=== PATIENT | female | born 1945 | race Caucasian/White ===

== ENCOUNTER 2023-10-03 18:52 | Inpatient (IN) | payer MEDICARE, SELFPAY ==
[2023-10-03 19:15] VITALS: BP 159/67; PULSE 80; RESP 16; TEMP 36.2; O2SAT 97
[2023-10-03 19:41] VITALS: BMI 34.6
[2023-10-03 20:00] VITALS: RESP 16
[2023-10-03 20:34] LABS: Glucose, Whole Blood 186 mg/dL (60-115)
[2023-10-04] MEDS: HYDROcodone Bit/Acetam 5/325 TABLET 1 TAB PO ×2 (00:13→20:47)
[2023-10-04] MEDS: Valsartan 160 MG TABLET PO ×2 (00:14→08:53)
[2023-10-04] MEDS: diazePAM 5 MG TABLET PO (00:14)
--- NOTE | 2023-10-04 00:40 | PC.ADMIT ---
( arrived 191410-03-23) pt is a 78 year old female who is a hospital to hospital transfer. she has signed CV document that has been accepted by ED md barlow. pt is pleasant and talkative. she states that she lives in an apartment and has services coming in to assist her. in recent times she has had difficulty with her landlord. pt states that she has been paranoid and isolative to her apartment. her sensorium is intact. she is noted to use a walker with a seat and breaks. she states that her legs are weak and if we give her one of our hospital walkers she will fall flat on her face. pt is edentulous and has a degree of alopecia. with the assistance of ky hdz pt is undressed and skin surfaces inspected. skin surfaces intact. no contraband found. resp effort is regular unlabored. pt states that she has asthma and uses an inhaler occasionally. vital signs stable. pt is mildly HTN. she is on several scheduled antihypertensive medications. abdomen is obese soft. pt states bm today. pt has no restrictions on her diet. she takes pills whole with water. in the remote past, pt had left nephrectomy. pt states that recently she was tx for a UTI. she states that she is still experiencing burning/frequency and pain. administrative officers Will Buddy and Claritza notified that pts walker has breaking cables. however, any attempt to replace walker with a hospital walker is a safety issue. please note pt states she is IDDM. she is unsure what the name of the insulin is or what dose she takes. also pt states that she was discharged 2 weeks ago the [facility] hospital [place]. pt states she spent 19 days at [facility].
--- NOTE | 2023-10-04 01:03 | PC.ADMIT ---
arrived 191410-03-23) pt is a 78 year old female who is a hospital to hospital transfer. she has signed CV document that has been accepted by ED md barlow. pt is pleasant and talkative. she states that she lives in an apartment and has services coming in to assist her. in recent times she has had difficulty with her landlord. pt states that she has been paranoid and isolative to her apartment. her sensorium is intact. she is noted to use a walker with a seat and breaks. she states that her legs are weak and if we give her one of our hospital walkers she will fall flat on her face. pt is edentulous and has a degree of alopecia. with the assistance of ky hdz pt is undressed and skin surfaces inspected. skin surfaces intact. no contraband found. resp effort is regular unlabored. pt states that she has asthma and uses an inhaler occasionally. vital signs stable. pt is mildly HTN. she is on several scheduled antihypertensive medications. abdomen is obese soft. pt states bm today. pt has no restrictions on her diet. she takes pills whole with water. in the remote past, pt had left nephrectomy. pt states that recently she was tx for a UTI. she states that she is still experiencing burning/frequency and pain. administrative officers Will Buddy and Claritza notified that pts walker has breaking cables. however, any attempt to replace walker with a hospital walker is a safety issue. please note pt states she is IDDM. she is unsure what the name of the insulin is or what dose she takes. also pt states that she was discharged 2 weeks ago the [facility] hospital [place]. pt states she spent 19 days at [facility].
[2023-10-04 01:08] VITALS: BMI 34.7
[2023-10-04 08:18] LABS: Alanine Aminotransferase 37 U/L (0-31); Albumin Level 3.5 g/dL (3.5-5.0); Alkaline Phosphatase 63 U/L (39-117); Anion Gap 10 (12-20); Aspartate Amino Transferase 35 U/L (5-31); Bilirubin Total 0.6 mg/dL (0.0-1.0); Blood Urea Nitrogen 22 mg/dL (9-16); Calcium 9.5 mg/dL (8.4-10.2); Carbon Dioxide 27 mmol/L (22-29); Chloride 109 mmol/L (96-108); Cholesterol 199 mg/dL (<200); Creatinine Clr Calc Pharmacy 59.3; Estimated Glomerular Filt Rate > 60; Glucose Fasting 124 mg/dL (60-99); HDL Cholesterol 36 mg/dL (>40); LDL Cholesterol Calculated 136 mg/dL (<100); Potassium 4.3 mmol/L (3.3-5.1); Sodium 142 mmol/L (135-145); Triglycerides 135 mg/dL (<150)
[2023-10-04 08:51] VITALS: BP 124/61; PULSE 70; RESP 16; TEMP 36.2; O2SAT 98
[2023-10-04] MEDS: amLODIPine Besylate 5 MG TABLET PO (08:53)
[2023-10-04] MEDS: Cholecalciferol (Vitamin D3) 25 MCG TABLET 50 MCG PO (08:53)
--- NOTE | 2023-10-04 11:15 | HO.PM.IMCN ---
History of Present Illness Data of Consult Service Date: 10/04/23 Primary Care Provider: Anjelica Allen DO HPI Reason for consult: Admission H&P Pt is a 78-year-old female with a PMH significant for?HTN, asthma, insulin-dependent type 2 diabetes, and unspecified psychiatric diagnosis who is admitted to [facility] for paranoia and psychosis. Patient was placed on a section 12 by Emily after they were called to her apartment 4 times during the night. Patient reportedly believed that her landlord had been stealing money from her and hired a professional hit man who cut a hole in the wall of her closet in her bedroom to gain access to her apartment. Was noted to have nailed the door to her apartment shut. BPH also reported finding patient's insulin having been left out in the sun on the counter for 4 days. Medical consult for admission H&P. ?Patient complains of chronic wrist and arm pain that she attributes to carpal tunnel syndrome. Also complains of dry and cracked lips and gums which apparently can only be treated by ?Moist Mouth which she has received at a previous facility. Otherwise denies any acute medical complaints. No shortness a breath. Denies fever, chills, nausea, vomiting, abdominal pain. No chest pain/pressure, palpitations. Labs reviewed, significant for mildly elevated AST of 35 and ALT 37, protein 6.0, LDL 136, and HDL 36. Review of Systems Review of Systems: Chronic upper extremity neuropathy bilaterally Chronic dry and cracked mouth Otherwise patient denies any acute medical concerns [facility] Medical History (Updated 10/04/23 @ 20:10 by SANTOS Coughlin) GERD (gastroesophageal reflux disease) Asthma Hypertension Alopecia Active asthma Surgical History (Updated 10/04/23 @ 16:25 by Miracle Hoffman APRN) H/O left nephrectomy Social History Household Members: Other Household Members Other:: puppy dog Housing: Apartment Do you presently have visiting nurse or other home services: Yes Patient Tobacco Use Status: Former Tobacco user Tobacco use type: Cigarette Smoked in Last 30 Days: No e-Cigarette/Vaping Use: Former Use Patient Interested in Nicotine Replacement: No Patient Given Instructions on How to Stop Smoking: No Second Hand Smoke Exposure: No Use of substances other than those prescribed or required for medical reasons: No Substance Use Type: Prescription Drugs Currently Displaying Signs/Symptoms of Drug Intoxication Withdrawal: No Any prior treatment program specific to substance use: No Have you been hit, kicked, punched, or otherwise hurt by someone within the past year? If so, by whom?: No Do you feel safe in your current relationship?: No Current Relationship Is there a partner from a previous relationship who is making you feel unsafe now?: No Are you made to feel afraid or neglected: No Advance Directives: No Advance Directives Information Provided: No Do you have thoughts of harming others: None Do you have a plan to hurt others: No Plan Recently lost weight without trying: No Eating poorly because of decreased appetite: No Nutrition Risks: Dental problems and Difficulty chewing Patient : No : No Poor oral hygiene: No Meds Allergies Allergy/AdvReac Type Severity Reaction Status Date / Time No Known Allergies Allergy Verified 10/03/23 19:47 Active Medications: Current Medications Acetaminophen (Acetaminophen 325 Mg Tablet) 650 mg PO Q6H PRN PRN Reason: Headache/Pain Mild Scale (1-3) Hydrocodone Bitart/Acetaminophen (Hydrocodone Bit/Acetam 5/325 Tablet) 1 tab PO BID PRN PRN Reason: Pain, Severe (Pain Scale 7-10) Last Admin: 10/04/23 00:13 Dose: 1 tab Al Hydroxide/Mg Hydroxide (Magnesium Hydrox/Alum Hydrox 30 Ml Oral.Susp) 30 ml PO Q6H PRN PRN Reason: Heartburn/Nausea Albuterol Sulfate (Albuterol Sulfate 90 Mcg 8 Gm Inhaler) 2 puff INHALE RQ4H PRN PRN Reason: sob Amlodipine Besylate (Amlodipine Besylate 5 Mg Tablet) 5 mg PO DAILY VIVEK; Protocol Last Admin: 10/04/23 08:53 Dose: 5 mg Clotrimazole (Clotrimazole 1 % Vaginal Cream 45 Gm Tube) 1 appl VAGINAL BID VIVEK Stop: 10/06/23 21:01 Last Admin: 10/04/23 10:06 Dose: Not Given Diazepam (Diazepam 5 Mg Tablet) 5 mg PO TID PRN PRN Reason: Anxiety Last Admin: 10/04/23 00:14 Dose: 5 mg Hydroxyzine HCl (Hydroxyzine Hcl 25 Mg Tablet) 25 mg PO Q6H PRN PRN Reason: Anxiety Magnesium Hydroxide (Milk Of Magnesia 30 Ml Oral.Susp) 30 ml PO DAILY PRN PRN Reason: Constipation Trazodone HCl (Trazodone Hcl 50 Mg Tablet) 50 mg PO BEDTIME MRX1 PRN PRN Reason: Insomnia Valsartan (Valsartan 160 Mg Tablet) 160 mg PO DAILY VIVEK; Protocol Last Admin: 10/04/23 08:53 Dose: 160 mg Vitamin D (Cholecalciferol (Vitamin D3) 25 Mcg Tablet) 50 mcg PO DAILY [facility] Last Admin: 10/04/23 08:53 Dose: 50 mcg Home Medications ?Medication ?Instructions ?Recorded ?Confirmed ?Last Taken ?Type albuterol sulfate 2.5 mg continuous nebulization 10/03/23 10/03/23 Unknown History Q4-5H PRN sob amlodipine 5 mg tablet 5 mg PO DAILY 10/03/23 10/03/23 Unknown History cholecalciferol (vitamin D3) 5,000 tab PO DAILY 10/03/23 10/03/23 Unknown History clotrimazole 1 % topical cream 1 appl topical BID 10/03/23 10/03/23 Unknown History diazepam 5 mg tablet 5 mg PO TID PRN Anxiety 10/03/23 10/03/23 Unknown History hydrocodone 10 mg-acetaminophen 1 tab PO BID PRN Pain 10/03/23 10/03/23 Unknown History 325 mg tablet valsartan 160 mg tablet 160 mg PO DAILY 10/03/23 10/03/23 Unknown History Physical Exam Vital Signs and Narrative: Vital Signs: Last Vital Signs Temp 97.1 F 10/04/23 08:51 Pulse 70 10/04/23 08:51 Resp 16 10/04/23 08:51 BP 124/61 10/04/23 08:51 Pulse Ox 98 10/04/23 08:51 O2 Del Method Room Air 10/04/23 08:51 BMI result Body Mass Index 34.7 General: AOx3, no acute distress Mouth: Mucous membranes moist Resp: CTA bilaterally CVS: S1, S2, RRR GI: +BS, NT, no distention Skin: Warm, dry Neuro: Cranial nerves II-XII grossly intact bilaterally. Motor grossly intact bilaterally, though global weakness noted Extremities: No edema Results Labs 10/04/23 17:31 10/04/23 07:44 Labs: Laboratory Results - last 24 hr 10/03/23 10/04/23 20:13 07:44 Anion Gap 10 L Estim Creat Clear Calc 59.3 Estimated GFR > 60 POC Glucose 186 H Fasting Glucose 124 H Calcium 9.5 Total Bilirubin 0.6 AST 35 H ALT 37 H Alkaline Phosphatase 63 Total Protein 6.0 L Albumin 3.5 Triglycerides 135 Cholesterol 199 LDL Cholesterol, Calc 136 H HDL Cholesterol 36 L Assessment and Plan (1) Medical clearance for psychiatric admission: Status: Acute Plan Pt is a 78-year-old female with a PMH significant for?HTN, asthma, insulin-dependent type 2 diabetes, and unspecified psychiatric diagnosis who is admitted to [facility] for paranoia and psychosis. Patient was placed on a section 12 by VELMA Diaz after they were called to her apartment 4 times during the night. Patient reportedly believed that her landlord had been stealing money from her and hired a professional hit man who cut a hole in the wall of her closet in her bedroom to gain access to her apartment. Was noted to have nailed the door to her apartment shut. BPH also reported finding patient's insulin having been left out in the sun on the counter for 4 days. Medical consult for admission H&P. Mood disorder Plan as per Psychiatry Upper extremity neuropathy Patient complains of chronic wrist and hand pain radiating to her shoulders bilaterally Reports will soon have nerve conduction study Follow up outpatient Dry lips and gums Patient complains of having dry, cracked lips and gums States can only used ?moist mouth? that she received at a different facility Patient's mucous membranes noted to be moist upon physical examination Lip balm for dry lips Encourage p.o. hydration Insulin-dependent type 2 diabetes Patient apparently has recently been noncompliant with home insulin BPH noted patient's insulin was not refrigerated but sitting out on the counter in the sun for 4 days Patient previously on short-acting and long-acting insulin POC glucose 186 last night, fasting glucose [address] patient on sliding scale insulin Check A1c HTN Continue amlodipine, valsartan Asthma Not in acute exacerbation Continue home inhaler Thank you for allowing us to participate in the care of this patient. We will continue to follow for now to monitor A1c and see if need to add any long acting insulin.
--- NOTE | 2023-10-04 11:26 | HO.PSYADMNOT ---
HPI Chief Complaint: section 12 Diagnostics Vital Signs (24Hr): Vital Signs - 24 hr 10/03/23 19:15 10/03/23 20:00 10/04/23 08:51 Temperature 97.2 F 97.1 F Pulse Rate 80 70 Respiratory Rate 16 16 16 Blood Pressure 159/67 H 124/61 Pulse Oximetry 97 98 Oxygen Delivery Method Room Air Room Air BMI result Body Mass Index 34.7 Labs 10/04/23 07:44 Labs: Laboratory Results - last 48 hr 10/03/23 10/04/23 20:13 07:44 Sodium 142 Potassium 4.3 Chloride 109 H Carbon Dioxide 27 Anion Gap 10 L BUN 22 H Creatinine 0.82 Estim Creat Clear Calc 59.3 Estimated GFR > 60 POC Glucose 186 H Fasting Glucose 124 H Calcium 9.5 Total Bilirubin 0.6 AST 35 H ALT 37 H Alkaline Phosphatase 63 Total Protein 6.0 L Albumin 3.5 Triglycerides 135 Cholesterol 199 LDL Cholesterol, Calc 136 H HDL Cholesterol 36 L Meds/Allergies Meds Home Medications ?Medication ?Instructions ?Recorded ?Confirmed ?Type albuterol sulfate 2.5 mg continuous nebulization 10/03/23 10/03/23 History Q4-5H PRN sob amlodipine 5 mg tablet 5 mg PO DAILY 10/03/23 10/03/23 History cholecalciferol (vitamin D3) 5,000 tab PO DAILY 10/03/23 10/03/23 History clotrimazole 1 % topical cream 1 appl topical BID 10/03/23 10/03/23 History diazepam 5 mg tablet 5 mg PO TID PRN Anxiety 10/03/23 10/03/23 History hydrocodone 10 mg-acetaminophen 1 tab PO BID PRN Pain 10/03/23 10/03/23 History 325 mg tablet valsartan 160 mg tablet 160 mg PO DAILY 10/03/23 10/03/23 History Allergies Allergies Allergy/AdvReac Type Severity Reaction Status Date / Time No Known Allergies Allergy Verified 10/03/23 19:47 Assessment & Plan Statement Statement: I have reviewed the history and physical and performed a pertinent examination on my patient. No changes have occurred unless specified. If the History and Physical was not performed prior to admission, the Hospitalist's service will be consulted for completing the admission physical. Time Spent With Patient Time: Total time managing care of this patient today ____ minutes.
--- NOTE | 2023-10-04 11:42 | P.HPPS_ITS ---
HPI Date of Service: 10/04/23 Chief Complaint: section 12 Sources of Information: patient interviewed, chart reviewed and crisis/core team assessment reviewed HPI Subjective Notes: Chambers Warning and Conditional Voluntary Healthcare Proxy: No Narrative: Pt amitted from [facility] ED where she was sectioned 12 due to repeatedly calling the police from her apartment and presenting paranoid and confused; pt tells me that she has a friend at the police department that was concerned about her because she went to a motel for 3 days to get away from her landlord whom she believes is stealing from her and has a hitman hired to kill her. She reports that she was at [facility] recently (approximately a week before this admission per pt) and she was there fro 19 days. in pt persepctvie they did nothing for her. She says that [facility] has done more for her. they have gotten her a social owrker, a therpaist and a nurse bt she does not know the name of any of them. Pt does know that her PCP is Dr Allen. Pt is oriented to person and situation but not to date, time or exact facility. Pt has word finding difficult and delayed recall but then with time finds the word she wants to use. Pt tells me that she has had therapists in past because she had agoraphobia for 20 years and did not go out of her home from approximately age [age]. She says the therapist helped her slowly to go out of her home. And over the past few years she has enjoyed taking the [employer] to stores and walking as much as she can; she says she has enjoyed making friends with mariaa on the bus and in the stores wheres she frequents. Pt is tearful and feel that the person who sent her to the [facility] is trying to get her to stay in her home again like she did with agoraphobia and she becomes very tearful. Pt also tells me her last year. she denies depression and does not think she is having paranoid thoughts or irrational thoughts; she beleives her landlord stole 3K from her. She says she has a 3# dog thats she would like cynthia her therapy dog so that she can take her with her on outings. she says [facility] is trying to find her a new place to live. Past Psychiatric History: crisis report states she was in [facility] September 2023 no other details known; pt reports agoraphobia in past Medical Evaluation Reviewed: Yes utox + benzodiazepines and opiates and on rx valium and oxycodone PMFSH Medical History (Updated 10/04/23 @ 16:25 by Miracle Hoffman APRN) Alopecia Active asthma Narrative: pt reports HTN past hx of diabetes Surgical History (Updated 10/04/23 @ 16:25 by Miracle Hoffman APRN) H/O left nephrectomy Family History: x 1 yr. had 7 children 2 are . 1 child lives nearby but is disabled; the other children live in different states. Social History: lives alone Substance History: none Trauma History: none known Diagnostics Vital Signs (24Hr): Vital Signs - 24 hr 10/03/23 19:15 10/03/23 20:00 10/04/23 08:51 Temperature 97.2 F 97.1 F Pulse Rate 80 70 Respiratory Rate 16 16 16 Blood Pressure 159/67 H 124/61 Pulse Oximetry 97 98 Oxygen Delivery Method Room Air Room Air BMI result Body Mass Index 34.7 Labs 10/04/23 07:44 Labs: Laboratory Results - last 48 hr 10/03/23 10/04/23 20:13 07:44 Sodium 142 Potassium 4.3 Chloride 109 H Carbon Dioxide 27 Anion Gap 10 L BUN 22 H Creatinine 0.82 Estim Creat Clear Calc 59.3 Estimated GFR > 60 POC Glucose 186 H Fasting Glucose 124 H Calcium 9.5 Total Bilirubin 0.6 AST 35 H ALT 37 H Alkaline Phosphatase 63 Total Protein 6.0 L Albumin 3.5 Triglycerides 135 Cholesterol 199 LDL Cholesterol, Calc 136 H HDL Cholesterol 36 L Meds/Allergies Meds Home Medications ?Medication ?Instructions ?Recorded ?Confirmed ?Type albuterol sulfate 2.5 mg continuous nebulization 10/03/23 10/03/23 History Q4-5H PRN sob amlodipine 5 mg tablet 5 mg PO DAILY 10/03/23 10/03/23 History cholecalciferol (vitamin D3) 5,000 tab PO DAILY 10/03/23 10/03/23 History clotrimazole 1 % topical cream 1 appl topical BID 10/03/23 10/03/23 History diazepam 5 mg tablet 5 mg PO TID PRN Anxiety 10/03/23 10/03/23 History hydrocodone 10 mg-acetaminophen 1 tab PO BID PRN Pain 10/03/23 10/03/23 History 325 mg tablet valsartan 160 mg tablet 160 mg PO DAILY 10/03/23 10/03/23 History Allergies Allergies Allergy/AdvReac Type Severity Reaction Status Date / Time No Known Allergies Allergy Verified 10/03/23 19:47 Mental Status Exam Mental Status Exam Patient Appearance: Appropriate Patient Orientation: Person and Situation Level of Consciousness: Awake, Appropriate and Alert Patient Behavior: Appropriate, Cooperative and Crying Mood Description: Sad Affect Description: Anxious, Sad and Apprehensive Patient Cognition Impaired: Yes Ability to Follow Directions: Fair Speech Pattern: Difficulty Finding Words and Delayed Memory Description: Episodic Impaired Delusions: Paranoid Ideation Thought Process: Goal Oriented (focused on discharge ) Thought Content: positive for Goal Oriented (focused on discharge) Judgement: Poor Assessment & Plan Assessment & Plan (1) Major depressive disorder, single episode, severe w psychotic behavior: Status: Acute Code(s): F32.3 - Major depressive disorder, single episode, severe with psychotic features (2) Cognitive and behavioral changes: Status: Acute Code(s): R41.89 - Other symptoms and signs involving cognitive functions and awareness; R46.89 - Other symptoms and signs involving appearance and behavior Plan admit to S1 CV 15 min checks POC BID hospitalist consult re: diabetes labs: CBC, B12 level, vit d level, tsh with reflex [id number] level, mg collect collateral info [facility] and [facility] pt refusing medications at this time encourage antipsychotic and antidepressant continue to educated re dx Patient educated on: diagnosis, medication risk/benefits and therapeutic strategies Informed Consent: does not understand and further education needed Reason for continued inpatient stay Substantial Risk for: harm to self and inability to function Statement Statement: I have reviewed the history and physical and performed a pertinent examination on my patient. No changes have occurred unless specified. If the History and Physical was not performed prior to admission, the Hospitalist's service will be consulted for completing the admission physical. Time Spent With Patient Time: Total time managing care of this patient today _60___ minutes.
[2023-10-04 17:36] LABS: MANUAL DIFF FLAG NO
[2023-10-04 17:51] LABS: Basophils Percent Auto 0.4 % (0-2); Eosinophils Absolute Auto 0.1 X10*3/uL (0.0-0.4); Eosinophils Percent Auto 1.1 % (0-4); Hematocrit 46.1 % (37.0-47.0); Hemoglobin 15.2 g/dl (12.0-16.0); Imm Gran Abs Auto 0.08 X10*3/uL (0.00-0.03); Imm Gran Pct Auto 1.1 % (0.0-0.4); Lymphocytes Absolute Auto 1.6 X10*3/uL (1.2-4.9); Lymphocytes Percent Auto 22.8 % (20-40); Mean Corpuscular Hemoglobin 29.6 pg (27.0-33.0); Mean Corpuscular Volume 89.7 fL (80.0-98.0); Mean Platelet Volume 9.8 fL (9.4-12.3); Monocytes Absolute Auto 0.5 X10*3/uL (0.1-1.2); Neutrophils Absolute Auto 4.8 x10*3/uL (2.0-8.3); Neutrophils Percent Auto 67.6 % (45-73); Platelet Count 236 X10*3/uL (160-400); Red Blood Count 5.14 X10*6/uL (4.20-5.50); Red Cell Distribution Width 12.9 % (11.0-16.0); White Blood Count 7.1 X10*3/uL (4.8-10.8)
[2023-10-04 20:00] VITALS: BP 137/61; PULSE 75; RESP 16; TEMP 35.8; O2SAT 95
[2023-10-04] MEDS: Clotrimazole 1 % Vaginal Cream 45 GM TUBE 1 APPL VAGINAL (20:18)
[2023-10-04 21:20] LABS: Glucose, Whole Blood 168 mg/dL (60-115)
[2023-10-05 05:16] LABS: Estimated Average Glucose 131 mg/dL; Hemoglobin A1c % 6.2 % (<6.0)
[2023-10-05 07:00] LABS: Glucose, Whole Blood 133 mg/dL (60-115)
[2023-10-05 09:15] VITALS: BP 134/60; PULSE 84; RESP 16; TEMP 35.7; O2SAT 97
[2023-10-05 09:20] VITALS: BP 134/60
[2023-10-05] MEDS: amLODIPine Besylate 5 MG TABLET PO (09:20)
[2023-10-05 09:21] VITALS: BP 134/60
[2023-10-05] MEDS: Valsartan 160 MG TABLET PO (09:21)
[2023-10-05] MEDS: Cholecalciferol (Vitamin D3) 25 MCG TABLET 50 MCG PO (09:22)
[2023-10-05] MEDS: Clotrimazole 1 % Vaginal Cream 45 GM TUBE 1 APPL VAGINAL ×2 (09:23→23:29)
[2023-10-05] MEDS: HYDROcodone Bit/Acetam 5/325 TABLET 1 TAB PO ×2 (10:04→21:05)
[2023-10-05 10:53] LABS: Glucose, Whole Blood 166 mg/dL (60-115)
--- NOTE | 2023-10-05 13:40 | P.PNPSI_ITS ---
Subjective Subjective Date of Service: 10/05/23 Reason For Visit: section 12 Interim History: somatically pre-occupied. c/o not getting her diabetes shot. also reports people are coming in her room at night while she is sleeping and injecting her. per staff, delusional. taking meds. Mental Status Exam Mental Status Exam Patient Appearance: Appropriate Patient Orientation: Person and Situation Level of Consciousness: Awake, Appropriate and Alert Patient Behavior: Appropriate and Cooperative Mood Description: Sad Affect Description: Anxious and Sad Patient Cognition Impaired: Yes Ability to Follow Directions: Fair Speech Pattern: Difficulty Finding Words and Delayed Memory Description: Episodic Impaired Delusions: Paranoid Ideation Thought Process: Goal Oriented (focused on discharge ) Thought Content: positive for Goal Oriented (focused on discharge) Judgement: Poor Diagnostics Vital Signs (24Hr): Vital Signs - 24 hr 10/04/23 20:00 10/05/23 09:15 10/05/23 09:20 Temperature 96.4 F L 96.3 F L Pulse Rate 75 84 Respiratory Rate 16 16 Blood Pressure 137/61 134/60 134/60 Pulse Oximetry 95 97 Oxygen Delivery Method Room Air Room Air 10/05/23 09:21 Temperature Pulse Rate Respiratory Rate Blood Pressure 134/60 Pulse Oximetry Oxygen Delivery Method BMI result Body Mass Index 34.7 Labs 10/04/23 17:31 10/04/23 07:44 Labs: Laboratory Results - last 48 hr 10/03/23 10/04/23 10/04/23 20:13 07:44 17:31 WBC 7.1 RBC 5.14 Hgb 15.2 Hct 46.1 MCV 89.7 MCH 29.6 MCHC 33.0 RDW 12.9 Plt Count 236 MPV 9.8 Immature Gran % (Auto) 1.1 H Neut % (Auto) 67.6 Lymph % (Auto) 22.8 [place] % (Auto) 7.0 Eos % (Auto) 1.1 Baso % (Auto) 0.4 Lymph # (Auto) 1.6 [place] # (Auto) 0.5 Eos # (Auto) 0.1 Baso # (Auto) 0.0 Abs Immat Gran (auto) 0.08 H Absolute Neuts (auto) 4.8 Absolute Nucleated RBC 0.000 Nucleated RBC % (auto) 0.0 Sodium 142 Potassium 4.3 Chloride 109 H Carbon Dioxide 27 Anion Gap 10 L BUN 22 H Creatinine 0.82 Estim Creat Clear Calc 59.3 Estimated GFR > 60 POC Glucose 186 H Fasting Glucose 124 H Estimat Average Glucose 131 Hemoglobin A1c % 6.2 H Calcium 9.5 Total Bilirubin 0.6 AST 35 H ALT 37 H Alkaline Phosphatase 63 Total Protein 6.0 L Albumin 3.5 Triglycerides 135 Cholesterol 199 LDL Cholesterol, Calc 136 H HDL Cholesterol 36 L 10/04/23 10/05/23 10/05/23 21:11 06:30 10:49 WBC RBC Hgb Hct MCV MCH MCHC RDW Plt Count MPV Immature Gran % (Auto) Neut % (Auto) Lymph % (Auto) [place] % (Auto) Eos % (Auto) Baso % (Auto) Lymph # (Auto) [place] # (Auto) Eos # (Auto) Baso # (Auto) Abs Immat Gran (auto) Absolute Neuts (auto) Absolute Nucleated RBC Nucleated RBC % (auto) Sodium Potassium Chloride Carbon Dioxide Anion Gap BUN Creatinine Estim Creat Clear Calc Estimated GFR POC Glucose 168 H 133 H 166 H Fasting Glucose Estimat Average Glucose Hemoglobin A1c % Calcium Total Bilirubin AST ALT Alkaline Phosphatase Total Protein Albumin Triglycerides Cholesterol LDL Cholesterol, Calc HDL Cholesterol Medications Medications Current Medications Acetaminophen (Acetaminophen 325 Mg Tablet) 650 mg PO Q6H PRN PRN Reason: Headache/Pain (1-10) Hydrocodone Bitart/Acetaminophen (Hydrocodone Bit/Acetam 5/325 Tablet) 1 tab PO BID PRN PRN Reason: Pain, Severe (Pain Scale 7-10) Last Admin: 10/05/23 10:04 Dose: 1 tab Al Hydroxide/Mg Hydroxide (Magnesium Hydrox/Alum Hydrox 30 Ml Oral.Susp) 30 ml PO Q6H PRN PRN Reason: Heartburn/Nausea Albuterol Sulfate (Albuterol Sulfate 90 Mcg 8 Gm Inhaler) 2 puff INHALE RQ4H PRN PRN Reason: sob Amlodipine Besylate (Amlodipine Besylate 5 Mg Tablet) 5 mg PO DAILY VIVEK; Protocol Last Admin: 10/05/23 09:20 Dose: 5 mg Clotrimazole (Clotrimazole 1 % Vaginal Cream 45 Gm Tube) 1 appl VAGINAL BID VIVEK Stop: 10/06/23 21:01 Last Admin: 10/05/23 09:23 Dose: 1 appl Diazepam (Diazepam 5 Mg Tablet) 5 mg PO TID PRN PRN Reason: Anxiety Last Admin: 10/04/23 00:14 Dose: 5 mg Hydroxyzine HCl (Hydroxyzine Hcl 25 Mg Tablet) 25 mg PO Q6H PRN PRN Reason: Anxiety Magnesium Hydroxide (Milk Of Magnesia 30 Ml Oral.Susp) 30 ml PO DAILY PRN PRN Reason: Constipation Trazodone HCl (Trazodone Hcl 50 Mg Tablet) 50 mg PO BEDTIME MRX1 PRN PRN Reason: Insomnia Valsartan (Valsartan 160 Mg Tablet) 160 mg PO DAILY VIVEK; Protocol Last Admin: 10/05/23 09:21 Dose: 160 mg Vitamin D (Cholecalciferol (Vitamin D3) 25 Mcg Tablet) 50 mcg PO DAILY VIVEK Last Admin: 10/05/23 09:22 Dose: 50 mcg Allergies Allergies Allergy/AdvReac Type Severity Reaction Status Date / Time No Known Allergies Allergy Verified 10/03/23 19:47 Assessment & Plan Assessment & Plan (1) Medical clearance for psychiatric admission: Status: Acute Code(s): Z00.8 - Encounter for other general examination Assessment and Plan: Mood disorder Plan as per Psychiatry Upper extremity neuropathy Patient complains of chronic wrist and hand pain radiating to her shoulders bilaterally Reports will soon have nerve conduction study Follow up outpatient Dry lips and gums Patient complains of having dry, cracked lips and gums States can only used ?moist mouth? that she received at a different facility Patient's mucous membranes noted to be moist upon physical examination Lip balm for dry lips Encourage p.o. hydration Insulin-dependent type 2 diabetes Patient apparently has recently been noncompliant with home insulin BPH noted patient's insulin was not refrigerated but sitting out on the counter in the sun for 4 days Patient previously on short-acting and long-acting insulin POC glucose 186 last night, fasting glucose [address] patient on sliding scale insulin Check A1c HTN Continue amlodipine, valsartan Asthma Not in acute exacerbation Continue home inhaler Thank you for allowing us to participate in the care of this patient. We will continue to follow for now to monitor A1c and see if need to add any long acting insulin. Plan Pt is a 78-year-old female with a PMH significant for?HTN, asthma, insulin- dependent type 2 diabetes, and unspecified psychiatric diagnosis who is admitted to [facility] for paranoia and psychosis. Patient was placed on a section 12 by VELMA Diaz after they were called to her apartment 4 times during the night. Patient reportedly believed that her landlord had been stealing money from her and hired a professional hit man who cut a hole in the wall of her closet in her bedroom to gain access to her apartment. Was noted to have nailed the door to her apartment shut. BPH also reported finding patient's insulin having been left out in the sun on the counter for 4 days. Medical consult for admission H&P. 10/03: POC BID. hospitalist consult re: diabetes. labs: CBC, B12 level, vit d level, tsh with reflex [id number] level, mg . collect collateral info from [facility] and [facility]. pt refusing medications at this time. encourage antipsychotic and antidepressant. continue to educated re dx. 10/04: start risperidone 0.5 mg BID. no change from admission yesterday. Reason for continued inpatient stay Substantial Risk for: inability to function Time Spent With Patient Time: Total time managing care of this patient today __25__ minutes.
[2023-10-05] MEDS: diazePAM 5 MG TABLET PO ×2 (15:05→21:05)
[2023-10-05 20:00] VITALS: BP 122/59; PULSE 76; RESP 16; TEMP 35.8; O2SAT 98
[2023-10-05 21:05] LABS: Glucose, Whole Blood 146 mg/dL (60-115)
[2023-10-05] MEDS: risperiDONE 0.5 MG TABLET PO (21:05)
[2023-10-06 06:54] LABS: Glucose, Whole Blood 120 mg/dL (60-115)
[2023-10-06 08:00] VITALS: BP 120/59; PULSE 84; RESP 17; TEMP 36.1; O2SAT 96
[2023-10-06] MEDS: Cholecalciferol (Vitamin D3) 25 MCG TABLET 50 MCG PO (08:45)
[2023-10-06] MEDS: amLODIPine Besylate 5 MG TABLET PO (08:46)
[2023-10-06] MEDS: risperiDONE 0.5 MG TABLET PO ×2 (08:46→19:42)
[2023-10-06] MEDS: Valsartan 160 MG TABLET PO (08:46)
[2023-10-06] MEDS: Clotrimazole 1 % Vaginal Cream 45 GM TUBE 1 APPL VAGINAL ×2 (08:48→19:42)
[2023-10-06] MEDS: HYDROcodone Bit/Acetam 5/325 TABLET 1 TAB PO ×2 (09:18→19:42)
--- NOTE | 2023-10-06 10:33 | HO.PSYCHPN ---
Subjective Subjective Date of Service: 10/06/23 Reason For Visit: section 12 Interim History: calm, cooperative. c/o abd discomfort, declines any medications. no other requests or complaints. continue current mgmt. per staff, enies SI/HI/AVH. taking meds. PRN vicodin. no issues. Mental Status Exam Mental Status Exam Patient Appearance: Appropriate Patient Orientation: Person and Situation Level of Consciousness: Awake, Appropriate and Alert Patient Behavior: Appropriate and Cooperative Mood Description: Sad Affect Description: Anxious and Sad Patient Cognition Impaired: Yes Ability to Follow Directions: Fair Speech Pattern: Difficulty Finding Words and Delayed Memory Description: Episodic Impaired Delusions: Paranoid Ideation Thought Process: Goal Oriented (focused on discharge ) Thought Content: positive for Goal Oriented (focused on discharge) Judgement: Poor Diagnostics Vital Signs (24Hr): Vital Signs - 24 hr 10/05/23 20:00 10/06/23 08:00 Temperature 96.4 F L 96.9 F Pulse Rate 76 84 Respiratory Rate 16 17 Blood Pressure 122/59 L 120/59 L Pulse Oximetry 98 96 Oxygen Delivery Method Room Air Room Air BMI result Body Mass Index 34.7 Labs 10/04/23 17:31 10/04/23 07:44 Labs: Laboratory Results - last 48 hr 10/04/23 10/04/23 10/05/23 17:31 21:11 06:30 WBC 7.1 RBC 5.14 Hgb 15.2 Hct 46.1 MCV 89.7 MCH 29.6 MCHC 33.0 RDW 12.9 Plt Count 236 MPV 9.8 Immature Gran % (Auto) 1.1 H Neut % (Auto) 67.6 Lymph % (Auto) 22.8 [place] % (Auto) 7.0 Eos % (Auto) 1.1 Baso % (Auto) 0.4 Lymph # (Auto) 1.6 [place] # (Auto) 0.5 Eos # (Auto) 0.1 Baso # (Auto) 0.0 Abs Immat Gran (auto) 0.08 H Absolute Neuts (auto) 4.8 Absolute Nucleated RBC 0.000 Nucleated RBC % (auto) 0.0 POC Glucose 168 H 133 H Estimat Average Glucose 131 Hemoglobin A1c % 6.2 H 10/05/23 10/05/23 10/06/23 10:49 19:51 06:31 WBC RBC Hgb Hct MCV MCH MCHC RDW Plt Count MPV Immature Gran % (Auto) Neut % (Auto) Lymph % (Auto) [place] % (Auto) Eos % (Auto) Baso % (Auto) Lymph # (Auto) [place] # (Auto) Eos # (Auto) Baso # (Auto) Abs Immat Gran (auto) Absolute Neuts (auto) Absolute Nucleated RBC Nucleated RBC % (auto) POC Glucose 166 H 146 H 120 H Estimat Average Glucose Hemoglobin A1c % Medications Medications Current Medications Acetaminophen (Acetaminophen 325 Mg Tablet) 650 mg PO Q6H PRN PRN Reason: Headache/Pain (1-10) Hydrocodone Bitart/Acetaminophen (Hydrocodone Bit/Acetam 5/325 Tablet) 1 tab PO BID PRN PRN Reason: Pain, Severe (Pain Scale 7-10) Last Admin: 10/06/23 09:18 Dose: 1 tab Al Hydroxide/Mg Hydroxide (Magnesium Hydrox/Alum Hydrox 30 Ml Oral.Susp) 30 ml PO Q6H PRN PRN Reason: Heartburn/Nausea Albuterol Sulfate (Albuterol Sulfate 90 Mcg 8 Gm Inhaler) 2 puff INHALE RQ4H PRN PRN Reason: sob Amlodipine Besylate (Amlodipine Besylate 5 Mg Tablet) 5 mg PO DAILY [facility]; Protocol Last Admin: 10/06/23 08:46 Dose: 5 mg Clotrimazole (Clotrimazole 1 % Vaginal Cream 45 Gm Tube) 1 appl VAGINAL BID [facility]1983 Stop: 10/06/23 21:01 Last Admin: 10/06/23 08:48 Dose: 1 appl Diazepam (Diazepam 5 Mg Tablet) 5 mg PO TID PRN PRN Reason: Anxiety Last Admin: 10/05/23 21:05 Dose: 5 mg Hydroxyzine HCl (Hydroxyzine Hcl 25 Mg Tablet) 25 mg PO Q6H PRN PRN Reason: Anxiety Magnesium Hydroxide (Milk Of Magnesia 30 Ml Oral.Susp) 30 ml PO DAILY PRN PRN Reason: Constipation Risperidone (Risperidone 0.5 Mg Tablet) 0.5 mg PO BID [facility] Last Admin: 10/06/23 08:46 Dose: 0.5 mg Trazodone HCl (Trazodone Hcl 50 Mg Tablet) 50 mg PO BEDTIME MRX1 PRN PRN Reason: Insomnia Valsartan (Valsartan 160 Mg Tablet) 160 mg PO DAILY [facility], [facility]; Protocol Last Admin: 10/06/23 08:46 Dose: 160 mg Vitamin D (Cholecalciferol (Vitamin D3) 25 Mcg Tablet) 50 mcg PO DAILY VIVEK Last Admin: 10/06/23 08:45 Dose: 50 mcg Allergies Allergies Allergy/AdvReac Type Severity Reaction Status Date / Time No Known Allergies Allergy Verified 10/03/23 19:47 Assessment & Plan Assessment & Plan (1) Medical clearance for psychiatric admission: Status: Acute Code(s): Z00.8 - Encounter for other general examination Assessment and Plan: Mood disorder Plan as per Psychiatry Upper extremity neuropathy Patient complains of chronic wrist and hand pain radiating to her shoulders bilaterally Reports will soon have nerve conduction study Follow up outpatient Dry lips and gums Patient complains of having dry, cracked lips and gums States can only used ?moist mouth? that she received at a different facility Patient's mucous membranes noted to be moist upon physical examination Lip balm for dry lips Encourage p.o. hydration Insulin-dependent type 2 diabetes Patient apparently has recently been noncompliant with home insulin BPH noted patient's insulin was not refrigerated but sitting out on the counter in the sun for 4 days Patient previously on short-acting and long-acting insulin POC glucose 186 last night, fasting glucose [address] patient on sliding scale insulin Check A1c HTN Continue amlodipine, valsartan Asthma Not in acute exacerbation Continue home inhaler Thank you for allowing us to participate in the care of this patient. We will continue to follow for now to monitor A1c and see if need to add any long acting insulin. (2) Major depressive disorder, single episode, severe w psychotic behavior: Status: Acute Code(s): F32.3 - Major depressive disorder, single episode, severe with psychotic features (3) Cognitive and behavioral changes: Status: Acute Code(s): R41.89 - Other symptoms and signs involving cognitive functions and awareness; R46.89 - Other symptoms and signs involving appearance and behavior Plan Pt is a 78-year-old female with a PMH significant for?HTN, asthma, insulin-dependent type 2 diabetes, and unspecified psychiatric diagnosis who is admitted to [facility] for paranoia and psychosis. Patient was placed on a section 12 by Emily after they were called to her apartment 4 times during the night. Patient reportedly believed that her landlord had been stealing money from her and hired a professional hit man who cut a hole in the wall of her closet in her bedroom to gain access to her apartment. Was noted to have nailed the door to her apartment shut. BPH also reported finding patient's insulin having been left out in the sun on the counter for 4 days. Medical consult for admission H&P. 10/03: POC BID. hospitalist consult re: diabetes. labs: CBC, B12 level, vit d level, tsh with reflex [id number] level, mg . collect collateral info from [facility] and [facility]. pt refusing medications at this time. encourage antipsychotic and antidepressant. continue to educated re dx. 10/04: start risperidone 0.5 mg BID. no change from admission yesterday. 10/05: no issues, taking meds, pleasant. continue current mgmt. Reason for continued inpatient stay Substantial Risk for: harm to others and inability to function Time Spent With Patient Time: Total time managing care of this patient today ____ minutes.
[2023-10-06] MEDS: diazePAM 5 MG TABLET PO (19:43)
[2023-10-06 20:00] VITALS: BP 157/68; PULSE 86; RESP 16; TEMP 36.2; O2SAT 100
[2023-10-06 20:59] LABS: Glucose, Whole Blood 156 mg/dL (60-115)
[2023-10-07 06:43] LABS: Glucose, Whole Blood 156 mg/dL (60-115)
[2023-10-07 08:00] VITALS: BP 142/67; PULSE 94; RESP 17; TEMP 36.1; O2SAT 97
[2023-10-07] MEDS: amLODIPine Besylate 5 MG TABLET PO (08:24)
[2023-10-07] MEDS: Cholecalciferol (Vitamin D3) 25 MCG TABLET 50 MCG PO (08:24)
[2023-10-07] MEDS: Valsartan 160 MG TABLET PO (08:25)
[2023-10-07] MEDS: HYDROcodone Bit/Acetam 5/325 TABLET 1 TAB PO ×2 (08:28→20:59)
--- NOTE | 2023-10-07 10:39 | HO.PSYCHPN ---
Subjective Subjective Date of Service: 10/07/23 Reason For Visit: section 12 Interim History: paranoid. doesn't want to talk to MD about her concerns on unit bcse she believes it's wired. agreeable to have anotehr 2 days' worth of clotrimazole, although will not acknowledge having missed any doses. per staff, slept well. refused risperidone this morning saying she does not like how it makes her feel. Mental Status Exam Mental Status Exam Patient Appearance: Appropriate Patient Orientation: Person and Situation Level of Consciousness: Awake, Appropriate and Alert Patient Behavior: Appropriate and Cooperative Affect Description: Anxious Patient Cognition Impaired: Yes Ability to Follow Directions: Fair Speech Pattern: Difficulty Finding Words and Delayed Memory Description: Episodic Impaired Delusions: Paranoid Ideation Thought Process: Goal Oriented (focused on discharge ) Thought Content: positive for Goal Oriented (focused on discharge) Judgement: Poor Diagnostics Vital Signs (24Hr): Vital Signs - 24 hr 10/06/23 20:00 10/07/23 08:00 Temperature 97.2 F 96.9 F Pulse Rate 86 94 Respiratory Rate 16 17 Blood Pressure 157/68 H 142/67 H Pulse Oximetry 100 97 Oxygen Delivery Method Room Air Room Air BMI result Body Mass Index 34.7 Labs 10/04/23 17:31 10/04/23 07:44 Labs: Laboratory Results - last 48 hr 10/05/23 10/05/23 10/06/23 10:49 19:51 06:31 POC Glucose 166 H 146 H 120 H 10/06/23 10/07/23 20:41 05:57 POC Glucose 156 H 156 H Medications Medications Current Medications Acetaminophen (Acetaminophen 325 Mg Tablet) 650 mg PO Q6H PRN PRN Reason: Headache/Pain (1-10) Hydrocodone Bitart/Acetaminophen (Hydrocodone Bit/Acetam 5/325 Tablet) 1 tab PO BID PRN PRN Reason: Pain, Severe (Pain Scale 7-10) Last Admin: 10/07/23 08:28 Dose: 1 tab Al Hydroxide/Mg Hydroxide (Magnesium Hydrox/Alum Hydrox 30 Ml Oral.Susp) 30 ml PO Q6H PRN PRN Reason: Heartburn/Nausea Albuterol Sulfate (Albuterol Sulfate 90 Mcg 8 Gm Inhaler) 2 puff INHALE RQ4H PRN PRN Reason: sob Amlodipine Besylate (Amlodipine Besylate 5 Mg Tablet) 5 mg PO DAILY VIVEK; Protocol Last Admin: 10/07/23 08:24 Dose: 5 mg Diazepam (Diazepam 5 Mg Tablet) 5 mg PO TID PRN PRN Reason: Anxiety Last Admin: 10/06/23 19:43 Dose: 5 mg Hydroxyzine HCl (Hydroxyzine Hcl 25 Mg Tablet) 25 mg PO Q6H PRN PRN Reason: Anxiety Magnesium Hydroxide (Milk Of Magnesia 30 Ml Oral.Susp) 30 ml PO DAILY PRN PRN Reason: Constipation Risperidone (Risperidone 0.5 Mg Tablet) 0.5 mg PO BID [facility] Last Admin: 10/07/23 08:32 Dose: Not Given Trazodone HCl (Trazodone Hcl 50 Mg Tablet) 50 mg PO BEDTIME MRX1 PRN PRN Reason: Insomnia Valsartan (Valsartan 160 Mg Tablet) 160 mg PO DAILY [facility]; Protocol Last Admin: 10/07/23 08:25 Dose: 160 mg Vitamin D (Cholecalciferol (Vitamin D3) 25 Mcg Tablet) 50 mcg PO DAILY [facility] Last Admin: 10/07/23 08:24 Dose: 50 mcg Allergies Allergies Allergy/AdvReac Type Severity Reaction Status Date / Time No Known Allergies Allergy Verified 10/03/23 19:47 Assessment & Plan Assessment & Plan (1) Medical clearance for psychiatric admission: Status: Acute Code(s): Z00.8 - Encounter for other general examination Assessment and Plan: Mood disorder Plan as per Psychiatry Upper extremity neuropathy Patient complains of chronic wrist and hand pain radiating to her shoulders bilaterally Reports will soon have nerve conduction study Follow up outpatient Dry lips and gums Patient complains of having dry, cracked lips and gums States can only used ?moist mouth? that she received at a different facility Patient's mucous membranes noted to be moist upon physical examination Lip balm for dry lips Encourage p.o. hydration Insulin-dependent type 2 diabetes Patient apparently has recently been noncompliant with home insulin BPH noted patient's insulin was not refrigerated but sitting out on the counter in the sun for 4 days Patient previously on short-acting and long-acting insulin POC glucose 186 last night, fasting glucose [address] patient on sliding scale insulin Check A1c HTN Continue amlodipine, valsartan Asthma Not in acute exacerbation Continue home inhaler Thank you for allowing us to participate in the care of this patient. We will continue to follow for now to monitor A1c and see if need to add any long acting insulin. (2) Major depressive disorder, single episode, severe w psychotic behavior: Status: Acute Code(s): F32.3 - Major depressive disorder, single episode, severe with psychotic features (3) Cognitive and behavioral changes: Status: Acute Code(s): R41.89 - Other symptoms and signs involving cognitive functions and awareness; R46.89 - Other symptoms and signs involving appearance and behavior Plan Pt is a 78-year-old female with a PMH significant for?HTN, asthma, insulin-dependent type 2 diabetes, and unspecified psychiatric diagnosis who is admitted to [facility] for paranoia and psychosis. Patient was placed on a section 12 by VELMA Diaz after they were called to her apartment 4 times during the night. Patient reportedly believed that her landlord had been stealing money from her and hired a professional hit man who cut a hole in the wall of her closet in her bedroom to gain access to her apartment. Was noted to have nailed the door to her apartment shut. BPH also reported finding patient's insulin having been left out in the sun on the counter for 4 days. Medical consult for admission H&P. 10/03: POC BID. hospitalist consult re: diabetes. labs: CBC, B12 level, vit d level, tsh with reflex [id number] level, mg . collect collateral info from [facility] and [facility]. pt refusing medications at this time. encourage antipsychotic and antidepressant. continue to educated re dx. 10/04: start risperidone 0.5 mg BID. no change from admission yesterday. 10/05: no issues, taking meds, pleasant. continue current mgmt. 10/06: refused risperidone this morning saying she does not like how it makes her feel. remains with paranoid delusions. extend clotrimazole course by 2 days as pt has reportedly missed 2 applications. Reason for continued inpatient stay Substantial Risk for: harm to self, harm to others and inability to function Time Spent With Patient Time: Total time managing care of this patient today ____ minutes.
[2023-10-07 11:16] LABS: Glucose, Whole Blood 191 mg/dL (60-115)
[2023-10-07 20:00] VITALS: BP 130/66; PULSE 97; RESP 16; TEMP 36; O2SAT 97
[2023-10-07] MEDS: diazePAM 5 MG TABLET PO (20:59)
[2023-10-07] MEDS: Clotrimazole 1 % Vaginal Cream 45 GM TUBE 1 APPL VAGINAL (21:25)
[2023-10-07 22:14] LABS: Glucose, Whole Blood 172 mg/dL (60-115)
[2023-10-08 07:42] LABS: Glucose, Whole Blood 172 mg/dL (60-115)
[2023-10-08 08:41] VITALS: BP 145/98; PULSE 104; RESP 18; TEMP 36.2; O2SAT 97
[2023-10-08] MEDS: amLODIPine Besylate 5 MG TABLET PO (09:01)
[2023-10-08] MEDS: Cholecalciferol (Vitamin D3) 25 MCG TABLET 50 MCG PO (09:01)
[2023-10-08] MEDS: Valsartan 160 MG TABLET PO (09:02)
--- NOTE | 2023-10-08 14:37 | P.PNPSI_ITS ---
Subjective Subjective Date of Service: 10/08/23 Reason For Visit: section 12 Subjective Notes: Section 12B Interim History: The nursing staff reported the patient had been flat, refused her Risperdal. On interview the patient stated that she does not like Risperdal, she was unable to elaborate. She was unable to give me story why she was brought here. We are going to filed for Section 7 and 8. Mental Status Exam Mental Status Exam Patient Appearance: Appropriate Patient Orientation: Person Level of Consciousness: Awake Patient Behavior: Guarded and Passive Mood Description: Withdrawn Affect Description: Constricted Patient Cognition Impaired: Yes Ability to Follow Directions: Good Speech Pattern: Clear Hallucinations: None Delusions: Paranoid Ideation and Ideas of Reference Thought Process: Distracted and Slowed Thinking Thought Content: positive for [place] and positive for Poverty of Content Judgement: Poor Diagnostics Vital Signs (24Hr): Vital Signs - 24 hr 10/07/23 20:00 10/08/23 08:41 Temperature 96.8 F 97.1 F Pulse Rate 97 104 H Respiratory Rate 16 18 Blood Pressure 130/66 145/98 H Pulse Oximetry 97 97 Oxygen Delivery Method Room Air Room Air BMI result Body Mass Index 34.7 Labs 10/04/23 17:31 10/04/23 07:44 Labs: Laboratory Results - last 48 hr 10/06/23 10/07/23 10/07/23 20:41 05:57 11:08 POC Glucose 156 H 156 H 191 H 10/07/23 10/08/23 22:09 06:52 POC Glucose 172 H 172 H Medications Medications Current Medications Acetaminophen (Acetaminophen 325 Mg Tablet) 650 mg PO Q6H PRN PRN Reason: Headache/Pain (1-10) Hydrocodone Bitart/Acetaminophen (Hydrocodone Bit/Acetam 5/325 Tablet) 1 tab PO BID PRN PRN Reason: Pain, Severe (Pain Scale 7-10) Last Admin: 10/07/23 20:59 Dose: 1 tab Al Hydroxide/Mg Hydroxide (Magnesium Hydrox/Alum Hydrox 30 Ml Oral.Susp) 30 ml PO Q6H PRN PRN Reason: Heartburn/Nausea Albuterol Sulfate (Albuterol Sulfate 90 Mcg 8 Gm Inhaler) 2 puff INHALE RQ4H PRN PRN Reason: sob Amlodipine Besylate (Amlodipine Besylate 5 Mg Tablet) 5 mg PO DAILY [facility]; Protocol Last Admin: 10/08/23 09:01 Dose: 5 mg Clotrimazole (Clotrimazole 1 % Vaginal Cream 45 Gm Tube) 1 appl VAGINAL BEDTIME [facility] Stop: 10/08/23 21:01 Last Admin: 10/07/23 21:25 Dose: 1 appl Diazepam (Diazepam 5 Mg Tablet) 5 mg PO TID PRN PRN Reason: Anxiety Last Admin: 10/07/23 20:59 Dose: 5 mg Hydroxyzine HCl (Hydroxyzine Hcl 25 Mg Tablet) 25 mg PO Q6H PRN PRN Reason: Anxiety Magnesium Hydroxide (Milk Of Magnesia 30 Ml Oral.Susp) 30 ml PO DAILY PRN PRN Reason: Constipation Risperidone (Risperidone 0.5 Mg Tablet) 0.5 mg PO BID [facility] Last Admin: 10/08/23 09:05 Dose: Not Given Trazodone HCl (Trazodone Hcl 50 Mg Tablet) 50 mg PO BEDTIME MRX1 PRN PRN Reason: Insomnia Valsartan (Valsartan 160 Mg Tablet) 160 mg PO DAILY [facility]; Protocol Last Admin: 10/08/23 09:02 Dose: 160 mg Vitamin D (Cholecalciferol (Vitamin D3) 25 Mcg Tablet) 50 mcg PO DAILY [facility] Last Admin: 10/08/23 09:01 Dose: 50 mcg Allergies Allergies Allergy/AdvReac Type Severity Reaction Status Date / Time No Known Allergies Allergy Verified 10/03/23 19:47 Assessment & Plan Assessment & Plan (1) Medical clearance for psychiatric admission: Status: Acute Code(s): Z00.8 - Encounter for other general examination Assessment and Plan: Mood disorder Plan as per Psychiatry Upper extremity neuropathy Patient complains of chronic wrist and hand pain radiating to her shoulders bilaterally Reports will soon have nerve conduction study Follow up outpatient Dry lips and gums Patient complains of having dry, cracked lips and gums States can only used ?moist mouth? that she received at a different facility Patient's mucous membranes noted to be moist upon physical examination Lip balm for dry lips Encourage p.o. hydration Insulin-dependent type 2 diabetes Patient apparently has recently been noncompliant with home insulin BPH noted patient's insulin was not refrigerated but sitting out on the counter in the sun for 4 days Patient previously on short-acting and long-acting insulin POC glucose 186 last night, fasting glucose [address] patient on sliding scale insulin Check A1c HTN Continue amlodipine, valsartan Asthma Not in acute exacerbation Continue home inhaler Thank you for allowing us to participate in the care of this patient. We will continue to follow for now to monitor A1c and see if need to add any long acting insulin. (2) Major depressive disorder, single episode, severe w psychotic behavior: Status: Acute Code(s): F32.3 - Major depressive disorder, single episode, severe with psychotic features (3) Cognitive and behavioral changes: Status: Acute Code(s): R41.89 - Other symptoms and signs involving cognitive functions and awareness; R46.89 - Other symptoms and signs involving appearance and behavior Plan Pt is a 78-year-old female with a PMH significant for?HTN, asthma, insulin- dependent type 2 diabetes, and unspecified psychiatric diagnosis who is admitted to [facility] for paranoia and psychosis. Patient was placed on a section 12 by VELMA Diaz after they were called to her apartment 4 times during the night. Patient reportedly believed that her landlord had been stealing money from her and hired a professional hit man who cut a hole in the wall of her closet in her bedroom to gain access to her apartment. Was noted to have nailed the door to her apartment shut. BPH also reported finding patient's insulin having been left out in the sun on the counter for 4 days. Medical consult for admission H&P. 10/03: POC BID. hospitalist consult re: diabetes. labs: CBC, B12 level, vit d level, tsh with reflex [id number] level, mg . collect collateral info from [facility] and [facility]. pt refusing medications at this time. encourage antipsychotic and antidepressant. continue to educated re dx. 10/04: start risperidone 0.5 mg BID. no change from admission yesterday. 10/05: no issues, taking meds, pleasant. continue current mgmt. 10/06: refused risperidone this morning saying she does not like how it makes her feel. remains with paranoid delusions. extend clotrimazole course by 2 days as pt has reportedly missed 2 applications. 10/07 refused Risperdal again. Remains paranoid. We are going to filed for Section 7 and 8 Patient educated on: diagnosis and therapeutic strategies Informed Consent: further education needed Reason for continued inpatient stay Substantial Risk for: inability to function, rapid decompensation and med/psych decompensation Time Spent With Patient Time: Total time managing care of this patient today _20___ minutes.
[2023-10-08 20:00] VITALS: BP 144/64; PULSE 96; RESP 18; TEMP 36; O2SAT 95
[2023-10-08 20:20] LABS: Glucose, Whole Blood 171 mg/dL (60-115)
[2023-10-08] MEDS: HYDROcodone Bit/Acetam 5/325 TABLET 1 TAB PO (21:15)
[2023-10-08] MEDS: Clotrimazole 1 % Vaginal Cream 45 GM TUBE 1 APPL VAGINAL (21:16)
[2023-10-08] MEDS: diazePAM 5 MG TABLET PO (21:16)
[2023-10-09 06:49] LABS: Glucose, Whole Blood 128 mg/dL (60-115)
[2023-10-09 08:05] VITALS: BP 144/61; PULSE 89; RESP 18; TEMP 36.6; O2SAT 94
[2023-10-09] MEDS: Cholecalciferol (Vitamin D3) 25 MCG TABLET 50 MCG PO (08:25)
[2023-10-09] MEDS: Valsartan 160 MG TABLET PO (08:26)
[2023-10-09] MEDS: amLODIPine Besylate 5 MG TABLET PO (08:26)
[2023-10-09] MEDS: HYDROcodone Bit/Acetam 5/325 TABLET 1 TAB PO ×2 (08:46→20:34)
--- NOTE | 2023-10-09 15:06 | HO.PSYCHPN ---
Subjective Subjective Date of Service: 10/09/23 Reason For Visit: section 12 Subjective Notes: Conditional Voluntary and 3 Day Interim History: The nursing staff reported the patient had been laying in his bed, she refused to take Risperdal. Apparently the patient reported that she was taking insulin at home so we are going to ask the hospitalist to take care about it. On interview the patient refused to take any medications and she has not taking at home. Looks confused Mental Status Exam Mental Status Exam Patient Appearance: Appropriate and Unkempt Patient Orientation: Person and Situation Level of Consciousness: Awake and Appropriate Patient Behavior: Guarded and Passive Mood Description: Withdrawn Affect Description: Constricted Patient Cognition Impaired: Yes Ability to Follow Directions: Good Speech Pattern: Clear Hallucinations: None Delusions: Paranoid Ideation and Ideas of Reference Thought Process: Distracted Thought Content: positive for [place] Judgement: Poor Diagnostics Vital Signs (24Hr): Vital Signs - 24 hr 10/08/23 20:00 10/09/23 08:05 Temperature 96.8 F 97.9 F Pulse Rate 96 89 Respiratory Rate 18 18 Blood Pressure 144/64 H 144/61 H Pulse Oximetry 95 94 Oxygen Delivery Method Room Air Room Air BMI result Body Mass Index 34.7 Labs 10/04/23 17:31 10/04/23 07:44 Labs: Laboratory Results - last 48 hr 10/07/23 10/08/23 10/08/23 22:09 06:52 19:39 POC Glucose 172 H 172 H 171 H 10/09/23 06:43 POC Glucose 128 H Medications Medications Current Medications Acetaminophen (Acetaminophen 325 Mg Tablet) 650 mg PO Q6H PRN PRN Reason: Headache/Pain (1-10) Hydrocodone Bitart/Acetaminophen (Hydrocodone Bit/Acetam 5/325 Tablet) 1 tab PO BID PRN PRN Reason: Pain, Severe (Pain Scale 7-10) Last Admin: 10/09/23 08:46 Dose: 1 tab Al Hydroxide/Mg Hydroxide (Magnesium Hydrox/Alum Hydrox 30 Ml Oral.Susp) 30 ml PO Q6H PRN PRN Reason: Heartburn/Nausea Albuterol Sulfate (Albuterol Sulfate 90 Mcg 8 Gm Inhaler) 2 puff INHALE RQ4H PRN PRN Reason: sob Amlodipine Besylate (Amlodipine Besylate 5 Mg Tablet) 5 mg PO DAILY [facility]; Protocol Last Admin: 10/09/23 08:26 Dose: 5 mg Diazepam (Diazepam 5 Mg Tablet) 5 mg PO TID PRN PRN Reason: Anxiety Last Admin: 10/08/23 21:16 Dose: 5 mg Hydroxyzine HCl (Hydroxyzine Hcl 25 Mg Tablet) 25 mg PO Q6H PRN PRN Reason: Anxiety Magnesium Hydroxide (Milk Of Magnesia 30 Ml Oral.Susp) 30 ml PO DAILY PRN PRN Reason: Constipation Risperidone (Risperidone 0.5 Mg Tablet) 0.5 mg PO BID [facility] Last Admin: 10/09/23 08:26 Dose: Not Given Trazodone HCl (Trazodone Hcl 50 Mg Tablet) 50 mg PO BEDTIME MRX1 PRN PRN Reason: Insomnia Valsartan (Valsartan 160 Mg Tablet) 160 mg PO DAILY [facility]; Protocol Last Admin: 10/09/23 08:26 Dose: 160 mg Vitamin D (Cholecalciferol (Vitamin D3) 25 Mcg Tablet) 50 mcg PO DAILY [facility] Last Admin: 10/09/23 08:25 Dose: 50 mcg Allergies Allergies Allergy/AdvReac Type Severity Reaction Status Date / Time No Known Allergies Allergy Verified 10/03/23 19:47 Assessment & Plan Assessment & Plan (1) Medical clearance for psychiatric admission: Status: Acute Code(s): Z00.8 - Encounter for other general examination Assessment and Plan: Mood disorder Plan as per Psychiatry Upper extremity neuropathy Patient complains of chronic wrist and hand pain radiating to her shoulders bilaterally Reports will soon have nerve conduction study Follow up outpatient Dry lips and gums Patient complains of having dry, cracked lips and gums States can only used ?moist mouth? that she received at a different facility Patient's mucous membranes noted to be moist upon physical examination Lip balm for dry lips Encourage p.o. hydration Insulin-dependent type 2 diabetes Patient apparently has recently been noncompliant with home insulin BPH noted patient's insulin was not refrigerated but sitting out on the counter in the sun for 4 days Patient previously on short-acting and long-acting insulin POC glucose 186 last night, fasting glucose [address] patient on sliding scale insulin Check A1c HTN Continue amlodipine, valsartan Asthma Not in acute exacerbation Continue home inhaler Thank you for allowing us to participate in the care of this patient. We will continue to follow for now to monitor A1c and see if need to add any long acting insulin. (2) Major depressive disorder, single episode, severe w psychotic behavior: Status: Acute Code(s): F32.3 - Major depressive disorder, single episode, severe with psychotic features (3) Cognitive and behavioral changes: Status: Acute Code(s): R41.89 - Other symptoms and signs involving cognitive functions and awareness; R46.89 - Other symptoms and signs involving appearance and behavior Plan Pt is a 78-year-old female with a PMH significant for?HTN, asthma, insulin-dependent type 2 diabetes, and unspecified psychiatric diagnosis who is admitted to [facility] for paranoia and psychosis. Patient was placed on a section 12 by VELMA Diaz after they were called to her apartment 4 times during the night. Patient reportedly believed that her landlord had been stealing money from her and hired a professional hit man who cut a hole in the wall of her closet in her bedroom to gain access to her apartment. Was noted to have nailed the door to her apartment shut. BPH also reported finding patient's insulin having been left out in the sun on the counter for 4 days. Medical consult for admission H&P. Plan 1. Gather collateral information. 2. We are going to filed for Section 7 and 8 since the patient is noncompliant with Risperdal. 3. We will contact the hospitalist for proper med rec. Reason for continued inpatient stay Substantial Risk for: inability to function, rapid decompensation and med/psych decompensation Time Spent With Patient Time: Total time managing care of this patient today __20__ minutes.
--- NOTE | 2023-10-09 15:54 | PM.EVENT ---
Event Note Date of Service: 10/09/23 Event Note: From her medication histroy she was on Glargine twice daily ( 40 units bid?) but upon admission her the medication was dropped. will double check with pharmacy meanwhile her HbA1c is 6.2 start SSI and small dose lantus of 5 units tomorrow and monitor while inpatient. Time Spent With Patient Time: Total time managing care of this patient today ____ minutes.
[2023-10-09 16:36] LABS: Glucose, Whole Blood 152 mg/dL (60-115)
[2023-10-09] MEDS: Insulin Lispro 100 UNIT/ML 3 ML VIAL SUBCUT ×2 (16:37→20:35)
[2023-10-09 20:00] VITALS: BP 148/65; PULSE 93; RESP 18; TEMP 36.3; O2SAT 100
[2023-10-09 20:11] LABS: Glucose, Whole Blood 215 mg/dL (60-115)
[2023-10-09] MEDS: diazePAM 5 MG TABLET PO (20:34)
[2023-10-10 06:52] LABS: Glucose, Whole Blood 164 mg/dL (60-115)
[2023-10-10 08:00] VITALS: BP 135/63; PULSE 74; RESP 18; TEMP 36; O2SAT 98
[2023-10-10 09:01] VITALS: BP 135/63
[2023-10-10] MEDS: Cholecalciferol (Vitamin D3) 25 MCG TABLET 50 MCG PO (09:01)
[2023-10-10] MEDS: Valsartan 160 MG TABLET PO (09:01)
[2023-10-10 09:02] VITALS: BP 135/63
[2023-10-10] MEDS: Insulin Glargine,Hum.rec.anlog 100 UNIT/ML 10 ML VIAL SUBCUT (09:02)
[2023-10-10] MEDS: amLODIPine Besylate 5 MG TABLET PO (09:02)
[2023-10-10] MEDS: Insulin Lispro 100 UNIT/ML 3 ML VIAL SUBCUT ×4 (09:09→19:48)
[2023-10-10] MEDS: HYDROcodone Bit/Acetam 5/325 TABLET 1 TAB PO (09:14)
[2023-10-10 11:22] LABS: Glucose, Whole Blood 191 mg/dL (60-115)
--- NOTE | 2023-10-10 12:48 | HO.PSYCHPN ---
Subjective Subjective Date of Service: 10/10/23 Reason For Visit: section 12 Subjective Notes: Conditional Voluntary Interim History: The nursing staff reported the patient had been visible in the unit, compliant with some medications but not with Risperdal. The occupational therapist reported that she had been very guarded. She complained of visual and auditory hallucinations and paranoia. She had very poor sleep. On interview the patient denied any symptoms looks internally preoccupied. We are going to change her Risperdal to Zyprexa since she has not sleeping well. Mental Status Exam Mental Status Exam Patient Appearance: Appropriate Patient Orientation: Person and Situation Level of Consciousness: Awake and Appropriate Patient Behavior: Guarded and Passive Mood Description: Withdrawn Affect Description: Constricted Patient Cognition Impaired: Yes Ability to Follow Directions: Good Speech Pattern: Clear Hallucinations: Auditory and Visual Delusions: Paranoid Ideation Thought Process: Distracted and Slowed Thinking Thought Content: positive for [place] and positive for Poverty of Content Judgement: Poor Diagnostics Vital Signs (24Hr): Vital Signs - 24 hr 10/09/23 20:00 10/10/23 08:00 10/10/23 09:01 Temperature 97.4 F 96.8 F Pulse Rate 93 74 Respiratory Rate 18 18 Blood Pressure 148/65 H 135/63 135/63 Pulse Oximetry 100 98 Oxygen Delivery Method Room Air Room Air 10/10/23 09:02 Temperature Pulse Rate Respiratory Rate Blood Pressure 135/63 Pulse Oximetry Oxygen Delivery Method BMI result Body Mass Index 34.7 Labs 10/04/23 17:31 10/04/23 07:44 Labs: Laboratory Results - last 48 hr 10/08/23 10/09/23 10/09/23 19:39 06:43 16:28 POC Glucose 171 H 128 H 152 H 10/09/23 10/10/23 10/10/23 19:54 06:44 11:13 POC Glucose 215 H 164 H 191 H Medications Medications Current Medications Acetaminophen (Acetaminophen 325 Mg Tablet) 650 mg PO Q6H PRN PRN Reason: Headache/Pain (1-10) Hydrocodone Bitart/Acetaminophen (Hydrocodone Bit/Acetam 5/325 Tablet) 1 tab PO BID PRN PRN Reason: Pain, Severe (Pain Scale 7-10) Last Admin: 10/10/23 09:14 Dose: 1 tab Al Hydroxide/Mg Hydroxide (Magnesium Hydrox/Alum Hydrox 30 Ml Oral.Susp) 30 ml PO Q6H PRN PRN Reason: Heartburn/Nausea Albuterol Sulfate (Albuterol Sulfate 90 Mcg 8 Gm Inhaler) 2 puff INHALE RQ4H PRN PRN Reason: sob Amlodipine Besylate (Amlodipine Besylate 5 Mg Tablet) 5 mg PO DAILY [facility]; Protocol Last Admin: 10/10/23 09:02 Dose: 5 mg Diazepam (Diazepam 5 Mg Tablet) 5 mg PO TID PRN PRN Reason: Anxiety Last Admin: 10/09/23 20:34 Dose: 5 mg Hydroxyzine HCl (Hydroxyzine Hcl 25 Mg Tablet) 25 mg PO Q6H PRN PRN Reason: Anxiety Insulin Glargine (Insulin Glargine,Hum.Rec.Anlog 100 Unit/Ml 10 Ml Vial) 5 unit SUBCUT DAILY [facility] Last Admin: 10/10/23 09:02 Dose: 5 unit Insulin Human Lispro (Insulin Lispro 100 Unit/Ml 3 Ml Vial) 0 unit SUBCUT QIDACHS [facility]; Protocol Last Admin: 10/10/23 09:09 Dose: 1 unit Magnesium Hydroxide (Milk Of Magnesia 30 Ml Oral.Susp) 30 ml PO DAILY PRN PRN Reason: Constipation Risperidone (Risperidone 0.5 Mg Tablet) 0.5 mg PO BID [facility] Last Admin: 10/10/23 09:06 Dose: Not Given Trazodone HCl (Trazodone Hcl 50 Mg Tablet) 50 mg PO BEDTIME MRX1 PRN PRN Reason: Insomnia Valsartan (Valsartan 160 Mg Tablet) 160 mg PO DAILY [facility]; Protocol Last Admin: 10/10/23 09:01 Dose: 160 mg Vitamin D (Cholecalciferol (Vitamin D3) 25 Mcg Tablet) 50 mcg PO DAILY [facility] Last Admin: 10/10/23 09:01 Dose: 50 mcg Allergies Allergies Allergy/AdvReac Type Severity Reaction Status Date / Time No Known Allergies Allergy Verified 10/03/23 19:47 Assessment & Plan Assessment & Plan (1) Medical clearance for psychiatric admission: Status: Acute Code(s): Z00.8 - Encounter for other general examination Assessment and Plan: Mood disorder Plan as per Psychiatry Upper extremity neuropathy Patient complains of chronic wrist and hand pain radiating to her shoulders bilaterally Reports will soon have nerve conduction study Follow up outpatient Dry lips and gums Patient complains of having dry, cracked lips and gums States can only used ?moist mouth? that she received at a different facility Patient's mucous membranes noted to be moist upon physical examination Lip balm for dry lips Encourage p.o. hydration Insulin-dependent type 2 diabetes Patient apparently has recently been noncompliant with home insulin BPH noted patient's insulin was not refrigerated but sitting out on the counter in the sun for 4 days Patient previously on short-acting and long-acting insulin POC glucose 186 last night, fasting glucose [address] patient on sliding scale insulin Check A1c HTN Continue amlodipine, valsartan Asthma Not in acute exacerbation Continue home inhaler Thank you for allowing us to participate in the care of this patient. We will continue to follow for now to monitor A1c and see if need to add any long acting insulin. (2) Major depressive disorder, single episode, severe w psychotic behavior: Status: Acute Code(s): F32.3 - Major depressive disorder, single episode, severe with psychotic features (3) Cognitive and behavioral changes: Status: Acute Code(s): R41.89 - Other symptoms and signs involving cognitive functions and awareness; R46.89 - Other symptoms and signs involving appearance and behavior Plan Pt is a 78-year-old female with a PMH significant for?HTN, asthma, insulin-dependent type 2 diabetes, and unspecified psychiatric diagnosis who is admitted to [facility] for paranoia and psychosis. Patient was placed on a section 12 by Emily after they were called to her apartment 4 times during the night. Patient reportedly believed that her landlord had been stealing money from her and hired a professional hit man who cut a hole in the wall of her closet in her bedroom to gain access to her apartment. Was noted to have nailed the door to her apartment shut. BPH also reported finding patient's insulin having been left out in the sun on the counter for 4 days. Medical consult for admission H&P. Plan 1. Gather collateral information. 2. We are going to filed for Section 7 and 8 since the patient is noncompliant with Risperdal. 3. We will contact the hospitalist for proper med rec. 4. Discontinue Risperdal start Zyprexa 5 mg p.o. q.h.s. Reason for continued inpatient stay Substantial Risk for: inability to function, rapid decompensation and med/psych decompensation Time Spent With Patient Time: Total time managing care of this patient today __20__ minutes.
[2023-10-10 16:34] LABS: Glucose, Whole Blood 158 mg/dL (60-115)
[2023-10-10 19:32] LABS: Glucose, Whole Blood 186 mg/dL (60-115)
[2023-10-10 20:00] VITALS: BP 127/59; PULSE 95; RESP 18; TEMP 36.2; O2SAT 95
[2023-10-10] MEDS: diazePAM 5 MG TABLET PO (20:24)
[2023-10-11] MEDS: HYDROcodone Bit/Acetam 5/325 TABLET 1 TAB PO ×3 (02:51→20:36)
[2023-10-11 06:43] LABS: Glucose, Whole Blood 178 mg/dL (60-115)
[2023-10-11 07:00] VITALS: BMI 35.6
[2023-10-11 08:00] VITALS: BP 141/65; PULSE 87; RESP 18; TEMP 36; O2SAT 95
[2023-10-11] MEDS: Insulin Lispro 100 UNIT/ML 3 ML VIAL SUBCUT ×3 (08:48→20:35)
[2023-10-11] MEDS: Insulin Glargine,Hum.rec.anlog 100 UNIT/ML 10 ML VIAL SUBCUT (08:49)
[2023-10-11] MEDS: Cholecalciferol (Vitamin D3) 25 MCG TABLET 50 MCG PO (09:02)
[2023-10-11 09:03] VITALS: BP 141/65
[2023-10-11] MEDS: amLODIPine Besylate 5 MG TABLET PO (09:03)
[2023-10-11 09:04] VITALS: BP 141/65
[2023-10-11] MEDS: Valsartan 160 MG TABLET PO (09:04)
[2023-10-11 11:38] LABS: Glucose, Whole Blood 134 mg/dL (60-115)
--- NOTE | 2023-10-11 12:34 | P.PNPSI_ITS ---
Subjective Subjective Date of Service: 10/11/23 Reason For Visit: section 12 Subjective Notes: Conditional Voluntary Interim History: The nursing staff reported the patient had flat affect guarded tearful at times. She slept poorly last night and she refused her Zyprexa last night. The occupational therapist did a [place] and she scored 16/30. On interview the patient reported that she wants her Valium back. I explained her that it will be beneficial a low dose of olanzapine but she refused to take any new medications stating that she is her own doctor.. Mental Status Exam Mental Status Exam Patient Appearance: Appropriate Patient Orientation: Person and Situation Level of Consciousness: Awake Patient Behavior: Guarded and Passive Mood Description: Calm Affect Description: Constricted Patient Cognition Impaired: Yes Ability to Follow Directions: Good Speech Pattern: Clear Hallucinations: Auditory Delusions: Paranoid Ideation and Ideas of Reference Thought Process: Distracted and Slowed Thinking Thought Content: positive for [place] and positive for Poverty of Content Judgement: Poor Diagnostics Vital Signs (24Hr): Vital Signs - 24 hr 10/10/23 20:00 10/11/23 08:00 10/11/23 09:03 Temperature 97.2 F 96.8 F Pulse Rate 95 87 Respiratory Rate 18 18 Blood Pressure 127/59 L 141/65 H 141/65 H Pulse Oximetry 95 95 Oxygen Delivery Method Room Air Room Air 10/11/23 09:04 Temperature Pulse Rate Respiratory Rate Blood Pressure 141/65 H Pulse Oximetry Oxygen Delivery Method BMI result Body Mass Index 35.6 Labs 10/04/23 17:31 10/04/23 07:44 Labs: Laboratory Results - last 48 hr 10/09/23 10/09/23 10/10/23 16:28 19:54 06:44 POC Glucose 152 H 215 H 164 H 10/10/23 10/10/23 10/10/23 11:13 16:30 19:28 POC Glucose 191 H 158 H 186 H 10/11/23 10/11/23 06:26 11:34 POC Glucose 178 H 134 H Medications Medications Current Medications Acetaminophen (Acetaminophen 325 Mg Tablet) 650 mg PO Q6H PRN PRN Reason: Headache/Pain (1-10) Hydrocodone Bitart/Acetaminophen (Hydrocodone Bit/Acetam 5/325 Tablet) 1 tab PO BID PRN PRN Reason: Pain, Severe (Pain Scale 7-10) Last Admin: 10/11/23 02:51 Dose: 1 tab Al Hydroxide/Mg Hydroxide (Magnesium Hydrox/Alum Hydrox 30 Ml Oral.Susp) 30 ml PO Q6H PRN PRN Reason: Heartburn/Nausea Albuterol Sulfate (Albuterol Sulfate 90 Mcg 8 Gm Inhaler) 2 puff INHALE RQ4H PRN PRN Reason: sob Amlodipine Besylate (Amlodipine Besylate 5 Mg Tablet) 5 mg PO DAILY [facility]; Protocol Last Admin: 10/11/23 09:03 Dose: 5 mg Diazepam (Diazepam 5 Mg Tablet) 5 mg PO TID PRN PRN Reason: Anxiety Last Admin: 10/10/23 20:24 Dose: 5 mg Hydroxyzine HCl (Hydroxyzine Hcl 25 Mg Tablet) 25 mg PO Q6H PRN PRN Reason: Anxiety Insulin Glargine (Insulin Glargine,Hum.Rec.Anlog 100 Unit/Ml 10 Ml Vial) 5 unit SUBCUT DAILY [facility] Last Admin: 10/11/23 08:49 Dose: 5 unit Insulin Human Lispro (Insulin Lispro 100 Unit/Ml 3 Ml Vial) 0 unit SUBCUT QIDACHS [facility]; Protocol Last Admin: 10/11/23 11:42 Dose: Not Given Magnesium Hydroxide (Milk Of Magnesia 30 Ml Oral.Susp) 30 ml PO DAILY PRN PRN Reason: Constipation Olanzapine (Olanzapine 5 Mg Tablet) 5 mg PO BEDTIME [facility] Last Admin: 10/10/23 19:51 Dose: Not Given Trazodone HCl (Trazodone Hcl 50 Mg Tablet) 50 mg PO BEDTIME MRX1 PRN PRN Reason: Insomnia Valsartan (Valsartan 160 Mg Tablet) 160 mg PO DAILY [facility]; Protocol Last Admin: 10/11/23 09:04 Dose: 160 mg Vitamin D (Cholecalciferol (Vitamin D3) 25 Mcg Tablet) 50 mcg PO DAILY [facility] Last Admin: 10/11/23 09:02 Dose: 50 mcg Allergies Allergies Allergy/AdvReac Type Severity Reaction Status Date / Time No Known Allergies Allergy Verified 10/03/23 19:47 Assessment & Plan Assessment & Plan (1) Medical clearance for psychiatric admission: Status: Acute Code(s): Z00.8 - Encounter for other general examination Assessment and Plan: Mood disorder Plan as per Psychiatry Upper extremity neuropathy Patient complains of chronic wrist and hand pain radiating to her shoulders bilaterally Reports will soon have nerve conduction study Follow up outpatient Dry lips and gums Patient complains of having dry, cracked lips and gums States can only used ?moist mouth? that she received at a different facility Patient's mucous membranes noted to be moist upon physical examination Lip balm for dry lips Encourage p.o. hydration Insulin-dependent type 2 diabetes Patient apparently has recently been noncompliant with home insulin BPH noted patient's insulin was not refrigerated but sitting out on the counter in the sun for 4 days Patient previously on short-acting and long-acting insulin POC glucose 186 last night, fasting glucose [address] patient on sliding scale insulin Check A1c HTN Continue amlodipine, valsartan Asthma Not in acute exacerbation Continue home inhaler Thank you for allowing us to participate in the care of this patient. We will continue to follow for now to monitor A1c and see if need to add any long acting insulin. (2) Major depressive disorder, single episode, severe w psychotic behavior: Status: Acute Code(s): F32.3 - Major depressive disorder, single episode, severe with psychotic features (3) Cognitive and behavioral changes: Status: Acute Code(s): R41.89 - Other symptoms and signs involving cognitive functions and awareness; R46.89 - Other symptoms and signs involving appearance and behavior Plan Pt is a 78-year-old female with a PMH significant for?HTN, asthma, insulin- dependent type 2 diabetes, and unspecified psychiatric diagnosis who is admitted to [facility] for paranoia and psychosis. Patient was placed on a section 12 by Emily after they were called to her apartment 4 times during the night. Patient reportedly believed that her landlord had been stealing money from her and hired a professional hit man who cut a hole in the wall of her closet in her bedroom to gain access to her apartment. Was noted to have nailed the door to her apartment shut. BPH also reported finding patient's insulin having been left out in the sun on the counter for 4 days. Medical consult for admission H&P. Plan 1. Gather collateral information. 2. We are going to filed for Section 7 and 8 since the patient is noncompliant with Risperdal. 3. We will contact the hospitalist for proper med rec. 4. Discontinue Risperdal start Zyprexa 5 mg p.o. q.h.s. 5. Encourage compliance Reason for continued inpatient stay Substantial Risk for: inability to function, rapid decompensation and med/psych decompensation Time Spent With Patient Time: Total time managing care of this patient today __20__ minutes.
[2023-10-11 16:30] LABS: Glucose, Whole Blood 164 mg/dL (60-115)
[2023-10-11 20:00] VITALS: BP 138/65; PULSE 78; RESP 18; TEMP 36.7; O2SAT 98
[2023-10-11 20:03] LABS: Glucose, Whole Blood 175 mg/dL (60-115)
[2023-10-11] MEDS: diazePAM 5 MG TABLET PO (20:37)
[2023-10-12 06:19] LABS: Glucose, Whole Blood 172 mg/dL (60-115)
[2023-10-12 08:18] VITALS: BP 121/61; PULSE 76; RESP 16; TEMP 35.9; O2SAT 98
[2023-10-12] MEDS: Valsartan 160 MG TABLET PO (08:20)
[2023-10-12] MEDS: amLODIPine Besylate 5 MG TABLET PO (08:20)
[2023-10-12] MEDS: Insulin Lispro 100 UNIT/ML 3 ML VIAL SUBCUT ×2 (08:20→17:18)
[2023-10-12] MEDS: Cholecalciferol (Vitamin D3) 25 MCG TABLET 50 MCG PO (08:20)
[2023-10-12] MEDS: Insulin Glargine,Hum.rec.anlog 100 UNIT/ML 10 ML VIAL SUBCUT (08:21)
[2023-10-12 11:48] LABS: Glucose, Whole Blood 172 mg/dL (60-115)
--- NOTE | 2023-10-12 13:27 | P.PNPSI_ITS ---
Subjective Subjective Date of Service: 10/12/23 Reason For Visit: section 12 Subjective Notes: Conditional Voluntary Interim History: THE NURSING STAFF REPORTED THE PATIENT TOOK VICODIN P.R.N., SHE REMAINS ANXIOUS AND PARANOID AT TIMES AND SHE HAD REFUSED HER ZYPREXA AGAIN. ON INTERVIEW I ENCOURAGED HER TO BE COMPLIANT WITH TREATMENT. Mental Status Exam Mental Status Exam Patient Appearance: Appropriate Patient Orientation: Person Level of Consciousness: Awake Patient Behavior: Guarded and Passive Mood Description: Withdrawn Affect Description: Constricted Patient Cognition Impaired: Yes Ability to Follow Directions: Fair Speech Pattern: Clear Hallucinations: Auditory Delusions: Paranoid Ideation and Ideas of Reference Thought Process: Distracted and Slowed Thinking Thought Content: positive for [place] and positive for Poverty of Content Judgement: Fair Diagnostics Vital Signs (24Hr): Vital Signs - 24 hr 10/11/23 20:00 10/12/23 08:18 Temperature 98.0 F 96.7 F L Pulse Rate 78 76 Respiratory Rate 18 16 Blood Pressure 138/65 121/61 Pulse Oximetry 98 98 Oxygen Delivery Method Room Air Room Air BMI result Body Mass Index 35.6 Labs 10/04/23 17:31 10/04/23 07:44 Labs: Laboratory Results - last 48 hr 10/10/23 10/10/23 10/11/23 16:30 19:28 06:26 POC Glucose 158 H 186 H 178 H 10/11/23 10/11/23 10/11/23 11:34 16:26 19:41 POC Glucose 134 H 164 H 175 H 10/12/23 10/12/23 05:57 11:45 POC Glucose 172 H 172 H Medications Medications Current Medications Acetaminophen (Acetaminophen 325 Mg Tablet) 650 mg PO Q6H PRN PRN Reason: Headache/Pain (1-10) Hydrocodone Bitart/Acetaminophen (Hydrocodone Bit/Acetam 5/325 Tablet) 1 tab PO BID PRN PRN Reason: Pain, Severe (Pain Scale 7-10) Last Admin: 10/11/23 14:31 Dose: 1 tab Al Hydroxide/Mg Hydroxide (Magnesium Hydrox/Alum Hydrox 30 Ml Oral.Susp) 30 ml PO Q6H PRN PRN Reason: Heartburn/Nausea Albuterol Sulfate (Albuterol Sulfate 90 Mcg 8 Gm Inhaler) 2 puff INHALE RQ4H PRN PRN Reason: sob Amlodipine Besylate (Amlodipine Besylate 5 Mg Tablet) 5 mg PO DAILY [facility]; Protocol Last Admin: 10/12/23 08:20 Dose: 5 mg Diazepam (Diazepam 5 Mg Tablet) 5 mg PO TID PRN PRN Reason: Anxiety Last Admin: 10/11/23 20:37 Dose: 5 mg Hydroxyzine HCl (Hydroxyzine Hcl 25 Mg Tablet) 25 mg PO Q6H PRN PRN Reason: Anxiety Insulin Glargine (Insulin Glargine,Hum.Rec.Anlog 100 Unit/Ml 10 Ml Vial) 5 unit SUBCUT DAILY [facility] Last Admin: 10/12/23 08:21 Dose: 5 unit Insulin Human Lispro (Insulin Lispro 100 Unit/Ml 3 Ml Vial) 0 unit SUBCUT QIDACHS [facility]; Protocol Last Admin: 10/12/23 12:19 Dose: Not Given Magnesium Hydroxide (Milk Of Magnesia 30 Ml Oral.Susp) 30 ml PO DAILY PRN PRN Reason: Constipation Olanzapine (Olanzapine 5 Mg Tablet) 5 mg PO BEDTIME [facility] Last Admin: 10/11/23 20:39 Dose: Not Given Trazodone HCl (Trazodone Hcl 50 Mg Tablet) 50 mg PO BEDTIME MRX1 PRN PRN Reason: Insomnia Valsartan (Valsartan 160 Mg Tablet) 160 mg PO DAILY [facility]; Protocol Last Admin: 10/12/23 08:20 Dose: 160 mg Vitamin D (Cholecalciferol (Vitamin D3) 25 Mcg Tablet) 50 mcg PO DAILY [facility] Last Admin: 10/12/23 08:20 Dose: 50 mcg Allergies Allergies Allergy/AdvReac Type Severity Reaction Status Date / Time No Known Allergies Allergy Verified 10/03/23 19:47 Assessment & Plan Assessment & Plan (1) Medical clearance for psychiatric admission: Status: Acute Code(s): Z00.8 - Encounter for other general examination Assessment and Plan: Mood disorder Plan as per Psychiatry Upper extremity neuropathy Patient complains of chronic wrist and hand pain radiating to her shoulders bilaterally Reports will soon have nerve conduction study Follow up outpatient Dry lips and gums Patient complains of having dry, cracked lips and gums States can only used ?moist mouth? that she received at a different facility Patient's mucous membranes noted to be moist upon physical examination Lip balm for dry lips Encourage p.o. hydration Insulin-dependent type 2 diabetes Patient apparently has recently been noncompliant with home insulin BPH noted patient's insulin was not refrigerated but sitting out on the counter in the sun for 4 days Patient previously on short-acting and long-acting insulin POC glucose 186 last night, fasting glucose [address] patient on sliding scale insulin Check A1c HTN Continue amlodipine, valsartan Asthma Not in acute exacerbation Continue home inhaler Thank you for allowing us to participate in the care of this patient. We will continue to follow for now to monitor A1c and see if need to add any long acting insulin. (2) Major depressive disorder, single episode, severe w psychotic behavior: Status: Acute Code(s): F32.3 - Major depressive disorder, single episode, severe with psychotic features (3) Cognitive and behavioral changes: Status: Acute Code(s): R41.89 - Other symptoms and signs involving cognitive functions and awareness; R46.89 - Other symptoms and signs involving appearance and behavior Plan Pt is a 78-year-old female with a PMH significant for?HTN, asthma, insulin- dependent type 2 diabetes, and unspecified psychiatric diagnosis who is admitted to [facility] for paranoia and psychosis. Patient was placed on a section 12 by Emily after they were called to her apartment 4 times during the night. Patient reportedly believed that her landlord had been stealing money from her and hired a professional hit man who cut a hole in the wall of her closet in her bedroom to gain access to her apartment. Was noted to have nailed the door to her apartment shut. [facility] also reported finding patient's insulin having been left out in the sun on the counter for 4 days. Medical consult for admission H&P. Plan 1. Gather collateral information. 2. We are going to filed for Section 7 and 8 since the patient is noncompliant with Risperdal. 3. We will contact the hospitalist for proper med rec. 4. Discontinue Risperdal start Zyprexa 5 mg p.o. q.h.s. 5. Encourage compliance Reason for continued inpatient stay Substantial Risk for: inability to function, rapid decompensation and med/psych decompensation Time Spent With Patient Time: Total time managing care of this patient today __20__ minutes.
[2023-10-12 16:39] LABS: Glucose, Whole Blood 157 mg/dL (60-115)
[2023-10-12 20:00] VITALS: BP 139/66; PULSE 94; RESP 18; TEMP 36.5; O2SAT 95
[2023-10-12 20:07] LABS: Glucose, Whole Blood 139 mg/dL (60-115)
[2023-10-12] MEDS: HYDROcodone Bit/Acetam 5/325 TABLET 1 TAB PO (20:43)
[2023-10-12] MEDS: diazePAM 5 MG TABLET PO (20:44)
[2023-10-13 08:00] VITALS: BP 124/61; PULSE 95; RESP 18; TEMP 36.2; O2SAT 95
[2023-10-13 08:00] LABS: Glucose, Whole Blood 151 mg/dL (60-115)
[2023-10-13 08:15] VITALS: BP 124/61
[2023-10-13] MEDS: Valsartan 160 MG TABLET PO (08:15)
[2023-10-13 08:16] VITALS: BP 124/61
[2023-10-13] MEDS: amLODIPine Besylate 5 MG TABLET PO (08:16)
[2023-10-13] MEDS: Cholecalciferol (Vitamin D3) 25 MCG TABLET 50 MCG PO (08:17)
[2023-10-13] MEDS: HYDROcodone Bit/Acetam 5/325 TABLET 1 TAB PO ×2 (10:11→20:44)
[2023-10-13 11:32] LABS: Glucose, Whole Blood 186 mg/dL (60-115)
[2023-10-13 16:28] LABS: Glucose, Whole Blood 137 mg/dL (60-115)
[2023-10-13 20:00] VITALS: BP 119/57; PULSE 86; RESP 18; TEMP 36.6; O2SAT 96
[2023-10-13 20:17] LABS: Glucose, Whole Blood 181 mg/dL (60-115)
[2023-10-13] MEDS: Insulin Lispro 100 UNIT/ML 3 ML VIAL SUBCUT (20:43)
[2023-10-13] MEDS: diazePAM 5 MG TABLET PO (20:43)
--- NOTE | 2023-10-13 22:29 | P.PNPSI_ITS ---
Subjective Subjective Date of Service: 10/13/23 Reason For Visit: section 12 Interim History: Patient suspicious withdrawn refusing generally olanzapine she does have a court order Mental Status Exam Mental Status Exam Patient Appearance: Appropriate Patient Orientation: Person Level of Consciousness: Awake Patient Behavior: Guarded and Passive Mood Description: Withdrawn Affect Description: Constricted Patient Cognition Impaired: Yes Ability to Follow Directions: Fair Speech Pattern: Clear Hallucinations: Auditory Delusions: Paranoid Ideation and Ideas of Reference Thought Process: Distracted and Slowed Thinking Thought Content: positive for [place] and positive for Poverty of Content Judgement: Fair Diagnostics Vital Signs (24Hr): Vital Signs - 24 hr 10/13/23 08:00 10/13/23 08:15 10/13/23 08:16 Temperature 97.1 F Pulse Rate 95 Respiratory Rate 18 Blood Pressure 124/61 124/61 124/61 Pulse Oximetry 95 Oxygen Delivery Method Room Air 10/13/23 20:00 Temperature 97.9 F Pulse Rate 86 Respiratory Rate 18 Blood Pressure 119/57 L Pulse Oximetry 96 Oxygen Delivery Method Room Air BMI result Body Mass Index 35.6 Labs 10/04/23 17:31 10/04/23 07:44 Labs: Laboratory Results - last 48 hr 10/12/23 10/12/23 10/12/23 05:57 11:45 16:32 POC Glucose 172 H 172 H 157 H 10/12/23 10/13/23 10/13/23 20:00 07:54 11:28 POC Glucose 139 H 151 H 186 H 10/13/23 10/13/23 16:24 19:46 POC Glucose 137 H 181 H Medications Medications Current Medications Acetaminophen (Acetaminophen 325 Mg Tablet) 650 mg PO Q6H PRN PRN Reason: Headache/Pain (1-10) Hydrocodone Bitart/Acetaminophen (Hydrocodone Bit/Acetam 5/325 Tablet) 1 tab PO BID PRN PRN Reason: Pain, Severe (Pain Scale 7-10) Last Admin: 10/13/23 20:44 Dose: 1 tab Al Hydroxide/Mg Hydroxide (Magnesium Hydrox/Alum Hydrox 30 Ml Oral.Susp) 30 ml PO Q6H PRN PRN Reason: Heartburn/Nausea Albuterol Sulfate (Albuterol Sulfate 90 Mcg 8 Gm Inhaler) 2 puff INHALE RQ4H PRN PRN Reason: sob Amlodipine Besylate (Amlodipine Besylate 5 Mg Tablet) 5 mg PO DAILY [facility]; Protocol Last Admin: 10/13/23 08:16 Dose: 5 mg Diazepam (Diazepam 5 Mg Tablet) 5 mg PO TID PRN PRN Reason: Anxiety Last Admin: 10/13/23 20:43 Dose: 5 mg Hydroxyzine HCl (Hydroxyzine Hcl 25 Mg Tablet) 25 mg PO Q6H PRN PRN Reason: Anxiety Insulin Glargine (Insulin Glargine,Hum.Rec.Anlog 100 Unit/Ml 10 Ml Vial) 5 unit SUBCUT DAILY [facility] Last Admin: 10/13/23 10:12 Dose: Not Given Insulin Human Lispro (Insulin Lispro 100 Unit/Ml 3 Ml Vial) 0 unit SUBCUT QIDACHS [facility]; Protocol Last Admin: 10/13/23 20:43 Dose: 2 unit Magnesium Hydroxide (Milk Of Magnesia 30 Ml Oral.Susp) 30 ml PO DAILY PRN PRN Reason: Constipation Olanzapine (Olanzapine 5 Mg Tablet) 5 mg PO BEDTIME [facility] Last Admin: 10/13/23 20:49 Dose: Not Given Trazodone HCl (Trazodone Hcl 50 Mg Tablet) 50 mg PO BEDTIME MRX1 PRN PRN Reason: Insomnia Valsartan (Valsartan 160 Mg Tablet) 160 mg PO DAILY [facility]; Protocol Last Admin: 10/13/23 08:15 Dose: 160 mg Vitamin D (Cholecalciferol (Vitamin D3) 25 Mcg Tablet) 50 mcg PO DAILY [facility] Last Admin: 10/13/23 08:17 Dose: 50 mcg Allergies Allergies Allergy/AdvReac Type Severity Reaction Status Date / Time No Known Allergies Allergy Verified 10/03/23 19:47 Assessment & Plan Assessment & Plan (1) Major depressive disorder, single episode, severe w psychotic behavior: Status: Acute Code(s): F32.3 - Major depressive disorder, single episode, severe with psychotic features (2) Cognitive and behavioral changes: Status: Acute Code(s): R41.89 - Other symptoms and signs involving cognitive functions and awareness; R46.89 - Other symptoms and signs involving appearance and behavior Plan Pt is a 78-year-old female with a PMH significant for?HTN, asthma, insulin- dependent type 2 diabetes, and unspecified psychiatric diagnosis who is admitted to [facility] for paranoia and psychosis. Patient was placed on a section 12 by Emily after they were called to her apartment 4 times during the night. Patient reportedly believed that her landlord had been stealing money from her and hired a professional hit man who cut a hole in the wall of her closet in her bedroom to gain access to her apartment. Was noted to have nailed the door to her apartment shut. [facility] also reported finding patient's insulin having been left out in the sun on the counter for 4 days. Medical consult for admission H&P. Plan 1. Gather collateral information. 2. We are going to filed for Section 7 and 8 since the patient is noncompliant with Risperdal. 3. We will contact the hospitalist for proper med rec. 4. Discontinue Risperdal start Zyprexa 5 mg p.o. q.h.s. 5. Encourage compliance 10/13/2023 Encourage treatment compliance has been refusing olanzapine Reason for continued inpatient stay Substantial Risk for: inability to function, rapid decompensation and med/psych decompensation Time Spent With Patient Time: Total time managing care of this patient today ____ minutes.
[2023-10-14 06:53] LABS: Glucose, Whole Blood 143 mg/dL (60-115)
[2023-10-14 11:23] LABS: Glucose, Whole Blood 138 mg/dL (60-115)
--- NOTE | 2023-10-14 13:00 | P.PNPSI_ITS ---
Subjective Subjective Date of Service: 10/14/23 Reason For Visit: section 12 Subjective Notes: Conditional Voluntary Healthcare Proxy: No Guardianship: No Interim History: Patient seen in psychiatric follow-up patient has word-finding problems no insight paranoia suspiciousness with no insight difficulty understanding her condition Mental Status Exam Mental Status Exam Patient Appearance: Appropriate Patient Orientation: Person Level of Consciousness: Awake Patient Behavior: Guarded and Passive Mood Description: Withdrawn Affect Description: Constricted Patient Cognition Impaired: Yes Ability to Follow Directions: Fair Speech Pattern: Clear Hallucinations: Auditory Delusions: Paranoid Ideation and Ideas of Reference Thought Process: Distracted and Slowed Thinking Thought Content: positive for [place] and positive for Poverty of Content Judgement: Fair Diagnostics Vital Signs (24Hr): Vital Signs - 24 hr 10/13/23 20:00 Temperature 97.9 F Pulse Rate 86 Respiratory Rate 18 Blood Pressure 119/57 L Pulse Oximetry 96 Oxygen Delivery Method Room Air BMI result Body Mass Index 35.6 Labs 10/04/23 17:31 10/04/23 07:44 Labs: Laboratory Results - last 48 hr 10/12/23 10/12/23 10/13/23 16:32 20:00 07:54 POC Glucose 157 H 139 H 151 H 10/13/23 10/13/23 10/13/23 11:28 16:24 19:46 POC Glucose 186 H 137 H 181 H 10/14/23 10/14/23 06:47 11:14 POC Glucose 143 H 138 H Medications Medications Current Medications Acetaminophen (Acetaminophen 325 Mg Tablet) 650 mg PO Q6H PRN PRN Reason: Headache/Pain (1-10) Hydrocodone Bitart/Acetaminophen (Hydrocodone Bit/Acetam 5/325 Tablet) 1 tab PO BID PRN PRN Reason: Pain, Severe (Pain Scale 7-10) Last Admin: 10/13/23 20:44 Dose: 1 tab Al Hydroxide/Mg Hydroxide (Magnesium Hydrox/Alum Hydrox 30 Ml Oral.Susp) 30 ml PO Q6H PRN PRN Reason: Heartburn/Nausea Albuterol Sulfate (Albuterol Sulfate 90 Mcg 8 Gm Inhaler) 2 puff INHALE RQ4H PRN PRN Reason: sob Amlodipine Besylate (Amlodipine Besylate 5 Mg Tablet) 5 mg PO DAILY [facility]; Protocol Last Admin: 10/13/23 08:16 Dose: 5 mg Diazepam (Diazepam 5 Mg Tablet) 5 mg PO TID PRN PRN Reason: Anxiety Last Admin: 10/13/23 20:43 Dose: 5 mg Hydroxyzine HCl (Hydroxyzine Hcl 25 Mg Tablet) 25 mg PO Q6H PRN PRN Reason: Anxiety Insulin Glargine (Insulin Glargine,Hum.Rec.Anlog 100 Unit/Ml 10 Ml Vial) 5 unit SUBCUT DAILY [facility] Last Admin: 10/14/23 10:37 Dose: Not Given Insulin Human Lispro (Insulin Lispro 100 Unit/Ml 3 Ml Vial) 0 unit SUBCUT QIDACHS [facility]; Protocol Last Admin: 10/14/23 11:26 Dose: Not Given Magnesium Hydroxide (Milk Of Magnesia 30 Ml Oral.Susp) 30 ml PO DAILY PRN PRN Reason: Constipation Olanzapine (Olanzapine 5 Mg Tablet) 5 mg PO BEDTIME [facility] Last Admin: 10/13/23 20:49 Dose: Not Given Trazodone HCl (Trazodone Hcl 50 Mg Tablet) 50 mg PO BEDTIME MRX1 PRN PRN Reason: Insomnia Valsartan (Valsartan 160 Mg Tablet) 160 mg PO DAILY [facility]; Protocol Last Admin: 10/13/23 08:15 Dose: 160 mg Vitamin D (Cholecalciferol (Vitamin D3) 25 Mcg Tablet) 50 mcg PO DAILY [facility] Last Admin: 10/13/23 08:17 Dose: 50 mcg Allergies Allergies Allergy/AdvReac Type Severity Reaction Status Date / Time No Known Allergies Allergy Verified 10/03/23 19:47 Assessment & Plan Assessment & Plan (1) Major depressive disorder, single episode, severe w psychotic behavior: Status: Acute Code(s): F32.3 - Major depressive disorder, single episode, severe with psychotic features (2) Cognitive and behavioral changes: Status: Acute Code(s): R41.89 - Other symptoms and signs involving cognitive functions and awareness; R46.89 - Other symptoms and signs involving appearance and behavior Plan Pt is a 78-year-old female with a PMH significant for?HTN, asthma, insulin- dependent type 2 diabetes, and unspecified psychiatric diagnosis who is admitted to [facility] for paranoia and psychosis. Patient was placed on a section 12 by Emily after they were called to her apartment 4 times during the night. Patient reportedly believed that her landlord had been stealing money from her and hired a professional hit man who cut a hole in the wall of her closet in her bedroom to gain access to her apartment. Was noted to have nailed the door to her apartment shut. [facility] also reported finding patient's insulin having been left out in the sun on the counter for 4 days. Medical consult for admission H&P. Plan 1. Gather collateral information. 2. We are going to filed for Section 7 and 8 since the patient is noncompliant with Risperdal. 3. We will contact the hospitalist for proper med rec. 4. Discontinue Risperdal start Zyprexa 5 mg p.o. q.h.s. 5. Encourage compliance 10/13/2023 Encourage treatment compliance has been refusing olanzapine 10/14/2023 Patient continues with poor executive function paranoia refusing olanzapine no insight change to Risperdal most likely will need to file Patient educated on: diagnosis and medication risk/benefits Informed Consent: further education needed Reason for continued inpatient stay Substantial Risk for: inability to function, rapid decompensation and med/psych decompensation Time Spent With Patient Time: Total time managing care of this patient today ____ minutes.
[2023-10-14] MEDS: amLODIPine Besylate 5 MG TABLET PO (13:15)
[2023-10-14] MEDS: Cholecalciferol (Vitamin D3) 25 MCG TABLET 50 MCG PO (13:15)
[2023-10-14] MEDS: Valsartan 160 MG TABLET PO (13:15)
[2023-10-14 19:09] VITALS: BP 131/59; PULSE 94; TEMP 36.3; O2SAT 97
[2023-10-14 20:37] LABS: Glucose, Whole Blood 168 mg/dL (60-115)
[2023-10-14] MEDS: Insulin Lispro 100 UNIT/ML 3 ML VIAL SUBCUT (20:49)
[2023-10-15] MEDS: HYDROcodone Bit/Acetam 5/325 TABLET 1 TAB PO ×2 (02:41→19:52)
[2023-10-15] MEDS: Loperamide HCl 2 MG CAPSULE PO (04:28)
[2023-10-15 06:52] LABS: Glucose, Whole Blood 136 mg/dL (60-115)
[2023-10-15 08:10] VITALS: BP 140/75; PULSE 98; RESP 18; TEMP 36.2; O2SAT 96
[2023-10-15] MEDS: Insulin Glargine,Hum.rec.anlog 100 UNIT/ML 10 ML VIAL SUBCUT (08:59)
[2023-10-15] MEDS: amLODIPine Besylate 5 MG TABLET PO (09:02)
[2023-10-15] MEDS: Cholecalciferol (Vitamin D3) 25 MCG TABLET 50 MCG PO (09:02)
[2023-10-15] MEDS: Valsartan 160 MG TABLET PO (09:02)
[2023-10-15] MEDS: diazePAM 5 MG TABLET PO ×2 (09:55→19:53)
[2023-10-15 11:15] LABS: Glucose, Whole Blood 182 mg/dL (60-115)
[2023-10-15] MEDS: Insulin Lispro 100 UNIT/ML 3 ML VIAL SUBCUT ×3 (11:21→19:53)
[2023-10-15 16:19] LABS: Glucose, Whole Blood 176 mg/dL (60-115)
--- NOTE | 2023-10-15 17:34 | P.PNPSI_ITS ---
Subjective Subjective Date of Service: 10/15/23 Reason For Visit: section 12 Interim History: c/o stomach pain, diarrhea, cough. imodium this morning not terribly effective, unclear if pt is actually having diarrhea or is making delusional complaints. per staff, refused HS zyprexa FSBS in reasonably good control. c/o whole body pain, getting vicodin. denies psych Sx but RIS. slept 5 hours. Mental Status Exam Mental Status Exam Patient Appearance: Appropriate Patient Orientation: Person Level of Consciousness: Awake Patient Behavior: Guarded and Passive Mood Description: Withdrawn Affect Description: Constricted Patient Cognition Impaired: Yes Ability to Follow Directions: Fair Speech Pattern: Clear Hallucinations: Auditory Delusions: Paranoid Ideation and Ideas of Reference Thought Process: Distracted and Slowed Thinking Thought Content: positive for [place] and positive for Poverty of Content Judgement: Fair Diagnostics Vital Signs (24Hr): Vital Signs - 24 hr 10/14/23 19:09 10/15/23 08:10 Temperature 97.3 F 97.1 F Pulse Rate 94 98 Respiratory Rate 18 Blood Pressure 131/59 L 140/75 H Pulse Oximetry 97 96 Oxygen Delivery Method Room Air Room Air BMI result Body Mass Index 35.6 Labs 10/04/23 17:31 10/04/23 07:44 Labs: Laboratory Results - last 48 hr 10/13/23 10/14/23 10/14/23 19:46 06:47 11:14 POC Glucose 181 H 143 H 138 H 10/14/23 10/15/23 10/15/23 20:04 06:42 11:07 POC Glucose 168 H 136 H 182 H 10/15/23 16:08 POC Glucose 176 H Medications Medications Current Medications Acetaminophen (Acetaminophen 325 Mg Tablet) 650 mg PO Q6H PRN PRN Reason: Headache/Pain (1-10) Hydrocodone Bitart/Acetaminophen (Hydrocodone Bit/Acetam 5/325 Tablet) 1 tab PO BID PRN PRN Reason: Pain, Severe (Pain Scale 7-10) Last Admin: 10/15/23 02:41 Dose: 1 tab Al Hydroxide/Mg Hydroxide (Magnesium Hydrox/Alum Hydrox 30 Ml Oral.Susp) 30 ml PO Q6H PRN PRN Reason: Heartburn/Nausea Albuterol Sulfate (Albuterol Sulfate 90 Mcg 8 Gm Inhaler) 2 puff INHALE RQ4H PRN PRN Reason: sob Amlodipine Besylate (Amlodipine Besylate 5 Mg Tablet) 5 mg PO DAILY [facility]; Protocol Last Admin: 10/15/23 09:02 Dose: 5 mg Chlorpromazine HCl (Chlorpromazine Hcl 10 Mg Tablet) 10 mg PO Q4H PRN PRN Reason: agitation Diazepam (Diazepam 5 Mg Tablet) 5 mg PO TID PRN PRN Reason: Anxiety Last Admin: 10/15/23 09:55 Dose: 5 mg Hydroxyzine HCl (Hydroxyzine Hcl 25 Mg Tablet) 25 mg PO Q6H PRN PRN Reason: Anxiety Insulin Glargine (Insulin Glargine,Hum.Rec.Anlog 100 Unit/Ml 10 Ml Vial) 5 unit SUBCUT DAILY [facility] Last Admin: 10/15/23 08:59 Dose: 5 unit Insulin Human Lispro (Insulin Lispro 100 Unit/Ml 3 Ml Vial) 0 unit SUBCUT QIDACHS [facility]; Protocol Last Admin: 10/15/23 16:22 Dose: 2 unit Loperamide HCl (Loperamide Hcl 2 Mg Capsule) 2 mg PO Q4H PRN PRN Reason: Diarrhea Last Admin: 10/15/23 04:28 Dose: 2 mg Magnesium Hydroxide (Milk Of Magnesia 30 Ml Oral.Susp) 30 ml PO DAILY PRN PRN Reason: Constipation Olanzapine (Olanzapine 5 Mg Tablet) 5 mg PO BEDTIME [facility] Last Admin: 10/14/23 20:51 Dose: Not Given Trazodone HCl (Trazodone Hcl 50 Mg Tablet) 50 mg PO BEDTIME MRX1 PRN PRN Reason: Insomnia Valsartan (Valsartan 160 Mg Tablet) 160 mg PO DAILY [facility]; Protocol Last Admin: 10/15/23 09:02 Dose: 160 mg Vitamin D (Cholecalciferol (Vitamin D3) 25 Mcg Tablet) 50 mcg PO DAILY [facility] Last Admin: 10/15/23 09:02 Dose: 50 mcg Allergies Allergies Allergy/AdvReac Type Severity Reaction Status Date / Time No Known Allergies Allergy Verified 10/03/23 19:47 Assessment & Plan Assessment & Plan (1) Major depressive disorder, single episode, severe w psychotic behavior: Status: Acute Code(s): F32.3 - Major depressive disorder, single episode, severe with psychotic features (2) Cognitive and behavioral changes: Status: Acute Code(s): R41.89 - Other symptoms and signs involving cognitive functions and awareness; R46.89 - Other symptoms and signs involving appearance and behavior Plan Pt is a 78-year-old female with a PMH significant for?HTN, asthma, insulin- dependent type 2 diabetes, and unspecified psychiatric diagnosis who is admitted to [facility] for paranoia and psychosis. Patient was placed on a section 12 by VELMA Diaz after they were called to her apartment 4 times during the night. Patient reportedly believed that her landlord had been stealing money from her and hired a professional hit man who cut a hole in the wall of her closet in her bedroom to gain access to her apartment. Was noted to have nailed the door to her apartment shut. BPH also reported finding patient's insulin having been left out in the sun on the counter for 4 days. Medical consult for admission H&P. Plan 1. Gather collateral information. 2. We are going to filed for Section 7 and 8 since the patient is noncompliant with Risperdal. 3. We will contact the hospitalist for proper med rec. 4. Discontinue Risperdal start Zyprexa 5 mg p.o. q.h.s. 5. Encourage compliance 10/13/2023 Encourage treatment compliance has been refusing olanzapine 10/14/2023 Patient continues with poor executive function paranoia refusing olanzapine no insight change to Risperdal most likely will need to file 10/14: refusing zyprexa. no change in presentation. Reason for continued inpatient stay Substantial Risk for: inability to function and med/psych decompensation Time Spent With Patient Time: Total time managing care of this patient today ____ minutes.
[2023-10-15 19:48] LABS: Glucose, Whole Blood 194 mg/dL (60-115)
[2023-10-15 19:57] VITALS: BP 115/57; PULSE 87; RESP 18; TEMP 36.7; O2SAT 98
[2023-10-16 06:46] LABS: Glucose, Whole Blood 130 mg/dL (60-115)
[2023-10-16 08:21] VITALS: BP 131/63; PULSE 76; RESP 18; TEMP 36; O2SAT 97
[2023-10-16] MEDS: Cholecalciferol (Vitamin D3) 25 MCG TABLET 50 MCG PO (08:23)
[2023-10-16] MEDS: Insulin Glargine,Hum.rec.anlog 100 UNIT/ML 10 ML VIAL SUBCUT (08:23)
[2023-10-16] MEDS: amLODIPine Besylate 5 MG TABLET PO (08:24)
[2023-10-16] MEDS: Valsartan 160 MG TABLET PO (08:24)
--- NOTE | 2023-10-16 10:21 | P.PNPSI_ITS ---
Subjective Subjective Date of Service: 10/16/23 Reason For Visit: section 12 Interim History: calm, cooperative. delusional. states her landlord is looking to kill me because he stole 3 million dollars from me. she reports he came over to collect his rent and she put her 3 million dollars on the table and he took it all. denies she has a mental illness or has ever had a mental illness. per staff, refusing medications. believes people are trying to kill her. eating, drinking, socializing appropriately otherwise. very paranoid. Mental Status Exam Mental Status Exam Patient Appearance: Appropriate Patient Orientation: Person Level of Consciousness: Awake Patient Behavior: Guarded and Passive Mood Description: Withdrawn Affect Description: Constricted Patient Cognition Impaired: Yes Ability to Follow Directions: Fair Speech Pattern: Clear Delusions: Paranoid Ideation and Ideas of Reference Thought Process: Distracted and Slowed Thinking Thought Content: positive for [place] and positive for Poverty of Content Judgement: Fair Diagnostics Vital Signs (24Hr): Vital Signs - 24 hr 10/15/23 19:57 10/16/23 08:21 Temperature 98.0 F 96.8 F Pulse Rate 87 76 Respiratory Rate 18 18 Blood Pressure 115/57 L 131/63 Pulse Oximetry 98 97 Oxygen Delivery Method Room Air Room Air BMI result Body Mass Index 35.6 Labs 10/04/23 17:31 10/04/23 07:44 Labs: Laboratory Results - last 48 hr 10/14/23 10/14/23 10/15/23 11:14 20:04 06:42 POC Glucose 138 H 168 H 136 H 10/15/23 10/15/23 10/15/23 11:07 16:08 19:36 POC Glucose 182 H 176 H 194 H 10/16/23 06:37 POC Glucose 130 H Medications Medications Current Medications Acetaminophen (Acetaminophen 325 Mg Tablet) 650 mg PO Q6H PRN PRN Reason: Headache/Pain (1-10) Hydrocodone Bitart/Acetaminophen (Hydrocodone Bit/Acetam 5/325 Tablet) 1 tab PO BID PRN PRN Reason: Pain, Severe (Pain Scale 7-10) Last Admin: 10/15/23 19:52 Dose: 1 tab Al Hydroxide/Mg Hydroxide (Magnesium Hydrox/Alum Hydrox 30 Ml Oral.Susp) 30 ml PO Q6H PRN PRN Reason: Heartburn/Nausea Albuterol Sulfate (Albuterol Sulfate 90 Mcg 8 Gm Inhaler) 2 puff INHALE RQ4H PRN PRN Reason: sob Amlodipine Besylate (Amlodipine Besylate 5 Mg Tablet) 5 mg PO DAILY [facility]; Protocol Last Admin: 10/16/23 08:24 Dose: 5 mg Chlorpromazine HCl (Chlorpromazine Hcl 10 Mg Tablet) 10 mg PO Q4H PRN PRN Reason: agitation Last Admin: 10/16/23 08:24 Dose: 10 mg Diazepam (Diazepam 5 Mg Tablet) 5 mg PO TID PRN PRN Reason: Anxiety Last Admin: 10/15/23 19:53 Dose: 5 mg Hydroxyzine HCl (Hydroxyzine Hcl 25 Mg Tablet) 25 mg PO Q6H PRN PRN Reason: Anxiety Insulin Glargine (Insulin Glargine,Hum.Rec.Anlog 100 Unit/Ml 10 Ml Vial) 5 unit SUBCUT DAILY [facility] Last Admin: 10/16/23 08:23 Dose: 5 unit Insulin Human Lispro (Insulin Lispro 100 Unit/Ml 3 Ml Vial) 0 unit SUBCUT QIDACHS [facility]; Protocol Last Admin: 10/16/23 07:38 Dose: Not Given Loperamide HCl (Loperamide Hcl 2 Mg Capsule) 2 mg PO Q4H PRN PRN Reason: Diarrhea Last Admin: 10/15/23 04:28 Dose: 2 mg Magnesium Hydroxide (Milk Of Magnesia 30 Ml Oral.Susp) 30 ml PO DAILY PRN PRN Reason: Constipation Olanzapine (Olanzapine 5 Mg Tablet) 5 mg PO BEDTIME [facility] Last Admin: 10/15/23 22:39 Dose: Not Given Trazodone HCl (Trazodone Hcl 50 Mg Tablet) 50 mg PO BEDTIME MRX1 PRN PRN Reason: Insomnia Valsartan (Valsartan 160 Mg Tablet) 160 mg PO DAILY [facility]; Protocol Last Admin: 10/16/23 08:24 Dose: 160 mg Vitamin D (Cholecalciferol (Vitamin D3) 25 Mcg Tablet) 50 mcg PO DAILY [facility] Last Admin: 10/16/23 08:23 Dose: 50 mcg Allergies Allergies Allergy/AdvReac Type Severity Reaction Status Date / Time No Known Allergies Allergy Verified 10/03/23 19:47 Assessment & Plan Assessment & Plan (1) Major depressive disorder, single episode, severe w psychotic behavior: Status: Acute Code(s): F32.3 - Major depressive disorder, single episode, severe with psychotic features (2) Cognitive and behavioral changes: Status: Acute Code(s): R41.89 - Other symptoms and signs involving cognitive functions and awareness; R46.89 - Other symptoms and signs involving appearance and behavior Plan Pt is a 78-year-old female with a PMH significant for?HTN, asthma, insulin- dependent type 2 diabetes, and unspecified psychiatric diagnosis who is admitted to [facility] for paranoia and psychosis. Patient was placed on a section 12 by VELMA Diaz after they were called to her apartment 4 times during the night. Patient reportedly believed that her landlord had been stealing money from her and hired a professional hit man who cut a hole in the wall of her closet in her bedroom to gain access to her apartment. Was noted to have nailed the door to her apartment shut. BPH also reported finding patient's insulin having been left out in the sun on the counter for 4 days. Medical consult for admission H&P. Plan 1. Gather collateral information. 2. We are going to filed for Section 7 and 8 since the patient is noncompliant with Risperdal. 3. We will contact the hospitalist for proper med rec. 4. Discontinue Risperdal start Zyprexa 5 mg p.o. q.h.s. 5. Encourage compliance 10/13/2023 Encourage treatment compliance has been refusing olanzapine 10/14/2023 Patient continues with poor executive function paranoia refusing olanzapine no insight change to Risperdal most likely will need to file 10/14: refusing zyprexa. no change in presentation. 10/15: continues to refuse meds. revoke CV and file for commitment. Reason for continued inpatient stay Substantial Risk for: inability to function and rapid decompensation Time Spent With Patient Time: 25
[2023-10-16 11:24] LABS: Glucose, Whole Blood 121 mg/dL (60-115)
[2023-10-16 16:17] LABS: Glucose, Whole Blood 118 mg/dL (60-115)
[2023-10-16 19:46] LABS: Glucose, Whole Blood 122 mg/dL (60-115)
[2023-10-16 20:00] VITALS: BP 151/70; PULSE 86; RESP 18; TEMP 36.6; O2SAT 95
[2023-10-16] MEDS: HYDROcodone Bit/Acetam 5/325 TABLET 1 TAB PO (20:17)
[2023-10-16] MEDS: diazePAM 5 MG TABLET PO (20:17)
[2023-10-16] MEDS: OLANZapine 5 MG TABLET PO (20:22)
[2023-10-17 06:35] LABS: Glucose, Whole Blood 102 mg/dL (60-115)
[2023-10-17 08:00] VITALS: BP 129/60; PULSE 67; RESP 18; TEMP 36; O2SAT 95
[2023-10-17 09:27] VITALS: BP 129/60
[2023-10-17] MEDS: Valsartan 160 MG TABLET PO (09:27)
[2023-10-17 09:28] VITALS: BP 129/60
[2023-10-17] MEDS: amLODIPine Besylate 5 MG TABLET PO (09:28)
[2023-10-17] MEDS: Insulin Glargine,Hum.rec.anlog 100 UNIT/ML 10 ML VIAL SUBCUT (09:28)
[2023-10-17] MEDS: Cholecalciferol (Vitamin D3) 25 MCG TABLET 50 MCG PO (09:28)
[2023-10-17] MEDS: HYDROcodone Bit/Acetam 5/325 TABLET 1 TAB PO (09:44)
--- NOTE | 2023-10-17 11:46 | HO.PSYCHPN ---
Subjective Subjective Date of Service: 10/17/23 Reason For Visit: section 12 Interim History: feeling shitty. c/o sore throat and upset stomach. says upset stomach means pain. declines lozenges for sore throat. long paranoid delusional tangents. per staff, paranoid delusions. suspicious of medications. had vicodin for generalized pain. did take zyprexa last NOC. Mental Status Exam Mental Status Exam Patient Appearance: Appropriate Patient Orientation: Person Level of Consciousness: Awake Patient Behavior: Guarded and Passive Mood Description: Withdrawn Affect Description: Constricted Patient Cognition Impaired: Yes Ability to Follow Directions: Fair Speech Pattern: Clear Delusions: Paranoid Ideation and Ideas of Reference Thought Process: Distracted and Slowed Thinking Thought Content: positive for [place] and positive for Poverty of Content Judgement: Fair Diagnostics Vital Signs (24Hr): Vital Signs - 24 hr 10/16/23 20:00 10/17/23 08:00 10/17/23 09:27 Temperature 97.9 F 96.8 F Pulse Rate 86 67 Respiratory Rate 18 18 Blood Pressure 151/70 H 129/60 129/60 Pulse Oximetry 95 95 Oxygen Delivery Method Room Air Room Air 10/17/23 09:28 Temperature Pulse Rate Respiratory Rate Blood Pressure 129/60 Pulse Oximetry Oxygen Delivery Method BMI result Body Mass Index 35.6 Labs 10/04/23 17:31 10/04/23 07:44 Labs: Laboratory Results - last 48 hr 10/15/23 10/15/23 10/16/23 16:08 19:36 06:37 POC Glucose 176 H 194 H 130 H 10/16/23 10/16/23 10/16/23 11:16 16:09 19:36 POC Glucose 121 H 118 H 122 H 10/17/23 06:26 POC Glucose 102 Medications Medications Current Medications Acetaminophen (Acetaminophen 325 Mg Tablet) 650 mg PO Q6H PRN PRN Reason: Headache/Pain (1-10) Hydrocodone Bitart/Acetaminophen (Hydrocodone Bit/Acetam 5/325 Tablet) 1 tab PO BID PRN PRN Reason: Pain, Severe (Pain Scale 7-10) Last Admin: 10/17/23 09:44 Dose: 1 tab Al Hydroxide/Mg Hydroxide (Magnesium Hydrox/Alum Hydrox 30 Ml Oral.Susp) 30 ml PO Q6H PRN PRN Reason: Heartburn/Nausea Albuterol Sulfate (Albuterol Sulfate 90 Mcg 8 Gm Inhaler) 2 puff INHALE RQ4H PRN PRN Reason: sob Amlodipine Besylate (Amlodipine Besylate 5 Mg Tablet) 5 mg PO DAILY [facility]; Protocol Last Admin: 10/17/23 09:28 Dose: 5 mg Chlorpromazine HCl (Chlorpromazine Hcl 10 Mg Tablet) 10 mg PO Q4H PRN PRN Reason: agitation Diazepam (Diazepam 5 Mg Tablet) 5 mg PO TID PRN PRN Reason: Anxiety Last Admin: 10/16/23 20:17 Dose: 5 mg Hydroxyzine HCl (Hydroxyzine Hcl 25 Mg Tablet) 25 mg PO Q6H PRN PRN Reason: Anxiety Insulin Glargine (Insulin Glargine,Hum.Rec.Anlog 100 Unit/Ml 10 Ml Vial) 5 unit SUBCUT DAILY [facility] Last Admin: 10/17/23 09:28 Dose: 5 unit Insulin Human Lispro (Insulin Lispro 100 Unit/Ml 3 Ml Vial) 0 unit SUBCUT QIDACHS [facility]; Protocol Last Admin: 10/17/23 09:51 Dose: Not Given Loperamide HCl (Loperamide Hcl 2 Mg Capsule) 2 mg PO Q4H PRN PRN Reason: Diarrhea Last Admin: 10/15/23 04:28 Dose: 2 mg Magnesium Hydroxide (Milk Of Magnesia 30 Ml Oral.Susp) 30 ml PO DAILY PRN PRN Reason: Constipation Olanzapine (Olanzapine 5 Mg Tablet) 5 mg PO BEDTIME [facility] Last Admin: 10/16/23 20:22 Dose: 5 mg Trazodone HCl (Trazodone Hcl 50 Mg Tablet) 50 mg PO BEDTIME MRX1 PRN PRN Reason: Insomnia Valsartan (Valsartan 160 Mg Tablet) 160 mg PO DAILY [facility]; Protocol Last Admin: 10/17/23 09:27 Dose: 160 mg Vitamin D (Cholecalciferol (Vitamin D3) 25 Mcg Tablet) 50 mcg PO DAILY [facility] Last Admin: 10/17/23 09:28 Dose: 50 mcg Allergies Allergies Allergy/AdvReac Type Severity Reaction Status Date / Time No Known Allergies Allergy Verified 10/03/23 19:47 Assessment & Plan Assessment & Plan (1) Major depressive disorder, single episode, severe w psychotic behavior: Status: Acute Code(s): F32.3 - Major depressive disorder, single episode, severe with psychotic features (2) Cognitive and behavioral changes: Status: Acute Code(s): R41.89 - Other symptoms and signs involving cognitive functions and awareness; R46.89 - Other symptoms and signs involving appearance and behavior Plan Pt is a 78-year-old female with a PMH significant for?HTN, asthma, insulin-dependent type 2 diabetes, and unspecified psychiatric diagnosis who is admitted to [facility] for paranoia and psychosis. Patient was placed on a section 12 by Emily after they were called to her apartment 4 times during the night. Patient reportedly believed that her landlord had been stealing money from her and hired a professional hit man who cut a hole in the wall of her closet in her bedroom to gain access to her apartment. Was noted to have nailed the door to her apartment shut. BPH also reported finding patient's insulin having been left out in the sun on the counter for 4 days. Medical consult for admission H&P. Plan 1. Gather collateral information. 2. We are going to filed for Section 7 and 8 since the patient is noncompliant with Risperdal. 3. We will contact the hospitalist for proper med rec. 4. Discontinue Risperdal start Zyprexa 5 mg p.o. q.h.s. 5. Encourage compliance 10/13/2023 Encourage treatment compliance has been refusing olanzapine 10/14/2023 Patient continues with poor executive function paranoia refusing olanzapine no insight change to Risperdal most likely will need to file 10/14: refusing zyprexa. no change in presentation. 10/15: continues to refuse meds. revoke CV and file for commitment. 10/16: CV revoked late afternoon yesterday, commitment paperwork completed this morning. took zyprexa last night. continues with very paranoid delusions. believes she is going to be murdered by staff in the hospital. states she overhear[s] snippets of such plans, supporting AH. Reason for continued inpatient stay Substantial Risk for: inability to function Time Spent With Patient Time: Total time managing care of this patient today __25__ minutes.
[2023-10-17 11:48] LABS: Glucose, Whole Blood 168 mg/dL (60-115)
[2023-10-17 16:31] LABS: Glucose, Whole Blood 105 mg/dL (60-115)
[2023-10-17 20:00] VITALS: BP 136/62; PULSE 89; RESP 18; TEMP 36.1; O2SAT 97
[2023-10-17] MEDS: OLANZapine 5 MG TABLET PO (20:35)
[2023-10-17 20:43] LABS: Glucose, Whole Blood 160 mg/dL (60-115)
[2023-10-17] MEDS: Insulin Lispro 100 UNIT/ML 3 ML VIAL SUBCUT (20:53)
[2023-10-18 06:52] LABS: Glucose, Whole Blood 113 mg/dL (60-115)
[2023-10-18 07:00] VITALS: BMI 35.8
[2023-10-18 08:00] VITALS: BP 138/70; PULSE 79; RESP 18; TEMP 36; O2SAT 97
[2023-10-18 08:19] VITALS: BP 138/70
[2023-10-18] MEDS: Valsartan 160 MG TABLET PO (08:19)
[2023-10-18 08:20] VITALS: BP 138/70
[2023-10-18] MEDS: amLODIPine Besylate 5 MG TABLET PO (08:20)
[2023-10-18] MEDS: Cholecalciferol (Vitamin D3) 25 MCG TABLET 50 MCG PO (08:20)
[2023-10-18] MEDS: HYDROcodone Bit/Acetam 5/325 TABLET 1 TAB PO ×2 (08:21→20:05)
[2023-10-18] MEDS: Insulin Glargine,Hum.rec.anlog 100 UNIT/ML 10 ML VIAL SUBCUT (08:24)
[2023-10-18 11:03] LABS: Glucose, Whole Blood 132 mg/dL (60-115)
[2023-10-18 16:10] LABS: Glucose, Whole Blood 167 mg/dL (60-115)
[2023-10-18] MEDS: Insulin Lispro 100 UNIT/ML 3 ML VIAL SUBCUT (16:54)
--- NOTE | 2023-10-18 16:59 | P.PNPSI_ITS ---
Subjective Subjective Date of Service: 10/18/23 Reason For Visit: section 12 Interim History: they're going to take me away. about what their plan is for her: i don't know what. i can't hear all the words. are you in on it, too? paranoid delusions, disorganized, fearful she is going to be abducted and killed by staff. Mental Status Exam Mental Status Exam Patient Appearance: Appropriate Patient Orientation: Person Level of Consciousness: Awake Patient Behavior: Guarded and Passive Mood Description: Withdrawn Affect Description: Constricted Patient Cognition Impaired: Yes Ability to Follow Directions: Fair Speech Pattern: Clear Delusions: Paranoid Ideation and Ideas of Reference Thought Process: Distracted and Slowed Thinking Thought Content: positive for [place] and positive for Poverty of Content Judgement: Fair Diagnostics Vital Signs (24Hr): Vital Signs - 24 hr 10/17/23 20:00 10/18/23 08:00 10/18/23 08:19 Temperature 96.9 F 96.8 F Pulse Rate 89 79 Respiratory Rate 18 18 Blood Pressure 136/62 138/70 138/70 Pulse Oximetry 97 97 Oxygen Delivery Method Room Air Room Air 10/18/23 08:20 Temperature Pulse Rate Respiratory Rate Blood Pressure 138/70 Pulse Oximetry Oxygen Delivery Method BMI result Body Mass Index 35.8 Labs 10/04/23 17:31 10/04/23 07:44 Labs: Laboratory Results - last 48 hr 10/16/23 10/17/23 10/17/23 19:36 06:26 11:43 POC Glucose 122 H 102 168 H 10/17/23 10/17/23 10/18/23 16:27 20:34 06:47 POC Glucose 105 160 H 113 10/18/23 10/18/23 10:59 16:04 POC Glucose 132 H 167 H Medications Medications Current Medications Acetaminophen (Acetaminophen 325 Mg Tablet) 650 mg PO Q6H PRN PRN Reason: Headache/Pain (1-10) Hydrocodone Bitart/Acetaminophen (Hydrocodone Bit/Acetam 5/325 Tablet) 1 tab PO BID PRN PRN Reason: Pain, Severe (Pain Scale 7-10) Last Admin: 10/18/23 08:21 Dose: 1 tab Al Hydroxide/Mg Hydroxide (Magnesium Hydrox/Alum Hydrox 30 Ml Oral.Susp) 30 ml PO Q6H PRN PRN Reason: Heartburn/Nausea Albuterol Sulfate (Albuterol Sulfate 90 Mcg 8 Gm Inhaler) 2 puff INHALE RQ4H PRN PRN Reason: sob Amlodipine Besylate (Amlodipine Besylate 5 Mg Tablet) 5 mg PO DAILY [facility]; Protocol Last Admin: 10/18/23 08:20 Dose: 5 mg Chlorpromazine HCl (Chlorpromazine Hcl 10 Mg Tablet) 10 mg PO Q4H PRN PRN Reason: agitation Diazepam (Diazepam 5 Mg Tablet) 5 mg PO TID PRN PRN Reason: Anxiety Last Admin: 10/16/23 20:17 Dose: 5 mg Hydroxyzine HCl (Hydroxyzine Hcl 25 Mg Tablet) 25 mg PO Q6H PRN PRN Reason: Anxiety Insulin Glargine (Insulin Glargine,Hum.Rec.Anlog 100 Unit/Ml 10 Ml Vial) 5 unit SUBCUT DAILY [facility] Last Admin: 10/18/23 08:24 Dose: 5 unit Insulin Human Lispro (Insulin Lispro 100 Unit/Ml 3 Ml Vial) 0 unit SUBCUT QIDACHS [facility]; Protocol Last Admin: 10/18/23 16:54 Dose: 2 unit Loperamide HCl (Loperamide Hcl 2 Mg Capsule) 2 mg PO Q4H PRN PRN Reason: Diarrhea Last Admin: 10/15/23 04:28 Dose: 2 mg Magnesium Hydroxide (Milk Of Magnesia 30 Ml Oral.Susp) 30 ml PO DAILY PRN PRN Reason: Constipation Olanzapine (Olanzapine 5 Mg Tablet) 5 mg PO BEDTIME [facility] Last Admin: 10/17/23 20:35 Dose: 5 mg Trazodone HCl (Trazodone Hcl 50 Mg Tablet) 50 mg PO BEDTIME MRX1 PRN PRN Reason: Insomnia Valsartan (Valsartan 160 Mg Tablet) 160 mg PO DAILY [facility]; Protocol Last Admin: 10/18/23 08:19 Dose: 160 mg Vitamin D (Cholecalciferol (Vitamin D3) 25 Mcg Tablet) 50 mcg PO DAILY [facility] Last Admin: 10/18/23 08:20 Dose: 50 mcg Allergies Allergies Allergy/AdvReac Type Severity Reaction Status Date / Time No Known Allergies Allergy Verified 10/03/23 19:47 Assessment & Plan Assessment & Plan (1) Major depressive disorder, single episode, severe w psychotic behavior: Status: Acute Code(s): F32.3 - Major depressive disorder, single episode, severe with psychotic features (2) Cognitive and behavioral changes: Status: Acute Code(s): R41.89 - Other symptoms and signs involving cognitive functions and awareness; R46.89 - Other symptoms and signs involving appearance and behavior Plan Pt is a 78-year-old female with a PMH significant for?HTN, asthma, insulin- dependent type 2 diabetes, and unspecified psychiatric diagnosis who is admitted to [facility] for paranoia and psychosis. Patient was placed on a section 12 by Emily after they were called to her apartment 4 times during the night. Patient reportedly believed that her landlord had been stealing money from her and hired a professional hit man who cut a hole in the wall of her closet in her bedroom to gain access to her apartment. Was noted to have nailed the door to her apartment shut. BPH also reported finding patient's insulin having been left out in the sun on the counter for 4 days. Medical consult for admission H&P. Plan 1. Gather collateral information. 2. We are going to filed for Section 7 and 8 since the patient is noncompliant with Risperdal. 3. We will contact the hospitalist for proper med rec. 4. Discontinue Risperdal start Zyprexa 5 mg p.o. q.h.s. 5. Encourage compliance 10/13/2023 Encourage treatment compliance has been refusing olanzapine 10/14/2023 Patient continues with poor executive function paranoia refusing olanzapine no insight change to Risperdal most likely will need to file 10/14: refusing zyprexa. no change in presentation. 10/15: continues to refuse meds. revoke CV and file for commitment. 10/16: CV revoked late afternoon yesterday, commitment paperwork completed this morning. took zyprexa last night. continues with very paranoid delusions. believes she is going to be murdered by staff in the hospital. states she overhear[s] snippets of such plans, supporting . 10/17: remains convinced staff are planning to abduct her and murder her. she hears them discussing it. continue current mgmt, encourage to take anti- psychotic. hearing pending. Reason for continued inpatient stay Substantial Risk for: inability to function Time Spent With Patient Time: Total time managing care of this patient today __25__ minutes.
[2023-10-18 19:46] VITALS: BP 133/72; PULSE 96; RESP 18; TEMP 36; O2SAT 98
[2023-10-18 19:48] LABS: Glucose, Whole Blood 124 mg/dL (60-115)
[2023-10-18] MEDS: OLANZapine 5 MG TABLET PO (20:05)
[2023-10-18] MEDS: diazePAM 5 MG TABLET PO (20:06)
[2023-10-19 06:50] LABS: Glucose, Whole Blood 106 mg/dL (60-115)
[2023-10-19] MEDS: Cholecalciferol (Vitamin D3) 25 MCG TABLET 50 MCG PO (07:59)
[2023-10-19 08:00] VITALS: BP 137/62; PULSE 80; RESP 18; TEMP 35.9; O2SAT 99
[2023-10-19] MEDS: Valsartan 160 MG TABLET PO (08:00)
[2023-10-19 08:01] VITALS: BP 137/62
[2023-10-19] MEDS: amLODIPine Besylate 5 MG TABLET PO (08:01)
[2023-10-19] MEDS: Insulin Glargine,Hum.rec.anlog 100 UNIT/ML 10 ML VIAL SUBCUT (08:02)
[2023-10-19] MEDS: HYDROcodone Bit/Acetam 5/325 TABLET 1 TAB PO ×2 (08:07→21:15)
[2023-10-19 11:29] LABS: Glucose, Whole Blood 168 mg/dL (60-115)
[2023-10-19] MEDS: Insulin Lispro 100 UNIT/ML 3 ML VIAL SUBCUT ×2 (11:33→16:39)
--- NOTE | 2023-10-19 15:08 | P.PNPSI_ITS ---
Subjective Subjective Date of Service: 10/19/23 Reason For Visit: section 12 Subjective Notes: Section 7, Section 8 and Conditional Voluntary Interim History: The staff reported the patient had been less paranoid she took only 1 dose of Zyprexa last night. The occupational therapist reported that her Graham was 16/30. On interview the patient remains confused, stated that she slept well last night. Mental Status Exam Mental Status Exam Patient Appearance: Appropriate Patient Orientation: Person and Situation Level of Consciousness: Awake and Appropriate Patient Behavior: Guarded and Passive Mood Description: Withdrawn Affect Description: Constricted Patient Cognition Impaired: Yes Ability to Follow Directions: Good Speech Pattern: Clear Hallucinations: Auditory Delusions: Paranoid Ideation Thought Process: Distracted Thought Content: positive for [place] and positive for Poverty of Content Judgement: Poor Diagnostics Vital Signs (24Hr): Vital Signs - 24 hr 10/18/23 19:46 10/19/23 08:00 10/19/23 08:00 Temperature 96.8 F 96.7 F L Pulse Rate 96 80 Respiratory Rate 18 18 Blood Pressure 133/72 137/62 137/62 Pulse Oximetry 98 99 Oxygen Delivery Method Room Air Room Air 10/19/23 08:01 Temperature Pulse Rate Respiratory Rate Blood Pressure 137/62 Pulse Oximetry Oxygen Delivery Method BMI result Body Mass Index 35.8 Labs 10/04/23 17:31 10/04/23 07:44 Labs: Laboratory Results - last 48 hr 10/17/23 10/17/23 10/18/23 16:27 20:34 06:47 POC Glucose 105 160 H 113 10/18/23 10/18/23 10/18/23 10:59 16:04 19:45 POC Glucose 132 H 167 H 124 H 10/19/23 10/19/23 06:44 11:20 POC Glucose 106 168 H Medications Medications Current Medications Acetaminophen (Acetaminophen 325 Mg Tablet) 650 mg PO Q6H PRN PRN Reason: Headache/Pain (1-10) Hydrocodone Bitart/Acetaminophen (Hydrocodone Bit/Acetam 5/325 Tablet) 1 tab PO BID PRN PRN Reason: Pain, Severe (Pain Scale 7-10) Last Admin: 10/19/23 08:07 Dose: 1 tab Al Hydroxide/Mg Hydroxide (Magnesium Hydrox/Alum Hydrox 30 Ml Oral.Susp) 30 ml PO Q6H PRN PRN Reason: Heartburn/Nausea Albuterol Sulfate (Albuterol Sulfate 90 Mcg 8 Gm Inhaler) 2 puff INHALE RQ4H PRN PRN Reason: sob Amlodipine Besylate (Amlodipine Besylate 5 Mg Tablet) 5 mg PO DAILY [facility]; Protocol Last Admin: 10/19/23 08:01 Dose: 5 mg Chlorpromazine HCl (Chlorpromazine Hcl 10 Mg Tablet) 10 mg PO Q4H PRN PRN Reason: agitation Diazepam (Diazepam 5 Mg Tablet) 5 mg PO TID PRN PRN Reason: Anxiety Last Admin: 10/18/23 20:06 Dose: 5 mg Hydroxyzine HCl (Hydroxyzine Hcl 25 Mg Tablet) 25 mg PO Q6H PRN PRN Reason: Anxiety Insulin Glargine (Insulin Glargine,Hum.Rec.Anlog 100 Unit/Ml 10 Ml Vial) 5 unit SUBCUT DAILY [facility] Last Admin: 10/19/23 08:02 Dose: 5 unit Insulin Human Lispro (Insulin Lispro 100 Unit/Ml 3 Ml Vial) 0 unit SUBCUT QIDACHS [facility]; Protocol Last Admin: 10/19/23 11:33 Dose: 2 unit Loperamide HCl (Loperamide Hcl 2 Mg Capsule) 2 mg PO Q4H PRN PRN Reason: Diarrhea Last Admin: 10/15/23 04:28 Dose: 2 mg Magnesium Hydroxide (Milk Of Magnesia 30 Ml Oral.Susp) 30 ml PO DAILY PRN PRN Reason: Constipation Olanzapine (Olanzapine 5 Mg Tablet) 5 mg PO BEDTIME [facility] Last Admin: 10/18/23 20:05 Dose: 5 mg Trazodone HCl (Trazodone Hcl 50 Mg Tablet) 50 mg PO BEDTIME MRX1 PRN PRN Reason: Insomnia Valsartan (Valsartan 160 Mg Tablet) 160 mg PO DAILY [facility]; Protocol Last Admin: 10/19/23 08:00 Dose: 160 mg Vitamin D (Cholecalciferol (Vitamin D3) 25 Mcg Tablet) 50 mcg PO DAILY [facility] Last Admin: 10/19/23 07:59 Dose: 50 mcg Allergies Allergies Allergy/AdvReac Type Severity Reaction Status Date / Time No Known Allergies Allergy Verified 10/03/23 19:47 Assessment & Plan Assessment & Plan (1) Major depressive disorder, single episode, severe w psychotic behavior: Status: Acute Code(s): F32.3 - Major depressive disorder, single episode, severe with psychotic features (2) Cognitive and behavioral changes: Status: Acute Code(s): R41.89 - Other symptoms and signs involving cognitive functions and awareness; R46.89 - Other symptoms and signs involving appearance and behavior Plan Pt is a 78-year-old female with a PMH significant for?HTN, asthma, insulin- dependent type 2 diabetes, and unspecified psychiatric diagnosis who is admitted to [facility] for paranoia and psychosis. Patient was placed on a section 12 by VELMA Diaz after they were called to her apartment 4 times during the night. Patient reportedly believed that her landlord had been stealing money from her and hired a professional hit man who cut a hole in the wall of her closet in her bedroom to gain access to her apartment. Was noted to have nailed the door to her apartment shut. BPH also reported finding patient's insulin having been left out in the sun on the counter for 4 days. Medical consult for admission H&P. Plan 1. Gather collateral information. 2. We are going to filed for Section 7 and 8 since the patient is noncompliant with Risperdal. 3. We will contact the hospitalist for proper med rec. 4. Discontinue Risperdal start Zyprexa 5 mg p.o. q.h.s. 5. Encourage compliance 6. Section 7 and 8 was filed. 7. She was compliant with Zyprexa on October 17. We will observe. Reason for continued inpatient stay Substantial Risk for: inability to function, rapid decompensation and med/psych decompensation Time Spent With Patient Time: Total time managing care of this patient today _20___ minutes.
[2023-10-19 16:10] LABS: Glucose, Whole Blood 182 mg/dL (60-115)
[2023-10-19 20:00] VITALS: BP 133/72; PULSE 96; RESP 16; TEMP 35.7; O2SAT 97
[2023-10-19] MEDS: diazePAM 5 MG TABLET PO (21:24)
[2023-10-19 21:53] LABS: Glucose, Whole Blood 145 mg/dL (60-115)
[2023-10-20 06:45] LABS: Glucose, Whole Blood 104 mg/dL (60-115)
[2023-10-20 07:55] VITALS: BP 139/60; PULSE 79; RESP 18; TEMP 36.6; O2SAT 97
[2023-10-20] MEDS: Insulin Glargine,Hum.rec.anlog 100 UNIT/ML 10 ML VIAL SUBCUT (08:02)
[2023-10-20] MEDS: Valsartan 160 MG TABLET PO (08:03)
[2023-10-20] MEDS: Cholecalciferol (Vitamin D3) 25 MCG TABLET 50 MCG PO (08:04)
[2023-10-20] MEDS: amLODIPine Besylate 5 MG TABLET PO (08:04)
--- NOTE | 2023-10-20 08:09 | P.PNPSI_ITS ---
Subjective Subjective Date of Service: 10/20/23 Reason For Visit: section 12 Interim History: met with patient. Discussed with Nursing. Has been declining olanzapine. Slept 5 hours last night. Is paranoid. States that people are trying to kill her and they have been having meetings to do that. States there are lots of people playing lots of tricks here. Would not elaborate or give copy writer detail. Was very guarded. Denied feeling depressed. Denied SI. Medication Compliance: Intermittent Side effects from medications: No Attending Groups: No Review of Systems Acute medical concerns: No Review of Systems Review of Systems Nothing acute Mental Status Exam Mental Status Exam Patient Appearance: Appropriate Patient Orientation: Person and Situation Level of Consciousness: Awake and Appropriate Patient Behavior: Guarded and Passive Mood Description: Withdrawn Affect Description: Constricted Patient Cognition Impaired: Yes Ability to Follow Directions: Good Speech Pattern: Clear Memory Description: Episodic Impaired Diagnostics Vital Signs (24Hr): Vital Signs - 24 hr 10/19/23 20:00 Temperature 96.2 F L Pulse Rate 96 Respiratory Rate 16 Blood Pressure 133/72 Pulse Oximetry 97 Oxygen Delivery Method Room Air BMI result Body Mass Index 35.8 Labs 10/04/23 17:31 10/04/23 07:44 Labs: Laboratory Results - last 48 hr 10/18/23 10/18/23 10/18/23 10:59 16:04 19:45 POC Glucose 132 H 167 H 124 H 10/19/23 10/19/23 10/19/23 06:44 11:20 16:01 POC Glucose 106 168 H 182 H 10/19/23 10/20/23 21:21 06:40 POC Glucose 145 H 104 Medications Medications Current Medications Acetaminophen (Acetaminophen 325 Mg Tablet) 650 mg PO Q6H PRN PRN Reason: Headache/Pain (1-10) Hydrocodone Bitart/Acetaminophen (Hydrocodone Bit/Acetam 5/325 Tablet) 1 tab PO BID PRN PRN Reason: Pain, Severe (Pain Scale 7-10) Last Admin: 10/19/23 21:15 Dose: 1 tab Al Hydroxide/Mg Hydroxide (Magnesium Hydrox/Alum Hydrox 30 Ml Oral.Susp) 30 ml PO Q6H PRN PRN Reason: Heartburn/Nausea Albuterol Sulfate (Albuterol Sulfate 90 Mcg 8 Gm Inhaler) 2 puff INHALE RQ4H PRN PRN Reason: sob Amlodipine Besylate (Amlodipine Besylate 5 Mg Tablet) 5 mg PO DAILY [facility]; Protocol Last Admin: 10/20/23 08:04 Dose: 5 mg Chlorpromazine HCl (Chlorpromazine Hcl 10 Mg Tablet) 10 mg PO Q4H PRN PRN Reason: agitation Diazepam (Diazepam 5 Mg Tablet) 5 mg PO TID PRN PRN Reason: Anxiety Last Admin: 10/19/23 21:24 Dose: 5 mg Hydroxyzine HCl (Hydroxyzine Hcl 25 Mg Tablet) 25 mg PO Q6H PRN PRN Reason: Anxiety Insulin Glargine (Insulin Glargine,Hum.Rec.Anlog 100 Unit/Ml 10 Ml Vial) 5 unit SUBCUT DAILY [facility] Last Admin: 10/20/23 08:02 Dose: 5 unit Insulin Human Lispro (Insulin Lispro 100 Unit/Ml 3 Ml Vial) 0 unit SUBCUT QIDACHS [facility]; Protocol Last Admin: 10/20/23 08:08 Dose: Not Given Loperamide HCl (Loperamide Hcl 2 Mg Capsule) 2 mg PO Q4H PRN PRN Reason: Diarrhea Last Admin: 10/15/23 04:28 Dose: 2 mg Magnesium Hydroxide (Milk Of Magnesia 30 Ml Oral.Susp) 30 ml PO DAILY PRN PRN Reason: Constipation Olanzapine (Olanzapine 5 Mg Tablet) 5 mg PO BEDTIME [facility] Last Admin: 10/19/23 21:17 Dose: Not Given Trazodone HCl (Trazodone Hcl 50 Mg Tablet) 50 mg PO BEDTIME MRX1 PRN PRN Reason: Insomnia Valsartan (Valsartan 160 Mg Tablet) 160 mg PO DAILY [facility]; Protocol Last Admin: 10/20/23 08:03 Dose: 160 mg Vitamin D (Cholecalciferol (Vitamin D3) 25 Mcg Tablet) 50 mcg PO DAILY [facility] Last Admin: 10/20/23 08:04 Dose: 50 mcg Allergies Allergies Allergy/AdvReac Type Severity Reaction Status Date / Time No Known Allergies Allergy Verified 10/03/23 19:47 Assessment & Plan Assessment & Plan (1) Major depressive disorder, single episode, severe w psychotic behavior: Status: Acute Code(s): F32.3 - Major depressive disorder, single episode, severe with psychotic features (2) Cognitive and behavioral changes: Status: Acute Code(s): R41.89 - Other symptoms and signs involving cognitive functions and awareness; R46.89 - Other symptoms and signs involving appearance and behavior Plan Pt is a 78-year-old female with a PMH significant for?HTN, asthma, insulin- dependent type 2 diabetes, and unspecified psychiatric diagnosis who is admitted to [facility] for paranoia and psychosis. Patient was placed on a section 12 by VELMA Diaz after they were called to her apartment 4 times during the night. Patient reportedly believed that her landlord had been stealing money from her and hired a professional hit man who cut a hole in the wall of her closet in her bedroom to gain access to her apartment. Was noted to have nailed the door to her apartment shut. BPH also reported finding patient's insulin having been left out in the sun on the counter for 4 days. Medical consult for admission H&P. Plan 1. Gather collateral information. 2. We are going to filed for Section 7 and 8 since the patient is noncompliant with Risperdal. 3. We will contact the hospitalist for proper med rec. 4. Discontinue Risperdal start Zyprexa 5 mg p.o. q.h.s. 5. Encourage compliance 6. Section 7 and 8 was filed. 7. She was compliant with Zyprexa on October 17. We will observe. 10/20/2023: We will continue to encourage medication adherence. Declines zyprexa last night Reason for continued inpatient stay Substantial Risk for: inability to function Time Spent With Patient Time: Total time managing care of this patient today ____ minutes.
[2023-10-20 11:12] LABS: Glucose, Whole Blood 146 mg/dL (60-115)
[2023-10-20] MEDS: HYDROcodone Bit/Acetam 5/325 TABLET 1 TAB PO ×2 (14:24→20:05)
--- NOTE | 2023-10-20 15:57 | PC.NURSE ---
Pt reported to life underwriter that she called the police and stated I told them it was an emergency because of what was going on in here . Entry Level Web Developer attempted to have patient elaborate what she meant by what the emergency was and patient could not explain. Entry Level Web Developer offered patient if she would like to go on patio and talk , offered snack, asked her if there was anything we can do to make her feel better, offered medication pt refused. Will continue to monitor for behavioral concerns.
[2023-10-20 16:19] LABS: Glucose, Whole Blood 141 mg/dL (60-115)
[2023-10-20 20:00] VITALS: BP 134/62; PULSE 93; RESP 18; TEMP 36; O2SAT 97
[2023-10-20] MEDS: diazePAM 5 MG TABLET PO (20:06)
[2023-10-20] MEDS: Insulin Lispro 100 UNIT/ML 3 ML VIAL SUBCUT (20:40)
[2023-10-20 20:42] LABS: Glucose, Whole Blood 184 mg/dL (60-115)
[2023-10-21 06:52] LABS: Glucose, Whole Blood 136 mg/dL (60-115)
[2023-10-21 07:55] VITALS: BP 150/70; PULSE 82; RESP 18; TEMP 37; O2SAT 100
[2023-10-21] MEDS: amLODIPine Besylate 5 MG TABLET PO (08:13)
[2023-10-21] MEDS: Insulin Glargine,Hum.rec.anlog 100 UNIT/ML 10 ML VIAL SUBCUT (08:13)
[2023-10-21] MEDS: Cholecalciferol (Vitamin D3) 25 MCG TABLET 50 MCG PO (08:13)
[2023-10-21] MEDS: Valsartan 160 MG TABLET PO (08:13)
[2023-10-21] MEDS: diazePAM 5 MG TABLET PO ×2 (08:18→20:30)
[2023-10-21] MEDS: HYDROcodone Bit/Acetam 5/325 TABLET 1 TAB PO ×2 (08:18→20:24)
--- NOTE | 2023-10-21 10:25 | HO.PSYCHPN ---
Subjective Subjective Date of Service: 10/21/23 Reason For Visit: section 12 Interim History: met with patient. Discussed with Nursing. Has been declining olanzapine. Remains paranoid. States that people are trying to kill her, they have ashes in bags so they can burn her body and present something different to her family. Was very guarded. Denied feeling depressed. Denied SI. Medication Compliance: No Side effects from medications: No Attending Groups: No Review of Systems Acute medical concerns: No Review of Systems Review of Systems Nothing acute Mental Status Exam Mental Status Exam Narrative: paranoid delusions Patient Appearance: Appropriate Patient Orientation: Person and Situation Level of Consciousness: Awake and Appropriate Patient Behavior: Guarded and Passive Mood Description: Withdrawn Affect Description: Constricted Patient Cognition Impaired: Yes Ability to Follow Directions: Good Speech Pattern: Clear Memory Description: Episodic Impaired Diagnostics Vital Signs (24Hr): Vital Signs - 24 hr 10/20/23 20:00 10/21/23 07:55 Temperature 96.8 F 98.6 F Pulse Rate 93 82 Respiratory Rate 18 18 Blood Pressure 134/62 150/70 H Pulse Oximetry 97 100 Oxygen Delivery Method Room Air Room Air BMI result Body Mass Index 35.8 Labs 10/04/23 17:31 10/04/23 07:44 Labs: Laboratory Results - last 48 hr 10/19/23 10/19/23 10/19/23 11:20 16:01 21:21 POC Glucose 168 H 182 H 145 H 10/20/23 10/20/23 10/20/23 06:40 11:08 16:16 POC Glucose 104 146 H 141 H 10/20/23 10/21/23 20:36 06:43 POC Glucose 184 H 136 H Medications Medications Current Medications Acetaminophen (Acetaminophen 325 Mg Tablet) 650 mg PO Q6H PRN PRN Reason: Headache/Pain (1-10) Hydrocodone Bitart/Acetaminophen (Hydrocodone Bit/Acetam 5/325 Tablet) 1 tab PO BID PRN PRN Reason: Pain, Severe (Pain Scale 7-10) Last Admin: 10/21/23 08:18 Dose: 1 tab Al Hydroxide/Mg Hydroxide (Magnesium Hydrox/Alum Hydrox 30 Ml Oral.Susp) 30 ml PO Q6H PRN PRN Reason: Heartburn/Nausea Albuterol Sulfate (Albuterol Sulfate 90 Mcg 8 Gm Inhaler) 2 puff INHALE RQ4H PRN PRN Reason: sob Amlodipine Besylate (Amlodipine Besylate 5 Mg Tablet) 5 mg PO DAILY [facility]; Protocol Last Admin: 10/21/23 08:13 Dose: 5 mg Chlorpromazine HCl (Chlorpromazine Hcl 10 Mg Tablet) 10 mg PO Q4H PRN PRN Reason: agitation Diazepam (Diazepam 5 Mg Tablet) 5 mg PO TID PRN PRN Reason: Anxiety Last Admin: 10/21/23 08:18 Dose: 5 mg Hydroxyzine HCl (Hydroxyzine Hcl 25 Mg Tablet) 25 mg PO Q6H PRN PRN Reason: Anxiety Insulin Glargine (Insulin Glargine,Hum.Rec.Anlog 100 Unit/Ml 10 Ml Vial) 5 unit SUBCUT DAILY [facility] Last Admin: 10/21/23 08:13 Dose: 5 unit Insulin Human Lispro (Insulin Lispro 100 Unit/Ml 3 Ml Vial) 0 unit SUBCUT QIDACHS [facility]; Protocol Last Admin: 10/21/23 07:30 Dose: Not Given Loperamide HCl (Loperamide Hcl 2 Mg Capsule) 2 mg PO Q4H PRN PRN Reason: Diarrhea Last Admin: 10/15/23 04:28 Dose: 2 mg Magnesium Hydroxide (Milk Of Magnesia 30 Ml Oral.Susp) 30 ml PO DAILY PRN PRN Reason: Constipation Olanzapine (Olanzapine 5 Mg Tablet) 5 mg PO BEDTIME [facility] Last Admin: 10/20/23 20:06 Dose: Not Given Trazodone HCl (Trazodone Hcl 50 Mg Tablet) 50 mg PO BEDTIME MRX1 PRN PRN Reason: Insomnia Valsartan (Valsartan 160 Mg Tablet) 160 mg PO DAILY [facility]; Protocol Last Admin: 10/21/23 08:13 Dose: 160 mg Vitamin D (Cholecalciferol (Vitamin D3) 25 Mcg Tablet) 50 mcg PO DAILY [facility] Last Admin: 10/21/23 08:13 Dose: 50 mcg Allergies Allergies Allergy/AdvReac Type Severity Reaction Status Date / Time No Known Allergies Allergy Verified 10/03/23 19:47 Assessment & Plan Assessment & Plan (1) Major depressive disorder, single episode, severe w psychotic behavior: Status: Acute Code(s): F32.3 - Major depressive disorder, single episode, severe with psychotic features (2) Cognitive and behavioral changes: Status: Acute Code(s): R41.89 - Other symptoms and signs involving cognitive functions and awareness; R46.89 - Other symptoms and signs involving appearance and behavior Plan Pt is a 78-year-old female with a PMH significant for?HTN, asthma, insulin-dependent type 2 diabetes, and unspecified psychiatric diagnosis who is admitted to [facility] for paranoia and psychosis. Patient was placed on a section 12 by VELMA Diaz after they were called to her apartment 4 times during the night. Patient reportedly believed that her landlord had been stealing money from her and hired a professional hit man who cut a hole in the wall of her closet in her bedroom to gain access to her apartment. Was noted to have nailed the door to her apartment shut. BPH also reported finding patient's insulin having been left out in the sun on the counter for 4 days. Medical consult for admission H&P. Plan 1. Gather collateral information. 2. We are going to filed for Section 7 and 8 since the patient is noncompliant with Risperdal. 3. We will contact the hospitalist for proper med rec. 4. Discontinue Risperdal start Zyprexa 5 mg p.o. q.h.s. 5. Encourage compliance 6. Section 7 and 8 was filed. 7. She was compliant with Zyprexa on October 17. We will observe. 10/21/2023: We will continue to encourage medication adherence. Declines zyprexa Reason for continued inpatient stay Substantial Risk for: inability to function Time Spent With Patient Time: Total time managing care of this patient today ____ minutes.
[2023-10-21 11:15] LABS: Glucose, Whole Blood 172 mg/dL (60-115)
[2023-10-21] MEDS: Insulin Lispro 100 UNIT/ML 3 ML VIAL SUBCUT ×2 (11:37→20:22)
--- NOTE | 2023-10-21 14:02 | PC.NURSE ---
The patient was outside another patient's room talking to him. She had tears in her eyes. She shouted out to the staff, The devil is here. You will get you're punishment. You are bitches. God doesn't want you using his name like that. I asked the patient if she wanted to talk and she agreed. We went into her room and spoke. She remains paranoid, thinking that there are 2 staff members who talk all night in the noel about killing her. She said she doesn't care if they shoot her if she can't leave here. As we keep talking she mentions, There's other stuff going on here at night too. They are dragging heavy stuff down the noel, like coffins, not one or two but more than that. It's hard because they ask for help. I offer her PRN Thorazine several times and she refuses. I tell her that her nurse and I are here to help her and if she wants the medication , just ask for it. I told her that I don't like seeing her so distraught. She later speaks to me and another staff member asking us, When are they going to get their money. People are telling them that they are going to get a lot of money. Then she stated, I don't care if they kill me. I'm in alf here. She said she will think about taking the medication but she's afraid that it will hurt her body.
[2023-10-21 16:22] LABS: Glucose, Whole Blood 107 mg/dL (60-115)
--- NOTE | 2023-10-21 19:13 | PC.NURSE ---
This patient approached this nurse after lunch to tell me that there was a problem in one of the patient's room and asked me to check it out. She said that there was a body or mummy wrapped up in gauze in the bed next to the other patient. I brought her down to said room and showed her that it was not a mummy but another patient with a blanket on. Patient is considering taking a half of Thorazine although she denies having auditory hallucinations and being paranoid. She wants to go home. Nurse stated that she could only go home if she started taking her prescribed medication to help clear her mind of the delusions. She was tearful and fearful today.
[2023-10-21 20:00] VITALS: BP 146/68; PULSE 80; RESP 16; TEMP 35.7; O2SAT 96
[2023-10-22 00:33] LABS: Glucose, Whole Blood 170 mg/dL (60-115)
[2023-10-22 11:38] LABS: Glucose, Whole Blood 132 mg/dL (60-115)
--- NOTE | 2023-10-22 13:54 | HO.PSYCHPN ---
Subjective Subjective Date of Service: 10/22/23 Reason For Visit: section 12 Subjective Notes: Section 7, Section 8 and Conditional Voluntary Interim History: The nursing staff reported the patient had been more paranoid since she had been noncompliant with Zyprexa since October 17. She stated that there is a mommy in her room and she has auditory hallucinations. She had been calling the police several times. On interview the patient denies any symptoms we are going to put an order to monitor her phone calls. The case was discussed with the team and the human rights officer. Mental Status Exam Mental Status Exam Patient Appearance: Appropriate (On hospital gowns) Patient Orientation: Person Level of Consciousness: Awake Patient Behavior: Guarded and Passive Mood Description: Withdrawn Affect Description: Constricted Patient Cognition Impaired: Yes Ability to Follow Directions: Fair Speech Pattern: Clear Hallucinations: Auditory Delusions: Paranoid Ideation and Ideas of Reference Thought Process: Distracted and Slowed Thinking Thought Content: positive for [place] and positive for Poverty of Content Judgement: Poor Diagnostics Vital Signs (24Hr): Vital Signs - 24 hr 10/21/23 20:00 Temperature 96.2 F L Pulse Rate 80 Respiratory Rate 16 Blood Pressure 146/68 H Pulse Oximetry 96 Oxygen Delivery Method Room Air BMI result Body Mass Index 35.8 Labs 10/04/23 17:31 10/04/23 07:44 Labs: Laboratory Results - last 48 hr 10/20/23 10/20/23 10/21/23 16:16 20:36 06:43 POC Glucose 141 H 184 H 136 H 10/21/23 10/21/23 10/21/23 11:11 16:18 19:54 POC Glucose 172 H 107 170 H 10/22/23 11:27 POC Glucose 132 H Medications Medications Current Medications Acetaminophen (Acetaminophen 325 Mg Tablet) 650 mg PO Q6H PRN PRN Reason: Headache/Pain (1-10) Hydrocodone Bitart/Acetaminophen (Hydrocodone Bit/Acetam 5/325 Tablet) 1 tab PO BID PRN PRN Reason: Pain, Severe (Pain Scale 7-10) Last Admin: 10/21/23 20:24 Dose: 1 tab Al Hydroxide/Mg Hydroxide (Magnesium Hydrox/Alum Hydrox 30 Ml Oral.Susp) 30 ml PO Q6H PRN PRN Reason: Heartburn/Nausea Albuterol Sulfate (Albuterol Sulfate 90 Mcg 8 Gm Inhaler) 2 puff INHALE RQ4H PRN PRN Reason: sob Amlodipine Besylate (Amlodipine Besylate 5 Mg Tablet) 5 mg PO DAILY [facility]; Protocol Last Admin: 10/22/23 09:09 Dose: Not Given Chlorpromazine HCl (Chlorpromazine Hcl 10 Mg Tablet) 10 mg PO Q4H PRN PRN Reason: agitation Diazepam (Diazepam 5 Mg Tablet) 5 mg PO TID PRN PRN Reason: Anxiety Last Admin: 10/21/23 20:30 Dose: 5 mg Hydroxyzine HCl (Hydroxyzine Hcl 25 Mg Tablet) 25 mg PO Q6H PRN PRN Reason: Anxiety Insulin Glargine (Insulin Glargine,Hum.Rec.Anlog 100 Unit/Ml 10 Ml Vial) 5 unit SUBCUT DAILY [facility] Last Admin: 10/22/23 09:10 Dose: Not Given Insulin Human Lispro (Insulin Lispro 100 Unit/Ml 3 Ml Vial) 0 unit SUBCUT QIDACHS [facility]; Protocol Last Admin: 10/22/23 13:44 Dose: Not Given Loperamide HCl (Loperamide Hcl 2 Mg Capsule) 2 mg PO Q4H PRN PRN Reason: Diarrhea Last Admin: 10/15/23 04:28 Dose: 2 mg Magnesium Hydroxide (Milk Of Magnesia 30 Ml Oral.Susp) 30 ml PO DAILY PRN PRN Reason: Constipation Olanzapine (Olanzapine 5 Mg Tablet) 5 mg PO BEDTIME [facility] Last Admin: 10/21/23 20:26 Dose: Not Given Trazodone HCl (Trazodone Hcl 50 Mg Tablet) 50 mg PO BEDTIME MRX1 PRN PRN Reason: Insomnia Valsartan (Valsartan 160 Mg Tablet) 160 mg PO DAILY [facility]; Protocol Last Admin: 10/22/23 09:10 Dose: Not Given Vitamin D (Cholecalciferol (Vitamin D3) 25 Mcg Tablet) 50 mcg PO DAILY [facility] Last Admin: 10/22/23 09:09 Dose: Not Given Allergies Allergies Allergy/AdvReac Type Severity Reaction Status Date / Time No Known Allergies Allergy Verified 10/03/23 19:47 Assessment & Plan Assessment & Plan (1) Major depressive disorder, single episode, severe w psychotic behavior: Status: Acute Code(s): F32.3 - Major depressive disorder, single episode, severe with psychotic features (2) Cognitive and behavioral changes: Status: Acute Code(s): R41.89 - Other symptoms and signs involving cognitive functions and awareness; R46.89 - Other symptoms and signs involving appearance and behavior Plan Pt is a 78-year-old female with a PMH significant for?HTN, asthma, insulin-dependent type 2 diabetes, and unspecified psychiatric diagnosis who is admitted to [facility] for paranoia and psychosis. Patient was placed on a section 12 by Emily after they were called to her apartment 4 times during the night. Patient reportedly believed that her landlord had been stealing money from her and hired a professional hit man who cut a hole in the wall of her closet in her bedroom to gain access to her apartment. Was noted to have nailed the door to her apartment shut. BPH also reported finding patient's insulin having been left out in the sun on the counter for 4 days. Medical consult for admission H&P. Plan 1. Gather collateral information. 2. We are going to filed for Section 7 and 8 since the patient is noncompliant with Risperdal. 3. We will contact the hospitalist for proper med rec. 4. Discontinue Risperdal start Zyprexa 5 mg p.o. q.h.s. 5. Encourage compliance 6. Section 7 and 8 was filed. 7. She was compliant with Zyprexa on October 17. We will observe but so far she had been on compliant with medications. She took only wants remains psychotic. 8. Telephone calls will be monitored so the patient will not dial 911 and prank the police. Reason for continued inpatient stay Substantial Risk for: inability to function, rapid decompensation and med/psych decompensation Time Spent With Patient Time: Total time managing care of this patient today __20__ minutes.
[2023-10-22] MEDS: Insulin Lispro 100 UNIT/ML 3 ML VIAL SUBCUT ×2 (16:47→20:50)
[2023-10-22 20:00] VITALS: BP 147/81; PULSE 87; RESP 18; TEMP 36.3; O2SAT 95
[2023-10-22 20:42] LABS: Glucose, Whole Blood 186 mg/dL (60-115)
[2023-10-22 20:42] LABS: Glucose, Whole Blood 196 mg/dL (60-115)
[2023-10-22] MEDS: OLANZapine 5 MG TABLET PO (20:55)
[2023-10-22] MEDS: diazePAM 5 MG TABLET PO (21:01)
[2023-10-22] MEDS: HYDROcodone Bit/Acetam 5/325 TABLET 1 TAB PO (21:01)
[2023-10-23 06:43] LABS: Glucose, Whole Blood 132 mg/dL (60-115)
[2023-10-23 08:42] VITALS: BP 130/60; PULSE 84; RESP 18; TEMP 36.2; O2SAT 94
[2023-10-23] MEDS: HYDROcodone Bit/Acetam 5/325 TABLET 1 TAB PO ×2 (08:52→20:26)
[2023-10-23] MEDS: diazePAM 5 MG TABLET PO ×2 (08:52→20:26)
[2023-10-23] MEDS: amLODIPine Besylate 5 MG TABLET PO (08:53)
[2023-10-23] MEDS: Insulin Glargine,Hum.rec.anlog 100 UNIT/ML 10 ML VIAL SUBCUT (08:53)
[2023-10-23] MEDS: Cholecalciferol (Vitamin D3) 25 MCG TABLET 50 MCG PO (08:53)
[2023-10-23] MEDS: Valsartan 160 MG TABLET PO (08:53)
[2023-10-23 11:12] LABS: Glucose, Whole Blood 163 mg/dL (60-115)
--- NOTE | 2023-10-23 11:38 | HO.PSYCHPN ---
Subjective Subjective Date of Service: 10/23/23 Reason For Visit: section 12 Subjective Notes: Conditional Voluntary Interim History: The patient remains paranoid, she refused vital signs in the morning and apparently she took her medication last night. Today on interview she reported that they want to kill her in the unit and she was complaining of staff making noise in the hallway. I encouraged her of compliance. Mental Status Exam Mental Status Exam Patient Appearance: Appropriate Patient Orientation: Person and Situation Level of Consciousness: Awake Patient Behavior: Guarded and Suspicious Mood Description: Withdrawn Affect Description: Constricted Patient Cognition Impaired: Yes Ability to Follow Directions: Fair Speech Pattern: Clear Hallucinations: None Delusions: Paranoid Ideation Thought Process: Distracted and Slowed Thinking Thought Content: positive for [place] and positive for Poverty of Content Judgement: Poor Diagnostics Vital Signs (24Hr): Vital Signs - 24 hr 10/22/23 20:00 10/23/23 08:42 Temperature 97.3 F 97.2 F Pulse Rate 87 84 Respiratory Rate 18 18 Blood Pressure 147/81 H 130/60 Pulse Oximetry 95 94 Oxygen Delivery Method Room Air Room Air BMI result Body Mass Index 35.8 Labs 10/04/23 17:31 10/04/23 07:44 Labs: Laboratory Results - last 48 hr 10/21/23 10/21/23 10/22/23 16:18 19:54 11:27 POC Glucose 107 170 H 132 H 10/22/23 10/22/23 10/23/23 16:18 20:15 06:39 POC Glucose 196 H 186 H 132 H 10/23/23 11:08 POC Glucose 163 H Medications Medications Current Medications Acetaminophen (Acetaminophen 325 Mg Tablet) 650 mg PO Q6H PRN PRN Reason: Headache/Pain (1-10) Hydrocodone Bitart/Acetaminophen (Hydrocodone Bit/Acetam 5/325 Tablet) 1 tab PO BID PRN PRN Reason: Pain, Severe (Pain Scale 7-10) Last Admin: 10/23/23 08:52 Dose: 1 tab Al Hydroxide/Mg Hydroxide (Magnesium Hydrox/Alum Hydrox 30 Ml Oral.Susp) 30 ml PO Q6H PRN PRN Reason: Heartburn/Nausea Albuterol Sulfate (Albuterol Sulfate 90 Mcg 8 Gm Inhaler) 2 puff INHALE RQ4H PRN PRN Reason: sob Amlodipine Besylate (Amlodipine Besylate 5 Mg Tablet) 5 mg PO DAILY [facility]; Protocol Last Admin: 10/23/23 08:53 Dose: 5 mg Chlorpromazine HCl (Chlorpromazine Hcl 10 Mg Tablet) 10 mg PO Q4H PRN PRN Reason: agitation Diazepam (Diazepam 5 Mg Tablet) 5 mg PO TID PRN PRN Reason: Anxiety Last Admin: 10/23/23 08:52 Dose: 5 mg Hydroxyzine HCl (Hydroxyzine Hcl 25 Mg Tablet) 25 mg PO Q6H PRN PRN Reason: Anxiety Insulin Glargine (Insulin Glargine,Hum.Rec.Anlog 100 Unit/Ml 10 Ml Vial) 5 unit SUBCUT DAILY [facility] Last Admin: 10/23/23 08:53 Dose: 5 unit Insulin Human Lispro (Insulin Lispro 100 Unit/Ml 3 Ml Vial) 0 unit SUBCUT QIDACHS [facility]; Protocol Last Admin: 10/23/23 08:48 Dose: Not Given Loperamide HCl (Loperamide Hcl 2 Mg Capsule) 2 mg PO Q4H PRN PRN Reason: Diarrhea Last Admin: 10/15/23 04:28 Dose: 2 mg Magnesium Hydroxide (Milk Of Magnesia 30 Ml Oral.Susp) 30 ml PO DAILY PRN PRN Reason: Constipation Olanzapine (Olanzapine 5 Mg Tablet) 5 mg PO BEDTIME [facility] Last Admin: 10/22/23 20:55 Dose: 5 mg Trazodone HCl (Trazodone Hcl 50 Mg Tablet) 50 mg PO BEDTIME MRX1 PRN PRN Reason: Insomnia Valsartan (Valsartan 160 Mg Tablet) 160 mg PO DAILY [facility]; Protocol Last Admin: 10/23/23 08:53 Dose: 160 mg Vitamin D (Cholecalciferol (Vitamin D3) 25 Mcg Tablet) 50 mcg PO DAILY [facility] Last Admin: 10/23/23 08:53 Dose: 50 mcg Allergies Allergies Allergy/AdvReac Type Severity Reaction Status Date / Time No Known Allergies Allergy Verified 10/03/23 19:47 Assessment & Plan Assessment & Plan (1) Major depressive disorder, single episode, severe w psychotic behavior: Status: Acute Code(s): F32.3 - Major depressive disorder, single episode, severe with psychotic features (2) Cognitive and behavioral changes: Status: Acute Code(s): R41.89 - Other symptoms and signs involving cognitive functions and awareness; R46.89 - Other symptoms and signs involving appearance and behavior Plan Pt is a 78-year-old female with a PMH significant for?HTN, asthma, insulin-dependent type 2 diabetes, and unspecified psychiatric diagnosis who is admitted to [facility] for paranoia and psychosis. Patient was placed on a section 12 by VELMA Diaz after they were called to her apartment 4 times during the night. Patient reportedly believed that her landlord had been stealing money from her and hired a professional hit man who cut a hole in the wall of her closet in her bedroom to gain access to her apartment. Was noted to have nailed the door to her apartment shut. BPH also reported finding patient's insulin having been left out in the sun on the counter for 4 days. Medical consult for admission H&P. Plan 1. Gather collateral information. 2. We are going to filed for Section 7 and 8 since the patient is noncompliant with Risperdal. 3. We will contact the hospitalist for proper med rec. 4. Discontinue Risperdal start Zyprexa 5 mg p.o. q.h.s. 5. Encourage compliance 6. Section 7 and 8 was filed. 7. She was compliant with Zyprexa on October 17. We will observe but so far she had been on compliant with medications. She took only wants remains psychotic. 8. Telephone calls will be monitored so the patient will not dial 911 and prank the police. Reason for continued inpatient stay Substantial Risk for: inability to function, rapid decompensation and med/psych decompensation Time Spent With Patient Time: Total time managing care of this patient today __20__ minutes.
[2023-10-23] MEDS: Insulin Lispro 100 UNIT/ML 3 ML VIAL SUBCUT ×3 (11:44→20:28)
[2023-10-23 16:11] LABS: Glucose, Whole Blood 159 mg/dL (60-115)
[2023-10-23 20:00] VITALS: BP 125/66; PULSE 86; RESP 18; TEMP 36.8; O2SAT 98
[2023-10-23 20:21] LABS: Glucose, Whole Blood 175 mg/dL (60-115)
[2023-10-23] MEDS: OLANZapine 5 MG TABLET PO (20:26)
[2023-10-24 06:48] LABS: Glucose, Whole Blood 126 mg/dL (60-115)
[2023-10-24 09:16] VITALS: BP 152/69; PULSE 83; RESP 17; TEMP 36.1; O2SAT 98
[2023-10-24] MEDS: Cholecalciferol (Vitamin D3) 25 MCG TABLET 50 MCG PO (09:43)
[2023-10-24] MEDS: amLODIPine Besylate 5 MG TABLET PO (09:43)
[2023-10-24] MEDS: Valsartan 160 MG TABLET PO (09:44)
[2023-10-24] MEDS: Insulin Glargine,Hum.rec.anlog 100 UNIT/ML 10 ML VIAL SUBCUT (09:45)
[2023-10-24] MEDS: HYDROcodone Bit/Acetam 5/325 TABLET 1 TAB PO ×2 (09:50→20:59)
--- NOTE | 2023-10-24 12:27 | PC.NURSE ---
Patient initially refused POC's to be taken this afternoon before lunch. She was sitting at the phone for 15 minutes attempting to make phone calls, became agitated when staff asked her to come eat, and when asked if this nurse could get her POC she stated No. Not until I'm done on the phone . Patient then told staff she just wouldn't eat lunch and she didn't care if we took her tray back . After documenting against her POC, patient agreed to eat and have her blood sugar taken, POC read 147 and coverage wasn't needed. Patient also stated I told my friend on the phone to get ahold of the distance learning coordinator so they'll be here soon .
[2023-10-24 12:28] LABS: Glucose, Whole Blood 147 mg/dL (60-115)
--- NOTE | 2023-10-24 14:42 | P.PNPSI_ITS ---
Subjective Subjective Date of Service: 10/24/23 Reason For Visit: section 12 Subjective Notes: Conditional Voluntary Interim History: The nursing staff reported the patient had paranoid, she called the police last night. On interview the patient reported that there staff that wants to kill her, she had been compliant with her Zyprexa but still she remains paranoid. Mental Status Exam Mental Status Exam Patient Appearance: Appropriate Patient Orientation: Person and Situation Level of Consciousness: Awake and Appropriate Patient Behavior: Guarded and Passive Mood Description: Withdrawn Affect Description: Constricted Patient Cognition Impaired: Yes Ability to Follow Directions: Good Speech Pattern: Clear Hallucinations: None Delusions: Paranoid Ideation Thought Process: Illogical Thought Content: positive for [place] and positive for Thought Blocking Judgement: Poor Diagnostics Vital Signs (24Hr): Vital Signs - 24 hr 10/23/23 20:00 10/24/23 09:16 Temperature 98.2 F 97 F Pulse Rate 86 83 Respiratory Rate 18 17 Blood Pressure 125/66 152/69 H Pulse Oximetry 98 98 Oxygen Delivery Method Room Air Room Air BMI result Body Mass Index 35.8 Labs 10/04/23 17:31 10/04/23 07:44 Labs: Laboratory Results - last 48 hr 10/22/23 10/22/23 10/23/23 16:18 20:15 06:39 POC Glucose 196 H 186 H 132 H 10/23/23 10/23/23 10/23/23 11:08 16:07 20:10 POC Glucose 163 H 159 H 175 H 10/24/23 10/24/23 06:40 12:25 POC Glucose 126 H 147 H Medications Medications Current Medications Acetaminophen (Acetaminophen 325 Mg Tablet) 650 mg PO Q6H PRN PRN Reason: Headache/Pain (1-10) Hydrocodone Bitart/Acetaminophen (Hydrocodone Bit/Acetam 5/325 Tablet) 1 tab PO BID PRN PRN Reason: Pain, Severe (Pain Scale 7-10) Last Admin: 10/24/23 09:50 Dose: 1 tab Al Hydroxide/Mg Hydroxide (Magnesium Hydrox/Alum Hydrox 30 Ml Oral.Susp) 30 ml PO Q6H PRN PRN Reason: Heartburn/Nausea Albuterol Sulfate (Albuterol Sulfate 90 Mcg 8 Gm Inhaler) 2 puff INHALE RQ4H PRN PRN Reason: sob Amlodipine Besylate (Amlodipine Besylate 5 Mg Tablet) 5 mg PO DAILY [facility]; Protocol Last Admin: 10/24/23 09:43 Dose: 5 mg Chlorpromazine HCl (Chlorpromazine Hcl 10 Mg Tablet) 10 mg PO Q4H PRN PRN Reason: agitation Diazepam (Diazepam 5 Mg Tablet) 5 mg PO TID PRN PRN Reason: Anxiety Last Admin: 10/23/23 20:26 Dose: 5 mg Hydroxyzine HCl (Hydroxyzine Hcl 25 Mg Tablet) 25 mg PO Q6H PRN PRN Reason: Anxiety Insulin Glargine (Insulin Glargine,Hum.Rec.Anlog 100 Unit/Ml 10 Ml Vial) 5 unit SUBCUT DAILY [facility] Last Admin: 10/24/23 09:45 Dose: 5 unit Insulin Human Lispro (Insulin Lispro 100 Unit/Ml 3 Ml Vial) 0 unit SUBCUT QIDACHS [facility]; Protocol Last Admin: 10/24/23 12:18 Dose: Not Given Loperamide HCl (Loperamide Hcl 2 Mg Capsule) 2 mg PO Q4H PRN PRN Reason: Diarrhea Last Admin: 10/15/23 04:28 Dose: 2 mg Magnesium Hydroxide (Milk Of Magnesia 30 Ml Oral.Susp) 30 ml PO DAILY PRN PRN Reason: Constipation Olanzapine (Olanzapine 5 Mg Tablet) 5 mg PO BEDTIME [facility] Last Admin: 10/23/23 20:26 Dose: 5 mg Trazodone HCl (Trazodone Hcl 50 Mg Tablet) 50 mg PO BEDTIME MRX1 PRN PRN Reason: Insomnia Valsartan (Valsartan 160 Mg Tablet) 160 mg PO DAILY [facility]; Protocol Last Admin: 10/24/23 09:44 Dose: 160 mg Vitamin D (Cholecalciferol (Vitamin D3) 25 Mcg Tablet) 50 mcg PO DAILY [facility] Last Admin: 10/24/23 09:43 Dose: 50 mcg Allergies Allergies Allergy/AdvReac Type Severity Reaction Status Date / Time No Known Allergies Allergy Verified 10/03/23 19:47 Assessment & Plan Assessment & Plan (1) Major depressive disorder, single episode, severe w psychotic behavior: Status: Acute Code(s): F32.3 - Major depressive disorder, single episode, severe with psychotic features (2) Cognitive and behavioral changes: Status: Acute Code(s): R41.89 - Other symptoms and signs involving cognitive functions and awareness; R46.89 - Other symptoms and signs involving appearance and behavior Plan Pt is a 78-year-old female with a PMH significant for?HTN, asthma, insulin- dependent type 2 diabetes, and unspecified psychiatric diagnosis who is admitted to [facility] for paranoia and psychosis. Patient was placed on a section 12 by VELMA Diaz after they were called to her apartment 4 times during the night. Patient reportedly believed that her landlord had been stealing money from her and hired a professional hit man who cut a hole in the wall of her closet in her bedroom to gain access to her apartment. Was noted to have nailed the door to her apartment shut. BPH also reported finding patient's insulin having been left out in the sun on the counter for 4 days. Medical consult for admission H&P. Plan 1. Gather collateral information. 2. We are going to filed for Section 7 and 8 since the patient is noncompliant with Risperdal. 3. We will contact the hospitalist for proper med rec. 4. Discontinue Risperdal start Zyprexa 5 mg p.o. q.h.s. 5. Encourage compliance 6. Section 7 and 8 was filed. 7. She was compliant with Zyprexa on October 17. We will observe but so far she had been on compliant with medications. She took only wants remains psychotic. 8. Telephone calls will be monitored so the patient will not dial 911 and prank the police. Reason for continued inpatient stay Substantial Risk for: inability to function, rapid decompensation and med/psych decompensation Time Spent With Patient Time: Total time managing care of this patient today __20__ minutes.
[2023-10-24 16:15] LABS: Glucose, Whole Blood 193 mg/dL (60-115)
[2023-10-24] MEDS: Insulin Lispro 100 UNIT/ML 3 ML VIAL SUBCUT (16:50)
[2023-10-24 20:00] VITALS: BP 135/64; PULSE 97; RESP 18; TEMP 36.4; O2SAT 96
[2023-10-24 20:25] LABS: Glucose, Whole Blood 182 mg/dL (60-115)
[2023-10-24] MEDS: diazePAM 5 MG TABLET PO (20:59)
[2023-10-25 06:46] LABS: Glucose, Whole Blood 146 mg/dL (60-115)
[2023-10-25 07:49] LABS: MANUAL DIFF FLAG NO
[2023-10-25 07:52] LABS: Basophils Percent Auto 0.4 % (0-2); Eosinophils Absolute Auto 0.3 X10*3/uL (0.0-0.4); Eosinophils Percent Auto 3.9 % (0-4); Hematocrit 40.2 % (37.0-47.0); Hemoglobin 13.5 g/dl (12.0-16.0); Imm Gran Abs Auto 0.03 X10*3/uL (0.00-0.03); Imm Gran Pct Auto 0.4 % (0.0-0.4); Lymphocytes Absolute Auto 2.1 X10*3/uL (1.2-4.9); Mean Corpuscular HGB Conc 33.6 g/dl (31.0-35.0); Mean Corpuscular Hemoglobin 30.1 pg (27.0-33.0); Mean Corpuscular Volume 89.7 fL (80.0-98.0); Mean Platelet Volume 10.3 fL (9.4-12.3); Monocytes Absolute Auto 0.7 X10*3/uL (0.1-1.2); Monocytes Percent Auto 9.8 % (2-11); Neutrophils Percent Auto 55.5 % (45-73); Platelet Count 181 X10*3/uL (160-400); Red Blood Count 4.48 X10*6/uL (4.20-5.50); Red Cell Distribution Width 13.2 % (11.0-16.0); White Blood Count 7.1 X10*3/uL (4.8-10.8)
[2023-10-25 08:07] LABS: Alanine Aminotransferase 16 U/L (0-31); Albumin Level 3.5 g/dL (3.5-5.0); Alkaline Phosphatase 75 U/L (39-117); Anion Gap 12 (12-20); Aspartate Amino Transferase 19 U/L (5-31); Bilirubin Total 0.4 mg/dL (0.0-1.0); Blood Urea Nitrogen 30 mg/dL (9-16); Calcium 9.2 mg/dL (8.4-10.2); Carbon Dioxide 24 mmol/L (22-29); Chloride 110 mmol/L (96-108); Creatinine Clr Calc Pharmacy 66.9; Estimated Glomerular Filt Rate > 60; Glucose Fasting 136 mg/dL (60-99); Sodium 142 mmol/L (135-145); Total Protein 5.9 g/dL (6.5-8.0)
[2023-10-25 08:15] VITALS: BP 150/65; PULSE 73; RESP 18; TEMP 36.2; O2SAT 98
[2023-10-25] MEDS: amLODIPine Besylate 5 MG TABLET PO (08:16)
[2023-10-25] MEDS: Valsartan 160 MG TABLET PO (08:17)
[2023-10-25] MEDS: Cholecalciferol (Vitamin D3) 25 MCG TABLET 50 MCG PO (08:17)
[2023-10-25] MEDS: diazePAM 5 MG TABLET PO ×2 (08:25→20:50)
[2023-10-25] MEDS: HYDROcodone Bit/Acetam 5/325 TABLET 1 TAB PO ×2 (09:15→20:50)
--- NOTE | 2023-10-25 09:54 | HO.PSYCHPN ---
Subjective Subjective Date of Service: 10/25/23 Reason For Visit: section 12 Subjective Notes: Conditional Voluntary Interim History: Pt slept most night. Pt continues to refuse insulin and olanzapine. she does take valium. She reports she is just doing. She denies SI/HI. when asked about medications, pt states she would talk with attending tomorrow as she has question. Would not discuss with this automobile and property underwriter. Per nursing, more suspicious and paranoid. Review of Systems Review of Systems Nothing acute Mental Status Exam Mental Status Exam Narrative: paranoid delusions Patient Appearance: Appropriate Patient Orientation: Person and Situation Level of Consciousness: Awake and Appropriate Patient Behavior: Guarded and Passive Mood Description: Withdrawn Affect Description: Constricted Patient Cognition Impaired: Yes Ability to Follow Directions: Good Speech Pattern: Clear Memory Description: Episodic Impaired Diagnostics Vital Signs (24Hr): Vital Signs - 24 hr 10/24/23 20:00 10/25/23 08:15 Temperature 97.6 F 97.1 F Pulse Rate 97 73 Respiratory Rate 18 18 Blood Pressure 135/64 150/65 H Pulse Oximetry 96 98 Oxygen Delivery Method Room Air Room Air BMI result Body Mass Index 35.8 Labs 10/25/23 07:05 10/25/23 07:05 Labs: Laboratory Results - last 48 hr 10/23/23 10/23/23 10/23/23 11:08 16:07 20:10 WBC RBC Hgb Hct MCV MCH MCHC RDW Plt Count MPV Immature Gran % (Auto) Neut % (Auto) Lymph % (Auto) [place] % (Auto) Eos % (Auto) Baso % (Auto) Lymph # (Auto) [place] # (Auto) Eos # (Auto) Baso # (Auto) Abs Immat Gran (auto) Absolute Neuts (auto) Absolute Nucleated RBC Nucleated RBC % (auto) Sodium Potassium Chloride Carbon Dioxide Anion Gap BUN Creatinine Estim Creat Clear Calc Estimated GFR POC Glucose 163 H 159 H 175 H Fasting Glucose Calcium Total Bilirubin AST ALT Alkaline Phosphatase Total Protein Albumin 10/24/23 10/24/23 10/24/23 06:40 12:25 16:10 WBC RBC Hgb Hct MCV MCH MCHC RDW Plt Count MPV Immature Gran % (Auto) Neut % (Auto) Lymph % (Auto) [place] % (Auto) Eos % (Auto) Baso % (Auto) Lymph # (Auto) [place] # (Auto) Eos # (Auto) Baso # (Auto) Abs Immat Gran (auto) Absolute Neuts (auto) Absolute Nucleated RBC Nucleated RBC % (auto) Sodium Potassium Chloride Carbon Dioxide Anion Gap BUN Creatinine Estim Creat Clear Calc Estimated GFR POC Glucose 126 H 147 H 193 H Fasting Glucose Calcium Total Bilirubin AST ALT Alkaline Phosphatase Total Protein Albumin 10/24/23 10/25/23 10/25/23 20:19 06:42 07:05 WBC 7.1 RBC 4.48 Hgb 13.5 Hct 40.2 MCV 89.7 MCH 30.1 MCHC 33.6 RDW 13.2 Plt Count 181 MPV 10.3 Immature Gran % (Auto) 0.4 Neut % (Auto) 55.5 Lymph % (Auto) 30.0 [place] % (Auto) 9.8 Eos % (Auto) 3.9 Baso % (Auto) 0.4 Lymph # (Auto) 2.1 [place] # (Auto) 0.7 Eos # (Auto) 0.3 Baso # (Auto) 0.0 Abs Immat Gran (auto) 0.03 Absolute Neuts (auto) 4.0 Absolute Nucleated RBC 0.000 Nucleated RBC % (auto) 0.0 Sodium 142 Potassium 4.0 Chloride 110 H Carbon Dioxide 24 Anion Gap 12 BUN 30 H Creatinine 0.74 Estim Creat Clear Calc 66.9 Estimated GFR > 60 POC Glucose 182 H 146 H Fasting Glucose 136 H Calcium 9.2 Total Bilirubin 0.4 AST 19 ALT 16 Alkaline Phosphatase 75 Total Protein 5.9 L Albumin 3.5 Medications Medications Current Medications Acetaminophen (Acetaminophen 325 Mg Tablet) 650 mg PO Q6H PRN PRN Reason: Headache/Pain (1-10) Hydrocodone Bitart/Acetaminophen (Hydrocodone Bit/Acetam 5/325 Tablet) 1 tab PO BID PRN PRN Reason: Pain, Severe (Pain Scale 7-10) Last Admin: 10/25/23 09:15 Dose: 1 tab Al Hydroxide/Mg Hydroxide (Magnesium Hydrox/Alum Hydrox 30 Ml Oral.Susp) 30 ml PO Q6H PRN PRN Reason: Heartburn/Nausea Albuterol Sulfate (Albuterol Sulfate 90 Mcg 8 Gm Inhaler) 2 puff INHALE RQ4H PRN PRN Reason: sob Amlodipine Besylate (Amlodipine Besylate 5 Mg Tablet) 5 mg PO DAILY [facility]; Protocol Last Admin: 10/25/23 08:16 Dose: 5 mg Chlorpromazine HCl (Chlorpromazine Hcl 10 Mg Tablet) 10 mg PO Q4H PRN PRN Reason: agitation Diazepam (Diazepam 5 Mg Tablet) 5 mg PO TID PRN PRN Reason: Anxiety Last Admin: 10/25/23 08:25 Dose: 5 mg Hydroxyzine HCl (Hydroxyzine Hcl 25 Mg Tablet) 25 mg PO Q6H PRN PRN Reason: Anxiety Insulin Glargine (Insulin Glargine,Hum.Rec.Anlog 100 Unit/Ml 10 Ml Vial) 5 unit SUBCUT DAILY [facility] Last Admin: 10/24/23 09:45 Dose: 5 unit Insulin Human Lispro (Insulin Lispro 100 Unit/Ml 3 Ml Vial) 0 unit SUBCUT QIDACHS [facility]; Protocol Last Admin: 10/25/23 08:22 Dose: Not Given Loperamide HCl (Loperamide Hcl 2 Mg Capsule) 2 mg PO Q4H PRN PRN Reason: Diarrhea Last Admin: 10/15/23 04:28 Dose: 2 mg Magnesium Hydroxide (Milk Of Magnesia 30 Ml Oral.Susp) 30 ml PO DAILY PRN PRN Reason: Constipation Olanzapine (Olanzapine 5 Mg Tablet) 5 mg PO BEDTIME [facility] Last Admin: 10/24/23 21:01 Dose: Not Given Trazodone HCl (Trazodone Hcl 50 Mg Tablet) 50 mg PO BEDTIME MRX1 PRN PRN Reason: Insomnia Valsartan (Valsartan 160 Mg Tablet) 160 mg PO DAILY [facility]; Protocol Last Admin: 10/25/23 08:17 Dose: 160 mg Vitamin D (Cholecalciferol (Vitamin D3) 25 Mcg Tablet) 50 mcg PO DAILY [facility] Last Admin: 10/25/23 08:17 Dose: 50 mcg Allergies Allergies Allergy/AdvReac Type Severity Reaction Status Date / Time No Known Allergies Allergy Verified 10/03/23 19:47 Assessment & Plan Assessment & Plan (1) Major depressive disorder, single episode, severe w psychotic behavior: Status: Acute Code(s): F32.3 - Major depressive disorder, single episode, severe with psychotic features (2) Cognitive and behavioral changes: Status: Acute Code(s): R41.89 - Other symptoms and signs involving cognitive functions and awareness; R46.89 - Other symptoms and signs involving appearance and behavior Plan Pt is a 78-year-old female with a PMH significant for?HTN, asthma, insulin-dependent type 2 diabetes, and unspecified psychiatric diagnosis who is admitted to [facility] for paranoia and psychosis. Patient was placed on a section 12 by VELMA Diaz after they were called to her apartment 4 times during the night. Patient reportedly believed that her landlord had been stealing money from her and hired a professional hit man who cut a hole in the wall of her closet in her bedroom to gain access to her apartment. Was noted to have nailed the door to her apartment shut. BPH also reported finding patient's insulin having been left out in the sun on the counter for 4 days. Medical consult for admission H&P. Plan 10/24 continue tx. Reason for continued inpatient stay Substantial Risk for: inability to function Time Spent With Patient Time: Total time managing care of this patient today ____ minutes.
[2023-10-25 11:25] LABS: Glucose, Whole Blood 161 mg/dL (60-115)
[2023-10-25] MEDS: Insulin Lispro 100 UNIT/ML 3 ML VIAL SUBCUT ×3 (11:30→20:51)
[2023-10-25 16:16] LABS: Glucose, Whole Blood 157 mg/dL (60-115)
[2023-10-25 19:48] LABS: Glucose, Whole Blood 167 mg/dL (60-115)
[2023-10-25 20:00] VITALS: BP 161/68; PULSE 83; RESP 18; TEMP 36.1; O2SAT 98
[2023-10-25] MEDS: OLANZapine 5 MG TABLET PO (20:50)
[2023-10-26 06:44] LABS: Glucose, Whole Blood 106 mg/dL (60-115)
[2023-10-26 08:06] VITALS: BP 131/61; PULSE 69; RESP 18; TEMP 36.1; O2SAT 93
[2023-10-26] MEDS: Cholecalciferol (Vitamin D3) 25 MCG TABLET 50 MCG PO (08:16)
[2023-10-26] MEDS: amLODIPine Besylate 5 MG TABLET PO (08:16)
[2023-10-26] MEDS: Valsartan 160 MG TABLET PO (08:16)
[2023-10-26] MEDS: Insulin Glargine,Hum.rec.anlog 100 UNIT/ML 10 ML VIAL SUBCUT (08:16)
[2023-10-26] MEDS: HYDROcodone Bit/Acetam 5/325 TABLET 1 TAB PO ×2 (11:12→21:08)
[2023-10-26] MEDS: diazePAM 5 MG TABLET PO ×2 (11:12→21:07)
--- NOTE | 2023-10-26 11:31 | HO.PSYCHPN ---
Subjective Subjective Date of Service: 10/26/23 Reason For Visit: section 12 Subjective Notes: Conditional Voluntary Interim History: The nursing staff reported the patient refused her Zyprexa last night remains paranoid denies hallucination but she had been seen responding to internal stimuli more active in the afternoon. On interview the patient remains paranoid stating that staff wants to kill her. Mental Status Exam Mental Status Exam Patient Appearance: Unkempt Patient Orientation: Person and Situation Level of Consciousness: Awake and Appropriate Patient Behavior: Guarded and Passive Mood Description: Withdrawn Affect Description: Constricted Patient Cognition Impaired: Yes Ability to Follow Directions: Good Speech Pattern: Clear Hallucinations: Auditory Delusions: Paranoid Ideation Thought Process: Distracted and Slowed Thinking Thought Content: positive for [place] and positive for Poverty of Content Judgement: Fair Diagnostics Vital Signs (24Hr): Vital Signs - 24 hr 10/25/23 20:00 10/26/23 08:06 Temperature 97.0 F 96.9 F Pulse Rate 83 69 Respiratory Rate 18 18 Blood Pressure 161/68 H 131/61 Pulse Oximetry 98 93 Oxygen Delivery Method Room Air Room Air BMI result Body Mass Index 35.8 Labs 10/25/23 07:05 10/25/23 07:05 Labs: Laboratory Results - last 48 hr 10/24/23 10/24/23 10/24/23 12:25 16:10 20:19 WBC RBC Hgb Hct MCV MCH MCHC RDW Plt Count MPV Immature Gran % (Auto) Neut % (Auto) Lymph % (Auto) [place] % (Auto) Eos % (Auto) Baso % (Auto) Lymph # (Auto) [place] # (Auto) Eos # (Auto) Baso # (Auto) Abs Immat Gran (auto) Absolute Neuts (auto) Absolute Nucleated RBC Nucleated RBC % (auto) Sodium Potassium Chloride Carbon Dioxide Anion Gap BUN Creatinine Estim Creat Clear Calc Estimated GFR POC Glucose 147 H 193 H 182 H Fasting Glucose Calcium Total Bilirubin AST ALT Alkaline Phosphatase Total Protein Albumin 10/25/23 10/25/23 10/25/23 06:42 07:05 11:21 WBC 7.1 RBC 4.48 Hgb 13.5 Hct 40.2 MCV 89.7 MCH 30.1 MCHC 33.6 RDW 13.2 Plt Count 181 MPV 10.3 Immature Gran % (Auto) 0.4 Neut % (Auto) 55.5 Lymph % (Auto) 30.0 [place] % (Auto) 9.8 Eos % (Auto) 3.9 Baso % (Auto) 0.4 Lymph # (Auto) 2.1 [place] # (Auto) 0.7 Eos # (Auto) 0.3 Baso # (Auto) 0.0 Abs Immat Gran (auto) 0.03 Absolute Neuts (auto) 4.0 Absolute Nucleated RBC 0.000 Nucleated RBC % (auto) 0.0 Sodium 142 Potassium 4.0 Chloride 110 H Carbon Dioxide 24 Anion Gap 12 BUN 30 H Creatinine 0.74 Estim Creat Clear Calc 66.9 Estimated GFR > 60 POC Glucose 146 H 161 H Fasting Glucose 136 H Calcium 9.2 Total Bilirubin 0.4 AST 19 ALT 16 Alkaline Phosphatase 75 Total Protein 5.9 L Albumin 3.5 10/25/23 10/25/23 10/26/23 16:09 19:44 06:35 WBC RBC Hgb Hct MCV MCH MCHC RDW Plt Count MPV Immature Gran % (Auto) Neut % (Auto) Lymph % (Auto) [place] % (Auto) Eos % (Auto) Baso % (Auto) Lymph # (Auto) [place] # (Auto) Eos # (Auto) Baso # (Auto) Abs Immat Gran (auto) Absolute Neuts (auto) Absolute Nucleated RBC Nucleated RBC % (auto) Sodium Potassium Chloride Carbon Dioxide Anion Gap BUN Creatinine Estim Creat Clear Calc Estimated GFR POC Glucose 157 H 167 H 106 Fasting Glucose Calcium Total Bilirubin AST ALT Alkaline Phosphatase Total Protein Albumin Medications Medications Current Medications Acetaminophen (Acetaminophen 325 Mg Tablet) 650 mg PO Q6H PRN PRN Reason: Headache/Pain (1-10) Hydrocodone Bitart/Acetaminophen (Hydrocodone Bit/Acetam 5/325 Tablet) 1 tab PO BID PRN PRN Reason: Pain, Severe (Pain Scale 7-10) Last Admin: 10/26/23 11:12 Dose: 1 tab Al Hydroxide/Mg Hydroxide (Magnesium Hydrox/Alum Hydrox 30 Ml Oral.Susp) 30 ml PO Q6H PRN PRN Reason: Heartburn/Nausea Albuterol Sulfate (Albuterol Sulfate 90 Mcg 8 Gm Inhaler) 2 puff INHALE RQ4H PRN PRN Reason: sob Amlodipine Besylate (Amlodipine Besylate 5 Mg Tablet) 5 mg PO DAILY [facility]; Protocol Last Admin: 10/26/23 08:16 Dose: 5 mg Chlorpromazine HCl (Chlorpromazine Hcl 10 Mg Tablet) 10 mg PO Q4H PRN PRN Reason: agitation Diazepam (Diazepam 5 Mg Tablet) 5 mg PO TID PRN PRN Reason: Anxiety Last Admin: 10/26/23 11:12 Dose: 5 mg Hydroxyzine HCl (Hydroxyzine Hcl 25 Mg Tablet) 25 mg PO Q6H PRN PRN Reason: Anxiety Insulin Glargine (Insulin Glargine,Hum.Rec.Anlog 100 Unit/Ml 10 Ml Vial) 5 unit SUBCUT DAILY [facility] Last Admin: 10/26/23 08:16 Dose: 5 unit Insulin Human Lispro (Insulin Lispro 100 Unit/Ml 3 Ml Vial) 0 unit SUBCUT QIDACHS [facility]; Protocol Last Admin: 10/26/23 11:20 Dose: Not Given Loperamide HCl (Loperamide Hcl 2 Mg Capsule) 2 mg PO Q4H PRN PRN Reason: Diarrhea Last Admin: 10/15/23 04:28 Dose: 2 mg Magnesium Hydroxide (Milk Of Magnesia 30 Ml Oral.Susp) 30 ml PO DAILY PRN PRN Reason: Constipation Olanzapine (Olanzapine 5 Mg Tablet) 5 mg PO BEDTIME [facility] Last Admin: 10/25/23 20:50 Dose: 5 mg Trazodone HCl (Trazodone Hcl 50 Mg Tablet) 50 mg PO BEDTIME MRX1 PRN PRN Reason: Insomnia Valsartan (Valsartan 160 Mg Tablet) 160 mg PO DAILY [facility]; Protocol Last Admin: 10/26/23 08:16 Dose: 160 mg Vitamin D (Cholecalciferol (Vitamin D3) 25 Mcg Tablet) 50 mcg PO DAILY [facility] Last Admin: 10/26/23 08:16 Dose: 50 mcg Allergies Allergies Allergy/AdvReac Type Severity Reaction Status Date / Time No Known Allergies Allergy Verified 10/03/23 19:47 Assessment & Plan Assessment & Plan (1) Major depressive disorder, single episode, severe w psychotic behavior: Status: Acute Code(s): F32.3 - Major depressive disorder, single episode, severe with psychotic features (2) Cognitive and behavioral changes: Status: Acute Code(s): R41.89 - Other symptoms and signs involving cognitive functions and awareness; R46.89 - Other symptoms and signs involving appearance and behavior Plan Pt is a 78-year-old female with a PMH significant for?HTN, asthma, insulin-dependent type 2 diabetes, and unspecified psychiatric diagnosis who is admitted to [facility] for paranoia and psychosis. Patient was placed on a section 12 by VELMA Diaz after they were called to her apartment 4 times during the night. Patient reportedly believed that her landlord had been stealing money from her and hired a professional hit man who cut a hole in the wall of her closet in her bedroom to gain access to her apartment. Was noted to have nailed the door to her apartment shut. BPH also reported finding patient's insulin having been left out in the sun on the counter for 4 days. Medical consult for admission H&P. Plan 1. Continue with Zyprexa 5 mg p.o. q.h.s.. 2. Reassessment results. 3. 15 minutes checks. 4. Encourage compliance. Reason for continued inpatient stay Substantial Risk for: inability to function, rapid decompensation and med/psych decompensation Time Spent With Patient Time: Total time managing care of this patient today __20__ minutes.
[2023-10-26 16:07] LABS: Glucose, Whole Blood 126 mg/dL (60-115)
[2023-10-26 19:56] LABS: Glucose, Whole Blood 185 mg/dL (60-115)
[2023-10-26 20:00] VITALS: BP 137/66; PULSE 78; RESP 18; TEMP 36.6; O2SAT 99
[2023-10-26] MEDS: Insulin Lispro 100 UNIT/ML 3 ML VIAL SUBCUT (21:01)
[2023-10-26] MEDS: OLANZapine 5 MG TABLET PO (21:01)
[2023-10-27 08:06] VITALS: BP 129/71; PULSE 91; RESP 15; TEMP 36.7; O2SAT 97
[2023-10-27] MEDS: Insulin Glargine,Hum.rec.anlog 100 UNIT/ML 10 ML VIAL SUBCUT (08:09)
[2023-10-27] MEDS: amLODIPine Besylate 5 MG TABLET PO (08:10)
[2023-10-27] MEDS: Valsartan 160 MG TABLET PO (08:10)
[2023-10-27] MEDS: Cholecalciferol (Vitamin D3) 25 MCG TABLET 50 MCG PO (08:11)
[2023-10-27] MEDS: diazePAM 5 MG TABLET PO ×2 (08:18→20:58)
[2023-10-27] MEDS: HYDROcodone Bit/Acetam 5/325 TABLET 1 TAB PO ×2 (09:07→20:57)
[2023-10-27 11:21] LABS: Glucose, Whole Blood 177 mg/dL (60-115)
[2023-10-27] MEDS: Insulin Lispro 100 UNIT/ML 3 ML VIAL SUBCUT ×3 (11:37→21:02)
--- NOTE | 2023-10-27 12:08 | P.PNPSI_ITS ---
Subjective Subjective Date of Service: 10/27/23 Reason For Visit: section 12 Subjective Notes: Section 7 Interim History: Patient was seen and discussed in rounds today. Records and plans were reviewed. She continues to be quite paranoid and delusional, fearful of being killed. Reassurance last a very short time only. She is medication compliant. Refused POC today. Eating and sleeping adequately. She has a times been mildly threatening. This is secondary to her fearful feelings and paranoid delusions. No changes were made today Review of Systems Review of Systems Yes all other systems are reviewed and are negative Mental Status Exam Mental Status Exam Patient Appearance: Unkempt Patient Orientation: Person and Situation Level of Consciousness: Awake and Appropriate Patient Behavior: Guarded and Passive Mood Description: Withdrawn Affect Description: Constricted Patient Cognition Impaired: Yes Ability to Follow Directions: Good Speech Pattern: Clear Hallucinations: Auditory Delusions: Paranoid Ideation Thought Process: Distracted and Slowed Thinking Thought Content: positive for [place] and positive for Poverty of Content Judgement: Fair Diagnostics Vital Signs (24Hr): Vital Signs - 24 hr 10/26/23 20:00 10/27/23 08:06 Temperature 98 F 98.1 F Pulse Rate 78 91 Respiratory Rate 18 15 Blood Pressure 137/66 129/71 Pulse Oximetry 99 97 Oxygen Delivery Method Room Air Room Air BMI result Body Mass Index 35.8 Labs 10/25/23 07:05 10/25/23 07:05 Labs: Laboratory Results - last 48 hr 10/25/23 10/25/23 10/26/23 16:09 19:44 06:35 POC Glucose 157 H 167 H 106 10/26/23 10/26/23 10/27/23 16:03 19:35 11:17 POC Glucose 126 H 185 H 177 H Medications Medications Current Medications Acetaminophen (Acetaminophen 325 Mg Tablet) 650 mg PO Q6H PRN PRN Reason: Headache/Pain (1-10) Hydrocodone Bitart/Acetaminophen (Hydrocodone Bit/Acetam 5/325 Tablet) 1 tab PO BID PRN PRN Reason: Pain, Severe (Pain Scale 7-10) Last Admin: 10/27/23 09:07 Dose: 1 tab Al Hydroxide/Mg Hydroxide (Magnesium Hydrox/Alum Hydrox 30 Ml Oral.Susp) 30 ml PO Q6H PRN PRN Reason: Heartburn/Nausea Albuterol Sulfate (Albuterol Sulfate 90 Mcg 8 Gm Inhaler) 2 puff INHALE RQ4H PRN PRN Reason: sob Amlodipine Besylate (Amlodipine Besylate 5 Mg Tablet) 5 mg PO DAILY [facility]; Protocol Last Admin: 10/27/23 08:10 Dose: 5 mg Chlorpromazine HCl (Chlorpromazine Hcl 10 Mg Tablet) 10 mg PO Q4H PRN PRN Reason: agitation Diazepam (Diazepam 5 Mg Tablet) 5 mg PO TID PRN PRN Reason: Anxiety Last Admin: 10/27/23 08:18 Dose: 5 mg Hydroxyzine HCl (Hydroxyzine Hcl 25 Mg Tablet) 25 mg PO Q6H PRN PRN Reason: Anxiety Insulin Glargine (Insulin Glargine,Hum.Rec.Anlog 100 Unit/Ml 10 Ml Vial) 5 unit SUBCUT DAILY [facility] Last Admin: 10/27/23 08:09 Dose: 5 unit Insulin Human Lispro (Insulin Lispro 100 Unit/Ml 3 Ml Vial) 0 unit SUBCUT QIDACHS [facility]; Protocol Last Admin: 10/27/23 11:37 Dose: 2 unit Loperamide HCl (Loperamide Hcl 2 Mg Capsule) 2 mg PO Q4H PRN PRN Reason: Diarrhea Last Admin: 10/15/23 04:28 Dose: 2 mg Magnesium Hydroxide (Milk Of Magnesia 30 Ml Oral.Susp) 30 ml PO DAILY PRN PRN Reason: Constipation Olanzapine (Olanzapine 5 Mg Tablet) 5 mg PO BEDTIME [facility] Last Admin: 10/26/23 21:01 Dose: 5 mg Trazodone HCl (Trazodone Hcl 50 Mg Tablet) 50 mg PO BEDTIME MRX1 PRN PRN Reason: Insomnia Valsartan (Valsartan 160 Mg Tablet) 160 mg PO DAILY [facility]; Protocol Last Admin: 10/27/23 08:10 Dose: 160 mg Vitamin D (Cholecalciferol (Vitamin D3) 25 Mcg Tablet) 50 mcg PO DAILY [facility] Last Admin: 10/27/23 08:11 Dose: 50 mcg Allergies Allergies Allergy/AdvReac Type Severity Reaction Status Date / Time No Known Allergies Allergy Verified 10/03/23 19:47 Assessment & Plan Assessment & Plan (1) Major depressive disorder, single episode, severe w psychotic behavior: Status: Acute Code(s): F32.3 - Major depressive disorder, single episode, severe with psychotic features (2) Cognitive and behavioral changes: Status: Acute Code(s): R41.89 - Other symptoms and signs involving cognitive functions and awareness; R46.89 - Other symptoms and signs involving appearance and behavior Plan Pt is a 78-year-old female with a PMH significant for?HTN, asthma, insulin- dependent type 2 diabetes, and unspecified psychiatric diagnosis who is admitted to [facility] for paranoia and psychosis. Patient was placed on a section 12 by Emily after they were called to her apartment 4 times during the night. Patient reportedly believed that her landlord had been stealing money from her and hired a professional hit man who cut a hole in the wall of her closet in her bedroom to gain access to her apartment. Was noted to have nailed the door to her apartment shut. BPH also reported finding patient's insulin having been left out in the sun on the counter for 4 days. Medical consult for admission H&P. Plan 1. Continue with Zyprexa 5 mg p.o. q.h.s.. 2. Reassessment results. 3. 15 minutes checks. 4. Encourage compliance. 10/26: Continue current regimen and plans Reason for continued inpatient stay Substantial Risk for: med/psych decompensation Time Spent With Patient Time: Total time managing care of this patient today ____ minutes.
[2023-10-27 16:35] LABS: Glucose, Whole Blood 183 mg/dL (60-115)
[2023-10-27 19:56] LABS: Glucose, Whole Blood 164 mg/dL (60-115)
[2023-10-27 20:00] VITALS: BP 141/66; PULSE 86; RESP 16; TEMP 36.2; O2SAT 98
[2023-10-27] MEDS: OLANZapine 5 MG TABLET PO (20:58)
--- NOTE | 2023-10-27 23:17 | P.EN_ITS ---
Event Note Date of Service: 10/27/23 Event Note: junior technical writer notified pt had barricaded self in bathroom, threatening to throw feces on any who entered; code assist called. Staff tried but could not redirect patient and Pt required Medication and physical restraint Time Spent With Patient Time: Total time managing care of this patient today ____ minutes.
[2023-10-27] MEDS: OLANZapine 10 MG VIAL IM (23:35)
[2023-10-27] MEDS: LORazepam 2 MG/ML VIAL 1 MG IM (23:35)
--- NOTE | 2023-10-28 00:27 | PC.NURSE ---
Selam was exhibiting increased paranoia AEB barricading door with a chair and preventing staff from doing safety observations. Threatened to throw feces and urine at anyone who entered her room. I have enough for 8 people. 1:1 de-escalation attempted with no success. Security called and staff entered room at which time patient threw feces and urine, continued to be uncooperative/resistant to taking oral meds. Attempted to bite staff, Physical restraint FB chemical restraint completed per order from Dr. Weinstein. Presents as calm allowing room and herself to be cleaned of feces and urine. Provided with snack. Continues to verbalize paranoid thoughts. Seen by Hospitalist Sriram.
--- NOTE | 2023-10-28 09:27 | HO.PSYCHPN ---
Subjective Subjective Date of Service: 10/28/23 Reason For Visit: section 12 Subjective Notes: Section 7 Interim History: Patient was seen and discussed in rounds today. Records and plans were reviewed. She had a difficult night last night and had stool in cups to throw at people when she started to feel paranoid and barricaded herself in her room. She was given a chemical restraint and slept after that. This morning she is remembering that and was very sleepy. No complaints or side effects other than the drowsiness. No changes were made today Review of Systems Review of Systems Yes all other systems are reviewed and are negative Mental Status Exam Mental Status Exam Patient Appearance: Unkempt Patient Orientation: Person and Situation Level of Consciousness: Awake and Appropriate Patient Behavior: Guarded and Passive Mood Description: Withdrawn Affect Description: Constricted Patient Cognition Impaired: Yes Ability to Follow Directions: Good Speech Pattern: Clear Hallucinations: Auditory Delusions: Paranoid Ideation Thought Process: Distracted and Slowed Thinking Thought Content: positive for [place] and positive for Poverty of Content Judgement: Fair Diagnostics Vital Signs (24Hr): Vital Signs - 24 hr 10/27/23 20:00 Temperature 97.2 F Pulse Rate 86 Respiratory Rate 16 Blood Pressure 141/66 H Pulse Oximetry 98 Oxygen Delivery Method Room Air BMI result Body Mass Index 35.8 Labs 10/25/23 07:05 10/25/23 07:05 Labs: Laboratory Results - last 48 hr 10/26/23 10/26/23 10/27/23 16:03 19:35 11:17 POC Glucose 126 H 185 H 177 H 10/27/23 10/27/23 16:32 19:31 POC Glucose 183 H 164 H Medications Medications Current Medications Acetaminophen (Acetaminophen 325 Mg Tablet) 650 mg PO Q6H PRN PRN Reason: Headache/Pain (1-10) Hydrocodone Bitart/Acetaminophen (Hydrocodone Bit/Acetam 5/325 Tablet) 1 tab PO BID PRN PRN Reason: Pain, Severe (Pain Scale 7-10) Last Admin: 10/27/23 20:57 Dose: 1 tab Al Hydroxide/Mg Hydroxide (Magnesium Hydrox/Alum Hydrox 30 Ml Oral.Susp) 30 ml PO Q6H PRN PRN Reason: Heartburn/Nausea Albuterol Sulfate (Albuterol Sulfate 90 Mcg 8 Gm Inhaler) 2 puff INHALE RQ4H PRN PRN Reason: sob Amlodipine Besylate (Amlodipine Besylate 5 Mg Tablet) 5 mg PO DAILY [facility]; Protocol Last Admin: 10/27/23 08:10 Dose: 5 mg Chlorpromazine HCl (Chlorpromazine Hcl 10 Mg Tablet) 10 mg PO Q4H PRN PRN Reason: agitation Diazepam (Diazepam 5 Mg Tablet) 5 mg PO TID PRN PRN Reason: Anxiety Last Admin: 10/27/23 20:58 Dose: 5 mg Hydroxyzine HCl (Hydroxyzine Hcl 25 Mg Tablet) 25 mg PO Q6H PRN PRN Reason: Anxiety Insulin Glargine (Insulin Glargine,Hum.Rec.Anlog 100 Unit/Ml 10 Ml Vial) 5 unit SUBCUT DAILY [facility] Last Admin: 10/27/23 08:09 Dose: 5 unit Insulin Human Lispro (Insulin Lispro 100 Unit/Ml 3 Ml Vial) 0 unit SUBCUT QIDACHS [facility]; Protocol Last Admin: 10/28/23 09:04 Dose: Not Given Loperamide HCl (Loperamide Hcl 2 Mg Capsule) 2 mg PO Q4H PRN PRN Reason: Diarrhea Last Admin: 10/15/23 04:28 Dose: 2 mg Magnesium Hydroxide (Milk Of Magnesia 30 Ml Oral.Susp) 30 ml PO DAILY PRN PRN Reason: Constipation Olanzapine (Olanzapine 5 Mg Tablet) 5 mg PO BEDTIME [facility] Last Admin: 10/27/23 20:58 Dose: 5 mg Trazodone HCl (Trazodone Hcl 50 Mg Tablet) 50 mg PO BEDTIME MRX1 PRN PRN Reason: Insomnia Valsartan (Valsartan 160 Mg Tablet) 160 mg PO DAILY [facility]; Protocol Last Admin: 10/27/23 08:10 Dose: 160 mg Vitamin D (Cholecalciferol (Vitamin D3) 25 Mcg Tablet) 50 mcg PO DAILY [facility] Last Admin: 10/27/23 08:11 Dose: 50 mcg Allergies Allergies Allergy/AdvReac Type Severity Reaction Status Date / Time No Known Allergies Allergy Verified 10/03/23 19:47 Assessment & Plan Assessment & Plan (1) Major depressive disorder, single episode, severe w psychotic behavior: Status: Acute Code(s): F32.3 - Major depressive disorder, single episode, severe with psychotic features (2) Cognitive and behavioral changes: Status: Acute Code(s): R41.89 - Other symptoms and signs involving cognitive functions and awareness; R46.89 - Other symptoms and signs involving appearance and behavior Plan Pt is a 78-year-old female with a PMH significant for?HTN, asthma, insulin-dependent type 2 diabetes, and unspecified psychiatric diagnosis who is admitted to [facility] for paranoia and psychosis. Patient was placed on a section 12 by VELMA Diaz after they were called to her apartment 4 times during the night. Patient reportedly believed that her landlord had been stealing money from her and hired a professional hit man who cut a hole in the wall of her closet in her bedroom to gain access to her apartment. Was noted to have nailed the door to her apartment shut. BPH also reported finding patient's insulin having been left out in the sun on the counter for 4 days. Medical consult for admission H&P. Plan 1. Continue with Zyprexa 5 mg p.o. q.h.s.. 2. Reassessment results. 3. 15 minutes checks. 4. Encourage compliance. 10/26: Continue current regimen and plans 10/27: Continue current regimen and plans. Reason for continued inpatient stay Substantial Risk for: med/psych decompensation Time Spent With Patient Time: Total time managing care of this patient today ____ minutes.
[2023-10-28 10:59] VITALS: BP 131/71; PULSE 77; RESP 18; TEMP 36.2; O2SAT 95
[2023-10-28 11:03] VITALS: BP 131/71; BP 131/77
[2023-10-28] MEDS: Valsartan 160 MG TABLET PO (11:03)
[2023-10-28] MEDS: amLODIPine Besylate 5 MG TABLET PO (11:03)
[2023-10-28] MEDS: Cholecalciferol (Vitamin D3) 25 MCG TABLET 50 MCG PO (11:03)
[2023-10-28] MEDS: HYDROcodone Bit/Acetam 5/325 TABLET 1 TAB PO ×2 (11:05→20:13)
[2023-10-28] MEDS: diazePAM 5 MG TABLET PO ×2 (11:05→20:13)
[2023-10-28 11:07] LABS: Glucose, Whole Blood 126 mg/dL (60-115)
[2023-10-28 16:14] LABS: Glucose, Whole Blood 105 mg/dL (60-115)
[2023-10-28 19:54] LABS: Glucose, Whole Blood 195 mg/dL (60-115)
[2023-10-28 20:00] VITALS: BP 145/64; PULSE 88; RESP 18; TEMP 36.7; O2SAT 94
[2023-10-28] MEDS: OLANZapine 5 MG TABLET PO (20:13)
[2023-10-28] MEDS: Insulin Lispro 100 UNIT/ML 3 ML VIAL SUBCUT (20:15)
[2023-10-29 06:40] LABS: Glucose, Whole Blood 106 mg/dL (60-115)
[2023-10-29 08:15] VITALS: BP 132/96; PULSE 85; RESP 18; TEMP 36.1; O2SAT 97
[2023-10-29] MEDS: Insulin Glargine,Hum.rec.anlog 100 UNIT/ML 10 ML VIAL SUBCUT (08:15)
[2023-10-29] MEDS: HYDROcodone Bit/Acetam 5/325 TABLET 1 TAB PO ×2 (08:15→20:30)
[2023-10-29 08:16] VITALS: BP 132/96
[2023-10-29] MEDS: Cholecalciferol (Vitamin D3) 25 MCG TABLET 50 MCG PO (08:16)
[2023-10-29] MEDS: diazePAM 5 MG TABLET PO ×2 (08:16→20:30)
[2023-10-29] MEDS: Valsartan 160 MG TABLET PO (08:16)
[2023-10-29] MEDS: amLODIPine Besylate 5 MG TABLET PO (08:16)
[2023-10-29 11:13] LABS: Glucose, Whole Blood 229 mg/dL (60-115)
[2023-10-29] MEDS: Insulin Lispro 100 UNIT/ML 3 ML VIAL SUBCUT ×3 (11:17→20:34)
--- NOTE | 2023-10-29 14:00 | HO.PSYCHPN ---
Subjective Subjective Date of Service: 10/29/23 Reason For Visit: section 12 Subjective Notes: Section 7 and Section 8 Interim History: The nursing staff reported that over the weekend she was preparing poop bombs and needed to be chemically restrained. On interview the patient remains paranoid and disorganized. We are going to increase Zyprexa to 7.5 mg p.o. q.h.s. Mental Status Exam Mental Status Exam Patient Appearance: Appropriate Patient Orientation: Person and Situation Level of Consciousness: Awake Patient Behavior: Guarded and Passive Mood Description: Withdrawn Affect Description: Constricted Patient Cognition Impaired: Yes Ability to Follow Directions: Poor Speech Pattern: Clear Hallucinations: None Delusions: Paranoid Ideation Thought Process: Illogical Thought Content: positive for [place] and positive for Poverty of Content Judgement: Poor Diagnostics Vital Signs (24Hr): Vital Signs - 24 hr 10/28/23 20:00 10/29/23 08:15 10/29/23 08:16 Temperature 98.1 F 96.9 F Pulse Rate 88 85 Respiratory Rate 18 18 Blood Pressure 145/64 H 132/96 H 132/96 H Pulse Oximetry 94 97 Oxygen Delivery Method Room Air Room Air 10/29/23 08:16 Temperature Pulse Rate Respiratory Rate Blood Pressure 132/96 H Pulse Oximetry Oxygen Delivery Method BMI result Body Mass Index 35.8 Labs 10/25/23 07:05 10/25/23 07:05 Labs: Laboratory Results - last 48 hr 10/27/23 10/27/23 10/28/23 16:32 19:31 11:00 POC Glucose 183 H 164 H 126 H 10/28/23 10/28/23 10/29/23 16:11 19:50 06:29 POC Glucose 105 195 H 106 10/29/23 11:09 POC Glucose 229 H Medications Medications Current Medications Acetaminophen (Acetaminophen 325 Mg Tablet) 650 mg PO Q6H PRN PRN Reason: Headache/Pain (1-10) Hydrocodone Bitart/Acetaminophen (Hydrocodone Bit/Acetam 5/325 Tablet) 1 tab PO BID PRN PRN Reason: Pain, Severe (Pain Scale 7-10) Last Admin: 10/29/23 08:15 Dose: 1 tab Al Hydroxide/Mg Hydroxide (Magnesium Hydrox/Alum Hydrox 30 Ml Oral.Susp) 30 ml PO Q6H PRN PRN Reason: Heartburn/Nausea Albuterol Sulfate (Albuterol Sulfate 90 Mcg 8 Gm Inhaler) 2 puff INHALE RQ4H PRN PRN Reason: sob Amlodipine Besylate (Amlodipine Besylate 5 Mg Tablet) 5 mg PO DAILY [facility]; Protocol Last Admin: 10/29/23 08:16 Dose: 5 mg Chlorpromazine HCl (Chlorpromazine Hcl 10 Mg Tablet) 10 mg PO Q4H PRN PRN Reason: agitation Diazepam (Diazepam 5 Mg Tablet) 5 mg PO TID PRN PRN Reason: Anxiety Last Admin: 10/29/23 08:16 Dose: 5 mg Hydroxyzine HCl (Hydroxyzine Hcl 25 Mg Tablet) 25 mg PO Q6H PRN PRN Reason: Anxiety Insulin Glargine (Insulin Glargine,Hum.Rec.Anlog 100 Unit/Ml 10 Ml Vial) 5 unit SUBCUT DAILY [facility] Last Admin: 10/29/23 08:15 Dose: 5 unit Insulin Human Lispro (Insulin Lispro 100 Unit/Ml 3 Ml Vial) 0 unit SUBCUT QIDACHS [facility]; Protocol Last Admin: 10/29/23 11:17 Dose: 4 unit Loperamide HCl (Loperamide Hcl 2 Mg Capsule) 2 mg PO Q4H PRN PRN Reason: Diarrhea Last Admin: 10/15/23 04:28 Dose: 2 mg Magnesium Hydroxide (Milk Of Magnesia 30 Ml Oral.Susp) 30 ml PO DAILY PRN PRN Reason: Constipation Olanzapine (Olanzapine 7.5 Mg Tablet) 7.5 mg PO BEDTIME [facility] Trazodone HCl (Trazodone Hcl 50 Mg Tablet) 50 mg PO BEDTIME MRX1 PRN PRN Reason: Insomnia Valsartan (Valsartan 160 Mg Tablet) 160 mg PO DAILY [facility]; Protocol Last Admin: 10/29/23 08:16 Dose: 160 mg Vitamin D (Cholecalciferol (Vitamin D3) 25 Mcg Tablet) 50 mcg PO DAILY [facility] Last Admin: 10/29/23 08:16 Dose: 50 mcg Allergies Allergies Allergy/AdvReac Type Severity Reaction Status Date / Time No Known Allergies Allergy Verified 10/03/23 19:47 Assessment & Plan Assessment & Plan (1) Major depressive disorder, single episode, severe w psychotic behavior: Status: Acute Code(s): F32.3 - Major depressive disorder, single episode, severe with psychotic features (2) Cognitive and behavioral changes: Status: Acute Code(s): R41.89 - Other symptoms and signs involving cognitive functions and awareness; R46.89 - Other symptoms and signs involving appearance and behavior Plan Pt is a 78-year-old female with a PMH significant for?HTN, asthma, insulin-dependent type 2 diabetes, and unspecified psychiatric diagnosis who is admitted to [facility] for paranoia and psychosis. Patient was placed on a section 12 by Emily after they were called to her apartment 4 times during the night. Patient reportedly believed that her landlord had been stealing money from her and hired a professional hit man who cut a hole in the wall of her closet in her bedroom to gain access to her apartment. Was noted to have nailed the door to her apartment shut. BPH also reported finding patient's insulin having been left out in the sun on the counter for 4 days. Medical consult for admission H&P. Plan 1. Continue with Zyprexa 5 mg p.o. q.h.s.. 2. Reassessment results. 3. 15 minutes checks. 4. Encourage compliance. 5. Increase Zyprexa to 7.5 p.o. q.h.s. on October 28 Reason for continued inpatient stay Substantial Risk for: harm to others, inability to function, rapid decompensation and med/psych decompensation Time Spent With Patient Time: Total time managing care of this patient today __20__ minutes.
[2023-10-29 16:37] LABS: Glucose, Whole Blood 173 mg/dL (60-115)
[2023-10-29 19:59] LABS: Glucose, Whole Blood 168 mg/dL (60-115)
[2023-10-29 20:00] VITALS: BP 138/78; PULSE 97; RESP 18; TEMP 36.2; O2SAT 97
[2023-10-29] MEDS: OLANZapine 7.5 MG TABLET PO (20:30)
[2023-10-30 08:29] LABS: Glucose, Whole Blood 137 mg/dL (60-115)
[2023-10-30 08:32] VITALS: BP 161/72; PULSE 92; RESP 18; TEMP 36.2; O2SAT 95
[2023-10-30] MEDS: Valsartan 160 MG TABLET PO (08:34)
[2023-10-30] MEDS: Cholecalciferol (Vitamin D3) 25 MCG TABLET 50 MCG PO (08:34)
[2023-10-30] MEDS: amLODIPine Besylate 5 MG TABLET PO (08:35)
[2023-10-30] MEDS: Insulin Glargine,Hum.rec.anlog 100 UNIT/ML 10 ML VIAL SUBCUT (08:36)
[2023-10-30] MEDS: diazePAM 5 MG TABLET PO ×2 (08:45→20:40)
[2023-10-30] MEDS: HYDROcodone Bit/Acetam 5/325 TABLET 1 TAB PO ×2 (08:45→20:40)
[2023-10-30 11:34] LABS: Glucose, Whole Blood 115 mg/dL (60-115)
--- NOTE | 2023-10-30 12:10 | HO.PSYCHPN ---
Subjective Subjective Date of Service: 10/30/23 Reason For Visit: section 12 Subjective Notes: Section 7 and Section 8 Interim History: Nursing staff reported the patient remains paranoid, she took her increase dose of Zyprexa last night. On interview the patient remains internally preoccupied, paranoid. No changes in her mental status. Waiting for the hearing of the Section 7 and 8. Mental Status Exam Mental Status Exam Patient Appearance: Appropriate Patient Orientation: Person and Situation Level of Consciousness: Awake and Appropriate Patient Behavior: Guarded and Passive Mood Description: Withdrawn Affect Description: Constricted Patient Cognition Impaired: Yes Ability to Follow Directions: Fair Speech Pattern: Clear Hallucinations: None Delusions: Paranoid Ideation Thought Process: Distracted and Slowed Thinking Thought Content: positive for [place] and positive for Poverty of Content Judgement: Poor Diagnostics Vital Signs (24Hr): Vital Signs - 24 hr 10/29/23 20:00 10/30/23 08:32 Temperature 97.1 F 97.1 F Pulse Rate 97 92 Respiratory Rate 18 18 Blood Pressure 138/78 161/72 H Pulse Oximetry 97 95 Oxygen Delivery Method Room Air Room Air BMI result Body Mass Index 35.8 Labs 10/25/23 07:05 10/25/23 07:05 Labs: Laboratory Results - last 48 hr 10/28/23 10/28/23 10/29/23 16:11 19:50 06:29 POC Glucose 105 195 H 106 10/29/23 10/29/23 10/29/23 11:09 16:21 19:54 POC Glucose 229 H 173 H 168 H 10/30/23 10/30/23 08:18 11:24 POC Glucose 137 H 115 Medications Medications Current Medications Acetaminophen (Acetaminophen 325 Mg Tablet) 650 mg PO Q6H PRN PRN Reason: Headache/Pain (1-10) Hydrocodone Bitart/Acetaminophen (Hydrocodone Bit/Acetam 5/325 Tablet) 1 tab PO BID PRN PRN Reason: Pain, Severe (Pain Scale 7-10) Last Admin: 10/30/23 08:45 Dose: 1 tab Al Hydroxide/Mg Hydroxide (Magnesium Hydrox/Alum Hydrox 30 Ml Oral.Susp) 30 ml PO Q6H PRN PRN Reason: Heartburn/Nausea Albuterol Sulfate (Albuterol Sulfate 90 Mcg 8 Gm Inhaler) 2 puff INHALE RQ4H PRN PRN Reason: sob Amlodipine Besylate (Amlodipine Besylate 5 Mg Tablet) 5 mg PO DAILY [facility]; Protocol Last Admin: 10/30/23 08:35 Dose: 5 mg Chlorpromazine HCl (Chlorpromazine Hcl 10 Mg Tablet) 10 mg PO Q4H PRN PRN Reason: agitation Diazepam (Diazepam 5 Mg Tablet) 5 mg PO TID PRN PRN Reason: Anxiety Last Admin: 10/30/23 08:45 Dose: 5 mg Hydroxyzine HCl (Hydroxyzine Hcl 25 Mg Tablet) 25 mg PO Q6H PRN PRN Reason: Anxiety Insulin Glargine (Insulin Glargine,Hum.Rec.Anlog 100 Unit/Ml 10 Ml Vial) 5 unit SUBCUT DAILY [facility] Last Admin: 10/30/23 08:36 Dose: 5 unit Insulin Human Lispro (Insulin Lispro 100 Unit/Ml 3 Ml Vial) 0 unit SUBCUT QIDACHS [facility]; Protocol Last Admin: 10/30/23 11:44 Dose: Not Given Loperamide HCl (Loperamide Hcl 2 Mg Capsule) 2 mg PO Q4H PRN PRN Reason: Diarrhea Last Admin: 10/15/23 04:28 Dose: 2 mg Magnesium Hydroxide (Milk Of Magnesia 30 Ml Oral.Susp) 30 ml PO DAILY PRN PRN Reason: Constipation Olanzapine (Olanzapine 7.5 Mg Tablet) 7.5 mg PO BEDTIME [facility] Last Admin: 10/29/23 20:30 Dose: 7.5 mg Trazodone HCl (Trazodone Hcl 50 Mg Tablet) 50 mg PO BEDTIME MRX1 PRN PRN Reason: Insomnia Valsartan (Valsartan 160 Mg Tablet) 160 mg PO DAILY [facility]; Protocol Last Admin: 10/30/23 08:34 Dose: 160 mg Vitamin D (Cholecalciferol (Vitamin D3) 25 Mcg Tablet) 50 mcg PO DAILY [facility] Last Admin: 10/30/23 08:34 Dose: 50 mcg Allergies Allergies Allergy/AdvReac Type Severity Reaction Status Date / Time No Known Allergies Allergy Verified 10/03/23 19:47 Assessment & Plan Assessment & Plan (1) Major depressive disorder, single episode, severe w psychotic behavior: Status: Acute Code(s): F32.3 - Major depressive disorder, single episode, severe with psychotic features (2) Cognitive and behavioral changes: Status: Acute Code(s): R41.89 - Other symptoms and signs involving cognitive functions and awareness; R46.89 - Other symptoms and signs involving appearance and behavior Plan Pt is a 78-year-old female with a PMH significant for?HTN, asthma, insulin-dependent type 2 diabetes, and unspecified psychiatric diagnosis who is admitted to [facility] for paranoia and psychosis. Patient was placed on a section 12 by VELMA Diaz after they were called to her apartment 4 times during the night. Patient reportedly believed that her landlord had been stealing money from her and hired a professional hit man who cut a hole in the wall of her closet in her bedroom to gain access to her apartment. Was noted to have nailed the door to her apartment shut. BPH also reported finding patient's insulin having been left out in the sun on the counter for 4 days. Medical consult for admission H&P. Plan 1. Continue with Zyprexa 5 mg p.o. q.h.s.. 2. Reassessment results. 3. 15 minutes checks. 4. Encourage compliance. 5. Increase Zyprexa to 7.5 p.o. q.h.s. on October 28 Reason for continued inpatient stay Substantial Risk for: inability to function, rapid decompensation and med/psych decompensation Time Spent With Patient Time: Total time managing care of this patient today __20__ minutes.
[2023-10-30 16:32] LABS: Glucose, Whole Blood 169 mg/dL (60-115)
[2023-10-30] MEDS: Insulin Lispro 100 UNIT/ML 3 ML VIAL SUBCUT ×2 (16:36→20:31)
[2023-10-30 19:48] VITALS: BP 123/70; PULSE 87; RESP 16; TEMP 36.1; O2SAT 95
[2023-10-30 20:15] LABS: Glucose, Whole Blood 168 mg/dL (60-115)
[2023-10-31 08:00] VITALS: BP 154/67; PULSE 87; RESP 17; TEMP 36.1; O2SAT 98
[2023-10-31 09:25] VITALS: BP 154/67
[2023-10-31] MEDS: HYDROcodone Bit/Acetam 5/325 TABLET 1 TAB PO ×2 (09:25→20:42)
[2023-10-31] MEDS: Valsartan 160 MG TABLET PO (09:25)
[2023-10-31] MEDS: diazePAM 5 MG TABLET PO ×2 (09:25→20:42)
[2023-10-31] MEDS: Cholecalciferol (Vitamin D3) 25 MCG TABLET 50 MCG PO (09:25)
[2023-10-31] MEDS: amLODIPine Besylate 5 MG TABLET PO (09:25)
[2023-10-31] MEDS: Insulin Glargine,Hum.rec.anlog 100 UNIT/ML 10 ML VIAL SUBCUT (09:26)
--- NOTE | 2023-10-31 09:49 | PC.NURSE ---
Declined 730am POC for night staff. When this blog writer went to attempt to take morning POC Selam was already eating and declined to have POC taken. Held morning sliding scale insulin. Dr. Escobar notified.
[2023-10-31 11:15] LABS: Glucose, Whole Blood 225 mg/dL (60-115)
[2023-10-31] MEDS: Insulin Lispro 100 UNIT/ML 3 ML VIAL SUBCUT ×3 (11:28→20:40)
--- NOTE | 2023-10-31 14:15 | HO.PSYCHPN ---
Subjective Subjective Date of Service: 10/31/23 Reason For Visit: section 12 Subjective Notes: Conditional Voluntary Interim History: The nursing staff reported the patient remains paranoid, she stated that she is depressed and she wants to go home. She had been visible in the unit and she had used her Vicodin and Valium p.r.n.. She slept 6 hours. On interview the patient was very paranoid, stating that she does not want to people to over hear her conversations he is not that people wants to kill her here. Delusional but still redirectable. Mental Status Exam Mental Status Exam Patient Appearance: Appropriate Patient Orientation: Person and Situation Level of Consciousness: Awake and Appropriate Patient Behavior: Guarded and Passive Mood Description: Withdrawn Affect Description: Constricted Patient Cognition Impaired: Yes Ability to Follow Directions: Fair Speech Pattern: Impoverished Hallucinations: Auditory Delusions: Paranoid Ideation Thought Process: Illogical, Distracted and Slowed Thinking Thought Content: positive for [place] and positive for Poverty of Content Judgement: Poor Diagnostics Vital Signs (24Hr): Vital Signs - 24 hr 10/30/23 19:48 10/31/23 08:00 10/31/23 09:25 Temperature 97 F 96.9 F Pulse Rate 87 87 Respiratory Rate 16 17 Blood Pressure 123/70 154/67 H 154/67 H Pulse Oximetry 95 98 Oxygen Delivery Method Room Air 10/31/23 09:25 Temperature Pulse Rate Respiratory Rate Blood Pressure 154/67 H Pulse Oximetry Oxygen Delivery Method BMI result Body Mass Index 35.8 Labs 10/25/23 07:05 10/25/23 07:05 Labs: Laboratory Results - last 48 hr 10/29/23 10/29/23 10/30/23 16:21 19:54 08:18 POC Glucose 173 H 168 H 137 H 10/30/23 10/30/23 10/30/23 11:24 16:27 20:12 POC Glucose 115 169 H 168 H 10/31/23 11:11 POC Glucose 225 H Medications Medications Current Medications Acetaminophen (Acetaminophen 325 Mg Tablet) 650 mg PO Q6H PRN PRN Reason: Headache/Pain (1-10) Hydrocodone Bitart/Acetaminophen (Hydrocodone Bit/Acetam 5/325 Tablet) 1 tab PO BID PRN PRN Reason: Pain, Severe (Pain Scale 7-10) Last Admin: 07/31/24 09:25 Dose: 1 tab Al Hydroxide/Mg Hydroxide (Magnesium Hydrox/Alum Hydrox 30 Ml Oral.Susp) 30 ml PO Q6H PRN PRN Reason: Heartburn/Nausea Albuterol Sulfate (Albuterol Sulfate 90 Mcg 8 Gm Inhaler) 2 puff INHALE RQ4H PRN PRN Reason: sob Amlodipine Besylate (Amlodipine Besylate 5 Mg Tablet) 5 mg PO DAILY [facility]; Protocol Last Admin: 10/31/23 09:25 Dose: 5 mg Chlorpromazine HCl (Chlorpromazine Hcl 10 Mg Tablet) 10 mg PO Q4H PRN PRN Reason: agitation Diazepam (Diazepam 5 Mg Tablet) 5 mg PO TID PRN PRN Reason: Anxiety Last Admin: 10/31/23 09:25 Dose: 5 mg Hydroxyzine HCl (Hydroxyzine Hcl 25 Mg Tablet) 25 mg PO Q6H PRN PRN Reason: Anxiety Insulin Glargine (Insulin Glargine,Hum.Rec.Anlog 100 Unit/Ml 10 Ml Vial) 5 unit SUBCUT DAILY [facility] Last Admin: 10/31/23 09:26 Dose: 5 unit Insulin Human Lispro (Insulin Lispro 100 Unit/Ml 3 Ml Vial) 0 unit SUBCUT QIDACHS [facility]; Protocol Last Admin: 10/31/23 11:28 Dose: 4 unit Loperamide HCl (Loperamide Hcl 2 Mg Capsule) 2 mg PO Q4H PRN PRN Reason: Diarrhea Last Admin: 10/15/23 04:28 Dose: 2 mg Magnesium Hydroxide (Milk Of Magnesia 30 Ml Oral.Susp) 30 ml PO DAILY PRN PRN Reason: Constipation Olanzapine (Olanzapine 7.5 Mg Tablet) 7.5 mg PO BEDTIME [facility] Last Admin: 10/30/23 20:36 Dose: Not Given Trazodone HCl (Trazodone Hcl 50 Mg Tablet) 50 mg PO BEDTIME MRX1 PRN PRN Reason: Insomnia Valsartan (Valsartan 160 Mg Tablet) 160 mg PO DAILY [facility]; Protocol Last Admin: 10/31/23 09:25 Dose: 160 mg Vitamin D (Cholecalciferol (Vitamin D3) 25 Mcg Tablet) 50 mcg PO DAILY [facility] Last Admin: 10/31/23 09:25 Dose: 50 mcg Allergies Allergies Allergy/AdvReac Type Severity Reaction Status Date / Time No Known Allergies Allergy Verified 10/03/23 19:47 Assessment & Plan Assessment & Plan (1) Major depressive disorder, single episode, severe w psychotic behavior: Status: Acute Code(s): F32.3 - Major depressive disorder, single episode, severe with psychotic features (2) Cognitive and behavioral changes: Status: Acute Code(s): R41.89 - Other symptoms and signs involving cognitive functions and awareness; R46.89 - Other symptoms and signs involving appearance and behavior Plan Pt is a 78-year-old female with a PMH significant for?HTN, asthma, insulin-dependent type 2 diabetes, and unspecified psychiatric diagnosis who is admitted to [facility] for paranoia and psychosis. Patient was placed on a section 12 by Emily after they were called to her apartment 4 times during the night. Patient reportedly believed that her landlord had been stealing money from her and hired a professional hit man who cut a hole in the wall of her closet in her bedroom to gain access to her apartment. Was noted to have nailed the door to her apartment shut. BPH also reported finding patient's insulin having been left out in the sun on the counter for 4 days. Medical consult for admission H&P. Plan 1. Continue with Zyprexa 5 mg p.o. q.h.s.. 2. Reassessment results. 3. 15 minutes checks. 4. Encourage compliance. 5. Increase Zyprexa to 7.5 p.o. q.h.s. on October 28 6. Hearing for 7 and 8 tomorrow. Reason for continued inpatient stay Substantial Risk for: inability to function, rapid decompensation and med/psych decompensation Time Spent With Patient Time: Total time managing care of this patient today __20__ minutes.
[2023-10-31 16:24] LABS: Glucose, Whole Blood 199 mg/dL (60-115)
[2023-10-31 19:56] VITALS: BP 135/66; PULSE 87; RESP 18; TEMP 36.4; O2SAT 96
[2023-10-31 20:03] LABS: Glucose, Whole Blood 200 mg/dL (60-115)
[2023-11-01 06:28] LABS: Glucose, Whole Blood 147 mg/dL (60-115)
[2023-11-01 07:00] VITALS: BMI 37.2
[2023-11-01 08:00] VITALS: BP 142/65; PULSE 92; RESP 16; TEMP 36.1; O2SAT 97
[2023-11-01] MEDS: amLODIPine Besylate 5 MG TABLET PO (09:09)
[2023-11-01] MEDS: Valsartan 160 MG TABLET PO (09:10)
[2023-11-01] MEDS: Cholecalciferol (Vitamin D3) 25 MCG TABLET 50 MCG PO (09:10)
[2023-11-01] MEDS: HYDROcodone Bit/Acetam 5/325 TABLET 1 TAB PO ×2 (09:16→20:12)
[2023-11-01] MEDS: diazePAM 5 MG TABLET PO ×2 (09:16→20:11)
[2023-11-01] MEDS: Insulin Glargine,Hum.rec.anlog 100 UNIT/ML 10 ML VIAL SUBCUT (09:18)
[2023-11-01 11:36] LABS: Glucose, Whole Blood 130 mg/dL (60-115)
--- NOTE | 2023-11-01 14:59 | P.PNPSI_ITS ---
Subjective Subjective Date of Service: 11/01/23 Reason For Visit: section 12 Subjective Notes: Section 7 and Section 8 Interim History: The nursing staff reported still paranoia and anxious, she slept 6 hours, she refused Zyprexa last night. OT reported that she attended to [employer]. Today, we have the court hearing. Mental Status Exam Mental Status Exam Patient Appearance: Appropriate Patient Orientation: Person and Situation Level of Consciousness: Awake and Appropriate Patient Behavior: Guarded and Passive Mood Description: Calm Affect Description: Constricted Patient Cognition Impaired: Yes Ability to Follow Directions: Fair Speech Pattern: Clear Hallucinations: None Delusions: Paranoid Ideation Thought Process: Distracted and Slowed Thinking Thought Content: positive for [place] and positive for Poverty of Content Judgement: Poor Diagnostics Vital Signs (24Hr): Vital Signs - 24 hr 10/31/23 19:56 11/01/23 08:00 Temperature 97.6 F 96.9 F Pulse Rate 87 92 Respiratory Rate 18 16 Blood Pressure 135/66 142/65 H Pulse Oximetry 96 97 Oxygen Delivery Method Room Air Room Air BMI result Body Mass Index 37.2 Labs 10/25/23 07:05 10/25/23 07:05 Labs: Laboratory Results - last 48 hr 10/30/23 10/30/23 10/31/23 16:27 20:12 11:11 POC Glucose 169 H 168 H 225 H 10/31/23 10/31/23 11/01/23 16:20 19:54 06:15 POC Glucose 199 H 200 H 147 H 11/01/23 11:31 POC Glucose 130 H Medications Medications Current Medications Acetaminophen (Acetaminophen 325 Mg Tablet) 650 mg PO Q6H PRN PRN Reason: Headache/Pain (1-10) Hydrocodone Bitart/Acetaminophen (Hydrocodone Bit/Acetam 5/325 Tablet) 1 tab PO BID PRN PRN Reason: Pain, Severe (Pain Scale 7-10) Last Admin: 11/01/23 09:16 Dose: 1 tab Al Hydroxide/Mg Hydroxide (Magnesium Hydrox/Alum Hydrox 30 Ml Oral.Susp) 30 ml PO Q6H PRN PRN Reason: Heartburn/Nausea Albuterol Sulfate (Albuterol Sulfate 90 Mcg 8 Gm Inhaler) 2 puff INHALE RQ4H PRN PRN Reason: sob Amlodipine Besylate (Amlodipine Besylate 5 Mg Tablet) 5 mg PO DAILY [facility]; Protocol Last Admin: 11/01/23 09:09 Dose: 5 mg Chlorpromazine HCl (Chlorpromazine Hcl 10 Mg Tablet) 10 mg PO Q4H PRN PRN Reason: agitation Diazepam (Diazepam 5 Mg Tablet) 5 mg PO TID PRN PRN Reason: Anxiety Last Admin: 11/01/23 09:16 Dose: 5 mg Hydroxyzine HCl (Hydroxyzine Hcl 25 Mg Tablet) 25 mg PO Q6H PRN PRN Reason: Anxiety Insulin Glargine (Insulin Glargine,Hum.Rec.Anlog 100 Unit/Ml 10 Ml Vial) 5 unit SUBCUT DAILY [facility] Last Admin: 11/01/23 09:18 Dose: 5 unit Insulin Human Lispro (Insulin Lispro 100 Unit/Ml 3 Ml Vial) 0 unit SUBCUT QIDACHS [facility]; Protocol Last Admin: 11/01/23 12:19 Dose: Not Given Loperamide HCl (Loperamide Hcl 2 Mg Capsule) 2 mg PO Q4H PRN PRN Reason: Diarrhea Last Admin: 10/15/23 04:28 Dose: 2 mg Magnesium Hydroxide (Milk Of Magnesia 30 Ml Oral.Susp) 30 ml PO DAILY PRN PRN Reason: Constipation Olanzapine (Olanzapine 7.5 Mg Tablet) 7.5 mg PO BEDTIME [facility] Last Admin: 10/31/23 22:21 Dose: Not Given Trazodone HCl (Trazodone Hcl 50 Mg Tablet) 50 mg PO BEDTIME MRX1 PRN PRN Reason: Insomnia Valsartan (Valsartan 160 Mg Tablet) 160 mg PO DAILY [facility]; Protocol Last Admin: 11/01/23 09:10 Dose: 160 mg Vitamin D (Cholecalciferol (Vitamin D3) 25 Mcg Tablet) 50 mcg PO DAILY [facility] Last Admin: 11/01/23 09:10 Dose: 50 mcg Allergies Allergies Allergy/AdvReac Type Severity Reaction Status Date / Time No Known Allergies Allergy Verified 10/03/23 19:47 Assessment & Plan Assessment & Plan (1) Major depressive disorder, single episode, severe w psychotic behavior: Status: Acute Code(s): F32.3 - Major depressive disorder, single episode, severe with psychotic features (2) Cognitive and behavioral changes: Status: Acute Code(s): R41.89 - Other symptoms and signs involving cognitive functions and awareness; R46.89 - Other symptoms and signs involving appearance and behavior Plan Pt is a 78-year-old female with a PMH significant for?HTN, asthma, insulin- dependent type 2 diabetes, and unspecified psychiatric diagnosis who is admitted to [facility] for paranoia and psychosis. Patient was placed on a section 12 by VELMA Diaz after they were called to her apartment 4 times during the night. Patient reportedly believed that her landlord had been stealing money from her and hired a professional hit man who cut a hole in the wall of her closet in her bedroom to gain access to her apartment. Was noted to have nailed the door to her apartment shut. BPH also reported finding patient's insulin having been left out in the sun on the counter for 4 days. Medical consult for admission H&P. Plan 1. Continue with Zyprexa 5 mg p.o. q.h.s.. 2. Reassessment results. 3. 15 minutes checks. 4. Encourage compliance. 5. Increase Zyprexa to 7.5 p.o. q.h.s. on October 28 6. Hearing for 7 and 8 today. Reason for continued inpatient stay Substantial Risk for: inability to function, rapid decompensation and med/psych decompensation Time Spent With Patient Time: Total time managing care of this patient today __20__ minutes.
[2023-11-01 16:40] LABS: Glucose, Whole Blood 195 mg/dL (60-115)
[2023-11-01] MEDS: Insulin Lispro 100 UNIT/ML 3 ML VIAL SUBCUT ×2 (17:08→20:11)
[2023-11-01 17:15] VITALS: RESP 16
[2023-11-01 20:00] VITALS: BP 129/63; PULSE 88; RESP 18; TEMP 36.3; O2SAT 97
[2023-11-01] MEDS: Paliperidone ER 3 MG TAB.ER.24 PO (20:11)
[2023-11-01] MEDS: traZODone HCL 50 MG TABLET PO (20:11)
[2023-11-02 00:30] LABS: Glucose, Whole Blood 220 mg/dL (60-115)
[2023-11-02 08:00] VITALS: BP 138/63; PULSE 73; RESP 18; TEMP 36.2; O2SAT 96
[2023-11-02 08:06] LABS: Glucose, Whole Blood 145 mg/dL (60-115)
[2023-11-02] MEDS: Insulin Glargine,Hum.rec.anlog 100 UNIT/ML 10 ML VIAL SUBCUT (08:21)
[2023-11-02 08:22] VITALS: BP 138/63
[2023-11-02] MEDS: amLODIPine Besylate 5 MG TABLET PO (08:22)
[2023-11-02] MEDS: Valsartan 160 MG TABLET PO (08:22)
[2023-11-02] MEDS: Cholecalciferol (Vitamin D3) 25 MCG TABLET 50 MCG PO (08:22)
[2023-11-02] MEDS: HYDROcodone Bit/Acetam 5/325 TABLET 1 TAB PO ×2 (08:42→20:39)
[2023-11-02 10:57] LABS: Glucose, Whole Blood 147 mg/dL (60-115)
--- NOTE | 2023-11-02 11:57 | P.PNPSI_ITS ---
Subjective Subjective Date of Service: 11/02/23 Reason For Visit: section 12 Subjective Notes: Conditional Voluntary Interim History: The nursing staff reported the patient took Invega p.o. last night as per court order. She remains paranoid. On interview the patient is angry after the court hearing of yesterday. Mental Status Exam Mental Status Exam Patient Appearance: Unkempt Patient Orientation: Person and Situation Level of Consciousness: Awake and Appropriate Patient Behavior: Guarded and Passive Mood Description: Withdrawn Affect Description: Constricted Patient Cognition Impaired: Yes Ability to Follow Directions: Good Speech Pattern: Clear Hallucinations: None Delusions: Paranoid Ideation Thought Process: Distracted and Slowed Thinking Thought Content: positive for [place] and positive for Poverty of Content Judgement: Poor Diagnostics Vital Signs (24Hr): Vital Signs - 24 hr 11/01/23 17:15 11/01/23 20:00 11/02/23 08:00 Temperature 97.3 F 97.1 F Pulse Rate 88 73 Respiratory Rate 16 18 18 Blood Pressure 129/63 138/63 Pulse Oximetry 97 96 Oxygen Delivery Method Room Air Room Air 11/02/23 08:22 11/02/23 08:22 Temperature Pulse Rate Respiratory Rate Blood Pressure 138/63 138/63 Pulse Oximetry Oxygen Delivery Method BMI result Body Mass Index 37.2 Labs 10/25/23 07:05 10/25/23 07:05 Labs: Laboratory Results - last 48 hr 10/31/23 10/31/23 11/01/23 16:20 19:54 06:15 POC Glucose 199 H 200 H 147 H 11/01/23 11/01/23 11/01/23 11:31 16:36 19:39 POC Glucose 130 H 195 H 220 H 11/02/23 11/02/23 06:49 10:53 POC Glucose 145 H 147 H Medications Medications Current Medications Acetaminophen (Acetaminophen 325 Mg Tablet) 650 mg PO Q6H PRN PRN Reason: Headache/Pain (1-10) Hydrocodone Bitart/Acetaminophen (Hydrocodone Bit/Acetam 5/325 Tablet) 1 tab PO BID PRN PRN Reason: Pain, Severe (Pain Scale 7-10) Last Admin: 11/02/23 08:42 Dose: 1 tab Al Hydroxide/Mg Hydroxide (Magnesium Hydrox/Alum Hydrox 30 Ml Oral.Susp) 30 ml PO Q6H PRN PRN Reason: Heartburn/Nausea Albuterol Sulfate (Albuterol Sulfate 90 Mcg 8 Gm Inhaler) 2 puff INHALE RQ4H PRN PRN Reason: sob Amlodipine Besylate (Amlodipine Besylate 5 Mg Tablet) 5 mg PO DAILY [facility]; Protocol Last Admin: 11/02/23 08:22 Dose: 5 mg Chlorpromazine HCl (Chlorpromazine Hcl 10 Mg Tablet) 10 mg PO Q4H PRN PRN Reason: agitation Diazepam (Diazepam 5 Mg Tablet) 5 mg PO TID PRN PRN Reason: Anxiety Last Admin: 11/01/23 20:11 Dose: 5 mg Hydroxyzine HCl (Hydroxyzine Hcl 25 Mg Tablet) 25 mg PO Q6H PRN PRN Reason: Anxiety Insulin Glargine (Insulin Glargine,Hum.Rec.Anlog 100 Unit/Ml 10 Ml Vial) 5 unit SUBCUT DAILY [facility] Last Admin: 11/02/23 08:21 Dose: 5 unit Insulin Human Lispro (Insulin Lispro 100 Unit/Ml 3 Ml Vial) 0 unit SUBCUT QIDACHS [facility]; Protocol Last Admin: 11/02/23 11:34 Dose: Not Given Loperamide HCl (Loperamide Hcl 2 Mg Capsule) 2 mg PO Q4H PRN PRN Reason: Diarrhea Last Admin: 10/15/23 04:28 Dose: 2 mg Magnesium Hydroxide (Milk Of Magnesia 30 Ml Oral.Susp) 30 ml PO DAILY PRN PRN Reason: Constipation Olanzapine (Olanzapine 10 Mg Vial) 5 mg IM BEDTIME PRN PRN Reason: refusal of PO Invega Paliperidone (Paliperidone Er 3 Mg Tab.Er.24) 3 mg PO BEDTIME [facility] Last Admin: 11/01/23 20:11 Dose: 3 mg Trazodone HCl (Trazodone Hcl 50 Mg Tablet) 50 mg PO BEDTIME MRX1 PRN PRN Reason: Insomnia Last Admin: 11/01/23 20:11 Dose: 50 mg Valsartan (Valsartan 160 Mg Tablet) 160 mg PO DAILY [facility]; Protocol Last Admin: 11/02/23 08:22 Dose: 160 mg Vitamin D (Cholecalciferol (Vitamin D3) 25 Mcg Tablet) 50 mcg PO DAILY [facility] Last Admin: 11/02/23 08:22 Dose: 50 mcg Allergies Allergies Allergy/AdvReac Type Severity Reaction Status Date / Time No Known Allergies Allergy Verified 10/03/23 19:47 Assessment & Plan Assessment & Plan (1) Major depressive disorder, single episode, severe w psychotic behavior: Status: Acute Code(s): F32.3 - Major depressive disorder, single episode, severe with psychotic features (2) Cognitive and behavioral changes: Status: Acute Code(s): R41.89 - Other symptoms and signs involving cognitive functions and awareness; R46.89 - Other symptoms and signs involving appearance and behavior Plan Pt is a 78-year-old female with a PMH significant for?HTN, asthma, insulin- dependent type 2 diabetes, and unspecified psychiatric diagnosis who is admitted to [facility] for paranoia and psychosis. Patient was placed on a section 12 by Emily after they were called to her apartment 4 times during the night. Patient reportedly believed that her landlord had been stealing money from her and hired a professional hit man who cut a hole in the wall of her closet in her bedroom to gain access to her apartment. Was noted to have nailed the door to her apartment shut. BPH also reported finding patient's insulin having been left out in the sun on the counter for 4 days. Medical consult for admission H&P. Plan 1. Continue with Zyprexa 5 mg p.o. q.h.s.. 2. Reassessment results. 3. 15 minutes checks. 4. Encourage compliance. 5. Increase Zyprexa to 7.5 p.o. q.h.s. on October 28. As per court order we are changing to Invega p.o.. 6. Hearing for 7 and [address] judge granted as both. Reason for continued inpatient stay Substantial Risk for: inability to function, rapid decompensation and med/psych decompensation Time Spent With Patient Time: Total time managing care of this patient today __20__ minutes.
[2023-11-02 16:33] LABS: Glucose, Whole Blood 176 mg/dL (60-115)
[2023-11-02] MEDS: Insulin Lispro 100 UNIT/ML 3 ML VIAL SUBCUT ×2 (16:42→20:32)
[2023-11-02 20:00] VITALS: BP 121/61; PULSE 95; RESP 16; TEMP 36.1; O2SAT 99
[2023-11-02 20:27] LABS: Glucose, Whole Blood 201 mg/dL (60-115)
[2023-11-02] MEDS: Paliperidone ER 3 MG TAB.ER.24 PO (20:35)
[2023-11-02] MEDS: diazePAM 5 MG TABLET PO (20:40)
[2023-11-03] MEDS: Acetaminophen 325 MG TABLET 650 MG PO ×2 (04:23→15:40)
[2023-11-03 06:57] LABS: Glucose, Whole Blood 202 mg/dL (60-115)
[2023-11-03 08:09] VITALS: BP 137/60; PULSE 80; RESP 16; TEMP 36; O2SAT 98
[2023-11-03] MEDS: Valsartan 160 MG TABLET PO (08:13)
[2023-11-03] MEDS: Cholecalciferol (Vitamin D3) 25 MCG TABLET 50 MCG PO (08:13)
[2023-11-03] MEDS: amLODIPine Besylate 5 MG TABLET PO (08:13)
[2023-11-03] MEDS: Insulin Lispro 100 UNIT/ML 3 ML VIAL SUBCUT ×3 (08:18→20:26)
[2023-11-03] MEDS: Insulin Glargine,Hum.rec.anlog 100 UNIT/ML 10 ML VIAL SUBCUT (08:19)
[2023-11-03] MEDS: HYDROcodone Bit/Acetam 5/325 TABLET 1 TAB PO ×2 (08:24→20:08)
[2023-11-03] MEDS: diazePAM 5 MG TABLET PO ×2 (08:24→20:08)
--- NOTE | 2023-11-03 08:24 | P.PNPSI_ITS ---
Subjective Subjective Date of Service: 11/03/23 Reason For Visit: section 12 Subjective Notes: Section 8 Interim History: Pt slept about 6 hrs. Pt presents as very paranoid reporting that rajni mott is paying $50,000 to people to kill her. She is not sure why she is the target but suspect many staff here in the hospital are involved. No SI/HI. Review of Systems Review of Systems Nothing acute Yes all other systems are reviewed and are negative Mental Status Exam Mental Status Exam Patient Appearance: Unkempt Patient Orientation: Person and Situation Level of Consciousness: Awake and Appropriate Patient Behavior: Guarded and Passive Mood Description: Withdrawn Affect Description: Constricted Patient Cognition Impaired: Yes Ability to Follow Directions: Good Speech Pattern: Clear Memory Description: Episodic Impaired Diagnostics Vital Signs (24Hr): Vital Signs - 24 hr 11/02/23 20:00 11/03/23 08:09 Temperature 97 F 96.8 F Pulse Rate 95 80 Respiratory Rate 16 16 Blood Pressure 121/61 137/60 Pulse Oximetry 99 98 Oxygen Delivery Method Room Air Room Air BMI result Body Mass Index 37.2 Labs 10/25/23 07:05 10/25/23 07:05 Labs: Laboratory Results - last 48 hr 11/01/23 11/01/23 11/01/23 11:31 16:36 19:39 POC Glucose 130 H 195 H 220 H 11/02/23 11/02/23 11/02/23 06:49 10:53 16:26 POC Glucose 145 H 147 H 176 H 11/02/23 11/03/23 20:23 06:44 POC Glucose 201 H 202 H Medications Medications Current Medications Acetaminophen (Acetaminophen 325 Mg Tablet) 650 mg PO Q6H PRN PRN Reason: Headache/Pain (1-10) Last Admin: 11/03/23 04:23 Dose: 650 mg Hydrocodone Bitart/Acetaminophen (Hydrocodone Bit/Acetam 5/325 Tablet) 1 tab PO BID PRN PRN Reason: Pain, Severe (Pain Scale 7-10) Last Admin: 11/02/23 20:39 Dose: 1 tab Al Hydroxide/Mg Hydroxide (Magnesium Hydrox/Alum Hydrox 30 Ml Oral.Susp) 30 ml PO Q6H PRN PRN Reason: Heartburn/Nausea Albuterol Sulfate (Albuterol Sulfate 90 Mcg 8 Gm Inhaler) 2 puff INHALE RQ4H PRN PRN Reason: sob Amlodipine Besylate (Amlodipine Besylate 5 Mg Tablet) 5 mg PO DAILY [facility]; Protocol Last Admin: 11/03/23 08:13 Dose: 5 mg Chlorpromazine HCl (Chlorpromazine Hcl 10 Mg Tablet) 10 mg PO Q4H PRN PRN Reason: agitation Diazepam (Diazepam 5 Mg Tablet) 5 mg PO TID PRN PRN Reason: Anxiety Last Admin: 11/02/23 20:40 Dose: 5 mg Hydroxyzine HCl (Hydroxyzine Hcl 25 Mg Tablet) 25 mg PO Q6H PRN PRN Reason: Anxiety Insulin Glargine (Insulin Glargine,Hum.Rec.Anlog 100 Unit/Ml 10 Ml Vial) 5 unit SUBCUT DAILY [facility] Last Admin: 11/03/23 08:19 Dose: 5 unit Insulin Human Lispro (Insulin Lispro 100 Unit/Ml 3 Ml Vial) 0 unit SUBCUT QIDACHS [facility]; Protocol Last Admin: 11/03/23 08:18 Dose: 4 unit Loperamide HCl (Loperamide Hcl 2 Mg Capsule) 2 mg PO Q4H PRN PRN Reason: Diarrhea Last Admin: 10/15/23 04:28 Dose: 2 mg Magnesium Hydroxide (Milk Of Magnesia 30 Ml Oral.Susp) 30 ml PO DAILY PRN PRN Reason: Constipation Olanzapine (Olanzapine 10 Mg Vial) 5 mg IM BEDTIME PRN PRN Reason: refusal of PO Invega Paliperidone (Paliperidone Er 3 Mg Tab.Er.24) 3 mg PO BEDTIME [facility] Last Admin: 11/02/23 20:35 Dose: 3 mg Trazodone HCl (Trazodone Hcl 50 Mg Tablet) 50 mg PO BEDTIME MRX1 PRN PRN Reason: Insomnia Last Admin: 11/01/23 20:11 Dose: 50 mg Valsartan (Valsartan 160 Mg Tablet) 160 mg PO DAILY [facility]; Protocol Last Admin: 11/03/23 08:13 Dose: 160 mg Vitamin D (Cholecalciferol (Vitamin D3) 25 Mcg Tablet) 50 mcg PO DAILY [facility] Last Admin: 11/03/23 08:13 Dose: 50 mcg Allergies Allergies Allergy/AdvReac Type Severity Reaction Status Date / Time No Known Allergies Allergy Verified 10/03/23 19:47 Assessment & Plan Assessment & Plan (1) Major depressive disorder, single episode, severe w psychotic behavior: Status: Acute Code(s): F32.3 - Major depressive disorder, single episode, severe with psychotic features (2) Cognitive and behavioral changes: Status: Acute Code(s): R41.89 - Other symptoms and signs involving cognitive functions and awareness; R46.89 - Other symptoms and signs involving appearance and behavior Plan Pt is a 78-year-old female with a PMH significant for?HTN, asthma, insulin- dependent type 2 diabetes, and unspecified psychiatric diagnosis who is admitted to [facility] for paranoia and psychosis. Patient was placed on a section 12 by Emily after they were called to her apartment 4 times during the night. Patient reportedly believed that her landlord had been stealing money from her and hired a professional hit man who cut a hole in the wall of her closet in her bedroom to gain access to her apartment. Was noted to have nailed the door to her apartment shut. BPH also reported finding patient's insulin having been left out in the sun on the counter for 4 days. Medical consult for admission H&P. Plan 11/02 increase paliperidone to 6mg po qhs. back up per section 8. Reason for continued inpatient stay Substantial Risk for: inability to function Time Spent With Patient Time: Total time managing care of this patient today ____ minutes.
[2023-11-03 11:22] LABS: Glucose, Whole Blood 189 mg/dL (60-115)
[2023-11-03 15:51] LABS: Glucose, Whole Blood 106 mg/dL (60-115)
--- NOTE | 2023-11-03 16:26 | PC.NURSE ---
Selam assisted to take a shower, [facility] requested TW to evaluate red areas to groin and pannus region, possible fungal , Provider Sheri updated, Order obtained.
[2023-11-03] MEDS: Nystatin Powder 15 GM BOTTLE 1 APPL TOPICAL (18:06)
[2023-11-03 20:00] VITALS: BP 156/63; PULSE 102; RESP 16; TEMP 35.7; O2SAT 96
[2023-11-03] MEDS: Paliperidone ER 6 MG TAB.ER.24 PO (20:13)
[2023-11-03 20:25] LABS: Glucose, Whole Blood 196 mg/dL (60-115)
[2023-11-04] MEDS: Loperamide HCl 2 MG CAPSULE PO (01:38)
[2023-11-04 06:44] LABS: Glucose, Whole Blood 191 mg/dL (60-115)
[2023-11-04 09:29] VITALS: BP 130/74; PULSE 105; RESP 16; TEMP 36.2; O2SAT 95
[2023-11-04] MEDS: Nystatin Powder 15 GM BOTTLE 1 APPL TOPICAL ×2 (09:30→21:18)
[2023-11-04] MEDS: Valsartan 160 MG TABLET PO (09:31)
[2023-11-04] MEDS: Cholecalciferol (Vitamin D3) 25 MCG TABLET 50 MCG PO (09:31)
[2023-11-04] MEDS: HYDROcodone Bit/Acetam 5/325 TABLET 1 TAB PO ×2 (09:31→21:14)
[2023-11-04] MEDS: amLODIPine Besylate 5 MG TABLET PO (09:31)
[2023-11-04] MEDS: Insulin Glargine,Hum.rec.anlog 100 UNIT/ML 10 ML VIAL SUBCUT (09:35)
[2023-11-04] MEDS: Insulin Lispro 100 UNIT/ML 3 ML VIAL SUBCUT (09:37)
[2023-11-04 11:38] LABS: Glucose, Whole Blood 195 mg/dL (60-115)
[2023-11-04 16:13] LABS: Glucose, Whole Blood 183 mg/dL (60-115)
--- NOTE | 2023-11-04 16:46 | PC.NURSE ---
Patient's POC this afternoon was 195, this evening was 189, but her 2 units of insulin (per sliding scale) were held due to refusal of both meals. Patient has been sleeping the majority of the afternoon/evening and declined any food. NORA Wade notified of Lispro being held.
--- NOTE | 2023-11-04 16:55 | HO.PSYCHPN ---
Subjective Subjective Date of Service: 11/04/23 Reason For Visit: section 12 Interim History: Pt slept about 6 hrs. Pt presents as very paranoid reporting that rajni mott is paying $50,000 to people to kill her. She is not sure why she is the target but suspect many staff here in the hospital are involved. No SI/HI. Review of Systems Review of Systems Nothing acute Yes all other systems are reviewed and are negative Mental Status Exam Mental Status Exam Narrative: paranoid delusions Patient Appearance: Unkempt Patient Orientation: Person and Situation Level of Consciousness: Awake and Appropriate Patient Behavior: Guarded and Passive Mood Description: Withdrawn Affect Description: Constricted Patient Cognition Impaired: Yes Ability to Follow Directions: Good Speech Pattern: Clear Memory Description: Episodic Impaired Diagnostics Vital Signs (24Hr): Vital Signs - 24 hr 11/03/23 20:00 11/04/23 09:29 Temperature 96.3 F L 97.2 F Pulse Rate 102 H 105 H Respiratory Rate 16 16 Blood Pressure 156/63 H 130/74 Pulse Oximetry 96 95 Oxygen Delivery Method Room Air Room Air BMI result Body Mass Index 37.2 Labs 10/25/23 07:05 10/25/23 07:05 Labs: Laboratory Results - last 48 hr 11/02/23 11/03/23 11/03/23 20:23 06:44 11:19 POC Glucose 201 H 202 H 189 H 11/03/23 11/03/23 11/04/23 15:39 20:17 06:37 POC Glucose 106 196 H 191 H 11/04/23 11/04/23 11:34 16:05 POC Glucose 195 H 183 H Medications Medications Current Medications Acetaminophen (Acetaminophen 325 Mg Tablet) 650 mg PO Q6H PRN PRN Reason: Headache/Pain (1-10) Last Admin: 11/03/23 15:40 Dose: 650 mg Hydrocodone Bitart/Acetaminophen (Hydrocodone Bit/Acetam 5/325 Tablet) 1 tab PO BID PRN PRN Reason: Pain, Severe (Pain Scale 7-10) Last Admin: 11/04/23 09:31 Dose: 1 tab Al Hydroxide/Mg Hydroxide (Magnesium Hydrox/Alum Hydrox 30 Ml Oral.Susp) 30 ml PO Q6H PRN PRN Reason: Heartburn/Nausea Albuterol Sulfate (Albuterol Sulfate 90 Mcg 8 Gm Inhaler) 2 puff INHALE RQ4H PRN PRN Reason: sob Amlodipine Besylate (Amlodipine Besylate 5 Mg Tablet) 5 mg PO DAILY [facility]; Protocol Last Admin: 11/04/23 09:31 Dose: 5 mg Diazepam (Diazepam 5 Mg Tablet) 5 mg PO TID PRN PRN Reason: Anxiety Last Admin: 11/03/23 20:08 Dose: 5 mg Hydroxyzine HCl (Hydroxyzine Hcl 25 Mg Tablet) 25 mg PO Q6H PRN PRN Reason: Anxiety Insulin Glargine (Insulin Glargine,Hum.Rec.Anlog 100 Unit/Ml 10 Ml Vial) 5 unit SUBCUT DAILY [facility] Last Admin: 11/04/23 09:35 Dose: 5 unit Insulin Human Lispro (Insulin Lispro 100 Unit/Ml 3 Ml Vial) 0 unit SUBCUT QIDACHS [facility]; Protocol Last Admin: 11/04/23 16:46 Dose: Not Given Loperamide HCl (Loperamide Hcl 2 Mg Capsule) 2 mg PO Q4H PRN PRN Reason: Diarrhea Last Admin: 11/04/23 01:38 Dose: 2 mg Magnesium Hydroxide (Milk Of Magnesia 30 Ml Oral.Susp) 30 ml PO DAILY PRN PRN Reason: Constipation Nystatin (Nystatin Powder 15 Gm Bottle) 1 appl TOPICAL TID [facility]; Protocol Stop: 11/17/23 17:00 Last Admin: 11/04/23 15:21 Dose: Not Given Olanzapine (Olanzapine 10 Mg Vial) 10 mg IM BEDTIME PRN PRN Reason: refusal of PO Invega Paliperidone (Paliperidone Er 6 Mg Tab.Er.24) 6 mg PO BEDTIME [facility] Last Admin: 11/03/23 20:13 Dose: 6 mg Trazodone HCl (Trazodone Hcl 50 Mg Tablet) 50 mg PO BEDTIME MRX1 PRN PRN Reason: Insomnia Last Admin: 11/01/23 20:11 Dose: 50 mg Valsartan (Valsartan 160 Mg Tablet) 160 mg PO DAILY [facility]; Protocol Last Admin: 11/04/23 09:31 Dose: 160 mg Vitamin D (Cholecalciferol (Vitamin D3) 25 Mcg Tablet) 50 mcg PO DAILY [facility] Last Admin: 11/04/23 09:31 Dose: 50 mcg Allergies Allergies Allergy/AdvReac Type Severity Reaction Status Date / Time No Known Allergies Allergy Verified 10/03/23 19:47 Assessment & Plan Assessment & Plan (1) Major depressive disorder, single episode, severe w psychotic behavior: Status: Acute Code(s): F32.3 - Major depressive disorder, single episode, severe with psychotic features (2) Cognitive and behavioral changes: Status: Acute Code(s): R41.89 - Other symptoms and signs involving cognitive functions and awareness; R46.89 - Other symptoms and signs involving appearance and behavior Plan Pt is a 78-year-old female with a PMH significant for?HTN, asthma, insulin-dependent type 2 diabetes, and unspecified psychiatric diagnosis who is admitted to [facility] for paranoia and psychosis. Patient was placed on a section 12 by Emily after they were called to her apartment 4 times during the night. Patient reportedly believed that her landlord had been stealing money from her and hired a professional hit man who cut a hole in the wall of her closet in her bedroom to gain access to her apartment. Was noted to have nailed the door to her apartment shut. BPH also reported finding patient's insulin having been left out in the sun on the counter for 4 days. Medical consult for admission H&P. Plan 11/02 increase paliperidone to 6mg po qhs. back up per section 8. 11/03 continue tx. Reason for continued inpatient stay Substantial Risk for: inability to function Time Spent With Patient Time: Total time managing care of this patient today ____ minutes.
[2023-11-04 20:00] VITALS: BP 129/62; PULSE 73; RESP 16; TEMP 36; O2SAT 95
[2023-11-04 20:18] LABS: Glucose, Whole Blood 123 mg/dL (60-115)
[2023-11-04] MEDS: Paliperidone ER 6 MG TAB.ER.24 PO (21:14)
[2023-11-04] MEDS: diazePAM 5 MG TABLET PO (21:14)
[2023-11-05 06:51] LABS: Glucose, Whole Blood 133 mg/dL (60-115)
[2023-11-05 08:00] VITALS: BP 127/62; RESP 16; TEMP 36.1; O2SAT 98
[2023-11-05] MEDS: Insulin Glargine,Hum.rec.anlog 100 UNIT/ML 10 ML VIAL SUBCUT (08:02)
[2023-11-05 08:03] VITALS: BP 127/62
[2023-11-05] MEDS: Valsartan 160 MG TABLET PO (08:03)
[2023-11-05] MEDS: Cholecalciferol (Vitamin D3) 25 MCG TABLET 50 MCG PO (08:03)
[2023-11-05] MEDS: amLODIPine Besylate 5 MG TABLET PO (08:03)
[2023-11-05] MEDS: HYDROcodone Bit/Acetam 5/325 TABLET 1 TAB PO ×2 (09:36→20:44)
[2023-11-05] MEDS: Nystatin Powder 15 GM BOTTLE 1 APPL TOPICAL ×2 (09:37→16:44)
--- NOTE | 2023-11-05 10:45 | HO.PSYCHPN ---
Subjective Subjective Date of Service: 11/05/23 Reason For Visit: section 12 Subjective Notes: Section 7 and Section 8 Interim History: The nursing staff reported that the patient refused to get out of the bed over the weekend. She asked for pain medications and she slept well last night. On interview the patient denies new symptoms still paranoid against some staff members, she remained hypoactive.. We observed that she is over-sedated since Invega was recently increased over the weekend. We are lowering Invega to 3 mg daily. Mental Status Exam Mental Status Exam Patient Appearance: Well Grooomed and Appropriate Patient Orientation: Person and Situation Level of Consciousness: Awake and Appropriate Patient Behavior: Guarded and Passive Mood Description: Withdrawn Affect Description: Constricted Patient Cognition Impaired: Yes Ability to Follow Directions: Good Speech Pattern: Clear Hallucinations: None Delusions: Not Present Thought Process: Distracted and Slowed Thinking Thought Content: positive for [place] and positive for Poverty of Content Judgement: Fair Diagnostics Vital Signs (24Hr): Vital Signs - 24 hr 11/04/23 20:00 11/05/23 08:00 11/05/23 08:03 Temperature 96.8 F 97.0 F Pulse Rate 73 Respiratory Rate 16 16 Blood Pressure 129/62 127/62 127/62 Pulse Oximetry 95 98 Oxygen Delivery Method Room Air Room Air 11/05/23 08:03 Temperature Pulse Rate Respiratory Rate Blood Pressure 127/62 Pulse Oximetry Oxygen Delivery Method BMI result Body Mass Index 37.2 Labs 10/25/23 07:05 10/25/23 07:05 Labs: Laboratory Results - last 48 hr 11/03/23 11/03/23 11/03/23 11:19 15:39 20:17 POC Glucose 189 H 106 196 H 11/04/23 11/04/23 11/04/23 06:37 11:34 16:05 POC Glucose 191 H 195 H 183 H 11/04/23 11/05/23 20:02 06:45 POC Glucose 123 H 133 H Medications Medications Current Medications Acetaminophen (Acetaminophen 325 Mg Tablet) 650 mg PO Q6H PRN PRN Reason: Headache/Pain (1-10) Last Admin: 11/03/23 15:40 Dose: 650 mg Hydrocodone Bitart/Acetaminophen (Hydrocodone Bit/Acetam 5/325 Tablet) 1 tab PO BID PRN PRN Reason: Pain, Severe (Pain Scale 7-10) Last Admin: 11/05/23 09:36 Dose: 1 tab Al Hydroxide/Mg Hydroxide (Magnesium Hydrox/Alum Hydrox 30 Ml Oral.Susp) 30 ml PO Q6H PRN PRN Reason: Heartburn/Nausea Albuterol Sulfate (Albuterol Sulfate 90 Mcg 8 Gm Inhaler) 2 puff INHALE RQ4H PRN PRN Reason: sob Amlodipine Besylate (Amlodipine Besylate 5 Mg Tablet) 5 mg PO DAILY [facility]; Protocol Last Admin: 11/05/23 08:03 Dose: 5 mg Diazepam (Diazepam 5 Mg Tablet) 5 mg PO TID PRN PRN Reason: Anxiety Last Admin: 11/04/23 21:14 Dose: 5 mg Hydroxyzine HCl (Hydroxyzine Hcl 25 Mg Tablet) 25 mg PO Q6H PRN PRN Reason: Anxiety Insulin Glargine (Insulin Glargine,Hum.Rec.Anlog 100 Unit/Ml 10 Ml Vial) 5 unit SUBCUT DAILY [facility] Last Admin: 11/05/23 08:02 Dose: 5 unit Insulin Human Lispro (Insulin Lispro 100 Unit/Ml 3 Ml Vial) 0 unit SUBCUT QIDACHS [facility]; Protocol Last Admin: 11/05/23 08:23 Dose: Not Given Loperamide HCl (Loperamide Hcl 2 Mg Capsule) 2 mg PO Q4H PRN PRN Reason: Diarrhea Last Admin: 11/04/23 01:38 Dose: 2 mg Magnesium Hydroxide (Milk Of Magnesia 30 Ml Oral.Susp) 30 ml PO DAILY PRN PRN Reason: Constipation Nystatin (Nystatin Powder 15 Gm Bottle) 1 appl TOPICAL TID [facility]; Protocol Stop: 11/17/23 17:00 Last Admin: 11/05/23 09:37 Dose: 1 appl Olanzapine (Olanzapine 10 Mg Vial) 10 mg IM BEDTIME PRN PRN Reason: refusal of PO Invega Paliperidone (Paliperidone Er 6 Mg Tab.Er.24) 6 mg PO BEDTIME [facility] Last Admin: 11/04/23 21:14 Dose: 6 mg Trazodone HCl (Trazodone Hcl 50 Mg Tablet) 50 mg PO BEDTIME MRX1 PRN PRN Reason: Insomnia Last Admin: 11/01/23 20:11 Dose: 50 mg Valsartan (Valsartan 160 Mg Tablet) 160 mg PO DAILY [facility]; Protocol Last Admin: 11/05/23 08:03 Dose: 160 mg Vitamin D (Cholecalciferol (Vitamin D3) 25 Mcg Tablet) 50 mcg PO DAILY [facility] Last Admin: 11/05/23 08:03 Dose: 50 mcg Allergies Allergies Allergy/AdvReac Type Severity Reaction Status Date / Time No Known Allergies Allergy Verified 10/03/23 19:47 Assessment & Plan Assessment & Plan (1) Major depressive disorder, single episode, severe w psychotic behavior: Status: Acute Code(s): F32.3 - Major depressive disorder, single episode, severe with psychotic features (2) Cognitive and behavioral changes: Status: Acute Code(s): R41.89 - Other symptoms and signs involving cognitive functions and awareness; R46.89 - Other symptoms and signs involving appearance and behavior Plan Pt is a 78-year-old female with a PMH significant for?HTN, asthma, insulin-dependent type 2 diabetes, and unspecified psychiatric diagnosis who is admitted to [facility] for paranoia and psychosis. Patient was placed on a section 12 by Emily after they were called to her apartment 4 times during the night. Patient reportedly believed that her landlord had been stealing money from her and hired a professional hit man who cut a hole in the wall of her closet in her bedroom to gain access to her apartment. Was noted to have nailed the door to her apartment shut. BPH also reported finding patient's insulin having been left out in the sun on the counter for 4 days. Medical consult for admission H&P. Plan 1. Lower Invega to 3 mg p.o. daily since the patient is over-sedated in November 04 2. Continue with regular medications. 3. Continue 15 minute checks. Reason for continued inpatient stay Substantial Risk for: inability to function, rapid decompensation and med/psych decompensation Time Spent With Patient Time: Total time managing care of this patient today __20__ minutes.
[2023-11-05 11:56] LABS: Glucose, Whole Blood 228 mg/dL (60-115)
[2023-11-05] MEDS: Insulin Lispro 100 UNIT/ML 3 ML VIAL SUBCUT ×2 (12:15→20:45)
[2023-11-05 16:41] LABS: Glucose, Whole Blood 152 mg/dL (60-115)
[2023-11-05 20:00] VITALS: BP 115/55; PULSE 85; RESP 18; TEMP 37.1; O2SAT 96
[2023-11-05 20:15] LABS: Glucose, Whole Blood 191 mg/dL (60-115)
[2023-11-05] MEDS: diazePAM 5 MG TABLET PO (20:44)
[2023-11-05] MEDS: Paliperidone ER 3 MG TAB.ER.24 PO (20:44)
[2023-11-06] MEDS: Loperamide HCl 2 MG CAPSULE PO (02:11)
[2023-11-06 06:52] LABS: Glucose, Whole Blood 126 mg/dL (60-115)
[2023-11-06 08:06] VITALS: BP 137/63; PULSE 97; RESP 18; TEMP 36.1; O2SAT 97
[2023-11-06 11:34] LABS: Glucose, Whole Blood 172 mg/dL (60-115)
[2023-11-06] MEDS: Insulin Lispro 100 UNIT/ML 3 ML VIAL SUBCUT ×3 (11:36→21:25)
--- NOTE | 2023-11-06 12:41 | HO.PSYCHPN ---
Subjective Subjective Date of Service: 11/06/23 Reason For Visit: section 12 Subjective Notes: Section 7 and Section 8 Interim History: The nursing staff reported the patient had been hypoactive, staying in her room most of the time. She complained of dysuria. Today I ordered a UA and blood work for tomorrow morning and he came back positive for UTI. We consulted with the medical team and started on Ceftin for 5 days. On interview the patient remains paranoid and she states that she feels very tired I explained that she has a UTI but she was unable to process it. Mental Status Exam Mental Status Exam Patient Appearance: Appropriate Patient Orientation: Person and Situation Level of Consciousness: Awake and Appropriate Patient Behavior: Guarded and Passive Mood Description: Withdrawn Affect Description: Constricted Patient Cognition Impaired: Yes Ability to Follow Directions: Good Speech Pattern: Clear Hallucinations: None Delusions: Not Present Thought Process: Distracted and Slowed Thinking Thought Content: positive for [place] and positive for Poverty of Content Judgement: Fair Diagnostics Vital Signs (24Hr): Vital Signs - 24 hr 11/05/23 20:00 11/06/23 08:06 Temperature 98.7 F 96.9 F Pulse Rate 85 97 Respiratory Rate 18 18 Blood Pressure 115/55 L 137/63 Pulse Oximetry 96 97 Oxygen Delivery Method Room Air Room Air BMI result Body Mass Index 37.2 Labs 10/25/23 07:05 10/25/23 07:05 Labs: Laboratory Results - last 48 hr 11/04/23 11/04/23 11/05/23 16:05 20:02 06:45 POC Glucose 183 H 123 H 133 H 11/05/23 11/05/23 11/05/23 11:51 16:37 19:42 POC Glucose 228 H 152 H 191 H 11/06/23 11/06/23 06:42 11:23 POC Glucose 126 H 172 H Medications Medications Current Medications Acetaminophen (Acetaminophen 325 Mg Tablet) 650 mg PO Q6H PRN PRN Reason: Headache/Pain (1-10) Last Admin: 11/03/23 15:40 Dose: 650 mg Hydrocodone Bitart/Acetaminophen (Hydrocodone Bit/Acetam 5/325 Tablet) 1 tab PO BID PRN PRN Reason: Pain, Severe (Pain Scale 7-10) Last Admin: 11/05/23 20:44 Dose: 1 tab Al Hydroxide/Mg Hydroxide (Magnesium Hydrox/Alum Hydrox 30 Ml Oral.Susp) 30 ml PO Q6H PRN PRN Reason: Heartburn/Nausea Albuterol Sulfate (Albuterol Sulfate 90 Mcg 8 Gm Inhaler) 2 puff INHALE RQ4H PRN PRN Reason: sob Amlodipine Besylate (Amlodipine Besylate 5 Mg Tablet) 5 mg PO DAILY [facility]; Protocol Last Admin: 11/06/23 09:16 Dose: Not Given Diazepam (Diazepam 5 Mg Tablet) 5 mg PO TID PRN PRN Reason: Anxiety Last Admin: 11/05/23 20:44 Dose: 5 mg Hydroxyzine HCl (Hydroxyzine Hcl 25 Mg Tablet) 25 mg PO Q6H PRN PRN Reason: Anxiety Insulin Glargine (Insulin Glargine,Hum.Rec.Anlog 100 Unit/Ml 10 Ml Vial) 5 unit SUBCUT DAILY [facility] Last Admin: 11/06/23 09:16 Dose: Not Given Insulin Human Lispro (Insulin Lispro 100 Unit/Ml 3 Ml Vial) 0 unit SUBCUT QIDACHS [facility]; Protocol Last Admin: 11/06/23 11:36 Dose: 2 unit Loperamide HCl (Loperamide Hcl 2 Mg Capsule) 2 mg PO Q4H PRN PRN Reason: Diarrhea Last Admin: 11/06/23 02:11 Dose: 2 mg Magnesium Hydroxide (Milk Of Magnesia 30 Ml Oral.Susp) 30 ml PO DAILY PRN PRN Reason: Constipation Nystatin (Nystatin Powder 15 Gm Bottle) 1 appl TOPICAL TID [facility]; Protocol Stop: 11/17/23 17:00 Last Admin: 11/06/23 09:17 Dose: Not Given Olanzapine (Olanzapine 10 Mg Vial) 10 mg IM BEDTIME PRN PRN Reason: refusal of PO Invega Paliperidone (Paliperidone Er 3 Mg Tab.Er.24) 3 mg PO BEDTIME [facility] Last Admin: 11/05/23 20:44 Dose: 3 mg Trazodone HCl (Trazodone Hcl 50 Mg Tablet) 50 mg PO BEDTIME MRX1 PRN PRN Reason: Insomnia Last Admin: 11/01/23 20:11 Dose: 50 mg Valsartan (Valsartan 160 Mg Tablet) 160 mg PO DAILY [facility]; Protocol Last Admin: 11/06/23 09:17 Dose: Not Given Vitamin D (Cholecalciferol (Vitamin D3) 25 Mcg Tablet) 50 mcg PO DAILY [facility] Last Admin: 11/06/23 09:16 Dose: Not Given Allergies Allergies Allergy/AdvReac Type Severity Reaction Status Date / Time No Known Allergies Allergy Verified 10/03/23 19:47 Assessment & Plan Assessment & Plan (1) Major depressive disorder, single episode, severe w psychotic behavior: Status: Acute Code(s): F32.3 - Major depressive disorder, single episode, severe with psychotic features (2) Cognitive and behavioral changes: Status: Acute Code(s): R41.89 - Other symptoms and signs involving cognitive functions and awareness; R46.89 - Other symptoms and signs involving appearance and behavior Plan Pt is a 78-year-old female with a PMH significant for?HTN, asthma, insulin-dependent type 2 diabetes, and unspecified psychiatric diagnosis who is admitted to [facility] for paranoia and psychosis. Patient was placed on a section 12 by VELMA Diaz after they were called to her apartment 4 times during the night. Patient reportedly believed that her landlord had been stealing money from her and hired a professional hit man who cut a hole in the wall of her closet in her bedroom to gain access to her apartment. Was noted to have nailed the door to her apartment shut. BPH also reported finding patient's insulin having been left out in the sun on the counter for 4 days. Medical consult for admission H&P. Plan 1. Lower Invega to 3 mg p.o. daily since the patient is over-sedated in November 04 2. Continue with regular medications. 3. Continue 15 minute checks. 4. Blood work for tomorrow morning. 5. Started on antibiotics as per the medical team. The patient has a UTI diagnosed on November 05. Reason for continued inpatient stay Substantial Risk for: inability to function, rapid decompensation and med/psych decompensation Time Spent With Patient Time: Total time managing care of this patient today __20__ minutes.
--- NOTE | 2023-11-06 13:43 | PC.NURSE ---
30 cc clear pale yellow urine collected via clean catch from patient without dificulty for U/A and C+S. Specimens brought to lab.
[2023-11-06 13:51] LABS: Appearance Urine Cloudy; Color Urine Yellow; Glucose Urine UA Negative (Negative); Leukocyte Esterase Urine Large (3+) (Negative); Nitrite Urine Negative (Negative); PH 5.5 (5.0-9.0); Specific Gravity - Urine 1.015 (1.005-1.025); UMIC TRIGGER UACC YES; Urine Blood Negative (Negative); Urine Ketones Negative (Negative); Urine Protein Negative (Neg-Trace)
[2023-11-06 13:57] LABS: Bacteria Urine Trace (None Seen); Hyaline Casts Urine 0-2 /LPF (0-2); RBC Urine 0-2 /HPF (0-2); UACC Culture Trigger YES; WBC Urine >50 /HPF (0-5)
[2023-11-06] MEDS: diazePAM 5 MG TABLET PO ×2 (14:52→21:26)
[2023-11-06] MEDS: HYDROcodone Bit/Acetam 5/325 TABLET 1 TAB PO ×2 (14:53→21:26)
[2023-11-06] MEDS: Nystatin Powder 15 GM BOTTLE 1 APPL TOPICAL ×2 (14:55→21:32)
[2023-11-06 16:33] LABS: Glucose, Whole Blood 190 mg/dL (60-115)
[2023-11-06] MEDS: cefuroxime axetiL 250 MG TABLET PO (17:17)
[2023-11-06 20:36] LABS: Glucose, Whole Blood 210 mg/dL (60-115)
[2023-11-06] MEDS: Paliperidone ER 3 MG TAB.ER.24 PO (21:25)
[2023-11-07] MEDS: cefuroxime axetiL 250 MG TABLET PO ×2 (06:53→17:02)
[2023-11-07 06:59] LABS: Glucose, Whole Blood 120 mg/dL (60-115)
[2023-11-07 08:00] VITALS: BP 132/63; PULSE 90; RESP 18; TEMP 35.8; O2SAT 98
[2023-11-07] MEDS: Insulin Glargine,Hum.rec.anlog 100 UNIT/ML 10 ML VIAL SUBCUT (08:46)
[2023-11-07] MEDS: Cholecalciferol (Vitamin D3) 25 MCG TABLET 50 MCG PO (08:47)
[2023-11-07] MEDS: amLODIPine Besylate 5 MG TABLET PO (08:47)
[2023-11-07] MEDS: diazePAM 5 MG TABLET PO ×2 (08:47→20:25)
[2023-11-07] MEDS: HYDROcodone Bit/Acetam 5/325 TABLET 1 TAB PO ×2 (08:48→20:27)
[2023-11-07] MEDS: Valsartan 160 MG TABLET PO (08:49)
--- NOTE | 2023-11-07 09:32 | HO.PSYCHPN ---
Subjective Subjective Date of Service: 11/07/23 Reason For Visit: section 12 Subjective Notes: Section 7 and Section 8 Interim History: The nursing staff reported the patient refused her medications in the morning. She was recently diagnosed with a UTI and she was started on antibiotics. She slept 8 hours. On interview the patient remains paranoid stating that people wants to kill her. Mental Status Exam Mental Status Exam Patient Appearance: Appropriate Patient Orientation: Person and Situation Level of Consciousness: Awake and Appropriate Patient Behavior: Guarded and Passive Mood Description: Withdrawn Affect Description: Constricted Patient Cognition Impaired: Yes Ability to Follow Directions: Fair Speech Pattern: Clear Hallucinations: None Delusions: Paranoid Ideation and Ideas of Reference Thought Process: Distracted and Slowed Thinking Thought Content: positive for [place] and positive for Poverty of Content Judgement: Poor Diagnostics Vital Signs (24Hr): Vital Signs - 24 hr 11/07/23 08:00 Temperature 96.4 F L Pulse Rate 90 Respiratory Rate 18 Blood Pressure 132/63 Pulse Oximetry 98 Oxygen Delivery Method Room Air BMI result Body Mass Index 37.2 Labs 11/07/23 07:54 11/07/23 07:54 Labs: Laboratory Results - last 48 hr 11/05/23 11/05/23 11/05/23 11:51 16:37 19:42 POC Glucose 228 H 152 H 191 H Urine Color Urine Appearance Urine pH Ur Specific [place] Urine Protein Urine Glucose (UA) Urine Ketones Urine Blood Urine Nitrite Ur Leukocyte Esterase Urine RBC Urine WBC Ur Squamous Epith Cells Urine Bacteria Hyaline Casts 11/06/23 11/06/23 11/06/23 06:42 11:23 13:35 POC Glucose 126 H 172 H Urine Color Yellow Urine Appearance Cloudy Urine pH 5.5 Ur Specific [place] 1.015 Urine Protein Negative Urine Glucose (UA) Negative Urine Ketones Negative Urine Blood Negative Urine Nitrite Negative Ur Leukocyte Esterase Large (3+) H Urine RBC 0-2 Urine WBC >50 H Ur Squamous Epith Cells 11-20 Urine Bacteria Trace Hyaline Casts 0-2 11/06/23 11/06/23 11/07/23 16:30 20:32 06:52 POC Glucose 190 H 210 H 120 H Urine Color Urine Appearance Urine pH Ur Specific [place] Urine Protein Urine Glucose (UA) Urine Ketones Urine Blood Urine Nitrite Ur Leukocyte Esterase Urine RBC Urine WBC Ur Squamous Epith Cells Urine Bacteria Hyaline Casts Medications Medications Current Medications Acetaminophen (Acetaminophen 325 Mg Tablet) 650 mg PO Q6H PRN PRN Reason: Headache/Pain (1-10) Last Admin: 11/03/23 15:40 Dose: 650 mg Hydrocodone Bitart/Acetaminophen (Hydrocodone Bit/Acetam 5/325 Tablet) 1 tab PO BID PRN PRN Reason: Pain, Severe (Pain Scale 7-10) Last Admin: 11/07/23 08:48 Dose: 1 tab Al Hydroxide/Mg Hydroxide (Magnesium Hydrox/Alum Hydrox 30 Ml Oral.Susp) 30 ml PO Q6H PRN PRN Reason: Heartburn/Nausea Albuterol Sulfate (Albuterol Sulfate 90 Mcg 8 Gm Inhaler) 2 puff INHALE RQ4H PRN PRN Reason: sob Amlodipine Besylate (Amlodipine Besylate 5 Mg Tablet) 5 mg PO DAILY [facility]; Protocol Last Admin: 11/07/23 08:47 Dose: 5 mg Cefuroxime Axetil (Cefuroxime Axetil 250 Mg Tablet) 250 mg PO Q12H [facility] Stop: 11/11/23 06:01 Last Admin: 11/07/23 06:53 Dose: 250 mg Diazepam (Diazepam 5 Mg Tablet) 5 mg PO TID PRN PRN Reason: Anxiety Last Admin: 11/07/23 08:47 Dose: 5 mg Hydroxyzine HCl (Hydroxyzine Hcl 25 Mg Tablet) 25 mg PO Q6H PRN PRN Reason: Anxiety Insulin Glargine (Insulin Glargine,Hum.Rec.Anlog 100 Unit/Ml 10 Ml Vial) 5 unit SUBCUT DAILY [facility] Last Admin: 11/07/23 08:46 Dose: 5 unit Insulin Human Lispro (Insulin Lispro 100 Unit/Ml 3 Ml Vial) 0 unit SUBCUT QIDACHS [facility]; Protocol Last Admin: 11/07/23 07:48 Dose: Not Given Loperamide HCl (Loperamide Hcl 2 Mg Capsule) 2 mg PO Q4H PRN PRN Reason: Diarrhea Last Admin: 11/06/23 02:11 Dose: 2 mg Magnesium Hydroxide (Milk Of Magnesia 30 Ml Oral.Susp) 30 ml PO DAILY PRN PRN Reason: Constipation Nystatin (Nystatin Powder 15 Gm Bottle) 1 appl TOPICAL TID [facility]; Protocol Stop: 11/17/23 17:00 Last Admin: 11/06/23 21:32 Dose: 1 appl Olanzapine (Olanzapine 10 Mg Vial) 10 mg IM BEDTIME PRN PRN Reason: refusal of PO Invega Paliperidone (Paliperidone Er 3 Mg Tab.Er.24) 3 mg PO BEDTIME [facility] Last Admin: 11/06/23 21:25 Dose: 3 mg Trazodone HCl (Trazodone Hcl 50 Mg Tablet) 50 mg PO BEDTIME MRX1 PRN PRN Reason: Insomnia Last Admin: 11/01/23 20:11 Dose: 50 mg Valsartan (Valsartan 160 Mg Tablet) 160 mg PO DAILY [facility]; Protocol Last Admin: 11/07/23 08:49 Dose: 160 mg Vitamin D (Cholecalciferol (Vitamin D3) 25 Mcg Tablet) 50 mcg PO DAILY [facility] Last Admin: 11/07/23 08:47 Dose: 50 mcg Allergies Allergies Allergy/AdvReac Type Severity Reaction Status Date / Time No Known Allergies Allergy Verified 10/03/23 19:47 Assessment & Plan Assessment & Plan (1) Major depressive disorder, single episode, severe w psychotic behavior: Status: Acute Code(s): F32.3 - Major depressive disorder, single episode, severe with psychotic features (2) Cognitive and behavioral changes: Status: Acute Code(s): R41.89 - Other symptoms and signs involving cognitive functions and awareness; R46.89 - Other symptoms and signs involving appearance and behavior Plan Pt is a 78-year-old female with a PMH significant for?HTN, asthma, insulin-dependent type 2 diabetes, and unspecified psychiatric diagnosis who is admitted to [facility] for paranoia and psychosis. Patient was placed on a section 12 by [facility] after they were called to her apartment 4 times during the night. Patient reportedly believed that her landlord had been stealing money from her and hired a professional hit man who cut a hole in the wall of her closet in her bedroom to gain access to her apartment. Was noted to have nailed the door to her apartment shut. BPH also reported finding patient's insulin having been left out in the sun on the counter for 4 days. Medical consult for admission H&P. Plan 1. Lower Invega to 3 mg p.o. daily since the patient is over-sedated in November 04, her Invega was increased up to 6 mg and we went back to 3 mg due to over-sedation due to UTI. 2. Continue with regular medications. 3. Continue 15 minute checks. 4. Blood work for tomorrow morning. 5. Started on antibiotics as per the medical team. The patient has a UTI diagnosed on November 05. Reason for continued inpatient stay Substantial Risk for: inability to function, rapid decompensation and med/psych decompensation Time Spent With Patient Time: Total time managing care of this patient today __20__ minutes.
[2023-11-07 09:43] LABS: MANUAL DIFF FLAG NO
[2023-11-07 09:53] LABS: Basophils Percent Auto 0.4 % (0-2); Eosinophils Absolute Auto 0.3 X10*3/uL (0.0-0.4); Hematocrit 43.8 % (37.0-47.0); Hemoglobin 14.6 g/dl (12.0-16.0); Imm Gran Abs Auto 0.04 X10*3/uL (0.00-0.03); Imm Gran Pct Auto 0.5 % (0.0-0.4); Lymphocytes Absolute Auto 1.7 X10*3/uL (1.2-4.9); Lymphocytes Percent Auto 22.6 % (20-40); Mean Corpuscular HGB Conc 33.3 g/dl (31.0-35.0); Mean Corpuscular Hemoglobin 29.9 pg (27.0-33.0); Mean Corpuscular Volume 89.6 fL (80.0-98.0); Mean Platelet Volume 10.5 fL (9.4-12.3); Monocytes Absolute Auto 0.7 X10*3/uL (0.1-1.2); Monocytes Percent Auto 8.8 % (2-11); Neutrophils Absolute Auto 4.8 x10*3/uL (2.0-8.3); Neutrophils Percent Auto 63.7 % (45-73); Platelet Count 180 X10*3/uL (160-400); Red Blood Count 4.89 X10*6/uL (4.20-5.50); Red Cell Distribution Width 13.2 % (11.0-16.0); White Blood Count 7.5 X10*3/uL (4.8-10.8)
[2023-11-07 10:44] LABS: Alanine Aminotransferase 20 U/L (0-31); Alkaline Phosphatase 82 U/L (39-117); Anion Gap 13 (12-20); Aspartate Amino Transferase 26 U/L (5-31); Bilirubin Total 0.8 mg/dL (0.0-1.0); Blood Urea Nitrogen 17 mg/dL (9-16); Calcium 9.8 mg/dL (8.4-10.2); Carbon Dioxide 29 mmol/L (22-29); Chloride 106 mmol/L (96-108); Creatinine Clr Calc Pharmacy 64.8; Estimated Glomerular Filt Rate > 60; Glucose Fasting 123 mg/dL (60-99); Sodium 144 mmol/L (135-145)
[2023-11-07 11:39] LABS: Glucose, Whole Blood 147 mg/dL (60-115)
[2023-11-07 16:19] LABS: Glucose, Whole Blood 160 mg/dL (60-115)
[2023-11-07] MEDS: Nystatin Powder 15 GM BOTTLE 1 APPL TOPICAL (17:03)
[2023-11-07] MEDS: Insulin Lispro 100 UNIT/ML 3 ML VIAL SUBCUT ×2 (17:10→23:00)
[2023-11-07 20:00] VITALS: BP 129/66; PULSE 92; RESP 16; TEMP 35.8; O2SAT 92
[2023-11-07] MEDS: Paliperidone ER 3 MG TAB.ER.24 PO (20:28)
[2023-11-07 21:00] LABS: Glucose, Whole Blood 208 mg/dL (60-115)
[2023-11-08] MEDS: cefuroxime axetiL 250 MG TABLET PO ×2 (06:20→17:33)
[2023-11-08 06:41] LABS: Glucose, Whole Blood 125 mg/dL (60-115)
[2023-11-08 07:00] VITALS: BMI 36.8
[2023-11-08 08:47] VITALS: BP 143/64; PULSE 81; RESP 16; TEMP 36.2; O2SAT 95
[2023-11-08] MEDS: Insulin Glargine,Hum.rec.anlog 100 UNIT/ML 10 ML VIAL SUBCUT (09:10)
[2023-11-08] MEDS: Cholecalciferol (Vitamin D3) 25 MCG TABLET 50 MCG PO (09:11)
[2023-11-08] MEDS: Valsartan 160 MG TABLET PO (09:11)
[2023-11-08] MEDS: amLODIPine Besylate 5 MG TABLET PO (09:11)
[2023-11-08] MEDS: Nystatin Powder 15 GM BOTTLE 1 APPL TOPICAL (09:14)
[2023-11-08] MEDS: HYDROcodone Bit/Acetam 5/325 TABLET 1 TAB PO ×2 (09:20→20:23)
[2023-11-08] MEDS: diazePAM 5 MG TABLET PO ×2 (09:23→20:23)
[2023-11-08 11:39] LABS: Glucose, Whole Blood 150 mg/dL (60-115)
--- NOTE | 2023-11-08 15:56 | P.PNPSI_ITS ---
Subjective Subjective Date of Service: 11/08/23 Reason For Visit: section 12 Subjective Notes: Section 7 and Section 8 Interim History: The nursing staff reported the patient had been very tired she slept well all last night. She remains paranoid and suspicious. The social welfare administrator has called the community support specialist regarding her services. Today on interview the patient reported that she has have pain and she wants to have an x-ray in her back. No changes in her mental status still on antibiotics for UTI. Mental Status Exam Mental Status Exam Patient Appearance: Appropriate Patient Orientation: Person and Situation Level of Consciousness: Awake and Appropriate Patient Behavior: Guarded and Passive Mood Description: Withdrawn Affect Description: Constricted Patient Cognition Impaired: Yes Ability to Follow Directions: Good Speech Pattern: Clear Hallucinations: None Delusions: Not Present Thought Process: Distracted and Slowed Thinking Thought Content: positive for [place] and positive for Poverty of Content Judgement: Fair Diagnostics Vital Signs (24Hr): Vital Signs - 24 hr 11/07/23 20:00 11/08/23 08:47 Temperature 96.5 F L 97.2 F Pulse Rate 92 81 Respiratory Rate 16 16 Blood Pressure 129/66 143/64 H Pulse Oximetry 92 95 Oxygen Delivery Method Room Air Room Air BMI result Body Mass Index 36.8 Labs 11/07/23 07:54 11/07/23 07:54 Labs: Laboratory Results - last 48 hr 11/06/23 11/06/23 11/07/23 16:30 20:32 06:52 WBC RBC Hgb Hct MCV MCH MCHC RDW Plt Count MPV Immature Gran % (Auto) Neut % (Auto) Lymph % (Auto) [place] % (Auto) Eos % (Auto) Baso % (Auto) Lymph # (Auto) [place] # (Auto) Eos # (Auto) Baso # (Auto) Abs Immat Gran (auto) Absolute Neuts (auto) Absolute Nucleated RBC Nucleated RBC % (auto) Sodium Potassium Chloride Carbon Dioxide Anion Gap BUN Creatinine Estim Creat Clear Calc Estimated GFR POC Glucose 190 H 210 H 120 H Fasting Glucose Calcium Total Bilirubin AST ALT Alkaline Phosphatase Total Protein Albumin 11/07/23 11/07/23 11/07/23 07:54 11:34 16:15 WBC 7.5 RBC 4.89 Hgb 14.6 Hct 43.8 MCV 89.6 MCH 29.9 MCHC 33.3 RDW 13.2 Plt Count 180 MPV 10.5 Immature Gran % (Auto) 0.5 H Neut % (Auto) 63.7 Lymph % (Auto) 22.6 [place] % (Auto) 8.8 Eos % (Auto) 4.0 Baso % (Auto) 0.4 Lymph # (Auto) 1.7 [place] # (Auto) 0.7 Eos # (Auto) 0.3 Baso # (Auto) 0.0 Abs Immat Gran (auto) 0.04 H Absolute Neuts (auto) 4.8 Absolute Nucleated RBC 0.000 Nucleated RBC % (auto) 0.0 Sodium 144 Potassium 4.0 Chloride 106 Carbon Dioxide 29 Anion Gap 13 BUN 17 H Creatinine 0.78 Estim Creat Clear Calc 64.8 Estimated GFR > 60 POC Glucose 147 H 160 H Fasting Glucose 123 H Calcium 9.8 D Total Bilirubin 0.8 AST 26 ALT 20 Alkaline Phosphatase 82 Total Protein 7.0 Albumin 4.0 11/07/23 11/08/23 11/08/23 20:19 06:36 11:36 WBC RBC Hgb Hct MCV MCH MCHC RDW Plt Count MPV Immature Gran % (Auto) Neut % (Auto) Lymph % (Auto) [place] % (Auto) Eos % (Auto) Baso % (Auto) Lymph # (Auto) [place] # (Auto) Eos # (Auto) Baso # (Auto) Abs Immat Gran (auto) Absolute Neuts (auto) Absolute Nucleated RBC Nucleated RBC % (auto) Sodium Potassium Chloride Carbon Dioxide Anion Gap BUN Creatinine Estim Creat Clear Calc Estimated GFR POC Glucose 208 H 125 H 150 H Fasting Glucose Calcium Total Bilirubin AST ALT Alkaline Phosphatase Total Protein Albumin Medications Medications Current Medications Acetaminophen (Acetaminophen 325 Mg Tablet) 650 mg PO Q6H PRN PRN Reason: Headache/Pain (1-10) Last Admin: 11/03/23 15:40 Dose: 650 mg Hydrocodone Bitart/Acetaminophen (Hydrocodone Bit/Acetam 5/325 Tablet) 1 tab PO BID PRN PRN Reason: Pain, Severe (Pain Scale 7-10) Last Admin: 11/08/23 09:20 Dose: 1 tab Al Hydroxide/Mg Hydroxide (Magnesium Hydrox/Alum Hydrox 30 Ml Oral.Susp) 30 ml PO Q6H PRN PRN Reason: Heartburn/Nausea Albuterol Sulfate (Albuterol Sulfate 90 Mcg 8 Gm Inhaler) 2 puff INHALE RQ4H PRN PRN Reason: sob Amlodipine Besylate (Amlodipine Besylate 5 Mg Tablet) 5 mg PO DAILY [facility]; Protocol Last Admin: 11/08/23 09:11 Dose: 5 mg Cefuroxime Axetil (Cefuroxime Axetil 250 Mg Tablet) 250 mg PO Q12H [facility] Stop: 11/11/23 06:01 Last Admin: 11/08/23 06:20 Dose: 250 mg Diazepam (Diazepam 5 Mg Tablet) 5 mg PO TID PRN PRN Reason: Anxiety Last Admin: 11/08/23 09:23 Dose: 5 mg Hydroxyzine HCl (Hydroxyzine Hcl 25 Mg Tablet) 25 mg PO Q6H PRN PRN Reason: Anxiety Insulin Glargine (Insulin Glargine,Hum.Rec.Anlog 100 Unit/Ml 10 Ml Vial) 5 unit SUBCUT DAILY [facility] Last Admin: 11/08/23 09:10 Dose: 5 unit Insulin Human Lispro (Insulin Lispro 100 Unit/Ml 3 Ml Vial) 0 unit SUBCUT QIDACHS [facility]; Protocol Last Admin: 11/08/23 11:44 Dose: Not Given Loperamide HCl (Loperamide Hcl 2 Mg Capsule) 2 mg PO Q4H PRN PRN Reason: Diarrhea Last Admin: 11/06/23 02:11 Dose: 2 mg Magnesium Hydroxide (Milk Of Magnesia 30 Ml Oral.Susp) 30 ml PO DAILY PRN PRN Reason: Constipation Nystatin (Nystatin Powder 15 Gm Bottle) 1 appl TOPICAL TID [facility]; Protocol Stop: 11/17/23 17:00 Last Admin: 11/08/23 09:14 Dose: 1 appl Olanzapine (Olanzapine 10 Mg Vial) 10 mg IM BEDTIME PRN PRN Reason: refusal of PO Invega Paliperidone (Paliperidone Er 3 Mg Tab.Er.24) 3 mg PO BEDTIME [facility] Last Admin: 11/07/23 20:28 Dose: 3 mg Trazodone HCl (Trazodone Hcl 50 Mg Tablet) 50 mg PO BEDTIME MRX1 PRN PRN Reason: Insomnia Last Admin: 11/01/23 20:11 Dose: 50 mg Valsartan (Valsartan 160 Mg Tablet) 160 mg PO DAILY [facility]; Protocol Last Admin: 11/08/23 09:11 Dose: 160 mg Vitamin D (Cholecalciferol (Vitamin D3) 25 Mcg Tablet) 50 mcg PO DAILY [facility] Last Admin: 11/08/23 09:11 Dose: 50 mcg Allergies Allergies Allergy/AdvReac Type Severity Reaction Status Date / Time No Known Allergies Allergy Verified 10/03/23 19:47 Assessment & Plan Assessment & Plan (1) Major depressive disorder, single episode, severe w psychotic behavior: Status: Acute Code(s): F32.3 - Major depressive disorder, single episode, severe with psychotic features (2) Cognitive and behavioral changes: Status: Acute Code(s): R41.89 - Other symptoms and signs involving cognitive functions and awareness; R46.89 - Other symptoms and signs involving appearance and behavior Plan Pt is a 78-year-old female with a PMH significant for?HTN, asthma, insulin- dependent type 2 diabetes, and unspecified psychiatric diagnosis who is admitted to [facility], [place] for paranoia and psychosis. Patient was placed on a section 12 by VELMA Diaz after they were called to her apartment 4 times during the night. Patient reportedly believed that her landlord had been stealing money from her and hired a professional hit man who cut a hole in the wall of her closet in her bedroom to gain access to her apartment. Was noted to have nailed the door to her apartment shut. BPH also reported finding patient's insulin having been left out in the sun on the counter for 4 days. Medical consult for admission H&P. Plan 1. Lower Invega to 3 mg p.o. daily since the patient is over-sedated in November 04, her Invega was increased up to 6 mg and we went back to 3 mg due to over- sedation due to UTI. 2. Continue with regular medications. 3. Continue 15 minute checks. 4. Blood work for tomorrow morning. 5. Started on antibiotics as per the medical team. The patient has a UTI diagnosed on November 05. Reason for continued inpatient stay Substantial Risk for: inability to function, rapid decompensation and med/psych decompensation Time Spent With Patient Time: Total time managing care of this patient today __20__ minutes.
[2023-11-08 16:21] LABS: Glucose, Whole Blood 163 mg/dL (60-115)
[2023-11-08] MEDS: Insulin Lispro 100 UNIT/ML 3 ML VIAL SUBCUT ×2 (16:32→20:41)
[2023-11-08 20:00] VITALS: BP 143/61; PULSE 88; RESP 16; TEMP 36.3; O2SAT 96
[2023-11-08] MEDS: Paliperidone ER 3 MG TAB.ER.24 PO (20:23)
[2023-11-08 20:42] LABS: Glucose, Whole Blood 239 mg/dL (60-115)
[2023-11-09] MEDS: cefuroxime axetiL 250 MG TABLET PO ×2 (06:27→17:40)
[2023-11-09 06:53] LABS: Glucose, Whole Blood 133 mg/dL (60-115)
[2023-11-09 08:00] VITALS: BP 129/63; PULSE 94; RESP 18; TEMP 36.1; O2SAT 97
[2023-11-09] MEDS: Nystatin Powder 15 GM BOTTLE 1 APPL TOPICAL ×2 (08:57→20:25)
[2023-11-09] MEDS: Insulin Glargine,Hum.rec.anlog 100 UNIT/ML 10 ML VIAL SUBCUT (08:57)
[2023-11-09] MEDS: HYDROcodone Bit/Acetam 5/325 TABLET 1 TAB PO ×2 (08:58→20:23)
[2023-11-09] MEDS: diazePAM 5 MG TABLET PO ×2 (08:58→20:23)
[2023-11-09] MEDS: Cholecalciferol (Vitamin D3) 25 MCG TABLET 50 MCG PO (08:58)
[2023-11-09] MEDS: Valsartan 160 MG TABLET PO (08:58)
[2023-11-09] MEDS: amLODIPine Besylate 5 MG TABLET PO (08:59)
[2023-11-09 11:30] LABS: Glucose, Whole Blood 187 mg/dL (60-115)
[2023-11-09] MEDS: Insulin Lispro 100 UNIT/ML 3 ML VIAL SUBCUT ×3 (12:16→20:23)
--- NOTE | 2023-11-09 13:15 | HO.PSYCHPN ---
Subjective Subjective Date of Service: 11/09/23 Reason For Visit: section 12 Subjective Notes: Section 7 and Section 8 Interim History: The nursing staff reported the patient continues to be compliant with her antibiotics for UTI. Apparently the culture came up contaminated. She has stopped calling the police but still paranoid. On interview the patient remains paranoid but easily redirectable. We are going to increase Invega to 6 mg p.o. q.h.s. today. Mental Status Exam Mental Status Exam Patient Appearance: Appropriate Patient Orientation: Person and Situation Level of Consciousness: Awake and Appropriate Patient Behavior: Guarded and Passive Mood Description: Withdrawn Affect Description: Constricted Patient Cognition Impaired: Yes Ability to Follow Directions: Good Speech Pattern: Clear Hallucinations: None Delusions: Paranoid Ideation and Ideas of Reference Thought Process: Distracted and Slowed Thinking Thought Content: positive for [place] and positive for Thought Blocking Judgement: Poor Diagnostics Vital Signs (24Hr): Vital Signs - 24 hr 11/08/23 20:00 11/09/23 08:00 Temperature 97.3 F 97 F Pulse Rate 88 94 Respiratory Rate 16 18 Blood Pressure 143/61 H 129/63 Pulse Oximetry 96 97 Oxygen Delivery Method Room Air Room Air BMI result Body Mass Index 36.8 Labs 11/07/23 07:54 11/07/23 07:54 Labs: Laboratory Results - last 48 hr 11/07/23 11/07/23 11/08/23 16:15 20:19 06:36 POC Glucose 160 H 208 H 125 H 11/08/23 11/08/23 11/08/23 11:36 16:17 20:36 POC Glucose 150 H 163 H 239 H 11/09/23 11/09/23 06:35 11:23 POC Glucose 133 H 187 H Medications Medications Current Medications Acetaminophen (Acetaminophen 325 Mg Tablet) 650 mg PO Q6H PRN PRN Reason: Headache/Pain (1-10) Last Admin: 11/03/23 15:40 Dose: 650 mg Hydrocodone Bitart/Acetaminophen (Hydrocodone Bit/Acetam 5/325 Tablet) 1 tab PO BID PRN PRN Reason: Pain, Severe (Pain Scale 7-10) Last Admin: 11/09/23 08:58 Dose: 1 tab Al Hydroxide/Mg Hydroxide (Magnesium Hydrox/Alum Hydrox 30 Ml Oral.Susp) 30 ml PO Q6H PRN PRN Reason: Heartburn/Nausea Albuterol Sulfate (Albuterol Sulfate 90 Mcg 8 Gm Inhaler) 2 puff INHALE RQ4H PRN PRN Reason: sob Amlodipine Besylate (Amlodipine Besylate 5 Mg Tablet) 5 mg PO DAILY [facility]; Protocol Last Admin: 11/09/23 08:59 Dose: 5 mg Cefuroxime Axetil (Cefuroxime Axetil 250 Mg Tablet) 250 mg PO Q12H [facility] Stop: 11/11/23 06:01 Last Admin: 11/09/23 06:27 Dose: 250 mg Diazepam (Diazepam 5 Mg Tablet) 5 mg PO TID PRN PRN Reason: Anxiety Last Admin: 11/09/23 08:58 Dose: 5 mg Hydroxyzine HCl (Hydroxyzine Hcl 25 Mg Tablet) 25 mg PO Q6H PRN PRN Reason: Anxiety Insulin Glargine (Insulin Glargine,Hum.Rec.Anlog 100 Unit/Ml 10 Ml Vial) 5 unit SUBCUT DAILY [facility] Last Admin: 11/09/23 08:57 Dose: 5 unit Insulin Human Lispro (Insulin Lispro 100 Unit/Ml 3 Ml Vial) 0 unit SUBCUT QIDACHS [facility]; Protocol Last Admin: 11/09/23 12:16 Dose: 2 unit Loperamide HCl (Loperamide Hcl 2 Mg Capsule) 2 mg PO Q4H PRN PRN Reason: Diarrhea Last Admin: 11/06/23 02:11 Dose: 2 mg Magnesium Hydroxide (Milk Of Magnesia 30 Ml Oral.Susp) 30 ml PO DAILY PRN PRN Reason: Constipation Nystatin (Nystatin Powder 15 Gm Bottle) 1 appl TOPICAL TID [facility]; Protocol Stop: 11/17/23 17:00 Last Admin: 11/09/23 08:57 Dose: 1 appl Olanzapine (Olanzapine 10 Mg Vial) 10 mg IM BEDTIME PRN PRN Reason: refusal of PO Invega Paliperidone (Paliperidone Er 6 Mg Tab.Er.24) 6 mg PO BEDTIME [facility] Trazodone HCl (Trazodone Hcl 50 Mg Tablet) 50 mg PO BEDTIME MRX1 PRN PRN Reason: Insomnia Last Admin: 11/01/23 20:11 Dose: 50 mg Valsartan (Valsartan 160 Mg Tablet) 160 mg PO DAILY [facility]; Protocol Last Admin: 11/09/23 08:58 Dose: 160 mg Vitamin D (Cholecalciferol (Vitamin D3) 25 Mcg Tablet) 50 mcg PO DAILY [facility] Last Admin: 11/09/23 08:58 Dose: 50 mcg Allergies Allergies Allergy/AdvReac Type Severity Reaction Status Date / Time No Known Allergies Allergy Verified 10/03/23 19:47 Assessment & Plan Assessment & Plan (1) Major depressive disorder, single episode, severe w psychotic behavior: Status: Acute Code(s): F32.3 - Major depressive disorder, single episode, severe with psychotic features (2) Cognitive and behavioral changes: Status: Acute Code(s): R41.89 - Other symptoms and signs involving cognitive functions and awareness; R46.89 - Other symptoms and signs involving appearance and behavior Plan Pt is a 78-year-old female with a PMH significant for?HTN, asthma, insulin-dependent type 2 diabetes, and unspecified psychiatric diagnosis who is admitted to [facility] for paranoia and psychosis. Patient was placed on a section 12 by VELMA Diaz after they were called to her apartment 4 times during the night. Patient reportedly believed that her landlord had been stealing money from her and hired a professional hit man who cut a hole in the wall of her closet in her bedroom to gain access to her apartment. Was noted to have nailed the door to her apartment shut. BPH also reported finding patient's insulin having been left out in the sun on the counter for 4 days. Medical consult for admission H&P. Plan 1. Lower Invega to 3 mg p.o. daily since the patient is over-sedated in November 04, her Invega was increased up to 6 mg and we went back to 3 mg due to over-sedation due to UTI. On November 08 we increase it back to 6 mg now that she had been treated for UTI. 2. Continue with regular medications. 3. Continue 15 minute checks. 4. Blood work weekly 5. Started on antibiotics as per the medical team. The patient has a UTI diagnosed on November 05. Reason for continued inpatient stay Substantial Risk for: inability to function, rapid decompensation and med/psych decompensation Time Spent With Patient Time: Total time managing care of this patient today __20__ minutes.
[2023-11-09 16:29] LABS: Glucose, Whole Blood 191 mg/dL (60-115)
[2023-11-09 20:00] VITALS: BP 131/64; PULSE 86; RESP 16; TEMP 36.6; O2SAT 97
[2023-11-09] MEDS: Paliperidone ER 6 MG TAB.ER.24 PO (20:22)
[2023-11-09 20:28] LABS: Glucose, Whole Blood 217 mg/dL (60-115)
[2023-11-10] MEDS: cefuroxime axetiL 250 MG TABLET PO ×2 (05:46→18:17)
[2023-11-10 06:53] LABS: Glucose, Whole Blood 181 mg/dL (60-115)
[2023-11-10 08:00] VITALS: BP 115/70; PULSE 95; RESP 18; TEMP 36.3; O2SAT 98
[2023-11-10] MEDS: Cholecalciferol (Vitamin D3) 25 MCG TABLET 50 MCG PO (08:42)
[2023-11-10] MEDS: Insulin Lispro 100 UNIT/ML 3 ML VIAL SUBCUT ×2 (08:42→21:04)
[2023-11-10 08:43] VITALS: BP 115/70
[2023-11-10] MEDS: Valsartan 160 MG TABLET PO (08:43)
[2023-11-10] MEDS: amLODIPine Besylate 5 MG TABLET PO (08:43)
[2023-11-10] MEDS: Nystatin Powder 15 GM BOTTLE 1 APPL TOPICAL ×3 (08:44→21:04)
--- NOTE | 2023-11-10 08:44 | P.PNPSI_ITS ---
Subjective Subjective Date of Service: 11/10/23 Reason For Visit: section 12 Subjective Notes: Section 7 and Section 8 Interim History: The nursing staff reported that yesterday the patient showered in the morning she slept 6 hours she was seen calling over the phone to her friends but not 911. She denies hallucinations at this time her fasting blood sugars were within normal limits still taking antibiotics. On interview the patient denies new symptoms. Mental Status Exam Mental Status Exam Patient Appearance: Appropriate Patient Orientation: Person and Situation Level of Consciousness: Awake and Appropriate Patient Behavior: Guarded and Passive Mood Description: Suspicious Affect Description: Calm and Constricted Patient Cognition Impaired: Yes Ability to Follow Directions: Fair Speech Pattern: Clear Hallucinations: None Delusions: Paranoid Ideation Thought Process: Distracted and Slowed Thinking Thought Content: positive for [place] and positive for Poverty of Content Judgement: Poor Diagnostics Vital Signs (24Hr): Vital Signs - 24 hr 11/09/23 20:00 Temperature 97.9 F Pulse Rate 86 Respiratory Rate 16 Blood Pressure 131/64 Pulse Oximetry 97 Oxygen Delivery Method Room Air BMI result Body Mass Index 36.8 Labs 11/07/23 07:54 11/07/23 07:54 Labs: Laboratory Results - last 48 hr 11/08/23 11/08/23 11/08/23 11:36 16:17 20:36 POC Glucose 150 H 163 H 239 H 11/09/23 11/09/23 11/09/23 06:35 11:23 16:24 POC Glucose 133 H 187 H 191 H 11/09/23 11/10/23 19:48 06:34 POC Glucose 217 H 181 H Medications Medications Current Medications Acetaminophen (Acetaminophen 325 Mg Tablet) 650 mg PO Q6H PRN PRN Reason: Headache/Pain (1-10) Last Admin: 11/03/23 15:40 Dose: 650 mg Hydrocodone Bitart/Acetaminophen (Hydrocodone Bit/Acetam 5/325 Tablet) 1 tab PO BID PRN PRN Reason: Pain, Severe (Pain Scale 7-10) Last Admin: 11/09/23 20:23 Dose: 1 tab Al Hydroxide/Mg Hydroxide (Magnesium Hydrox/Alum Hydrox 30 Ml Oral.Susp) 30 ml PO Q6H PRN PRN Reason: Heartburn/Nausea Albuterol Sulfate (Albuterol Sulfate 90 Mcg 8 Gm Inhaler) 2 puff INHALE RQ4H PRN PRN Reason: sob Amlodipine Besylate (Amlodipine Besylate 5 Mg Tablet) 5 mg PO DAILY [facility]; Protocol Last Admin: 11/09/23 08:59 Dose: 5 mg Cefuroxime Axetil (Cefuroxime Axetil 250 Mg Tablet) 250 mg PO Q12H [facility] Stop: 11/11/23 06:01 Last Admin: 11/10/23 05:46 Dose: 250 mg Diazepam (Diazepam 5 Mg Tablet) 5 mg PO TID PRN PRN Reason: Anxiety Last Admin: 11/09/23 20:23 Dose: 5 mg Hydroxyzine HCl (Hydroxyzine Hcl 25 Mg Tablet) 25 mg PO Q6H PRN PRN Reason: Anxiety Insulin Glargine (Insulin Glargine,Hum.Rec.Anlog 100 Unit/Ml 10 Ml Vial) 5 unit SUBCUT DAILY [facility] Last Admin: 11/09/23 08:57 Dose: 5 unit Insulin Human Lispro (Insulin Lispro 100 Unit/Ml 3 Ml Vial) 0 unit SUBCUT QIDACHS [facility]; Protocol Last Admin: 11/09/23 20:23 Dose: 4 unit Loperamide HCl (Loperamide Hcl 2 Mg Capsule) 2 mg PO Q4H PRN PRN Reason: Diarrhea Last Admin: 11/06/23 02:11 Dose: 2 mg Magnesium Hydroxide (Milk Of Magnesia 30 Ml Oral.Susp) 30 ml PO DAILY PRN PRN Reason: Constipation Nystatin (Nystatin Powder 15 Gm Bottle) 1 appl TOPICAL TID [facility]; Protocol Stop: 11/17/23 17:00 Last Admin: 11/09/23 20:25 Dose: 1 appl Olanzapine (Olanzapine 10 Mg Vial) 10 mg IM BEDTIME PRN PRN Reason: refusal of PO Invega Paliperidone (Paliperidone Er 6 Mg Tab.Er.24) 6 mg PO BEDTIME [facility] Last Admin: 11/09/23 20:22 Dose: 6 mg Trazodone HCl (Trazodone Hcl 50 Mg Tablet) 50 mg PO BEDTIME MRX1 PRN PRN Reason: Insomnia Last Admin: 11/01/23 20:11 Dose: 50 mg Valsartan (Valsartan 160 Mg Tablet) 160 mg PO DAILY [facility]; Protocol Last Admin: 11/09/23 08:58 Dose: 160 mg Vitamin D (Cholecalciferol (Vitamin D3) 25 Mcg Tablet) 50 mcg PO DAILY [facility] Last Admin: 11/09/23 08:58 Dose: 50 mcg Allergies Allergies Allergy/AdvReac Type Severity Reaction Status Date / Time No Known Allergies Allergy Verified 10/03/23 19:47 Assessment & Plan Assessment & Plan (1) Major depressive disorder, single episode, severe w psychotic behavior: Status: Acute Code(s): F32.3 - Major depressive disorder, single episode, severe with psychotic features (2) Cognitive and behavioral changes: Status: Acute Code(s): R41.89 - Other symptoms and signs involving cognitive functions and awareness; R46.89 - Other symptoms and signs involving appearance and behavior Plan Pt is a 78-year-old female with a PMH significant for?HTN, asthma, insulin- dependent type 2 diabetes, and unspecified psychiatric diagnosis who is admitted to [facility] for paranoia and psychosis. Patient was placed on a section 12 by VELMA Diaz after they were called to her apartment 4 times during the night. Patient reportedly believed that her landlord had been stealing money from her and hired a professional hit man who cut a hole in the wall of her closet in her bedroom to gain access to her apartment. Was noted to have nailed the door to her apartment shut. BPH also reported finding patient's insulin having been left out in the sun on the counter for 4 days. Medical consult for admission H&P. Plan 1. Lower Invega to 3 mg p.o. daily since the patient is over-sedated in November 04, her Invega was increased up to 6 mg and we went back to 3 mg due to over- sedation due to UTI. On November 08 we increase it back to 6 mg now that she had been treated for UTI. 2. Continue with regular medications. 3. Continue 15 minute checks. 4. Blood work weekly 5. Started on antibiotics as per the medical team. The patient has a UTI diagnosed on November 05. Reason for continued inpatient stay Substantial Risk for: inability to function, rapid decompensation and med/psych decompensation Time Spent With Patient Time: Total time managing care of this patient today __20__ minutes.
[2023-11-10] MEDS: HYDROcodone Bit/Acetam 5/325 TABLET 1 TAB PO ×2 (08:54→21:05)
[2023-11-10] MEDS: Insulin Glargine,Hum.rec.anlog 100 UNIT/ML 10 ML VIAL SUBCUT (08:55)
[2023-11-10 11:43] LABS: Glucose, Whole Blood 179 mg/dL (60-115)
[2023-11-10 16:46] LABS: Glucose, Whole Blood 119 mg/dL (60-115)
[2023-11-10] MEDS: Acetaminophen 325 MG TABLET 650 MG PO (18:49)
[2023-11-10 20:00] VITALS: BP 134/63; PULSE 94; RESP 16; TEMP 36.6; O2SAT 97
[2023-11-10 20:07] LABS: Glucose, Whole Blood 246 mg/dL (60-115)
[2023-11-10] MEDS: Paliperidone ER 6 MG TAB.ER.24 PO (21:05)
[2023-11-10] MEDS: diazePAM 5 MG TABLET PO (21:07)
[2023-11-11] MEDS: cefuroxime axetiL 250 MG TABLET PO (06:29)
[2023-11-11 06:50] LABS: Glucose, Whole Blood 146 mg/dL (60-115)
--- NOTE | 2023-11-11 08:04 | P.PNPSI_ITS ---
Subjective Subjective Date of Service: 11/11/23 Reason For Visit: section 12 Subjective Notes: Section 7 and Section 8 Interim History: The nursing staff reported the patient had been compliant with medications she remains paranoid she reported last night that she was waiting to be murdered here. She slept 7 hours. On interview the patient denies new symptoms still paranoid but less anxious than before. Physical exam, we found very slight tremor bilateral. Mental Status Exam Mental Status Exam Patient Appearance: Appropriate Patient Orientation: Person and Situation Level of Consciousness: Awake Patient Behavior: Guarded and Passive Mood Description: Withdrawn Affect Description: Constricted Patient Cognition Impaired: Yes Ability to Follow Directions: Fair Speech Pattern: Clear Hallucinations: None Delusions: Paranoid Ideation Thought Process: Distracted and Slowed Thinking Thought Content: positive for [place] and positive for Thought Blocking Judgement: Poor Diagnostics Vital Signs (24Hr): Vital Signs - 24 hr 11/10/23 08:43 11/10/23 08:43 11/10/23 20:00 Temperature 97.9 F Pulse Rate 94 Respiratory Rate 16 Blood Pressure 115/70 115/70 134/63 Pulse Oximetry 97 Oxygen Delivery Method Room Air BMI result Body Mass Index 36.8 Labs 11/07/23 07:54 11/07/23 07:54 Labs: Laboratory Results - last 48 hr 11/09/23 11/09/23 11/09/23 11:23 16:24 19:48 POC Glucose 187 H 191 H 217 H 11/10/23 11/10/23 11/10/23 06:34 11:38 16:41 POC Glucose 181 H 179 H 119 H 11/10/23 11/11/23 20:03 06:28 POC Glucose 246 H 146 H Medications Medications Current Medications Acetaminophen (Acetaminophen 325 Mg Tablet) 650 mg PO Q6H PRN PRN Reason: Headache/Pain (1-10) Last Admin: 11/10/23 18:49 Dose: 650 mg Hydrocodone Bitart/Acetaminophen (Hydrocodone Bit/Acetam 5/325 Tablet) 1 tab PO BID PRN PRN Reason: Pain, Severe (Pain Scale 7-10) Last Admin: 11/10/23 21:05 Dose: 1 tab Al Hydroxide/Mg Hydroxide (Magnesium Hydrox/Alum Hydrox 30 Ml Oral.Susp) 30 ml PO Q6H PRN PRN Reason: Heartburn/Nausea Albuterol Sulfate (Albuterol Sulfate 90 Mcg 8 Gm Inhaler) 2 puff INHALE RQ4H PRN PRN Reason: sob Amlodipine Besylate (Amlodipine Besylate 5 Mg Tablet) 5 mg PO DAILY [facility]; Protocol Last Admin: 11/10/23 08:43 Dose: 5 mg Diazepam (Diazepam 5 Mg Tablet) 5 mg PO TID PRN PRN Reason: Anxiety Last Admin: 11/10/23 21:07 Dose: 5 mg Hydroxyzine HCl (Hydroxyzine Hcl 25 Mg Tablet) 25 mg PO Q6H PRN PRN Reason: Anxiety Insulin Glargine (Insulin Glargine,Hum.Rec.Anlog 100 Unit/Ml 10 Ml Vial) 5 unit SUBCUT DAILY [facility] Last Admin: 11/10/23 08:55 Dose: 5 unit Insulin Human Lispro (Insulin Lispro 100 Unit/Ml 3 Ml Vial) 0 unit SUBCUT QIDACHS [facility]; Protocol Last Admin: 11/11/23 07:25 Dose: Not Given Loperamide HCl (Loperamide Hcl 2 Mg Capsule) 2 mg PO Q4H PRN PRN Reason: Diarrhea Last Admin: 11/06/23 02:11 Dose: 2 mg Magnesium Hydroxide (Milk Of Magnesia 30 Ml Oral.Susp) 30 ml PO DAILY PRN PRN Reason: Constipation Nystatin (Nystatin Powder 15 Gm Bottle) 1 appl TOPICAL TID [facility]; Protocol Stop: 11/17/23 17:00 Last Admin: 11/10/23 21:04 Dose: 1 appl Olanzapine (Olanzapine 10 Mg Vial) 10 mg IM BEDTIME PRN PRN Reason: refusal of PO Invega Paliperidone (Paliperidone Er 6 Mg Tab.Er.24) 6 mg PO BEDTIME [facility] Last Admin: 11/10/23 21:05 Dose: 6 mg Trazodone HCl (Trazodone Hcl 50 Mg Tablet) 50 mg PO BEDTIME MRX1 PRN PRN Reason: Insomnia Last Admin: 11/01/23 20:11 Dose: 50 mg Valsartan (Valsartan 160 Mg Tablet) 160 mg PO DAILY [facility]; Protocol Last Admin: 11/10/23 08:43 Dose: 160 mg Vitamin D (Cholecalciferol (Vitamin D3) 25 Mcg Tablet) 50 mcg PO DAILY [facility] Last Admin: 11/10/23 08:42 Dose: 50 mcg Allergies Allergies Allergy/AdvReac Type Severity Reaction Status Date / Time No Known Allergies Allergy Verified 10/03/23 19:47 Assessment & Plan Assessment & Plan (1) Major depressive disorder, single episode, severe w psychotic behavior: Status: Acute Code(s): F32.3 - Major depressive disorder, single episode, severe with psychotic features (2) Cognitive and behavioral changes: Status: Acute Code(s): R41.89 - Other symptoms and signs involving cognitive functions and awareness; R46.89 - Other symptoms and signs involving appearance and behavior Plan Pt is a 78-year-old female with a PMH significant for?HTN, asthma, insulin- dependent type 2 diabetes, and unspecified psychiatric diagnosis who is admitted to [facility] for paranoia and psychosis. Patient was placed on a section 12 by VELMA Diaz after they were called to her apartment 4 times during the night. Patient reportedly believed that her landlord had been stealing money from her and hired a professional hit man who cut a hole in the wall of her closet in her bedroom to gain access to her apartment. Was noted to have nailed the door to her apartment shut. BPH also reported finding patient's insulin having been left out in the sun on the counter for 4 days. Medical consult for admission H&P. Plan 1. Lower Invega to 3 mg p.o. daily since the patient is over-sedated in November 04, her Invega was increased up to 6 mg and we went back to 3 mg due to over- sedation due to UTI. On November 08 we increase it back to 6 mg now that she had been treated for UTI. 2. Continue with regular medications. 3. Continue 15 minute checks. 4. Blood work weekly 5. Started on antibiotics as per the medical team. The patient has a UTI diagnosed on November 05. Reason for continued inpatient stay Substantial Risk for: inability to function, rapid decompensation and med/psych decompensation Time Spent With Patient Time: Total time managing care of this patient today _20___ minutes.
[2023-11-11] MEDS: Insulin Glargine,Hum.rec.anlog 100 UNIT/ML 10 ML VIAL SUBCUT (08:13)
[2023-11-11 08:20] VITALS: BP 145/67; PULSE 93; RESP 16; TEMP 36.3; O2SAT 96
[2023-11-11] MEDS: amLODIPine Besylate 5 MG TABLET PO (08:22)
[2023-11-11] MEDS: Valsartan 160 MG TABLET PO (08:22)
[2023-11-11] MEDS: Cholecalciferol (Vitamin D3) 25 MCG TABLET 50 MCG PO (08:22)
[2023-11-11] MEDS: HYDROcodone Bit/Acetam 5/325 TABLET 1 TAB PO ×3 (08:23→22:46)
[2023-11-11] MEDS: diazePAM 5 MG TABLET PO ×2 (08:23→20:04)
[2023-11-11] MEDS: Nystatin Powder 15 GM BOTTLE 1 APPL TOPICAL (08:23)
[2023-11-11 11:29] LABS: Glucose, Whole Blood 154 mg/dL (60-115)
[2023-11-11] MEDS: Insulin Lispro 100 UNIT/ML 3 ML VIAL SUBCUT ×2 (12:05→20:00)
[2023-11-11 16:12] LABS: Glucose, Whole Blood 140 mg/dL (60-115)
[2023-11-11 19:54] LABS: Glucose, Whole Blood 191 mg/dL (60-115)
[2023-11-11 20:00] VITALS: BP 133/62; PULSE 87; RESP 16; TEMP 36; O2SAT 97
[2023-11-11] MEDS: Acetaminophen 325 MG TABLET 650 MG PO (20:03)
[2023-11-11] MEDS: Paliperidone ER 6 MG TAB.ER.24 PO (20:04)
[2023-11-12 06:42] LABS: Glucose, Whole Blood 121 mg/dL (60-115)
[2023-11-12 08:00] VITALS: BP 147/65; PULSE 99; RESP 18; TEMP 36.1; O2SAT 97
[2023-11-12] MEDS: amLODIPine Besylate 5 MG TABLET PO (08:41)
[2023-11-12] MEDS: Cholecalciferol (Vitamin D3) 25 MCG TABLET 50 MCG PO (08:41)
[2023-11-12] MEDS: Valsartan 160 MG TABLET PO (08:42)
[2023-11-12] MEDS: HYDROcodone Bit/Acetam 5/325 TABLET 1 TAB PO ×2 (08:42→20:04)
[2023-11-12] MEDS: Insulin Glargine,Hum.rec.anlog 100 UNIT/ML 10 ML VIAL SUBCUT (08:44)
[2023-11-12] MEDS: diazePAM 5 MG TABLET PO ×2 (08:44→20:03)
[2023-11-12] MEDS: Nystatin Powder 15 GM BOTTLE 1 APPL TOPICAL ×2 (09:30→20:16)
[2023-11-12 11:41] LABS: Glucose, Whole Blood 141 mg/dL (60-115)
--- NOTE | 2023-11-12 13:08 | HO.PSYCHPN ---
Subjective Subjective Date of Service: 11/12/23 Reason For Visit: section 12 Subjective Notes: Conditional Voluntary Interim History: The nursing staff reported the patient had been suspicious, less intrusive than before and she was seen talking on the phone. She slept 6 hours. On interview the patient reports that she is feeling over-sedated with the increase of Invega. We are going to lowered up to 3 mg a day. Mental Status Exam Mental Status Exam Patient Appearance: Appropriate Patient Orientation: Person and Situation Level of Consciousness: Awake and Appropriate Patient Behavior: Guarded and Passive Mood Description: Withdrawn Affect Description: Constricted Patient Cognition Impaired: Yes Ability to Follow Directions: Good Speech Pattern: Clear Hallucinations: None Delusions: Paranoid Ideation and Ideas of Reference Thought Process: Distracted and Slowed Thinking Thought Content: positive for [place] and positive for Poverty of Content Judgement: Fair Diagnostics Vital Signs (24Hr): Vital Signs - 24 hr 11/11/23 20:00 11/12/23 08:00 Temperature 96.8 F 96.9 F Pulse Rate 87 99 Respiratory Rate 16 18 Blood Pressure 133/62 147/65 H Pulse Oximetry 97 97 Oxygen Delivery Method Room Air Room Air BMI result Body Mass Index 36.8 Labs 11/07/23 07:54 11/07/23 07:54 Labs: Laboratory Results - last 48 hr 11/10/23 11/10/23 11/11/23 16:41 20:03 06:28 POC Glucose 119 H 246 H 146 H 11/11/23 11/11/23 11/11/23 11:25 16:08 19:48 POC Glucose 154 H 140 H 191 H 11/12/23 11/12/23 06:24 11:32 POC Glucose 121 H 141 H Medications Medications Current Medications Acetaminophen (Acetaminophen 325 Mg Tablet) 650 mg PO Q6H PRN PRN Reason: Headache/Pain (1-10) Last Admin: 11/11/23 20:03 Dose: 650 mg Hydrocodone Bitart/Acetaminophen (Hydrocodone Bit/Acetam 5/325 Tablet) 1 tab PO BID PRN PRN Reason: Pain, Severe (Pain Scale 7-10) Last Admin: 11/12/23 08:42 Dose: 1 tab Al Hydroxide/Mg Hydroxide (Magnesium Hydrox/Alum Hydrox 30 Ml Oral.Susp) 30 ml PO Q6H PRN PRN Reason: Heartburn/Nausea Albuterol Sulfate (Albuterol Sulfate 90 Mcg 8 Gm Inhaler) 2 puff INHALE RQ4H PRN PRN Reason: sob Amlodipine Besylate (Amlodipine Besylate 5 Mg Tablet) 5 mg PO DAILY [facility]; Protocol Last Admin: 11/12/23 08:41 Dose: 5 mg Diazepam (Diazepam 5 Mg Tablet) 5 mg PO TID PRN PRN Reason: Anxiety Last Admin: 11/12/23 08:44 Dose: 5 mg Hydroxyzine HCl (Hydroxyzine Hcl 25 Mg Tablet) 25 mg PO Q6H PRN PRN Reason: Anxiety Insulin Glargine (Insulin Glargine,Hum.Rec.Anlog 100 Unit/Ml 10 Ml Vial) 5 unit SUBCUT DAILY [facility] Last Admin: 11/12/23 08:44 Dose: 5 unit Insulin Human Lispro (Insulin Lispro 100 Unit/Ml 3 Ml Vial) 0 unit SUBCUT QIDACHS [facility]; Protocol Last Admin: 11/12/23 12:03 Dose: Not Given Loperamide HCl (Loperamide Hcl 2 Mg Capsule) 2 mg PO Q4H PRN PRN Reason: Diarrhea Last Admin: 11/06/23 02:11 Dose: 2 mg Magnesium Hydroxide (Milk Of Magnesia 30 Ml Oral.Susp) 30 ml PO DAILY PRN PRN Reason: Constipation Nystatin (Nystatin Powder 15 Gm Bottle) 1 appl TOPICAL TID [facility]; Protocol Stop: 11/17/23 17:00 Last Admin: 11/12/23 09:30 Dose: 1 appl Olanzapine (Olanzapine 10 Mg Vial) 10 mg IM BEDTIME PRN PRN Reason: refusal of PO Invega Paliperidone (Paliperidone Er 6 Mg Tab.Er.24) 6 mg PO BEDTIME [facility] Last Admin: 11/11/23 20:04 Dose: 6 mg Trazodone HCl (Trazodone Hcl 50 Mg Tablet) 50 mg PO BEDTIME MRX1 PRN PRN Reason: Insomnia Last Admin: 11/01/23 20:11 Dose: 50 mg Valsartan (Valsartan 160 Mg Tablet) 160 mg PO DAILY [facility]; Protocol Last Admin: 11/12/23 08:42 Dose: 160 mg Vitamin D (Cholecalciferol (Vitamin D3) 25 Mcg Tablet) 50 mcg PO DAILY [facility] Last Admin: 11/12/23 08:41 Dose: 50 mcg Allergies Allergies Allergy/AdvReac Type Severity Reaction Status Date / Time No Known Allergies Allergy Verified 10/03/23 19:47 Assessment & Plan Assessment & Plan (1) Major depressive disorder, single episode, severe w psychotic behavior: Status: Acute Code(s): F32.3 - Major depressive disorder, single episode, severe with psychotic features (2) Cognitive and behavioral changes: Status: Acute Code(s): R41.89 - Other symptoms and signs involving cognitive functions and awareness; R46.89 - Other symptoms and signs involving appearance and behavior Plan Pt is a 78-year-old female with a PMH significant for?HTN, asthma, insulin-dependent type 2 diabetes, and unspecified psychiatric diagnosis who is admitted to [facility] for paranoia and psychosis. Patient was placed on a section 12 by VELMA Diaz after they were called to her apartment 4 times during the night. Patient reportedly believed that her landlord had been stealing money from her and hired a professional hit man who cut a hole in the wall of her closet in her bedroom to gain access to her apartment. Was noted to have nailed the door to her apartment shut. BPH also reported finding patient's insulin having been left out in the sun on the counter for 4 days. Medical consult for admission H&P. Plan 1. Lower Invega to 3 mg p.o. daily since the patient is over-sedated in November 04, her Invega was increased up to 6 mg and we went back to 3 mg due to over-sedation due to UTI. On November 08 we increase it back to 6 mg now that she had been treated for UTI. On November 11, the patient reported over-sedation with Invega 6 mg a day so we are lowering back to 3. 2. Continue with regular medications. 3. Continue 15 minute checks. 4. Blood work weekly 5. Started on antibiotics as per the medical team. The patient has a UTI diagnosed on November 05 and she has finished her course of antibiotics.. Reason for continued inpatient stay Substantial Risk for: inability to function, rapid decompensation and med/psych decompensation Time Spent With Patient Time: Total time managing care of this patient today __20__ minutes.
[2023-11-12] MEDS: Insulin Lispro 100 UNIT/ML 3 ML VIAL SUBCUT ×2 (16:20→20:14)
[2023-11-12] MEDS: Acetaminophen 325 MG TABLET 650 MG PO (16:20)
[2023-11-12 16:21] LABS: Glucose, Whole Blood 174 mg/dL (60-115)
[2023-11-12 20:00] VITALS: BP 133/63; PULSE 107; RESP 16; TEMP 36.1; O2SAT 95
[2023-11-12] MEDS: Paliperidone ER 3 MG TAB.ER.24 PO (20:05)
[2023-11-12 20:13] LABS: Glucose, Whole Blood 195 mg/dL (60-115)
[2023-11-13 06:51] LABS: Glucose, Whole Blood 126 mg/dL (60-115)
[2023-11-13 08:00] VITALS: BP 145/69; PULSE 91; RESP 20; TEMP 36.1; O2SAT 97
[2023-11-13] MEDS: HYDROcodone Bit/Acetam 5/325 TABLET 1 TAB PO ×2 (08:42→20:36)
[2023-11-13] MEDS: amLODIPine Besylate 5 MG TABLET PO (08:43)
[2023-11-13] MEDS: Valsartan 160 MG TABLET PO (08:44)
[2023-11-13] MEDS: Cholecalciferol (Vitamin D3) 25 MCG TABLET 50 MCG PO (08:44)
[2023-11-13] MEDS: diazePAM 5 MG TABLET PO ×2 (08:44→20:35)
[2023-11-13] MEDS: Insulin Glargine,Hum.rec.anlog 100 UNIT/ML 10 ML VIAL SUBCUT (08:45)
[2023-11-13 11:27] LABS: Glucose, Whole Blood 172 mg/dL (60-115)
[2023-11-13] MEDS: Insulin Lispro 100 UNIT/ML 3 ML VIAL SUBCUT ×3 (12:06→20:34)
--- NOTE | 2023-11-13 13:33 | P.PNPSI_ITS ---
Subjective Subjective Date of Service: 11/13/23 Reason For Visit: section 12 Subjective Notes: Section 7 and Section 8 Interim History: The nursing staff reported the patient remains paranoid, stating that someone is trying to kill her. On interview the patient denies new symptoms still paranoid. We lowered recently Invega to 12 mg due to over-sedation. Mental Status Exam Mental Status Exam Patient Appearance: Appropriate Patient Orientation: Person and Situation Level of Consciousness: Awake and Appropriate Patient Behavior: Guarded and Passive Mood Description: Withdrawn Affect Description: Constricted Patient Cognition Impaired: Yes Ability to Follow Directions: Good Speech Pattern: Clear Hallucinations: None Delusions: Paranoid Ideation Thought Process: Distracted and Slowed Thinking Thought Content: positive for [place] and positive for Poverty of Content Judgement: Fair Diagnostics Vital Signs (24Hr): Vital Signs - 24 hr 11/12/23 20:00 11/13/23 08:00 Temperature 96.9 F 96.9 F Pulse Rate 107 H 91 Respiratory Rate 16 20 Blood Pressure 133/63 145/69 H Pulse Oximetry 95 97 Oxygen Delivery Method Room Air Room Air BMI result Body Mass Index 36.8 Labs 11/07/23 07:54 11/07/23 07:54 Labs: Laboratory Results - last 48 hr 11/11/23 11/11/23 11/12/23 16:08 19:48 06:24 POC Glucose 140 H 191 H 121 H 11/12/23 11/12/23 11/12/23 11:32 16:15 20:09 POC Glucose 141 H 174 H 195 H 11/13/23 11/13/23 06:34 11:22 POC Glucose 126 H 172 H Medications Medications Current Medications Acetaminophen (Acetaminophen 325 Mg Tablet) 650 mg PO Q6H PRN PRN Reason: Headache/Pain (1-10) Last Admin: 11/12/23 16:20 Dose: 650 mg Hydrocodone Bitart/Acetaminophen (Hydrocodone Bit/Acetam 5/325 Tablet) 1 tab PO BID PRN PRN Reason: Pain, Severe (Pain Scale 7-10) Last Admin: 11/13/23 08:42 Dose: 1 tab Al Hydroxide/Mg Hydroxide (Magnesium Hydrox/Alum Hydrox 30 Ml Oral.Susp) 30 ml PO Q6H PRN PRN Reason: Heartburn/Nausea Albuterol Sulfate (Albuterol Sulfate 90 Mcg 8 Gm Inhaler) 2 puff INHALE RQ4H PRN PRN Reason: sob Amlodipine Besylate (Amlodipine Besylate 5 Mg Tablet) 5 mg PO DAILY [facility]; Protocol Last Admin: 11/13/23 08:43 Dose: 5 mg Diazepam (Diazepam 5 Mg Tablet) 5 mg PO TID PRN PRN Reason: Anxiety Last Admin: 11/13/23 08:44 Dose: 5 mg Hydroxyzine HCl (Hydroxyzine Hcl 25 Mg Tablet) 25 mg PO Q6H PRN PRN Reason: Anxiety Insulin Glargine (Insulin Glargine,Hum.Rec.Anlog 100 Unit/Ml 10 Ml Vial) 5 unit SUBCUT DAILY [facility] Last Admin: 11/13/23 08:45 Dose: 5 unit Insulin Human Lispro (Insulin Lispro 100 Unit/Ml 3 Ml Vial) 0 unit SUBCUT QIDACHS [facility]; Protocol Last Admin: 11/13/23 12:06 Dose: 2 unit Loperamide HCl (Loperamide Hcl 2 Mg Capsule) 2 mg PO Q4H PRN PRN Reason: Diarrhea Last Admin: 11/06/23 02:11 Dose: 2 mg Magnesium Hydroxide (Milk Of Magnesia 30 Ml Oral.Susp) 30 ml PO DAILY PRN PRN Reason: Constipation Nystatin (Nystatin Powder 15 Gm Bottle) 1 appl TOPICAL TID [facility]; Protocol Stop: 11/17/23 17:00 Last Admin: 11/13/23 08:54 Dose: Not Given Olanzapine (Olanzapine 10 Mg Vial) 10 mg IM BEDTIME PRN PRN Reason: refusal of PO Invega Paliperidone (Paliperidone Er 3 Mg Tab.Er.24) 3 mg PO BEDTIME [facility] Last Admin: 11/12/23 20:05 Dose: 3 mg Trazodone HCl (Trazodone Hcl 50 Mg Tablet) 50 mg PO BEDTIME MRX1 PRN PRN Reason: Insomnia Last Admin: 11/01/23 20:11 Dose: 50 mg Valsartan (Valsartan 160 Mg Tablet) 160 mg PO DAILY [facility]; Protocol Last Admin: 11/13/23 08:44 Dose: 160 mg Vitamin D (Cholecalciferol (Vitamin D3) 25 Mcg Tablet) 50 mcg PO DAILY [facility] Last Admin: 11/13/23 08:44 Dose: 50 mcg Allergies Allergies Allergy/AdvReac Type Severity Reaction Status Date / Time No Known Allergies Allergy Verified 07/03/24 19:47 Assessment & Plan Assessment & Plan (1) Major depressive disorder, single episode, severe w psychotic behavior: Status: Acute Code(s): F32.3 - Major depressive disorder, single episode, severe with psychotic features (2) Cognitive and behavioral changes: Status: Acute Code(s): R41.89 - Other symptoms and signs involving cognitive functions and awareness; R46.89 - Other symptoms and signs involving appearance and behavior Plan Pt is a 78-year-old female with a PMH significant for?HTN, asthma, insulin- dependent type 2 diabetes, and unspecified psychiatric diagnosis who is admitted to [facility] for paranoia and psychosis. Patient was placed on a section 12 by Emily after they were called to her apartment 4 times during the night. Patient reportedly believed that her landlord had been stealing money from her and hired a professional hit man who cut a hole in the wall of her closet in her bedroom to gain access to her apartment. Was noted to have nailed the door to her apartment shut. BPH also reported finding patient's insulin having been left out in the sun on the counter for 4 days. Medical consult for admission H&P. Plan 1. Lower Invega to 3 mg p.o. daily since the patient is over-sedated in November 04, her Invega was increased up to 6 mg and we went back to 3 mg due to over- sedation due to UTI. On November 08 we increase it back to 6 mg now that she had been treated for UTI. On November 11, the patient reported over-sedation with Invega 6 mg a day so we are lowering back to 3. 2. Continue with regular medications. 3. Continue 15 minute checks. 4. Blood work weekly 5. Started on antibiotics as per the medical team. The patient has a UTI diagnosed on November 05 and she has finished her course of antibiotics.. Reason for continued inpatient stay Substantial Risk for: inability to function, rapid decompensation and med/psych decompensation Time Spent With Patient Time: Total time managing care of this patient today __20__ minutes.
[2023-11-13 16:29] LABS: Glucose, Whole Blood 163 mg/dL (60-115)
[2023-11-13 20:00] VITALS: BP 142/64; PULSE 102; RESP 18; TEMP 36.4; O2SAT 96
[2023-11-13 20:17] LABS: Glucose, Whole Blood 182 mg/dL (60-115)
[2023-11-13] MEDS: Paliperidone ER 3 MG TAB.ER.24 PO (20:35)
[2023-11-13] MEDS: Nystatin Powder 15 GM BOTTLE 1 APPL TOPICAL (20:39)
[2023-11-14 06:45] LABS: Glucose, Whole Blood 162 mg/dL (60-115)
[2023-11-14 08:05] VITALS: BP 134/60; PULSE 87; RESP 16; TEMP 36.1; O2SAT 96
[2023-11-14] MEDS: Valsartan 160 MG TABLET PO (08:07)
[2023-11-14] MEDS: Cholecalciferol (Vitamin D3) 25 MCG TABLET 50 MCG PO (08:07)
[2023-11-14] MEDS: amLODIPine Besylate 5 MG TABLET PO (08:08)
[2023-11-14] MEDS: diazePAM 5 MG TABLET PO ×2 (08:08→20:21)
[2023-11-14] MEDS: HYDROcodone Bit/Acetam 5/325 TABLET 1 TAB PO ×2 (08:08→20:20)
[2023-11-14] MEDS: Insulin Glargine,Hum.rec.anlog 100 UNIT/ML 10 ML VIAL SUBCUT (08:15)
[2023-11-14 11:28] LABS: Glucose, Whole Blood 221 mg/dL (60-115)
--- NOTE | 2023-11-14 11:51 | HO.PSYCHPN ---
Subjective Subjective Date of Service: 11/14/23 Reason For Visit: section 12 Interim History: The nursing staff reported the patient had been compliant with medications as per court order no changes in her mental status and she slept 8 hours. The occupational therapist reported that she went to a group and she was appropriate. The social worker psychiatric reported that she lives in apartment needs still available. On interview the patient denies new symptoms chronically paranoid but more easily redirectable. Mental Status Exam Mental Status Exam Patient Appearance: Appropriate Patient Orientation: Person and Situation Level of Consciousness: Awake and Appropriate Patient Behavior: Guarded and Passive Mood Description: Withdrawn Affect Description: Constricted Patient Cognition Impaired: Yes Ability to Follow Directions: Good Speech Pattern: Clear Hallucinations: None Delusions: Paranoid Ideation Thought Process: Distracted and Slowed Thinking Thought Content: positive for [place] and positive for Poverty of Content Judgement: Fair Diagnostics Vital Signs (24Hr): Vital Signs - 24 hr 11/13/23 20:00 11/14/23 08:05 Temperature 97.6 F 96.9 F Pulse Rate 102 H 87 Respiratory Rate 18 16 Blood Pressure 142/64 H 134/60 Pulse Oximetry 96 96 Oxygen Delivery Method Room Air Room Air BMI result Body Mass Index 36.8 Labs 11/07/23 07:54 11/07/23 07:54 Labs: Laboratory Results - last 48 hr 11/12/23 11/12/23 11/13/23 16:15 20:09 06:34 POC Glucose 174 H 195 H 126 H 11/13/23 11/13/23 11/13/23 11:22 16:24 20:12 POC Glucose 172 H 163 H 182 H 11/14/23 11/14/23 06:39 11:24 POC Glucose 162 H 221 H Medications Medications Current Medications Acetaminophen (Acetaminophen 325 Mg Tablet) 650 mg PO Q6H PRN PRN Reason: Headache/Pain (1-10) Last Admin: 11/12/23 16:20 Dose: 650 mg Hydrocodone Bitart/Acetaminophen (Hydrocodone Bit/Acetam 5/325 Tablet) 1 tab PO BID PRN PRN Reason: Pain, Severe (Pain Scale 7-10) Last Admin: 11/14/23 08:08 Dose: 1 tab Al Hydroxide/Mg Hydroxide (Magnesium Hydrox/Alum Hydrox 30 Ml Oral.Susp) 30 ml PO Q6H PRN PRN Reason: Heartburn/Nausea Albuterol Sulfate (Albuterol Sulfate 90 Mcg 8 Gm Inhaler) 2 puff INHALE RQ4H PRN PRN Reason: sob Amlodipine Besylate (Amlodipine Besylate 5 Mg Tablet) 5 mg PO DAILY [facility]; Protocol Last Admin: 11/14/23 08:08 Dose: 5 mg Diazepam (Diazepam 5 Mg Tablet) 5 mg PO TID PRN PRN Reason: Anxiety Last Admin: 11/14/23 08:08 Dose: 5 mg Hydroxyzine HCl (Hydroxyzine Hcl 25 Mg Tablet) 25 mg PO Q6H PRN PRN Reason: Anxiety Insulin Glargine (Insulin Glargine,Hum.Rec.Anlog 100 Unit/Ml 10 Ml Vial) 5 unit SUBCUT DAILY [facility] Last Admin: 11/14/23 08:15 Dose: 5 unit Insulin Human Lispro (Insulin Lispro 100 Unit/Ml 3 Ml Vial) 0 unit SUBCUT QIDACHS [facility]; Protocol Last Admin: 11/14/23 07:31 Dose: Not Given Loperamide HCl (Loperamide Hcl 2 Mg Capsule) 2 mg PO Q4H PRN PRN Reason: Diarrhea Last Admin: 11/06/23 02:11 Dose: 2 mg Magnesium Hydroxide (Milk Of Magnesia 30 Ml Oral.Susp) 30 ml PO DAILY PRN PRN Reason: Constipation Nystatin (Nystatin Powder 15 Gm Bottle) 1 appl TOPICAL TID [facility]; Protocol Stop: 11/17/23 17:00 Last Admin: 11/13/23 20:39 Dose: 1 appl Olanzapine (Olanzapine 10 Mg Vial) 10 mg IM BEDTIME PRN PRN Reason: refusal of PO Invega Paliperidone (Paliperidone Er 3 Mg Tab.Er.24) 3 mg PO BEDTIME [facility] Last Admin: 11/13/23 20:35 Dose: 3 mg Trazodone HCl (Trazodone Hcl 50 Mg Tablet) 50 mg PO BEDTIME MRX1 PRN PRN Reason: Insomnia Last Admin: 11/01/23 20:11 Dose: 50 mg Valsartan (Valsartan 160 Mg Tablet) 160 mg PO DAILY [facility]; Protocol Last Admin: 11/14/23 08:07 Dose: 160 mg Vitamin D (Cholecalciferol (Vitamin D3) 25 Mcg Tablet) 50 mcg PO DAILY [facility] Last Admin: 11/14/23 08:07 Dose: 50 mcg Allergies Allergies Allergy/AdvReac Type Severity Reaction Status Date / Time No Known Allergies Allergy Verified 10/03/23 19:47 Assessment & Plan Assessment & Plan (1) Major depressive disorder, single episode, severe w psychotic behavior: Status: Acute Code(s): F32.3 - Major depressive disorder, single episode, severe with psychotic features (2) Cognitive and behavioral changes: Status: Acute Code(s): R41.89 - Other symptoms and signs involving cognitive functions and awareness; R46.89 - Other symptoms and signs involving appearance and behavior Plan Pt is a 78-year-old female with a PMH significant for?HTN, asthma, insulin-dependent type 2 diabetes, and unspecified psychiatric diagnosis who is admitted to [facility] for paranoia and psychosis. Patient was placed on a section 12 by VELMA Diaz after they were called to her apartment 4 times during the night. Patient reportedly believed that her landlord had been stealing money from her and hired a professional hit man who cut a hole in the wall of her closet in her bedroom to gain access to her apartment. Was noted to have nailed the door to her apartment shut. BPH also reported finding patient's insulin having been left out in the sun on the counter for 4 days. Medical consult for admission H&P. Plan 1. Lower Invega to 3 mg p.o. daily since the patient is over-sedated in November 04, her Invega was increased up to 6 mg and we went back to 3 mg due to over-sedation due to UTI. On November 08 we increase it back to 6 mg now that she had been treated for UTI. On November 11, the patient reported over-sedation with Invega 6 mg a day so we are lowering back to 3. 2. Continue with regular medications. 3. Continue 15 minute checks. 4. Blood work weekly 5. Started on antibiotics as per the medical team. The patient has a UTI diagnosed on November 05 and she has finished her course of antibiotics.. Reason for continued inpatient stay Substantial Risk for: inability to function, rapid decompensation and med/psych decompensation Time Spent With Patient Time: Total time managing care of this patient today ___20_ minutes.
[2023-11-14] MEDS: Insulin Lispro 100 UNIT/ML 3 ML VIAL SUBCUT ×2 (11:59→20:19)
[2023-11-14] MEDS: Nystatin Powder 15 GM BOTTLE 1 APPL TOPICAL ×3 (12:01→20:22)
[2023-11-14] MEDS: Acetaminophen 325 MG TABLET 650 MG PO (15:50)
[2023-11-14 16:17] LABS: Glucose, Whole Blood 145 mg/dL (60-115)
[2023-11-14 20:00] VITALS: BP 129/60; PULSE 100; TEMP 36.4; O2SAT 97
[2023-11-14 20:00] LABS: Glucose, Whole Blood 203 mg/dL (60-115)
[2023-11-14] MEDS: Paliperidone ER 3 MG TAB.ER.24 PO (20:21)
[2023-11-15 06:42] LABS: Glucose, Whole Blood 138 mg/dL (60-115)
[2023-11-15 07:00] VITALS: BMI 37.8
[2023-11-15 08:00] VITALS: PULSE 78; RESP 16; TEMP 35.7; O2SAT 93
[2023-11-15 08:38] VITALS: BP 138/63
[2023-11-15] MEDS: Valsartan 160 MG TABLET PO (08:38)
[2023-11-15 08:39] VITALS: BP 138/63
[2023-11-15] MEDS: Cholecalciferol (Vitamin D3) 25 MCG TABLET 50 MCG PO (08:39)
[2023-11-15] MEDS: amLODIPine Besylate 5 MG TABLET PO (08:39)
[2023-11-15] MEDS: Insulin Glargine,Hum.rec.anlog 100 UNIT/ML 10 ML VIAL SUBCUT (08:45)
[2023-11-15] MEDS: HYDROcodone Bit/Acetam 5/325 TABLET 1 TAB PO ×2 (08:48→20:52)
[2023-11-15] MEDS: diazePAM 5 MG TABLET PO ×2 (08:48→20:53)
[2023-11-15] MEDS: Nystatin Powder 15 GM BOTTLE 1 APPL TOPICAL ×2 (08:50→20:51)
--- NOTE | 2023-11-15 10:24 | HO.PSYCHPN ---
Subjective Subjective Date of Service: 11/15/23 Reason For Visit: section 12 Subjective Notes: Conditional Voluntary Interim History: The nursing staff reported that the patient slept 8 hours she had been compliant with treatment. The director of social media marketing reported that she does not want to go back to a residential or shelter facility she wants to go back to her home. On interview the patient denies new symptoms some chronic paranoia but less irritable. Mental Status Exam Mental Status Exam Patient Appearance: Appropriate Patient Orientation: Person and Situation Level of Consciousness: Awake Patient Behavior: Guarded and Passive Mood Description: Withdrawn Affect Description: Constricted Patient Cognition Impaired: Yes Ability to Follow Directions: Good Speech Pattern: Clear Hallucinations: None Delusions: Paranoid Ideation and Ideas of Reference Thought Process: Distracted and Slowed Thinking Thought Content: positive for [place] and positive for Poverty of Content Judgement: Poor Diagnostics Vital Signs (24Hr): Vital Signs - 24 hr 11/14/23 20:00 11/15/23 08:00 11/15/23 08:38 Temperature 97.5 F 96.2 F L Pulse Rate 100 78 Respiratory Rate 16 Blood Pressure 129/60 138/63 Pulse Oximetry 97 93 Oxygen Delivery Method Room Air Room Air 11/15/23 08:39 Temperature Pulse Rate Respiratory Rate Blood Pressure 138/63 Pulse Oximetry Oxygen Delivery Method BMI result Body Mass Index 36.8 Labs 11/07/23 07:54 11/07/23 07:54 Labs: Laboratory Results - last 48 hr 11/13/23 11/13/23 11/13/23 11:22 16:24 20:12 POC Glucose 172 H 163 H 182 H 11/14/23 11/14/23 11/14/23 06:39 11:24 16:11 POC Glucose 162 H 221 H 145 H 11/14/23 11/15/23 19:57 06:37 POC Glucose 203 H 138 H Medications Medications Current Medications Acetaminophen (Acetaminophen 325 Mg Tablet) 650 mg PO Q6H PRN PRN Reason: Headache/Pain (1-10) Last Admin: 11/14/23 15:50 Dose: 650 mg Hydrocodone Bitart/Acetaminophen (Hydrocodone Bit/Acetam 5/325 Tablet) 1 tab PO BID PRN PRN Reason: Pain, Severe (Pain Scale 7-10) Last Admin: 11/15/23 08:48 Dose: 1 tab Al Hydroxide/Mg Hydroxide (Magnesium Hydrox/Alum Hydrox 30 Ml Oral.Susp) 30 ml PO Q6H PRN PRN Reason: Heartburn/Nausea Albuterol Sulfate (Albuterol Sulfate 90 Mcg 8 Gm Inhaler) 2 puff INHALE RQ4H PRN PRN Reason: sob Amlodipine Besylate (Amlodipine Besylate 5 Mg Tablet) 5 mg PO DAILY [facility]; Protocol Last Admin: 11/15/23 08:39 Dose: 5 mg Diazepam (Diazepam 5 Mg Tablet) 5 mg PO TID PRN PRN Reason: Anxiety Last Admin: 11/15/23 08:48 Dose: 5 mg Hydroxyzine HCl (Hydroxyzine Hcl 25 Mg Tablet) 25 mg PO Q6H PRN PRN Reason: Anxiety Insulin Glargine (Insulin Glargine,Hum.Rec.Anlog 100 Unit/Ml 10 Ml Vial) 5 unit SUBCUT DAILY [facility] Last Admin: 11/15/23 08:45 Dose: 5 unit Insulin Human Lispro (Insulin Lispro 100 Unit/Ml 3 Ml Vial) 0 unit SUBCUT QIDACHS [facility]; Protocol Last Admin: 11/15/23 08:50 Dose: Not Given Loperamide HCl (Loperamide Hcl 2 Mg Capsule) 2 mg PO Q4H PRN PRN Reason: Diarrhea Last Admin: 11/06/23 02:11 Dose: 2 mg Magnesium Hydroxide (Milk Of Magnesia 30 Ml Oral.Susp) 30 ml PO DAILY PRN PRN Reason: Constipation Nystatin (Nystatin Powder 15 Gm Bottle) 1 appl TOPICAL TID [facility]; Protocol Stop: 11/17/23 17:00 Last Admin: 11/15/23 08:50 Dose: 1 appl Olanzapine (Olanzapine 10 Mg Vial) 10 mg IM BEDTIME PRN PRN Reason: refusal of PO Invega Paliperidone (Paliperidone Er 3 Mg Tab.Er.24) 3 mg PO BEDTIME [facility] Last Admin: 11/14/23 20:21 Dose: 3 mg Trazodone HCl (Trazodone Hcl 50 Mg Tablet) 50 mg PO BEDTIME MRX1 PRN PRN Reason: Insomnia Last Admin: 11/01/23 20:11 Dose: 50 mg Valsartan (Valsartan 160 Mg Tablet) 160 mg PO DAILY [facility]; Protocol Last Admin: 11/15/23 08:38 Dose: 160 mg Vitamin D (Cholecalciferol (Vitamin D3) 25 Mcg Tablet) 50 mcg PO DAILY [facility] Last Admin: 11/15/23 08:39 Dose: 50 mcg Allergies Allergies Allergy/AdvReac Type Severity Reaction Status Date / Time No Known Allergies Allergy Verified 10/03/23 19:47 Assessment & Plan Assessment & Plan (1) Major depressive disorder, single episode, severe w psychotic behavior: Status: Acute Code(s): F32.3 - Major depressive disorder, single episode, severe with psychotic features (2) Cognitive and behavioral changes: Status: Acute Code(s): R41.89 - Other symptoms and signs involving cognitive functions and awareness; R46.89 - Other symptoms and signs involving appearance and behavior Plan Pt is a 78-year-old female with a PMH significant for?HTN, asthma, insulin-dependent type 2 diabetes, and unspecified psychiatric diagnosis who is admitted to [facility] for paranoia and psychosis. Patient was placed on a section 12 by VELMA Diaz after they were called to her apartment 4 times during the night. Patient reportedly believed that her landlord had been stealing money from her and hired a professional hit man who cut a hole in the wall of her closet in her bedroom to gain access to her apartment. Was noted to have nailed the door to her apartment shut. BPH also reported finding patient's insulin having been left out in the sun on the counter for 4 days. Medical consult for admission H&P. Plan 1. Lower Invega to 3 mg p.o. daily since the patient is over-sedated in November 04, her Invega was increased up to 6 mg and we went back to 3 mg due to over-sedation due to UTI. On November 08 we increase it back to 6 mg now that she had been treated for UTI. On November 11, the patient reported over-sedation with Invega 6 mg a day so we are lowering back to 3. 2. Continue with regular medications. 3. Continue 15 minute checks. 4. Blood work weekly 5. Started on antibiotics as per the medical team. The patient has a UTI diagnosed on November 05 and she has finished her course of antibiotics.. Reason for continued inpatient stay Substantial Risk for: inability to function, rapid decompensation and med/psych decompensation Time Spent With Patient Time: Total time managing care of this patient today __20__ minutes.
[2023-11-15 11:24] LABS: Glucose, Whole Blood 171 mg/dL (60-115)
[2023-11-15] MEDS: Insulin Lispro 100 UNIT/ML 3 ML VIAL SUBCUT ×2 (11:29→20:48)
[2023-11-15 16:27] LABS: Glucose, Whole Blood 132 mg/dL (60-115)
[2023-11-15 20:00] VITALS: BP 137/69; PULSE 89; RESP 16; TEMP 36.1; O2SAT 96
[2023-11-15 20:47] LABS: Glucose, Whole Blood 208 mg/dL (60-115)
[2023-11-15] MEDS: Paliperidone ER 3 MG TAB.ER.24 PO (20:51)
[2023-11-16 06:38] LABS: Glucose, Whole Blood 124 mg/dL (60-115)
[2023-11-16 08:08] VITALS: BP 118/56; PULSE 93; RESP 16; TEMP 36.4; O2SAT 93
[2023-11-16] MEDS: Insulin Glargine,Hum.rec.anlog 100 UNIT/ML 10 ML VIAL SUBCUT (08:09)
[2023-11-16] MEDS: amLODIPine Besylate 5 MG TABLET PO (08:09)
[2023-11-16] MEDS: Valsartan 160 MG TABLET PO (08:09)
[2023-11-16] MEDS: Cholecalciferol (Vitamin D3) 25 MCG TABLET 50 MCG PO (08:10)
[2023-11-16] MEDS: Nystatin Powder 15 GM BOTTLE 1 APPL TOPICAL ×2 (08:15→20:53)
[2023-11-16] MEDS: HYDROcodone Bit/Acetam 5/325 TABLET 1 TAB PO ×2 (08:16→20:53)
--- NOTE | 2023-11-16 08:35 | HO.PSYCHPN ---
Subjective Subjective Date of Service: 11/16/23 Reason For Visit: section 12 Subjective Notes: Conditional Voluntary Interim History: Pt slept through the night. She appears less paranoid. She smiles when this typewriter assembler reminds her from our previous conversation about protecting her here in the hospital and fact that she still is alive and no one has hurt her. she does say that there are some people who are suspicious but less so. She is eating well. Denies SI/HI. Review of Systems Review of Systems Nothing acute Yes all other systems are reviewed and are negative Mental Status Exam Mental Status Exam Narrative: paranoid delusions Patient Appearance: Appropriate Patient Orientation: Person and Situation Level of Consciousness: Awake Patient Behavior: Guarded and Passive Mood Description: Withdrawn Affect Description: Constricted Patient Cognition Impaired: Yes Ability to Follow Directions: Good Speech Pattern: Clear Memory Description: Episodic Impaired Diagnostics Vital Signs (24Hr): Vital Signs - 24 hr 11/15/23 08:38 11/15/23 08:39 11/15/23 20:00 Temperature 97 F Pulse Rate 89 Respiratory Rate 16 Blood Pressure 138/63 138/63 137/69 Pulse Oximetry 96 Oxygen Delivery Method Room Air 11/16/23 08:08 Temperature 97.6 F Pulse Rate 93 Respiratory Rate 16 Blood Pressure 118/56 L Pulse Oximetry 93 Oxygen Delivery Method Room Air BMI result Body Mass Index 37.8 Labs 11/07/23 07:54 11/07/23 07:54 Labs: Laboratory Results - last 48 hr 11/14/23 11/14/23 11/14/23 11:24 16:11 19:57 POC Glucose 221 H 145 H 203 H 11/15/23 11/15/23 11/15/23 06:37 11:20 16:23 POC Glucose 138 H 171 H 132 H 11/15/23 11/16/23 20:42 06:33 POC Glucose 208 H 124 H Medications Medications Current Medications Acetaminophen (Acetaminophen 325 Mg Tablet) 650 mg PO Q6H PRN PRN Reason: Headache/Pain (1-10) Last Admin: 11/14/23 15:50 Dose: 650 mg Hydrocodone Bitart/Acetaminophen (Hydrocodone Bit/Acetam 5/325 Tablet) 1 tab PO BID PRN PRN Reason: Pain, Severe (Pain Scale 7-10) Last Admin: 11/16/23 08:16 Dose: 1 tab Al Hydroxide/Mg Hydroxide (Magnesium Hydrox/Alum Hydrox 30 Ml Oral.Susp) 30 ml PO Q6H PRN PRN Reason: Heartburn/Nausea Albuterol Sulfate (Albuterol Sulfate 90 Mcg 8 Gm Inhaler) 2 puff INHALE RQ4H PRN PRN Reason: sob Amlodipine Besylate (Amlodipine Besylate 5 Mg Tablet) 5 mg PO DAILY [facility]; Protocol Last Admin: 11/16/23 08:09 Dose: 5 mg Diazepam (Diazepam 5 Mg Tablet) 5 mg PO TID PRN PRN Reason: Anxiety Last Admin: 11/15/23 20:53 Dose: 5 mg Hydroxyzine HCl (Hydroxyzine Hcl 25 Mg Tablet) 25 mg PO Q6H PRN PRN Reason: Anxiety Insulin Glargine (Insulin Glargine,Hum.Rec.Anlog 100 Unit/Ml 10 Ml Vial) 5 unit SUBCUT DAILY [facility] Last Admin: 11/16/23 08:09 Dose: 5 unit Insulin Human Lispro (Insulin Lispro 100 Unit/Ml 3 Ml Vial) 0 unit SUBCUT QIDACHS [facility]; Protocol Last Admin: 11/15/23 20:48 Dose: 4 unit Loperamide HCl (Loperamide Hcl 2 Mg Capsule) 2 mg PO Q4H PRN PRN Reason: Diarrhea Last Admin: 11/06/23 02:11 Dose: 2 mg Magnesium Hydroxide (Milk Of Magnesia 30 Ml Oral.Susp) 30 ml PO DAILY PRN PRN Reason: Constipation Nystatin (Nystatin Powder 15 Gm Bottle) 1 appl TOPICAL TID [facility]; Protocol Stop: 11/17/23 17:00 Last Admin: 11/16/23 08:15 Dose: 1 appl Olanzapine (Olanzapine 10 Mg Vial) 10 mg IM BEDTIME PRN PRN Reason: refusal of PO Invega Paliperidone (Paliperidone Er 3 Mg Tab.Er.24) 3 mg PO BEDTIME [facility] Last Admin: 11/15/23 20:51 Dose: 3 mg Trazodone HCl (Trazodone Hcl 50 Mg Tablet) 50 mg PO BEDTIME MRX1 PRN PRN Reason: Insomnia Last Admin: 11/01/23 20:11 Dose: 50 mg Valsartan (Valsartan 160 Mg Tablet) 160 mg PO DAILY [facility]; Protocol Last Admin: 11/16/23 08:09 Dose: 160 mg Vitamin D (Cholecalciferol (Vitamin D3) 25 Mcg Tablet) 50 mcg PO DAILY [facility] Last Admin: 11/16/23 08:10 Dose: 50 mcg Allergies Allergies Allergy/AdvReac Type Severity Reaction Status Date / Time No Known Allergies Allergy Verified 10/03/23 19:47 Assessment & Plan Assessment & Plan (1) Major depressive disorder, single episode, severe w psychotic behavior: Status: Acute Code(s): F32.3 - Major depressive disorder, single episode, severe with psychotic features (2) Cognitive and behavioral changes: Status: Acute Code(s): R41.89 - Other symptoms and signs involving cognitive functions and awareness; R46.89 - Other symptoms and signs involving appearance and behavior Plan Pt is a 78-year-old female with a PMH significant for?HTN, asthma, insulin-dependent type 2 diabetes, and unspecified psychiatric diagnosis who is admitted to [facility] for paranoia and psychosis. Patient was placed on a section 12 by VELMA Diaz after they were called to her apartment 4 times during the night. Patient reportedly believed that her landlord had been stealing money from her and hired a professional hit man who cut a hole in the wall of her closet in her bedroom to gain access to her apartment. Was noted to have nailed the door to her apartment shut. BPH also reported finding patient's insulin having been left out in the sun on the counter for 4 days. Medical consult for admission H&P. Plan 11/15 continue tx. Reason for continued inpatient stay Substantial Risk for: inability to function Time Spent With Patient Time: Total time managing care of this patient today ____ minutes.
[2023-11-16 11:36] LABS: Glucose, Whole Blood 187 mg/dL (60-115)
[2023-11-16] MEDS: Insulin Lispro 100 UNIT/ML 3 ML VIAL SUBCUT ×2 (12:18→21:16)
[2023-11-16] MEDS: Loperamide HCl 2 MG CAPSULE PO (12:33)
--- NOTE | 2023-11-16 13:54 | PC.NURSE ---
F/U appointment made with Dr Allen on 11/23/23 at 1:45pm.
[2023-11-16 16:27] LABS: Glucose, Whole Blood 125 mg/dL (60-115)
[2023-11-16 20:00] VITALS: BP 141/65; PULSE 92; RESP 16; TEMP 36.8; O2SAT 96
[2023-11-16 20:51] LABS: Glucose, Whole Blood 187 mg/dL (60-115)
[2023-11-16] MEDS: diazePAM 5 MG TABLET PO (20:53)
[2023-11-16] MEDS: Paliperidone ER 3 MG TAB.ER.24 PO (20:53)
[2023-11-17 07:06] LABS: Glucose, Whole Blood 123 mg/dL (60-115)
[2023-11-17 08:33] VITALS: BP 139/61; PULSE 101; RESP 16; TEMP 37; O2SAT 95
[2023-11-17] MEDS: Insulin Glargine,Hum.rec.anlog 100 UNIT/ML 10 ML VIAL SUBCUT (08:47)
[2023-11-17] MEDS: Cholecalciferol (Vitamin D3) 25 MCG TABLET 50 MCG PO (08:47)
[2023-11-17] MEDS: Valsartan 160 MG TABLET PO (08:47)
[2023-11-17] MEDS: amLODIPine Besylate 5 MG TABLET PO (08:47)
[2023-11-17] MEDS: HYDROcodone Bit/Acetam 5/325 TABLET 1 TAB PO ×2 (09:13→20:27)
[2023-11-17] MEDS: diazePAM 5 MG TABLET PO ×2 (09:13→20:26)
[2023-11-17 12:11] LABS: Glucose, Whole Blood 219 mg/dL (60-115)
[2023-11-17] MEDS: Insulin Lispro 100 UNIT/ML 3 ML VIAL SUBCUT ×2 (12:14→20:24)
--- NOTE | 2023-11-17 12:42 | HO.PSYCHPN ---
Subjective Subjective Date of Service: 11/17/23 Reason For Visit: section 12 Subjective Notes: Conditional Voluntary Interim History: Patient was seen and discussed in rounds today. Records and plans were reviewed. She has been calm, pleasant and cooperative. Some anxiety and paranoia persisting. She is looking forward to her discharge early next week. No complaints. So no side effects. No changes were made today Review of Systems Review of Systems Nothing acute Yes all other systems are reviewed and are negative Mental Status Exam Mental Status Exam Narrative: paranoid delusions Patient Appearance: Appropriate Patient Orientation: Person and Situation Level of Consciousness: Awake Patient Behavior: Guarded and Passive Mood Description: Withdrawn Affect Description: Constricted Patient Cognition Impaired: Yes Ability to Follow Directions: Good Speech Pattern: Clear Memory Description: Episodic Impaired Diagnostics Vital Signs (24Hr): Vital Signs - 24 hr 11/16/23 20:00 11/17/23 08:33 Temperature 98.2 F 98.6 F Pulse Rate 92 101 H Respiratory Rate 16 16 Blood Pressure 141/65 H 139/61 Pulse Oximetry 96 95 Oxygen Delivery Method Room Air Room Air BMI result Body Mass Index 37.8 Labs 11/07/23 07:54 11/07/23 07:54 Labs: Laboratory Results - last 48 hr 11/15/23 11/15/23 11/16/23 16:23 20:42 06:33 POC Glucose 132 H 208 H 124 H 11/16/23 11/16/23 11/16/23 11:32 16:23 20:47 POC Glucose 187 H 125 H 187 H 11/17/23 11/17/23 06:39 12:07 POC Glucose 123 H 219 H Medications Medications Current Medications Acetaminophen (Acetaminophen 325 Mg Tablet) 650 mg PO Q6H PRN PRN Reason: Headache/Pain (1-10) Last Admin: 11/14/23 15:50 Dose: 650 mg Hydrocodone Bitart/Acetaminophen (Hydrocodone Bit/Acetam 5/325 Tablet) 1 tab PO BID PRN PRN Reason: Pain, Severe (Pain Scale 7-10) Last Admin: 11/17/23 09:13 Dose: 1 tab Al Hydroxide/Mg Hydroxide (Magnesium Hydrox/Alum Hydrox 30 Ml Oral.Susp) 30 ml PO Q6H PRN PRN Reason: Heartburn/Nausea Albuterol Sulfate (Albuterol Sulfate 90 Mcg 8 Gm Inhaler) 2 puff INHALE RQ4H PRN PRN Reason: sob Amlodipine Besylate (Amlodipine Besylate 5 Mg Tablet) 5 mg PO DAILY [facility]; Protocol Last Admin: 11/17/23 08:47 Dose: 5 mg Diazepam (Diazepam 5 Mg Tablet) 5 mg PO TID PRN PRN Reason: Anxiety Last Admin: 11/17/23 09:13 Dose: 5 mg Hydroxyzine HCl (Hydroxyzine Hcl 25 Mg Tablet) 25 mg PO Q6H PRN PRN Reason: Anxiety Insulin Glargine (Insulin Glargine,Hum.Rec.Anlog 100 Unit/Ml 10 Ml Vial) 5 unit SUBCUT DAILY [facility] Last Admin: 11/17/23 08:47 Dose: 5 unit Insulin Human Lispro (Insulin Lispro 100 Unit/Ml 3 Ml Vial) 0 unit SUBCUT QIDACHS [facility]; Protocol Last Admin: 11/17/23 12:14 Dose: 4 unit Loperamide HCl (Loperamide Hcl 2 Mg Capsule) 2 mg PO Q4H PRN PRN Reason: Diarrhea Last Admin: 11/16/23 12:33 Dose: 2 mg Magnesium Hydroxide (Milk Of Magnesia 30 Ml Oral.Susp) 30 ml PO DAILY PRN PRN Reason: Constipation Nystatin (Nystatin Powder 15 Gm Bottle) 1 appl TOPICAL TID [facility]; Protocol Stop: 11/17/23 17:00 Last Admin: 11/17/23 10:18 Dose: Not Given Olanzapine (Olanzapine 10 Mg Vial) 10 mg IM BEDTIME PRN PRN Reason: refusal of PO Invega Paliperidone (Paliperidone Er 3 Mg Tab.Er.24) 3 mg PO BEDTIME [facility] Last Admin: 11/16/23 20:53 Dose: 3 mg Trazodone HCl (Trazodone Hcl 50 Mg Tablet) 50 mg PO BEDTIME MRX1 PRN PRN Reason: Insomnia Last Admin: 11/01/23 20:11 Dose: 50 mg Valsartan (Valsartan 160 Mg Tablet) 160 mg PO DAILY [facility]; Protocol Last Admin: 11/17/23 08:47 Dose: 160 mg Vitamin D (Cholecalciferol (Vitamin D3) 25 Mcg Tablet) 50 mcg PO DAILY [facility] Last Admin: 11/17/23 08:47 Dose: 50 mcg Allergies Allergies Allergy/AdvReac Type Severity Reaction Status Date / Time No Known Allergies Allergy Verified 07/03/24 19:47 Assessment & Plan Assessment & Plan (1) Major depressive disorder, single episode, severe w psychotic behavior: Status: Acute Code(s): F32.3 - Major depressive disorder, single episode, severe with psychotic features (2) Cognitive and behavioral changes: Status: Acute Code(s): R41.89 - Other symptoms and signs involving cognitive functions and awareness; R46.89 - Other symptoms and signs involving appearance and behavior Plan Pt is a 78-year-old female with a PMH significant for?HTN, asthma, insulin-dependent type 2 diabetes, and unspecified psychiatric diagnosis who is admitted to [facility] for paranoia and psychosis. Patient was placed on a section 12 by Emily after they were called to her apartment 4 times during the night. Patient reportedly believed that her landlord had been stealing money from her and hired a professional hit man who cut a hole in the wall of her closet in her bedroom to gain access to her apartment. Was noted to have nailed the door to her apartment shut. BPH also reported finding patient's insulin having been left out in the sun on the counter for 4 days. Medical consult for admission H&P. Plan 11/15 continue tx. 11/16: Continue current regimen and planslan Reason for continued inpatient stay Substantial Risk for: med/psych decompensation Time Spent With Patient Time: Total time managing care of this patient today ____ minutes.
[2023-11-17 16:36] LABS: Glucose, Whole Blood 144 mg/dL (60-115)
[2023-11-17] MEDS: Lidocaine 4 % Patch ADH..PATCH 2 PATCH TRANSDERMA (17:48)
[2023-11-17 20:00] VITALS: BP 133/65; PULSE 96; RESP 16; TEMP 36; O2SAT 97
[2023-11-17] MEDS: Paliperidone ER 3 MG TAB.ER.24 PO (20:26)
[2023-11-17 20:45] LABS: Glucose, Whole Blood 176 mg/dL (60-115)
[2023-11-17 20:45] LABS: Glucose, Whole Blood 352 mg/dL (60-115)
[2023-11-18 06:46] LABS: Glucose, Whole Blood 113 mg/dL (60-115)
[2023-11-18 08:16] VITALS: BP 148/68; PULSE 86; RESP 16; TEMP 36.4; O2SAT 97
[2023-11-18] MEDS: diazePAM 5 MG TABLET PO ×2 (08:43→20:55)
[2023-11-18] MEDS: amLODIPine Besylate 5 MG TABLET PO (08:43)
[2023-11-18] MEDS: Lidocaine 4 % Patch ADH..PATCH 2 PATCH TRANSDERMA (08:43)
[2023-11-18] MEDS: HYDROcodone Bit/Acetam 5/325 TABLET 1 TAB PO ×2 (08:44→20:54)
[2023-11-18] MEDS: Insulin Glargine,Hum.rec.anlog 100 UNIT/ML 10 ML VIAL SUBCUT (08:44)
[2023-11-18] MEDS: Valsartan 160 MG TABLET PO (08:44)
[2023-11-18] MEDS: Cholecalciferol (Vitamin D3) 25 MCG TABLET 50 MCG PO (08:44)
--- NOTE | 2023-11-18 10:18 | HO.PSYCHPN ---
Subjective Subjective Date of Service: 11/18/23 Reason For Visit: section 12 Subjective Notes: Conditional Voluntary Interim History: Patient was seen and discussed in rounds today. Records and plans were reviewed. She continues to be doing quite well. She is compliant with medications. Point of cares have been within normal range. No complaints or side effects. Eating and sleeping well. No changes were made today Review of Systems Review of Systems Slight upper GI upset Yes all other systems are reviewed and are negative Mental Status Exam Mental Status Exam Narrative: paranoid delusions Patient Appearance: Appropriate Patient Orientation: Person and Situation Level of Consciousness: Awake Patient Behavior: Guarded and Passive Mood Description: Withdrawn Affect Description: Constricted Patient Cognition Impaired: Yes Ability to Follow Directions: Good Speech Pattern: Clear Memory Description: Episodic Impaired Diagnostics Vital Signs (24Hr): Vital Signs - 24 hr 11/17/23 20:00 11/18/23 08:16 Temperature 96.8 F 97.6 F Pulse Rate 96 86 Respiratory Rate 16 16 Blood Pressure 133/65 148/68 H Pulse Oximetry 97 97 Oxygen Delivery Method Room Air Room Air BMI result Body Mass Index 37.8 Labs 11/07/23 07:54 11/07/23 07:54 Labs: Laboratory Results - last 48 hr 11/16/23 11/16/23 11/16/23 11:32 16:23 20:47 POC Glucose 187 H 125 H 187 H 11/17/23 11/17/23 11/17/23 06:39 12:07 16:33 POC Glucose 123 H 219 H 144 H 11/17/23 11/17/23 11/18/23 20:05 20:07 06:41 POC Glucose 352 H* 176 H 113 Medications Medications Current Medications Acetaminophen (Acetaminophen 325 Mg Tablet) 650 mg PO Q6H PRN PRN Reason: Headache/Pain (1-10) Last Admin: 11/14/23 15:50 Dose: 650 mg Hydrocodone Bitart/Acetaminophen (Hydrocodone Bit/Acetam 5/325 Tablet) 1 tab PO BID PRN PRN Reason: Pain, Severe (Pain Scale 7-10) Last Admin: 11/18/23 08:44 Dose: 1 tab Al Hydroxide/Mg Hydroxide (Magnesium Hydrox/Alum Hydrox 30 Ml Oral.Susp) 30 ml PO Q6H PRN PRN Reason: Heartburn/Nausea Albuterol Sulfate (Albuterol Sulfate 90 Mcg 8 Gm Inhaler) 2 puff INHALE RQ4H PRN PRN Reason: sob Amlodipine Besylate (Amlodipine Besylate 5 Mg Tablet) 5 mg PO DAILY [facility]; Protocol Last Admin: 11/18/23 08:43 Dose: 5 mg Diazepam (Diazepam 5 Mg Tablet) 5 mg PO TID PRN PRN Reason: Anxiety Last Admin: 11/18/23 08:43 Dose: 5 mg Hydroxyzine HCl (Hydroxyzine Hcl 25 Mg Tablet) 25 mg PO Q6H PRN PRN Reason: Anxiety Insulin Glargine (Insulin Glargine,Hum.Rec.Anlog 100 Unit/Ml 10 Ml Vial) 5 unit SUBCUT DAILY [facility] Last Admin: 11/18/23 08:44 Dose: 5 unit Insulin Human Lispro (Insulin Lispro 100 Unit/Ml 3 Ml Vial) 0 unit SUBCUT QIDACHS [facility]; Protocol Last Admin: 11/18/23 08:45 Dose: Not Given Lidocaine (Lidocaine 4 % Patch Adh..Patch) 2 patch TRANSDERMA DAILY [facility]; Protocol Last Admin: 11/18/23 08:43 Dose: 2 patch Loperamide HCl (Loperamide Hcl 2 Mg Capsule) 2 mg PO Q4H PRN PRN Reason: Diarrhea Last Admin: 11/16/23 12:33 Dose: 2 mg Magnesium Hydroxide (Milk Of Magnesia 30 Ml Oral.Susp) 30 ml PO DAILY PRN PRN Reason: Constipation Olanzapine (Olanzapine 10 Mg Vial) 10 mg IM BEDTIME PRN PRN Reason: refusal of PO Invega Paliperidone (Paliperidone Er 3 Mg Tab.Er.24) 3 mg PO BEDTIME [facility] Last Admin: 11/17/23 20:26 Dose: 3 mg Trazodone HCl (Trazodone Hcl 50 Mg Tablet) 50 mg PO BEDTIME MRX1 PRN PRN Reason: Insomnia Last Admin: 11/01/23 20:11 Dose: 50 mg Valsartan (Valsartan 160 Mg Tablet) 160 mg PO DAILY [facility]; Protocol Last Admin: 11/18/23 08:44 Dose: 160 mg Vitamin D (Cholecalciferol (Vitamin D3) 25 Mcg Tablet) 50 mcg PO DAILY [facility] Last Admin: 11/18/23 08:44 Dose: 50 mcg Allergies Allergies Allergy/AdvReac Type Severity Reaction Status Date / Time No Known Allergies Allergy Verified 10/03/23 19:47 Assessment & Plan Assessment & Plan (1) Major depressive disorder, single episode, severe w psychotic behavior: Status: Acute Code(s): F32.3 - Major depressive disorder, single episode, severe with psychotic features (2) Cognitive and behavioral changes: Status: Acute Code(s): R41.89 - Other symptoms and signs involving cognitive functions and awareness; R46.89 - Other symptoms and signs involving appearance and behavior Plan Pt is a 78-year-old female with a PMH significant for?HTN, asthma, insulin-dependent type 2 diabetes, and unspecified psychiatric diagnosis who is admitted to [facility] for paranoia and psychosis. Patient was placed on a section 12 by Emily after they were called to her apartment 4 times during the night. Patient reportedly believed that her landlord had been stealing money from her and hired a professional hit man who cut a hole in the wall of her closet in her bedroom to gain access to her apartment. Was noted to have nailed the door to her apartment shut. BPH also reported finding patient's insulin having been left out in the sun on the counter for 4 days. Medical consult for admission H&P. Plan 11/15 continue tx. 11/16: Continue current regimen and plans 11/17: Continue current regimen and plans Reason for continued inpatient stay Substantial Risk for: med/psych decompensation Time Spent With Patient Time: Total time managing care of this patient today ____ minutes.
[2023-11-18 11:31] LABS: Glucose, Whole Blood 126 mg/dL (60-115)
[2023-11-18 16:44] LABS: Glucose, Whole Blood 128 mg/dL (60-115)
[2023-11-18 20:00] VITALS: BP 128/58; PULSE 95; RESP 20; TEMP 36.6; O2SAT 98
[2023-11-18 20:14] LABS: Glucose, Whole Blood 239 mg/dL (60-115)
[2023-11-18] MEDS: Insulin Lispro 100 UNIT/ML 3 ML VIAL SUBCUT (20:53)
[2023-11-18] MEDS: Paliperidone ER 3 MG TAB.ER.24 PO (20:54)
[2023-11-19 07:54] LABS: Glucose, Whole Blood 131 mg/dL (60-115)
[2023-11-19 08:00] VITALS: BP 133/60; PULSE 88; RESP 18; TEMP 36; O2SAT 98
[2023-11-19 09:00] VITALS: BP 133/60
[2023-11-19] MEDS: amLODIPine Besylate 5 MG TABLET PO (09:00)
[2023-11-19] MEDS: Cholecalciferol (Vitamin D3) 25 MCG TABLET 50 MCG PO (09:00)
[2023-11-19] MEDS: Insulin Glargine,Hum.rec.anlog 100 UNIT/ML 10 ML VIAL SUBCUT (09:00)
[2023-11-19 09:02] VITALS: BP 133/60
[2023-11-19] MEDS: Valsartan 160 MG TABLET PO (09:02)
[2023-11-19] MEDS: Lidocaine 4 % Patch ADH..PATCH 2 PATCH TRANSDERMA (09:03)
--- NOTE | 2023-11-19 09:41 | P.DS_ITS ---
DS: Providers Provider Date of Service: 11/19/23 Date of admission: 10/03/23 18:52 Date of discharge: 11/19/23 Primary care physician: Anjelica Allen DO Consults: 10/03/23 23:56 Consult to Hospitalist Routine Comment: Consulting Provider: Hospitalist Reason For Exam: Transfer pt DS: Diagnosis Discharge Diagnosis (1) Major depressive disorder, single episode, severe w psychotic behavior: Status: Acute (2) Cognitive and behavioral changes: Status: Acute DS: Medications Discharge Medications Home Medications: Home Medications ?Medication ?Instructions ?Recorded ?Confirmed albuterol sulfate 2.5 mg continuous nebulization 10/03/23 10/03/23 Q4-5H PRN sob amlodipine 5 mg tablet 5 mg PO DAILY 10/03/23 10/03/23 cholecalciferol (vitamin D3) 5,000 tab PO DAILY 10/03/23 10/03/23 clotrimazole 1 % topical cream 1 appl topical BID 10/03/23 10/03/23 diazepam 5 mg tablet 5 mg PO TID PRN Anxiety 10/03/23 10/03/23 hydrocodone 10 mg-acetaminophen 1 tab PO BID PRN Pain 10/03/23 10/03/23 325 mg tablet valsartan 160 mg tablet 160 mg PO DAILY 10/03/23 10/03/23 Previous Rx's ?Medication ?Instructions ?Recorded albuterol sulfate 90 mcg/actuation 2 puff inhalation RQ4H PRN sob 30 11/19/23 aerosol inhaler (Ventolin HFA) days #1 inhaler amlodipine 5 mg tablet 5 mg PO DAILY 30 days #30 tabs 11/19/23 cholecalciferol (vitamin D3) 25 50 mcg (2 x 25 mcg (1,000 unit)) 11/19/23 mcg (1,000 unit) tablet PO DAILY 30 days #60 tabs diazepam 2 mg tablet 5 mg (2.5 x 2 mg) PO TID PRN 11/19/23 Anxiety 30 days #60 tabs hydrocodone 5 mg-acetaminophen 325 1 tab PO BID PRN Pain, Severe 11/19/23 mg tablet (Pain Scale 7-10) 30 days #60 tabs insulin glargine 100 unit/mL 5 unit (0.05 mL) subcut DAILY 30 11/19/23 subcutaneous solution (Lantus days #1.5 mL U-100 Insulin) lidocaine 4 % topical patch 2 patch transdermal DAILY 30 days 11/19/23 (Lidocaine Pain Relief) #60 ea loperamide 2 mg capsule 2 mg PO Q4H PRN Diarrhea 30 days 11/19/23 #60 caps paliperidone 3 mg tablet,extended 3 mg PO BEDTIME 30 days #30 tabs 11/19/23 release 24 hr (Invega) valsartan 160 mg tablet 160 mg PO DAILY 30 days #30 tabs 11/19/23 Mental Status Exam Mental Status Exam Patient Appearance: Well Grooomed Patient Orientation: Person and Situation Level of Consciousness: Awake and Appropriate Patient Behavior: Guarded and Passive Mood Description: Withdrawn Affect Description: Constricted Patient Cognition Impaired: Yes Ability to Follow Directions: Good Speech Pattern: Clear Hallucinations: None Delusions: Paranoid Ideation Thought Process: Distracted and Slowed Thinking Thought Content: positive for [place], positive for Perseveration and positive for Poverty of Content Judgement: Fair Data Data Completed and Pending Completed studies during hospitalization [Text1]: 11/12/23 11/12/23 11/12/23 11:32 16:15 20:09 POC Glucose 141 H 174 H 195 H 11/13/23 11/13/23 11/13/23 06:34 11:22 16:24 POC Glucose 126 H 172 H 163 H 11/13/23 11/14/23 11/14/23 20:12 06:39 11:24 POC Glucose 182 H 162 H 221 H 11/14/23 11/14/23 11/15/23 16:11 19:57 06:37 POC Glucose 145 H 203 H 138 H 11/15/23 11/15/23 11/15/23 11:20 16:23 20:42 POC Glucose 171 H 132 H 208 H 11/16/23 11/16/23 11/16/23 06:33 11:32 16:23 POC Glucose 124 H 187 H 125 H 11/16/23 11/17/23 11/17/23 20:47 06:39 12:07 POC Glucose 187 H 123 H 219 H 11/17/23 11/17/23 11/17/23 16:33 20:05 20:07 POC Glucose 144 H 352 H* 176 H 11/18/23 11/18/23 11/18/23 06:41 11:24 16:39 POC Glucose 113 126 H 128 H 11/18/23 11/19/23 20:07 07:50 POC Glucose 239 H 131 H 11/06/23 Unknown Urine clean catch - Clean Catch Midstream Urine Culture - Final 10/03/23 22:35 Urine clean catch Urine Culture - Final Lactobacillus species DS: Summary Hospital Course Hospital Course: The patient is a 78-year-old female with no formal prior psychiatric history who was referred to the emergency room after she disclosed paranoid delusions stating that people were trying to hurt her. The patient was assessed by crisis and transferring to this facility for psychiatric stabilization. Please see the HPI of the admission note for further details. On admission the patient reported that she was sure that people were paid to kill her, her paranoid delusions persisted and continued here stating that were staff member they would try to kill her. She did not have any insight into her condition and she asked to be discharged. Since the patient was unsafe in the community and there were no supports, we filed for Section 7 and 8. Eventually we went to court and she was court remanded to take medications. Initially we tried with Zyprexa but she was over-sedated so we changed to Invega with better tolerability. While she was admitted we try to increase up to 6 mg but she was over-sedated. The patient was been taking Invega 3 mg p.o. at bedtime with no evidence of EPS. Her paranoid delusions were still present but her behaviors were much better. The clinical social worker had several interviews with the patient and the patient's family and ancillary services were placed. Since there were no safety concerns discharge planning was discussed. Time spent discussing smoking cessation with patient: 3 to 10 minutes Status at Discharge Cognitive/behavioral status at discharge: Impaired at baseline but able to do her own ADL less Functional status at discharge: independent ambulation Overall status at discharge: patient is back to baseline Time Spent with Patient Time attestation: Total time managing care of this patient today __30__ minutes. Discharge Plan Discharge Anticipated Discharge Date/Time: 11/19/23 10:00 Patient Disposition: Home, Self-Care Discharge Diagnosis: Dementia Psychosis NOS Referrals: [facility] [Other] - 12/07/23 1:30 pm (Appointment is set for psychiatrist Thiago Le. Dec.06 at 1:30, in person. They will reach out at a later date for therapy) Anjelica Allen DO [Primary Care Provider] - 11/23/23 1:45 pm (Your follow up appointment has been scheduled for Sunday11/23/23 at 1:45pm.) Discharge Medications: New insulin glargine [Lantus U-100 Insulin] 100 unit/mL Solution 5 unit subcut DAILY 30 Days Qty: 1.5 0RF lidocaine [Lidocaine Pain Relief] 4 % Adhesive Patch,Medicated 2 patch transdermal DAILY 30 Days Qty: 60 0RF Protocol: Apply to: Apply to: back and shoulder loperamide 2 mg Capsule 2 mg PO Q4H PRN (Reason: Diarrhea) 30 Days Qty: 60 0RF hydrocodone-acetaminophen 5-325 mg Tablet 1 tab PO BID PRN (Reason: Pain, Severe (Pain Scale 7-10)) 30 Days Qty: 60 0RF Rx Instructions: Partial Fill upon patient request. amlodipine 5 mg Tablet 5 mg PO DAILY 30 Days Qty: 30 0RF Protocol: Hold for SBP< HOLD for SBP < : 90 diazepam 2 mg Tablet 5 mg PO TID PRN (Reason: Anxiety) 30 Days Qty: 60 0RF albuterol sulfate [Ventolin HFA] 90 mcg/actuation Hfa Aerosol Inhaler 2 puff inhalation RQ4H PRN (Reason: sob) 30 Days Qty: 1 0RF valsartan 160 mg Tablet 160 mg PO DAILY 30 Days Qty: 30 0RF Protocol: Hold for SBP< HOLD for SBP < : 90 cholecalciferol (vitamin D3) 25 mcg (1,000 unit) Tablet 50 mcg PO DAILY 30 Days Qty: 60 0RF paliperidone [Invega] 3 mg Tablet Extended Release 24 Hr 3 mg PO BEDTIME 30 Days Qty: 30 0RF Discontinued amlodipine 5 mg tablet 5 mg PO DAILY clotrimazole 1 % cream 1 appl topical BID diazepam 5 mg tablet 5 mg PO TID PRN (Reason: Anxiety) valsartan 160 mg tablet 160 mg PO DAILY hydrocodone-acetaminophen 10-325 mg tablet 1 tab PO BID PRN (Reason: Pain) albuterol sulfate solution 2.5 mg continuous nebulization Q4-5H PRN (Reason: sob) cholecalciferol (vitamin D3) 5,000 UNITS tablet 5,000 tab PO DAILY Discharge Orders: Discharge Order (Routine); Ordered 11/19/23 Ordered By: Marc Escobar Diet: Advance to usual diet Activity on Discharge: As tolerated Stand Alone Forms: Patient Portal Discharge page Print Language: Citizen Of [place] Care Plan Goals: Care plan goals achieved in this admission Health Concerns: Continue with primary care and outpatient services. Plan of Treatment: Continue medication management by outpatient psychiatric providers. Assessment: Elderly female with a past history of cognitive impairment was brought to the facility for exacerbation of psychotic symptoms. She was initially reluctant to take treatment with no insight into her paranoia. We went to court and 7 and 8 was granted. The patient had been compliant with Invega 3 mg p.o. q.h.s. with for tolerability. Even though, the patient does not have any insight into her condition and psychoeducation was provided to her caregivers and family. At the moment of the discharge no safety concerns.
== END 2023-11-19 11:16 | disposition home or self-care (01) | DRG 885 ==
PROVIDERS: Clinical Nurse Specialist Psychiatric/Mental Health; Psychiatry & Neurology Psychiatry; Student in an Organized Health Care Education/Training Program; Admitting Provider Clinical Nurse Specialist Psychiatric/Mental Health, Adult; PCP Internal Medicine; Visit Provider Clinical Nurse Specialist Psychiatric/Mental Health, Adult
DX: F29 Unspecified psychosis not due to a substance or known physiological condition (principal); F03.90 Unspecified dementia, unspecified severity, without behavioral disturbance, psychotic disturbance, mood disturbance, and anxiety; I10 Essential (primary) hypertension; J45.909 Unspecified asthma, uncomplicated; E11.40 Type 2 diabetes mellitus with diabetic neuropathy, unspecified; Z78.1 Physical restraint status; Z87.891 Personal history of nicotine dependence; Z79.4 Long term (current) use of insulin; Z79.899 Other long term (current) drug therapy
CPT/HCPCS: 36415; 80053; 80061; 81001; 82947; 83036; 85025; 87086; 92950; J2060; J2359

== ENCOUNTER → 2023-10-03 18:52 | Outpatient (BNV) | payer MEDICARE, SELFPAY | PROVIDERS: Admitting Provider Clinical Nurse Specialist Psychiatric/Mental Health, Adult; PCP Internal Medicine; Visit Provider Psychiatry & Neurology Psychiatry | DX: F32.3 Major depressive disorder, single episode, severe with psychotic features (principal); R41.89 Other symptoms and signs involving cognitive functions and awareness; R46.89 Other symptoms and signs involving appearance and behavior | CPT/HCPCS: 99231; 99232 ==

== ENCOUNTER → 2023-10-03 18:52 | Outpatient (BNV) | payer MEDICARE, SELFPAY | PROVIDERS: Admitting Provider Clinical Nurse Specialist Psychiatric/Mental Health, Adult; PCP Internal Medicine; Visit Provider Student in an Organized Health Care Education/Training Program | DX: Z02.2 Encounter for examination for admission to residential institution (principal) | CPT/HCPCS: 99429; 99499 ==

== ENCOUNTER → 2023-10-03 18:52 | Outpatient (BNV) | payer MEDICARE, SELFPAY | PROVIDERS: Admitting Provider Clinical Nurse Specialist Psychiatric/Mental Health, Adult; PCP Internal Medicine; Visit Provider Clinical Nurse Specialist Psychiatric/Mental Health | DX: F32.3 Major depressive disorder, single episode, severe with psychotic features (principal); R41.89 Other symptoms and signs involving cognitive functions and awareness | CPT/HCPCS: 90792; 99231; 99232; 99238 ==